=== PATIENT | female | born 1975 | race African-American/Black ===

== ENCOUNTER 2019-03-23 12:31 | Emergency (ER) | payer BC ==
[2019-03-23] MEDS ORDERED: ONDANSETRON 4 MG/2 ML VIAL ONE (13:17)
[2019-03-23] MEDS ORDERED: NA CHLORIDE 0.9% 1,000 ML ONE (13:17)
[2019-03-23] MEDS ORDERED: MORPHINE 4 MG/ML SYR ONE (13:17)
[2019-03-23 13:27] LABS: Urine Blood NEGATIVE (NEG); Urine Glucose NEGATIVE (NEG); Urine Protein NEGATIVE (NEG); Urine pH 6.5 (5.0-7.0)
[2019-03-23 13:44] LABS: Urine Bacteria <20 /HPF (<20); Urine Culture Reflex Order NOT NEEDED; Urine RBC NONE SEEN /HPF (NONE SEEN)
[2019-03-23 13:58] LABS: Absolute Lymphocytes (CBC) 2.7 K/uL (0.7-4.9); Basophils % 0.8 % (0-1.3); Hematocrit 40.2 % (36.0-45.0); Lymphocytes % 38.3 % (15.3-44.8); MPV 7.7 fL (7.6-11.3); RBC Red Blood Cell Count 4.54 M/uL (3.86-4.86)
[2019-03-23 14:15] LABS: ALT/SGPT 20 U/L (12-78); AST/SGOT 12 U/L (15-37); Albumin 3.8 g/dL (3.4-5.0); Alkaline Phosphatase 93 U/L (45-117); BUN Blood Urea Nitrogen 9 mg/dL (7-18); Bicarbonate 23 mmol/L (21-32); Bilirubin Direct 0.1 mg/dL (0-0.2); Bilirubin Total 0.4 mg/dL (0.2-1.0); Glucose Level 78 mg/dL (74-106); Lipase 134 U/L (73-393); Potassium 3.7 mmol/L (3.5-5.1); Sodium Level 138 mmol/L (136-145)
--- NOTE | 2019-03-23 15:14 | RAD REPORT ---
EXAM DESCRIPTION: CT - Abdomen Pelvis W Contrast - 03/23/2019 3:02 pm CLINICAL HISTORY: ABD PAIN COMPARISON: No comparisons TECHNIQUE: Biphasic, helical CT imaging of the abdomen and pelvis was performed following 100 ml non -ionic IV contrast. No oral contrast given. All CT scans are performed using dose optimization technique as appropriate and may include automated exposure control or mA/KV adjustment according to patient size. FINDINGS: No suspicious findings in the lung bases. The liver, spleen, and pancreas show no suspicious findings. Punctate gallstones seen. Additional gal lstones could be occult. No wall thickening or pericholecystic fluid. No biliary tree abnormality. Symmetric renal function is seen with no hydronephrosis or suspicious renal mass. No pyelonephritis o r acute parenchymal process. No bladder abnormalities. No adrenal abnormalities. Uterus and ovaries s how no suspicious findings. No dilated bowel loops. No appendicitis findings. Fluid filled nondilated small bowel loops are prese nt. No free air or pneumatosis. Physiologic quantity of free fluid in the cul de sac. No hernia, ma ss or bulky lymphadenopathy. No suspicious bony findings. IMPRESSION: No appendicitis, obstruction, free air or other surgically emergent finding. Fluid-filled small bowel loops indicate a nonspecific enteritis. 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 Patient has cholelithiasis but no findings for active gallbladder or biliary tree process.
--- NOTE | 2019-03-23 15:25 | ER ---
Nurse's Notes [facility] Name: Dee Logan Age: 43 yrs Sex: Female : 1975 Arrival Date: 03/23/2019 Time: 12:35 Bed 8 Private MD: Diagnosis: Cholelithiasis Presentation: 03/23 12:38 Presenting complaint: Patient states: Diffuse abdominal pain x 1 week, diarrhea started jl7 yesterday, reports lower back pain started yesterday. Transition of care: patient was not received from another setting of care. Onset of symptoms was March 18, 2019. Risk Assessment: Do you want to hurt yourself or someone else? Patient reports no desire to harm self or others. Initial Sepsis Screen: Does the patient meet any 2 criteria? No. Patient's initial sepsis screen is negative. Does the patient have a suspected source of infection? No. Patient's initial sepsis screen is negative. Care prior to arrival: None. 12:38 Method Of Arrival: Ambulatory [facility] 12:38 Acuity: LYNN 3 jl7 Triage Assessment: 12:45 General: Appears in no apparent distress. uncomfortable, Behavior is calm, cooperative, jl7 appropriate for age. Pain: Complains of pain in abdomen diffusely Pain currently is 6 out of 10 on a pain scale. GI: Reports diarrhea, Patient currently denies nausea, vomiting. 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 - Social history:: Smoking status: Patient uses tobacco products, 4 cigarettes/day. - Ebola Screening: : No symptoms or risks identified at this time. Screenin:50 Abuse screen: Denies threats or abuse. Nutritional screening: No deficits noted. tw2 Tuberculosis screening: No symptoms or risk factors identified. Fall Risk None identified. Assessment: 13:00 General: Appears in no apparent distress. comfortable, Behavior is calm, cooperative, ca1 appropriate for age. Pain: Complains of pain in abdomen and abdomen diffusely Pain radiates to back Pain currently is 7 out of 10 on a pain scale. Quality of pain is described as crampy, Pain began a week ago Is intermittent. Neuro: Level of Consciousness is awake, alert, obeys commands, Oriented to person, place, time, situation, Appropriate for age. Cardiovascular: Heart tones S1 S2 present Capillary refill < 3 seconds Patient's skin is warm and dry. Respiratory: Airway is patent Respiratory effort is even, unlabored, Respiratory pattern is regular, symmetrical, Breath sounds are clear bilaterally. GI: Abdomen is round non-distended, Bowel sounds present X 4 quads. Abd is soft X 4 quads Abdomen is tender to palpation in right upper quadrant and left upper quadrant. : No deficits noted. No signs and/or symptoms were reported regarding the genitourinary system. EENT: No deficits noted. No signs and/or symptoms were reported regarding the EENT system. Derm: Skin is intact, is healthy with good turgor, Skin is pink, warm \T\ dry. Musculoskeletal: Circulation, motion, and sensation intact. Capillary refill < 3 seconds, Range of motion: intact in all extremities. 14:12 Reassessment: Patient appears in no apparent distress at this time. Patient and/or ca1 family updated on plan of care and expected duration. Pain level reassessed. Patient is alert, oriented x 3, equal unlabored respirations, skin warm/dry/pink. 15:32 Reassessment: Patient appears in no apparent distress at this time. Patient is alert, ca1 oriented x 3, equal unlabored respirations, skin warm/dry/pink. Vital Signs: 12:45 BP 170 / 104; Pulse 75; Resp 16; Temp 97.6(O); Pulse Ox 100% on R/A; Weight 83.91 kg jl7 (R); Height 5 ft. 5 in. (165.10 cm) (R); Pain 6/10; 14:12 BP 130 / 64; Pulse 81; Resp 17 S; Pulse Ox 99% on R/A; ca1 15:32 BP 170 / 92; Pulse 61; Resp 17 S; Pulse Ox 100% on R/A; ca1 12:45 Body Mass Index 30.79 (83.91 kg, 165.10 cm) jl7 ED Course: 12:35 Patient arrived in ED. rg4 12:40 Triage completed. jl7 12:45 Arm band placed on right wrist. jl7 12:50 Haleigh Low, RN is Primary Nurse. tw2 12:50 Bed in low position. Call light in reach. tw2 12:51 Amilcar Taveras, VIJAYA is PHCP. pm1 12:51 Home Maldonado MD is Attending Physician. pm1 13:00 Pulse ox on. NIBP on. Warm blanket given. ca1 13:12 Radiology exam delayed due to lab results not completed at this time. (BUN/Creatinine) bq test not completed at this time. 13:52 No provider procedures requiring assistance completed. Initial lab(s) drawn, by me, ca1 sent to lab. Inserted saline lock: 22 gauge in left antecubital area, using aseptic technique. Blood collected. 15:04 CT Abd/Pelvis - IV Contrast Only In Process Unspecified. EDMS 15:24 Blair Norris MD is Referral Physician. pm1 15:47 IV discontinued, intact, bleeding controlled, No redness/swelling at site. Pressure ca1 dressing applied. Administered Medications: 14:25 Drug: NS 0.9% 1000 ml Route: IV; Rate: 1000 ml; Site: left antecubital; jl7 15:30 Follow up: Response: No adverse reaction ca1 15:49 Follow up: IV Status: Completed infusion; IV Intake: 1000ml ca1 14:26 Drug: Zofran 4 mg Route: IVP; Site: left antecubital; 7 15:30 Follow up: Response: No adverse reaction; Nausea is decreased ca1 14:28 Drug: morphine 4 mg Route: IVP; Site: left antecubital; jl7 15:30 Follow up: Response: No adverse reaction; Pain is decreased; RASS: Alert and Calm (0) ca1 Intake: 15:49 IV: 1000ml; Total: 1000ml. ca1 Outcome: 15:24 Discharge ordered by . pm1 15:47 Discharged to home ambulatory, with family. ca1 15:47 Condition: stable 15:47 Discharge instructions given to patient, Instructed on discharge instructions, follow up and referral plans. medication usage, Demonstrated understanding of instructions, follow-up care, medications, Prescriptions given X 3. 15:48 Patient left the ED. ca1 Signatures: Dispatcher [employer] EDMS Jory Sawant Patrick, VIJAYA DRUG ROOM OPERATOR pm1 Haleigh Low RN RN tw2 Silvia Enamorado rg4 Hoang Sanz, RN RN jl7 Brie Kimbrough RN RN ca1
--- NOTE | 2019-03-23 15:25 | EDPHYS ---
Physician Documentation [facility] Name: Dee Logan Age: 43 yrs Sex: Female : 1975 Arrival Date: 03/23/2019 Time: 12:35 Bed 8 Private MD: ED Physician Home Maldonado HPI: 03/23 13:00 This 43 yrs old Black Female presents to ER via Ambulatory with complaints of Diarrhea, pm1 Abdominal Pain. 13:00 The patient presents with abdominal pain in the epigastric area. Onset: The pm1 symptoms/episode began/occurred 1 week(s) ago. The symptoms do not radiate. Associated signs and symptoms: Pertinent positives: Diarrhea onset yesterday, Pertinent negatives: constipation, dysuria, fever, nausea, vomiting. The symptoms are described as sharp. Modifying factors: The symptoms are alleviated by nothing, the symptoms are aggravated by Certain foods. Severity of pain: in the emergency department the pain has improved. The patient has not experienced similar symptoms in the past. The patient has not recently seen a physician. 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 - Social history:: Smoking status: Patient uses tobacco products, 4 cigarettes/day. - Ebola Screening: : No symptoms or risks identified at this time. ROS: 13:00 Constitutional: Negative for fever, chills, and weight loss, Eyes: Negative for injury, pm1 pain, redness, and discharge, ENT: Negative for injury, pain, and discharge, Neck: Negative for injury, pain, and swelling, Cardiovascular: Negative for chest pain, palpitations, and edema, Respiratory: Negative for shortness of breath, cough, wheezing, and pleuritic chest pain. 13:00 Back: Negative for injury and pain, : Negative for injury, bleeding, discharge, and swelling, MS/Extremity: Negative for injury and deformity, Skin: Negative for injury, rash, and discoloration, Neuro: Negative for headache, weakness, numbness, tingling, and seizure. 13:00 Abdomen/GI: Positive for abdominal pain, diarrhea, Negative for nausea and vomiting, constipation. Exam: 13:00 Constitutional: This is a well developed, well nourished patient who is awake, alert, pm1 and in no acute distress. Head/Face: Normocephalic, atraumatic. Neck: Trachea midline, no thyromegaly or masses palpated, and no cervical lymphadenopathy. Supple, full range of motion without nuchal rigidity, or vertebral point tenderness. No Meningismus. Chest/axilla: Normal chest wall appearance and motion. Nontender with no deformity. No lesions are appreciated. Cardiovascular: Regular rate and rhythm with a normal S1 and S2. No gallops, murmurs, or rubs. Normal PMI, no JVD. No pulse deficits. Respiratory: Lungs have equal breath sounds bilaterally, clear to auscultation and percussion. No rales, rhonchi or wheezes noted. No increased work of breathing, no retractions or nasal flaring. 13:00 Back: No spinal tenderness. No costovertebral tenderness. Full range of motion. Skin: Warm, dry with normal turgor. Normal color with no rashes, no lesions, and no evidence of cellulitis. MS/ Extremity: Pulses equal, no cyanosis. Neurovascular intact. Full, normal range of motion. 13:00 Abdomen/GI: Inspection: obese Bowel sounds: normal, Palpation: abdomen is soft and non-tender, in all quadrants, mass, is not appreciated, rebound tenderness, is not appreciated. 13:00 Neuro: Orientation: is normal, Motor: is normal, moves all fours, Sensation: is normal, no obvious gross deficits. Vital Signs: 12:45 BP 170 / 104; Pulse 75; Resp 16; Temp 97.6(O); Pulse Ox 100% on R/A; Weight 83.91 kg jl7 (R); Height 5 ft. 5 in. (165.10 cm) (R); Pain 6/10; 14:12 BP 130 / 64; Pulse 81; Resp 17 S; Pulse Ox 99% on R/A; ca1 15:32 BP 170 / 92; Pulse 61; Resp 17 S; Pulse Ox 100% on R/A; ca1 12:45 Body Mass Index 30.79 (83.91 kg, 165.10 cm) jl7 MDM: 12:51 Patient medically screened. pm1 15:23 Data reviewed: vital signs. Data interpreted: Pulse oximetry: on room air is 99 %. pm1 Interpretation: normal. 15:23 Counseling: I had a detailed discussion with the patient and/or guardian regarding: the pm1 historical points, exam findings, and any diagnostic results supporting the discharge/admit diagnosis, lab results, radiology results, the need for outpatient follow up, a general surgeon, to return to the emergency department if symptoms worsen or persist or if there are any questions or concerns that arise at home. 03/23 13:05 Order name: Urine Microscopic Only; Complete Time: 13:46 pm1 03/23 13:05 Order name: Basic Metabolic Panel; Complete Time: 14:19 pm03/23 13:05 Order name: CBC with Diff; Complete Time: 14:19 pm03/23 13:05 Order name: Creatinine for Radiology; Complete Time: 14:19 pm03/23 13:05 Order name: Hepatic Function; Complete Time: 14:19 pm03/23 13:05 Order name: Lipase; Complete Time: 14:19 pm1 03/23 13:00 Order name: Urine Dipstick-Ancillary (obtain specimen); Complete Time: 13:00 tw2 03/23 13:05 Order name: Urine Test (obtain specimen); Complete Time: 13:52 pm1 03/23 13:05 Order name: CT Abd/Pelvis - IV Contrast Only; Complete Time: 15:21 pm03/23 13:09 Order name: Urine Dipstick--Ancillary (enter results); Complete Time: 13:30 ms 03/23 13:09 Order name: Urine --Ancillary (enter results); Complete Time: 13:30 ms 03/23 13:05 Order name: IV Saline Lock; Complete Time: 13:52 pm03/23 13:05 Order name: Labs collected and sent; Complete Time: 13:52 pm1 Administered Medications: 14:25 Drug: NS 0.9% 1000 ml Route: IV; Rate: 1000 ml; Site: left antecubital; 7 15:30 Follow up: Response: No adverse reaction ca1 15:49 Follow up: IV Status: Completed infusion; IV Intake: 1000ml ca1 14:26 Drug: Zofran 4 mg Route: IVP; Site: left antecubital; jl7 15:30 Follow up: Response: No adverse reaction; Nausea is decreased ca1 14:28 Drug: morphine 4 mg Route: IVP; Site: left antecubital; jl7 15:30 Follow up: Response: No adverse reaction; Pain is decreased; RASS: Alert and Calm (0) ca1 Disposition: 03/23/19 15:24 Discharged to Home. Impression: Cholelithiasis. - Condition is Stable. - Discharge Instructions: Cholelithiasis. - Prescriptions for Bentyl 20 mg Oral Tablet - take 1 tablet by ORAL route every 6 hours As needed; 20 tablet. Tylenol- Codeine #3 300-30 mg Oral Tablet - take 2 tablets by ORAL route every 6 hours As needed; 20 tablet. Zofran 4 mg Oral Tablet - take 1 tablet by ORAL route every 8 hours As needed; 20 tablet. - Medication Reconciliation Form, Thank You Letter, Antibiotic Education, Prescription Opioid Use, Work release form form. - Follow up: Emergency Department; When: As needed; Reason: Worsening of condition. Follow up: Private Physician; When: 2 - 3 days; Reason: Recheck today's complaints, Continuance of care, Re-evaluation by your physician. Follow up: Blair Norris MD; When: 2 - 3 days; Reason: Recheck today's complaints, Continuance of care, Re-evaluation by your physician. - Problem is new. - Symptoms have improved. Addendum: 03/25/2019 09:24 Co-signature as Attending Physician, Home Maldonado MD I agree with the assessment and c caicedo plan of care. Signatures: Dispatcher [employer] Home Rodriguez MD MD cha Marinas, Patrick, VIJAYA LEAD GENERATION SPECIALIST pm1 Haleigh Low RN RN tw2 Hoang Sanz RN RN jl7 Brie Kimbrough RN RN ca1 Corrections: (The following items were deleted from the chart) 03/23 15:25 15:24 03/23/2019 15:24 Discharged to Home. Impression: Cholelithiasis. Condition is pm1 Stable. Forms are Work release form, Medication Reconciliation Form, Thank You Letter, Antibiotic Education, Prescription Opioid Use. Follow up: Emergency Department; When: As needed; Reason: Worsening of condition. Follow up: Private Physician; When: 2 - 3 days; Reason: Recheck today's complaints, Continuance of care, Re-evaluation by your physician. Problem is new. Symptoms have improved. pm1 15:48 15:25 03/23/2019 15:24 Discharged to Home. Impression: Cholelithiasis. Condition is ca1 Stable. Discharge Instructions: Cholelithiasis. Prescriptions for Bentyl 20 mg Oral Tablet - take 1 tablet by ORAL route every 6 hours As needed; 20 tablet, Tylenol-Codeine #3 300-30 mg Oral Tablet - take 2 tablet by ORAL route every 6 hours As needed; 30 tablet, Zofran 4 mg Oral Tablet - take 1 tablet by ORAL route every 12 hours As needed; 20 tablet. and Forms are Work release form, Medication Reconciliation Form, Thank You Letter, Antibiotic Education, Prescription Opioid Use. Follow up: Emergency Department; When: As needed; Reason: Worsening of condition. Follow up: Private Physician; When: 2 - 3 days; Reason: Recheck today's complaints, Continuance of care, Re-evaluation by your physician. Follow up: Blair Norris; When: 2 - 3 days; Reason: Recheck today's complaints, Continuance of care, Re-evaluation by your physician. Problem is new. Symptoms have improved. pm1
[2019-03-23 16:31] VITALS: TEMP 97.6
[2019-03-23 16:33] VITALS: BP 170/92; O2SAT 100
== END 2019-03-23 15:48 | disposition home or self-care (01) ==
LOC: ER 12:31
DX: K80.20 Calculus of gallbladder without cholecystitis without obstruction (principal); I10 Essential (primary) hypertension
CPT/HCPCS: 96361; 85025; 80048; 36415; 81025; 80076; 83690; 74177; 96375; 96374; 99284; Q9967; J7030; J2405; 81003; 81015

== ENCOUNTER 2019-03-25 08:34 | Emergency (ER) | payer BC ==
[2019-03-25 09:52] LABS: Absolute Lymphocytes (CBC) 2.5 K/uL (0.7-4.9); Basophils % 0.6 % (0-1.3); Hematocrit 45.2 % (36.0-45.0); Lymphocytes % 35.2 % (15.3-44.8); MPV 7.9 fL (7.6-11.3); RBC Red Blood Cell Count 5.08 M/uL (3.86-4.86)
[2019-03-25 10:07] LABS: Albumin 4.4 g/dL (3.4-5.0); Bilirubin Direct 0.1 mg/dL (0-0.2); Bilirubin Total 0.5 mg/dL (0.2-1.0); Potassium 3.6 mmol/L (3.5-5.1); Protein, Total 9.1 g/dL (6.4-8.2)
--- NOTE | 2019-03-25 10:08 | RAD REPORT ---
EXAM DESCRIPTION: US - Abdomen Exam Limited - 03/25/2019 9:50 am CLINICAL HISTORY: abdominal pain COMPARISON: No comparisons FINDINGS: The gallbladder demonstrates multiple shadowing gallstones. No pericholecystic fluid or ga llbladder wall thickening. The common bile duct is normal measuring 2 mm. The liver demonstrates no findings of intrahepatic biliary dilatation. IMPRESSION: Cholelithiasis.
[2019-03-25 10:34] LABS: Urine Blood TRACE (NEG); Urine Glucose NEGATIVE (NEG); Urine Protein NEGATIVE (NEG); Urine Specific Gravity 1.015 (1.005-1.030)
[2019-03-25 11:45] VITALS: TEMP 97.8; O2SAT 99
[2019-03-25 11:48] VITALS: BP 160/93
--- NOTE | 2019-03-25 12:58 | ER ---
Nurse's Notes [facility] Name: Dee Logan Age: 43 yrs Sex: Female : 1975 Arrival Date: 03/25/2019 Time: 08:35 Bed 8 Private MD: Diagnosis: Cholelithiasis Presentation: 03/25 08:46 Presenting complaint: Patient states: epigastric pain radiating to back. Pt also aa5 reports nausea. Pt states "I was here on Monday and they told me I have gallstones". 08:46 Acuity: LYNN 3 aa5 08:58 Transition of care: patient was not received from another setting of care. Onset of aa5 symptoms was March 2019. Risk Assessment: Do you want to hurt yourself or someone else? Patient reports no desire to harm self or others. Initial Sepsis Screen: Does the patient meet any 2 criteria? No. Patient's initial sepsis screen is negative. Does the patient have a suspected source of infection? No. Patient's initial sepsis screen is negative. Care prior to arrival: None. 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 - Social history:: Smoking status: Patient/guardian denies using tobacco. - Ebola Screening: : No symptoms or risks identified at this time. Screenin:25 Abuse screen: Denies threats or abuse. Denies injuries from another. Nutritional hb screening: No deficits noted. Tuberculosis screening: No symptoms or risk factors identified. Fall Risk None identified. Assessment: 09:25 General: Appears in no apparent distress. Behavior is calm, cooperative. Pain: Pain hb currently is 7 out of 10 on a pain scale. Neuro: Level of Consciousness is awake, alert, obeys commands, Oriented to person, place, time, situation. Cardiovascular: Capillary refill < 3 seconds Patient's skin is warm and dry. Respiratory: Airway is patent Respiratory effort is even, unlabored, Respiratory pattern is regular, symmetrical, Breath sounds are clear bilaterally. GI: Abdomen is non-distended, Bowel sounds present X 4 quads. Abd is soft X 4 quads tender diffusely. : No signs and/or symptoms were reported regarding the genitourinary system. EENT: No signs and/or symptoms were reported regarding the EENT system. Derm: Skin is pink, warm \\T\\ dry. Musculoskeletal: No signs and/or symptoms reported regarding the musculoskeletal system. Vital Signs: 08:47 BP 183 / 102; Pulse 72; Resp 16 S; Temp 97.8(TE); Pulse Ox 99% on R/A; Weight 83.91 kg aa5 (R); Height 5 ft. 5 in. (165.10 cm) (R); Pain 7/10; 10:00 BP 167 / 86; Pulse 59; Resp 16; Pulse Ox 99% ; sv 11:00 BP 160 / 93; Pulse 68; Resp 14; Pulse Ox 99% on R/A; hb 08:47 Body Mass Index 30.79 (83.91 kg, 165.10 cm) aa5 ED Course: 08:35 Patient arrived in ED. as 08:58 Arm band placed on Patient placed in an exam room, on a stretcher. aa5 08:59 Cralos Enrique Byrne PA is PHCP. jmm 08:59 Home Maldonado MD is Attending Physician. jmm 09:01 Triage completed. aa5 09:20 Missed attempt(s): 20 gauge in left antecubital area. Bleeding controlled, band aid hb applied, catheter tip intact. 09:22 Inserted saline lock: 22 gauge in left hand, using aseptic technique. Blood collected. hb 09:25 Patient has correct armband on for positive identification. Placed in gown. Bed in low hb position. Call light in reach. Side rails up X 1. 09:49 Amy Byrd, HAYLEY is Primary Nurse. hb 09:51 US Abdomen Limited Sent. hb 09:57 US Abdomen Limited In Process Unspecified. EDMS 11:07 Bowen Shoemaker MD is Referral Physician. jmm 11:36 No provider procedures requiring assistance completed. IV discontinued, intact, sv bleeding controlled, No redness/swelling at site. Pressure dressing applied. Administered Medications: 09:40 Drug: morphine 4 mg Route: IVP; Site: left hand; hb 09:40 Drug: Zofran 4 mg Route: IVP; Site: left hand; hb Outcome: 11:10 Discharge ordered by . steven 11:37 Discharged to home ambulatory, with family. sv 11:37 Condition: stable 11:37 Discharge instructions given to patient, Instructed on discharge instructions, follow up and referral plans. no drinking with medication, no driving heavy equipment, medication usage, avoid fatty/fried foods Demonstrated understanding of instructions, follow-up care, medications, Prescriptions given X 1. 11:37 Patient left the ED. sv Signatures: Dispatcher [employer] Milli Lopez RN RN Carlos Enrique Byrne PA PA jmm Martinez, Amelia as Calderon, Audri, RN RN aa5 Amy Byrd RN RN Corrections: (The following items were deleted from the chart) 09:02 08:58 Presenting complaint: Patient states: epigastric pain radiating to back. Pt also aa5 reports nausea. Pt states "I was here on Monday and they told me I have gallstones" aa5 09: 08:58 Acuity: LYNN 3 aa5 aa5
--- NOTE | 2019-03-25 12:59 | EDPHYS ---
Physician Documentation [facility] Name: Dee Logan Age: 43 yrs Sex: Female : 1975 Arrival Date: 03/25/2019 Time: 08:35 Bed 8 Private MD: ED Physician Home Maldonado HPI: 03/25 09:00 This 43 yrs old Black Female presents to ER via Ambulatory with complaints of jmm Gallbladder. 09:00 The patient presents with abdominal pain in the epigastric area. Onset: The jmm symptoms/episode began/occurred gradually, 1 week(s) ago. The symptoms radiate to right back. 09:00 Associated signs and symptoms: Pertinent negatives: fever. jmm 09:00 The symptoms are described as achy. Modifying factors: The symptoms are alleviated by jmm nothing, the symptoms are aggravated by food. This is a 43 year old female with no chronic medical conditions that presents to the ED with complaints of epigastric abdominal pain. Patient was evaluated in the ED 2 days ago and diagnosed with cholelithiasis. Patient states she continues to have been. Denies fever, vomiting. . DOCUMENTATION SPEC: 08:47 LMP 03/18/2019 aa5 Historical: - Allergies: 08:46 Naproxen; aa5 - Home Meds: 08:46 Methocarbamol Oral [Active]; metoprolol tartrate 50 mg Oral tab [Active]; [place] 5-325 aa5 mg Oral tab [Active]; Truvada 200-300 mg Oral tab [Active]; - PMHx: 08:46 Hepatitis; Herniated disc; Hypertension; aa5 - PSHx: 08:46 stapedectomy right ear; aa5 - Immunization history:: Adult Immunizations up to date. - Social history:: Smoking status: Patient/guardian denies using tobacco. - Ebola Screening: : No symptoms or risks identified at this time. ROS: 09:00 Constitutional: Negative for fever, chills, and weight loss, Cardiovascular: Negative jmm for chest pain, palpitations, and edema, Respiratory: Negative for shortness of breath, cough, wheezing, and pleuritic chest pain. 09:00 Abdomen/GI: Positive for abdominal pain. 09:00 Back: Positive for radiated pain. 09:00 Neuro: Negative for Vital Signs: 08:47 BP 183 / 102; Pulse 72; Resp 16 S; Temp 97.8(TE); Pulse Ox 99% on R/A; Weight 83.91 kg aa5 (R); Height 5 ft. 5 in. (165.10 cm) (R); Pain 7/10; 10:00 BP 167 / 86; Pulse 59; Resp 16; Pulse Ox 99% ; sv 11:00 BP 160 / 93; Pulse 68; Resp 14; Pulse Ox 99% on R/A; hb 08:47 Body Mass Index 30.79 (83.91 kg, 165.10 cm) aa5 MDM: 09:00 Patient medically screened. [facility] 11:06 Data reviewed: vital signs, nurses notes. Counseling: I had a detailed discussion with steven the patient and/or guardian regarding: the historical points, exam findings, and any diagnostic results supporting the discharge/admit diagnosis, lab results, the need for outpatient follow up, to return to the emergency department if symptoms worsen or persist or if there are any questions or concerns that arise at home. ED course: I discussed the patient with Dr. Shoemaker whom will follow up with the patient tomorrow. Patient otherwise given strict return precautions. Patient understood and agrees with the plan of care. . 03/25 09:07 Order name: Basic Metabolic Panel; Complete Time: 10:14 [facility] 03/25 09:07 Order name: CBC with Diff; Complete Time: 09:54 [facility] 03/25 09:07 Order name: Creatinine for Radiology; Complete Time: 10:14 [facility] 03/25 09:07 Order name: Hepatic Function; Complete Time: 10:14 [facility] 03/25 09:07 Order name: Lipase; Complete Time: 10:14 [facility] 03/25 09:55 Order name: Urine Dipstick--Ancillary (enter results); Complete Time: 10:40 03/25 09:07 Order name: IV Saline Lock; Complete Time: 09:49 [facility] 03/25 09:07 Order name: Labs collected and sent; Complete Time: 09:49 [facility] 03/25 09:08 Order name: Urine Dipstick-Ancillary (obtain specimen); Complete Time: 09:49 [facility] 03/25 09:08 Order name: Urine Test (obtain specimen); Complete Time: 09:49 [facility] 03/25 09:28 Order name: US Abdomen Limited; Complete Time: 10:40 [facility] 03/25 09:56 Order name: Urine --Ancillary (enter results); Complete Time: 10:40 bd Administered Medications: 09:40 Drug: morphine 4 mg Route: IVP; Site: left hand; hb 09:40 Drug: Zofran 4 mg Route: IVP; Site: left hand; hb Disposition: 03/26 06:57 Co-signature as Attending Physician, Home Maldonado MD I agree with the assessment and rita plan of care. Disposition: 03/25/19 11:10 Discharged to Home. Impression: Cholelithiasis. - Condition is Stable. - Discharge Instructions: Cholelithiasis. - Prescriptions for Tylenol- Codeine #3 300-30 mg Oral Tablet - take 1 tablet by ORAL route every 6 hours As needed; 20 tablet. - Medication Reconciliation Form, Thank You Letter, Antibiotic Education, Prescription Opioid Use form. - Follow up: Bowen Shoemaker MD; When: 2 - 3 days; Reason: Recheck today's complaints, Continuance of care, Re-evaluation by your physician. Signatures: Dispatcher [employer] Milli Lopez, RN Home Barcenas MD MD cha Mickail, Joel, PRABHA PA [facility] Tierra Dunn, RN HAYLEY aa Amy Byrd RN RN Corrections: (The following items were deleted from the chart) 03/25 11:37 11:10 03/25/2019 11:10 Discharged to Home. Impression: Cholelithiasis. Condition is sv Stable. Forms are Medication Reconciliation Form, Thank You Letter, Antibiotic Education, Prescription Opioid Use. Follow up: Bowen Shoemaker; When: 2 - 3 days; Reason: Recheck today's complaints, Continuance of care, Re-evaluation by your physician. [facility]
== END 2019-03-25 11:37 | disposition home or self-care (01) ==
LOC: ER 08:34
DX: K80.20 Calculus of gallbladder without cholecystitis without obstruction (principal); I10 Essential (primary) hypertension; K75.9 Inflammatory liver disease, unspecified
CPT/HCPCS: 36415; 76705; 80048; 80076; 81003; 81025; 83690; 85025; 96374; 96375; 99284

== ENCOUNTER 2021-04-19 15:50 | Emergency (ER) | payer BC, SELFPAY ==
--- OUTSIDE RECORDS SUMMARY | 2021-04-19 15:53 | XMS REPORT | Continuity of Care Document ---
:1975 Author Organization [facility] t Address [address] [place] [address] Care Team Providers Name Role Phone Yesenia Mcqueen DO Primary Care Physician Rodrigo Attending Clinician Unavailable Katia WILSON Attending Clinician Unavailable EYAL NEIL Attending Clinician Unavailable MARTHA ANNA Attending Clinician Unavailable Will MCQUEEN Attending Clinician Unavailable William CONTRERAS Attending Clinician Unavailable Rodrigo Admitting Clinician Unavailable MARTHA ANNA Admitting Clinician Unavailable Payers Payer Name Policy Type Policy Number Effective Date Expiration Date S ource [facility] NA 2018 00:00:00 Problems This patient has no known problems. Allergies, Adverse Reactions, Alerts Allergy Allergy Status Severity Reaction(s) Onset Inactive Treating Comm ents Source Name Type Date Date Clinician NAPROXEN [employer]UG Active N/V 0 [facility] 03-28 ity of 00:00: [place] [id number] [facility] Social History Social Habit Start Date Stop Date Quantity Comments Source Sex Assigned At [birth year] [facility] 00:00:00 00:00:00 Smoking Status Start Date Stop Date Source Unknown if ever smoked [facility] Medications This patient has no known medications. Procedures This patient has no known procedures. Plan of Care Planned Activity Planned Date Details Comments Source Future Scheduled Test COVID-19 VACCINE (1) [facility] [code = COVID-19 VACCINE (1)] Future Scheduled Test Hepatitis C screening [facility] (procedure) [code = 557775290] Future Scheduled Test Screening for [facility] malignant neoplasm of cervix (procedure) [code = 680608344] Future Scheduled Test INFLUENZA VACCINE [facility] [code = INFLUENZA VACCINE] Encounters Start End Encounter Admission Attending Care Care Encounter Source Date/Time Date/Time Type Type Clinicians Facility Department ID 2020-11-28 2020-11-28 Outpatient WANDA Reyes [id number] [facility] 08:00:00 08:00:00 [facility]m [id number] [facility] [place] 2020-11-28 2020-11-28 Outpatient WANDA Reyes [id number] [facility] 08:00:00 08:00:00 Vishalakshm 40 [facility] [place] 2020-06-08 2020-06-08 [facility] [id number] [facility] 12:30:00 12:30:00 TIM [id number] [facility] 2020-06-08 2020-06-08 Outpatient R KATIE, [facility] [id number] [facility] 12:30:00 12:30:00 TIM [facility] 2020-05-18 2020-05-18 Outpatient [facility] [id number] [facility] 12:30:00 12:30:00 [id number] [facility] 2020-05-18 2020-05-18 [facility] [id number] [facility] 12:30:00 12:30:00 TIM [facility] 2019-10-26 2019-10-26 Emergency E MIRELLA NEIL FB [facility] [id number] FB 11:04:00 16:05:00 2019-10-14 2019-10-14 Outpatient SHOSHANA MHHARITHA DELON [id number] [facility] 07:54:00 11:25:00 SHINIL 2019-10-11 2019-10-11 Outpatient WANDA Reyes [id number] [facility] 12:00:00 12:00:00 Vishalakshm [id number] [facility] [place] 2019-04-22 2019-04-22 Emergency NEHEMIAH GUZMAN [facility] [id number] [facility] 12:30:00 16:37:00 2019-03-30 2019-03-30 Emergency E DIANE, [facility] [id number] [facility] 10:16:00 16:12:00 NAIF Results This patient has no known results.
[2021-04-19] MEDS ORDERED: ONDANSETRON 4 MG/2 ML VIAL ONE (17:10)
[2021-04-19] MEDS ORDERED: MORPHINE 4 MG/ML SYR ONE (17:10)
[2021-04-19 17:13] LABS: Absolute Lymphocytes (CBC) 4.6 K/uL (0.7-4.9); Hematocrit 39.8 % (36.0-45.0); Lymphocytes % 37.2 % (15.3-44.8); MPV 7.6 fL (7.6-11.3); RBC Red Blood Cell Count 4.78 M/uL (3.86-4.86)
[2021-04-19 17:25] LABS: Protime INR 0.98
[2021-04-19 17:37] LABS: ALT/SGPT 25 U/L (12-78); AST/SGOT 10 U/L (15-37); Albumin 3.7 g/dL (3.4-5.0); Alkaline Phosphatase 97 U/L (45-117); BUN Blood Urea Nitrogen 16 mg/dL (7-18); Bicarbonate 23 mmol/L (21-32); Bilirubin Direct < 0.1 mg/dL (0-0.2); Bilirubin Total 0.3 mg/dL (0.2-1.0); Glucose Level 106 mg/dL (74-106); NT PRO-BNP 178 pg/mL (<125); Potassium 3.9 mmol/L (3.5-5.1); Protein, Total 8.3 g/dL (6.4-8.2); Sodium Level 139 mmol/L (136-145)
--- NOTE | 2021-04-19 17:37 | RAD REPORT ---
EXAM DESCRIPTION: RAD - Chest Single View - 04/19/2021 5:16 pm CLINICAL HISTORY: CHEST PAIN COMPARISON: Chest Pa And Lat (2 Views) dated 03/28/2019 FINDINGS: Lines: None. Lungs: No evidence of edema or pneumonia. Linear scarring versus subsegmental atelectasis in the righ t mid lung. Pleural: No significant pleural effusions or pneumothorax. Cardiac: The heart size is within normal limits. Bones: No acute fractures. Other: IMPRESSION: No acute cardiopulmonary disease.
[2021-04-19] MEDS ORDERED: DIAZEPAM 5 MG TABLET ONE (19:25)
--- NOTE | 2021-04-19 20:27 | ER ---
Nurse's Notes [facility] Name: Dee Logan Age: 45 yrs Sex: Female : 1975 Arrival Date: 04/19/2021 Time: 15:51 Bed 5 Private MD: Diagnosis: Chest pain, unspecified;Essential (primary) hypertension Presentation: 04/19 16:04 Chief complaint: Patient states: states chest pain off and on x 3 days, no n/v or sob. [facility] does have a hx of htn. Coronavirus screen: Vaccine status: Patient reports receiving the 2nd dose of the covid vaccine. Ebola Screen: Patient denies exposure to infectious person. Patient denies travel to an Ebola-affected area in the 21 days before illness onset. No symptoms or risks identified at this time. Initial Sepsis Screen: Does the patient meet any 2 criteria? No. Patient's initial sepsis screen is negative. Does the patient have a suspected source of infection? No. Patient's initial sepsis screen is negative. Risk Assessment: Do you want to hurt yourself or someone else? Patient reports no desire to harm self or others. 16:04 Method Of Arrival: Ambulatory [facility] 16:04 Acuity: LYNN 2 [facility] 16:56 Onset of symptoms was April 19, 2021. Triage Assessment: 16:09 General: Appears in no apparent distress. comfortable, well groomed, well developed, [facility] Behavior is calm, cooperative. Pain: Complains of pain in anterior aspect of left upper chest. Cardiovascular: Reports chest pain, fatigue. Historical: - Allergies: 16:08 Naproxen; [facility] - Home Meds: 16:08 Methocarbamol Oral [Active]; metoprolol tartrate 50 mg Oral tab [Active]; [place] 5-325 jh6 mg Oral tab [Active]; Vemlidy 25 mg oral tab [Active]; - PMHx: 16:08 Hepatitis; Herniated disc; Hypertension; [facility] - Immunization history:: Adult Immunizations up to date, Client reports receiving the 2nd dose of the Covid vaccine. - Social history:: Smoking status: Patient reports the use of cigarette tobacco products. Screenin:56 Abuse screen: Denies threats or abuse. Denies injuries from another. Nutritional ph screening: No deficits noted. Tuberculosis screening: No symptoms or risk factors identified. Fall Risk None identified. Assessment: 17:20 General: Appears in no apparent distress. comfortable, well groomed, Behavior is ph cooperative, appropriate for age, anxious. 17:20 Pain: Pain: Complains of pain in anterior aspect of left upper chest Pain does not ph radiate. Pain began gradually. 17:20 Neuro: Level of Consciousness is awake, alert, obeys commands, Oriented to person, ph place, time, situation, Reports dizziness. Cardiovascular: Reports chest pain, lightheadedness, Denies nausea, shortness of breath, vomiting, Capillary refill < 3 seconds in bilateral fingers Patient's skin is warm and dry. Respiratory: Airway is patent Respiratory effort is even, unlabored, Respiratory pattern is regular, symmetrical. GI: No signs and/or symptoms were reported involving the gastrointestinal system. Derm: Skin is intact, is healthy with good turgor, Skin is pink, warm \T\ dry. Musculoskeletal: Circulation, motion, and sensation intact. Range of motion: intact in all extremities. 18:30 Reassessment: Patient appears in no apparent distress at this time. Patient and/or ph family updated on plan of care and expected duration. Pain level reassessed. Patient is alert, oriented x 3, equal unlabored respirations, skin warm/dry/pink. 19:34 Reassessment: Patient appears in no apparent distress at this time. No changes from lg3 previously documented assessment. Patient and/or family updated on plan of care and expected duration. Pain level reassessed. Patient is alert, oriented x 3, equal unlabored respirations, skin warm/dry/pink. Neuro: Level of Consciousness is awake, alert, obeys commands, Oriented to person, place, time, situation. Cardiovascular: Capillary refill < 3 seconds JVD is absent Patient's skin is warm and dry. Respiratory: Airway is patent Trachea midline Respiratory effort is even, unlabored, Respiratory pattern is regular, symmetrical. 20:28 Reassessment: No changes from previously documented assessment. 5 Vital Signs: 16:04 BP 200 / 102; Pulse 64; Resp 17; Temp 98.6; Pulse Ox 99% ; Weight 81.65 kg; Height 5 jh6 ft. 5 in. (165.10 cm); Pain 2/10; 16:55 BP 191 / 89; Pulse 59; Resp 18; Pulse Ox 98% on R/A; ph 17:47 BP 186 / 89; Pulse 56; Resp 18; Pulse Ox 98% on R/A; ph 19:07 BP 184 / 91; Pulse 57; Resp 18; Pulse Ox 97% on R/A; ph 20:27 BP 179 / 92; Pulse 53; Resp 20; Pulse Ox 99% on R/A; sm5 16:04 Body Mass Index 29.95 (81.65 kg, 165.10 cm) [facility] ED Course: 15:51 Patient arrived in ED. am2 16:08 Triage completed. [facility] 16:13 Amilcar Taveras, VIJAYA is PHCP. pm1 16:13 Jorge Kang MD is Attending Physician. pm1 16:21 EKG done, by ED staff, reviewed by Amilcar Taveras NP. 5 16:22 Patient has correct armband on for positive identification. Placed in gown. Bed in low mh5 position. Call light in reach. Side rails up X 1. Warm blanket given. clinical veterinarian on. Pulse ox on. NIBP on. 16:32 Jane Cote, RN is Primary Nurse. ph 16:52 Initial lab(s) drawn, by pr, sent to lab. Inserted saline lock: 20 gauge in left mh5 forearm, using aseptic technique. Blood collected. 16:53 Basic Metabolic Panel Sent. mh5 16:53 CBC with Diff Sent. mh5 16:53 LFT's Sent. mh5 16:53 Magnesium Sent. mh5 16:53 NT PRO-BNP Sent. mh5 16:53 PT-INR Sent. 5 16:53 Troponin HS Sent. mh5 16:56 Patient maintains SpO2 saturation greater than 95% on room air. ph 16:56 Arm band placed on Patient placed in an exam room. ph 17:16 XRAY Chest (1 view) In Process Unspecified. EDMS 20:35 No provider procedures requiring assistance completed. IV discontinued, intact, lg3 bleeding controlled, No redness/swelling at site. Pressure dressing applied. Administered Medications: 17:15 Drug: Zofran (Ondansetron) 4 mg Route: IVP; Site: left wrist; ph 19:11 Follow up: Response: No adverse reaction ph 17:18 Drug: morphine 4 mg Route: IVP; Site: left wrist; ph 19:11 Follow up: Response: No adverse reaction ph 19:34 Drug: Valium (diazepam) 5 mg Route: PO; lg3 19:34 Follow up: Response: No adverse reaction lg3 Outcome: 20:27 Discharge ordered by . pm1 20:35 Discharged to home ambulatory. lg3 20:35 Condition: good 20:35 Discharge instructions given to patient, Instructed on discharge instructions, no drinking with medication, medication usage, Prescriptions given X 2. 20:36 Patient left the ED. lg3 Signatures: Dispatcher [employer] EDJane Olea RN RN ph Amilcar Taveras NP PRODUCT DEVELOPMENT TECHNICIAN pm1 Kathryn Shoemaker [facility] Lisa Castro 2 Amarilis Gomes RN RN lg3 Nesha Callahan RN RN jh6 Janee Mckeon RN RN sm5 Corrections: (The following items were deleted from the chart) 17:49 17:47 Pain: ph ph
--- NOTE | 2021-04-19 20:28 | EDPHYS ---
Physician Documentation [facility] Name: Dee Logan Age: 45 yrs Sex: Female : 1975 Arrival Date: 04/19/2021 Time: 15:51 Bed 5 Private MD: ED Physician Jorge Kang HPI: 04/19 16:29 This 45 yrs old Black Female presents to ER via Ambulatory with complaints of Chest pm1 Pain, Headache, Dizziness, Fatigue. 16:29 The patient or guardian reports chest pain that is located primarily in the mid-sternal pm1 area. Onset: 3 day(s) ago. The pain does not radiate. Associated signs and symptoms: Pertinent negatives: abdominal pain, cough, diaphoresis, dizziness, nausea, palpitations, shortness of breath, vomiting. The chest pain is described as tightness. Duration: The patient or guardian reports multiple episodes. Modifying factors: The symptoms are alleviated by stretching her chest and rolling bother her shoulders. the symptoms are aggravated by emotionally stressful situations, occurs at night as she is unwinding from work. Severity of pain: in the emergency department the pain is unchanged. The patient has not experienced similar symptoms in the past. The patient has not recently seen a physician, has an appointment scheduled, next week for management of blood pressure. Historical: - Allergies: 16:08 Naproxen; jh6 - Home Meds: 16:08 Methocarbamol Oral [Active]; metoprolol tartrate 50 mg Oral tab [Active]; [place] 5-325 jh6 mg Oral tab [Active]; Vemlidy 25 mg oral tab [Active]; - PMHx: 16:08 Hepatitis; Herniated disc; Hypertension; jh6 - Immunization history:: Adult Immunizations up to date, Client reports receiving the 2nd dose of the Covid vaccine. - Social history:: Smoking status: Patient reports the use of cigarette tobacco products. ROS: 16:29 Constitutional: Negative for fever, chills, and weight loss. pm1 16:29 Respiratory: Negative for shortness of breath, cough, wheezing, and pleuritic chest pain, Abdomen/GI: Negative for abdominal pain, nausea, vomiting, diarrhea, and constipation, Back: Negative for injury and pain, MS/Extremity: Negative for injury and deformity, Skin: Negative for injury, rash, and discoloration. 16:29 Cardiovascular: Positive for chest pain, Negative for edema, orthopnea, palpitations. 16:29 Neuro: Positive for dizziness, headache, Negative for numbness, tingling, weakness. 16:29 All other systems are negative. Exam: 16:29 Constitutional: This is a well developed, well nourished patient who is awake, alert, pm1 and in no acute distress. Head/Face: Normocephalic, atraumatic. 16:29 Back: No spinal tenderness. No costovertebral tenderness. Full range of motion. Skin: Warm, dry with normal turgor. Normal color with no rashes, no lesions, and no evidence of cellulitis. MS/ Extremity: Pulses equal, no cyanosis. Neurovascular intact. Full, normal range of motion. 16:29 Eyes: Exam is negative for acute changes, Periorbital structures: no acute changes, Extraocular movements: no acute changes, Conjunctiva: no acute changes, no injection. 16:29 ENT: Exam is negative for acute changes, Mouth: no acute changes, Lips: normal, moist, Oral mucosa: normal, pink and intact, moist. 16:29 Chest/axilla: Inspection: normal, Palpation: tenderness, of the mid-sternal area, that totally reproduces the patient's complaints. 16:29 Cardiovascular: Exam negative for acute changes, Rate: normal, Rhythm: regular, Pulses: no pulse deficits are appreciated, Heart sounds: normal, normal S1and S2. 16:29 Respiratory: Exam negative for acute changes, the patient does not display signs of respiratory distress, Respirations: normal, Breath sounds: are clear throughout. 16:29 Abdomen/GI: Inspection: abdomen appears normal, Palpation: abdomen is soft and non-tender, in all quadrants. 16:29 Neuro: Exam negative for acute changes, Orientation: is normal, Mentation: is normal, Motor: is normal, moves all fours. Vital Signs: 16:04 BP 200 / 102; Pulse 64; Resp 17; Temp 98.6; Pulse Ox 99% ; Weight 81.65 kg; Height 5 jh6 ft. 5 in. (165.10 cm); Pain 2/10; 16:55 BP 191 / 89; Pulse 59; Resp 18; Pulse Ox 98% on R/A; ph 17:47 BP 186 / 89; Pulse 56; Resp 18; Pulse Ox 98% on R/A; ph 19:07 BP 184 / 91; Pulse 57; Resp 18; Pulse Ox 97% on R/A; ph 20:27 BP 179 / 92; Pulse 53; Resp 20; Pulse Ox 99% on R/A; sm5 16:04 Body Mass Index 29.95 (81.65 kg, 165.10 cm) jh6 MDM: 16:18 Patient medically screened. pm1 20:09 Data reviewed: vital signs. Data interpreted: Pulse oximetry: on room air is 97 %. pm1 Interpretation: normal. Counseling: I had a detailed discussion with the patient and/or guardian regarding: the historical points, exam findings, and any diagnostic results supporting the discharge/admit diagnosis, lab results, radiology results, the need for outpatient follow up, a family practitioner, to return to the emergency department if symptoms worsen or persist or if there are any questions or concerns that arise at home. Special discussion: I have referred the patient to see his PCP for further evaluation of high blood pressure. 20:24 ED course: Patient reports relief in chest pain with valium. Will discharge patient pm1 with HCTZ to take once per day with her metoprolol. 04/19 16:28 Order name: Basic Metabolic Panel pm04/19 16:28 Order name: CBC with Diff; Complete Time: 17:19 pm04/19 16:28 Order name: LFT's pm04/19 16:28 Order name: Magnesium pm04/19 16:28 Order name: NT PRO-BNP 04/19 16:28 Order name: PT-INR; Complete Time: 17:37 pm04/19 16:28 Order name: Troponin HS 04/19 16:28 Order name: XRAY Chest (1 view); Complete Time: 17:39 pm04/19 16:28 Order name: EKG; Complete Time: 16:29 pm04/19 16:28 Order name: Cardiac monitoring; Complete Time: 16:52 pm04/19 16:28 Order name: EKG - Nurse/Tech; Complete Time: 16:53 pm04/19 16:28 Order name: IV Saline Lock; Complete Time: 16:53 pm04/19 16:28 Order name: Labs collected and sent; Complete Time: 16:53 pm1 01/31 16:28 Order name: O2 Per Protocol; Complete Time: 16:53 pm1 04/19 16:28 Order name: O2 Sat Monitoring; Complete Time: 16:53 pm1 Administered Medications: 17:15 Drug: Zofran (Ondansetron) 4 mg Route: IVP; Site: left wrist; ph 19:11 Follow up: Response: No adverse reaction ph 17:18 Drug: morphine 4 mg Route: IVP; Site: left wrist; ph 19:11 Follow up: Response: No adverse reaction ph 19:34 Drug: Valium (diazepam) 5 mg Route: PO; lg3 19:34 Follow up: Response: No adverse reaction lg3 Disposition: 04/20 06:57 Co-signature as Attending Physician, Jorge Kang MD I agree with the assessment and rn plan of care. Attestation: The patient's history, exam findings, diagnostics, and a summary of any interventions or procedures was reviewed in detail with Amilcar Taveras NP. Disposition Summary: 04/19/21 20:27 Discharge Ordered Location: Home pm1 Problem: new pm1 Symptoms: have improved pm1 Condition: Stable pm1 Diagnosis - Chest pain, unspecified pm1 - Essential (primary) hypertension pm1 Followup: pm1 - With: Emergency Department - When: As needed - Reason: Worsening of condition Followup: pm1 - With: Private Physician - When: 2 - 3 days - Reason: Recheck today's complaints, Continuance of care, Re-evaluation by your physician Discharge Instructions: - Discharge Summary Sheet pm1 - Nonspecific Chest Pain, Adult pm1 - Hypertension, Adult pm1 - Managing Your Hypertension pm1 - How to Take Your Blood Pressure, [id number] pm1 - DASH Eating Plan pm1 Forms: - Medication Reconciliation Form pm1 - Thank You Letter pm1 - Antibiotic Education pm1 - Prescription Opioid Use pm1 - Work release form sm5 Prescriptions: - Hydrochlorothiazide 12.5 mg Oral Tablet - take 1 tablet by ORAL route once daily; 30 tablet; Refills: 0, Product pm1 Selection Permitted - Cyclobenzaprine 10 mg Oral Tablet - take 1 tablet by ORAL route every 8 hours As needed; 30 tablet; Refills: 0, pm1 Product Selection Permitted Signatures: Dispatcher [employer] EDMS Jorge Kang MD MD rn Hall, Patricia, RN RN ph Marinas, Patrick, NP HISTORICAL INTERPRETER pm1 Amarilis Gomes, RN RN lg3 Nesha Callahan, RN RN jh6
[2021-04-19 20:44] VITALS: TEMP 98.6
[2021-04-19 20:50] VITALS: BP 179/92; O2SAT 99
[2021-04-20 02:35] LABS: Magnesium 2.22
--- NOTE | 2021-04-20 08:16 | EKG ---
Test Date: 2021-04-19 Test Time: 16:17:00 Relay Tester: JORDEN MEASUREMENT RESULTS: Intervals: Rate: 66 WI: 164 QRSD: 84 QT: 414 QTc: 434 [place]: P: 31 WI: 164 QRS: 52 T: 31 INTERPRETIVE STATEMENTS: Normal sinus rhythm Nonspecific T wave abnormality Abnormal ECG Compared to ECG 03/28/2019 15:43:50 No significant changes Electronically Signed On 04-20-21 08:13:50 [employer] COLLECTOR by Jose Rodgers
== END 2021-04-19 20:36 | disposition home or self-care (01) ==
LOC: ER 15:50
DX: R07.9 Chest pain, unspecified (principal); I10 Essential (primary) hypertension; F17.210 Nicotine dependence, cigarettes, uncomplicated; Z88.8 Allergy status to other drugs, medicaments and biological substances
CPT/HCPCS: 93005; 85025; 80048; 36415; 83735; 85610; 80076; 84484; 83880; 71045; 96375; 96374; 99285; J2405

== ENCOUNTER 2021-11-07 19:03 | Emergency (ER) | payer BC, OTHER ==
--- OUTSIDE RECORDS SUMMARY | 2021-11-07 19:07 | XMS REPORT | Continuity of Care Document ---
:[address] [facility] t Address [address] [place]. [address] [place] [id number] Care Team Providers Name Role Phone Jalloh Dina Patterson Primary Care Physician SALONI TRAN Attending Clinician Unavailable DERRICK POLK Attending Clinician Unavailable KIM GAMBLE Attending Clinician Unavailable KIM GAMBLE Attending Clinician Unavailable Saloni Johnson Attending Clinician Rita Wallace Attending Clinician Unavailable MIRELLA NEIL Attending Clinician Unavailable JOSUE ANNA Attending Clinician Unavailable NEHEMIAH JALLOH Attending Clinician Unavailable NAIF CONTRERAS Attending Clinician Unavailable Rita Wallace Admitting Clinician Unavailable JOSUE ANNA Admitting Clinician Unavailable Payers Payer Name Policy Type Policy Number Effective Date Expiration Date S brayden KAUR BCBS BLUE [id number] 2021 ADVANTAGE HMO 00:00:00 [facility] [place] [id number] 2021 WOMEN 00:00:00 Problems Condition Condition Condition Status Onset Resolution Last Treating Co mments Source Name Details Category Date Date Treatment Clinician Date Screening Screening Disease Active Uni vers for STD for STD 08-13 ity of (sexually ([place] transmit[place] transmitte 00 Me dical d disease) d disease) Br anch Vaginal Vaginal Disease Active Univers itching itching 08-13 ity of 00:00: [place] [facility] Candidal Candidal Disease Active Unive rs intertrigo intertrigo 08-13 it y of 00:00: [place] [facility] BMI BMI Disease Active Univers 35.0-35.9, 35.0-35.9, 3-30 it y of adult adult 00:00: Medical Branch Anxiety Anxiety Disease Active Univers and and 06-16 it[place] of depression depression 00:[place] [facility] [place] Essential Essential Disease Active Uni vers hypertensi hypertensi 30 it y of on, on, 00:00: [place] malignant malignant 00 [facility] Branch Nontoxic Nontoxic Disease Active Overview: Un megna single single 03-27 Formattin ity of thyroid thyroid 00:00: g of this [place] nodule nodule 00 note Medical might be Branch different from the original. Formattin g of this note might be different from the original. Converted from [employer]cit y:Descrip tion - THYROID NODULE, RIGHT Chronic Chronic Disease Active 2010-03 Overview: Univ ers viral viral 03-30 Formattin ity of hepatitis hepatitis 00:00: [place] of [place] B without B without 00 note [facility] delta-agen delta-agen might be Branch t t different from the original. Formattin g of this note might be different from the original. Converted from [employer]cit y:Descrip tion - HEPATITIS B CHRONIC Allergies, Adverse Reactions, Alerts Allergy Allergy Status Severity Reaction(s) Onset Inactive Treating Comm ents Source Name Type Date Date Clinician NAPROXEN DRUG Active N/V Univers INGREDI 03-28 ity of 00:00: [place] 00 Medical Branch Naproxen Propensi Active Nausea Univer s ty to and/or 03-28 ity of adverse Vomiting 00:00: [place] reaction 00 Medical s to Branch drug Social History Social Habit Start Date Stop Date Quantity Comments Source History [facility] University o f Alcohol Frequency [facility] edical Branch History [facility] University o f Alcohol Std [place] Medical Drinks Branch History [facility] o f Alcohol Binge [place] Medic al Branch Exposure to 2021-09-17 2021-09-27 Not sure University of SARS-CoV-2 00:00:00 15:37:00 [place] [facility] (event) Branch Tobacco Comment 2021-09-27 2021-09-27 quit x1y ago Univers ity of 00:00:00 00:00:00 [facility] Tobacco use and 2021-09-27 2021-09-27 Smokeless tobacco Un iversity of exposure 00:00:00 00:00:00 non-user [facility] Alcohol intake 2021-09-27 2021-09-27 Current drinker Unive rsity of 00:00:00 00:00:00 of alcohol [place] [facility] (finding) Branch Alcohol Comment 2017-06-16 2017-06-16 social Universit y of 00:00:00 00:00:00 [facility] History of 2014-03-20 Cigarette Smoker Universi ty of tobacco use 00:00:00 [facility] Sex [birth year] Universit y of 00:00:00 00:00:00 [facility] Smoking Status Start Date Stop Date Source Tobacco smoking [facility] consumption unknown Ex-smoker 2021-09-27 00:00:00 2021-09-27 University o f [place] 00:00:00 Medical Branch Medications Ordered Filled Start Stop Current Ordering Indication Dosage Frequency Signature Comments Components Source Medication Medication Date Date Medication? Clinician (SIG) Name Name losartan-hy Yes [id number] 1{tbl} Take 1 Univers drochloroth 7-29 tablet by ity of iazide 00:00: mouth in [place] 50-12.5 mg 00 the Medical per tablet morning. Branc h metoprolol Yes [id number] 50mg Take 1 U nivers succinate 7-27 tablet by ity o f XL 50 mg 24 00:00: [place] hr tablet 00 the Medical morning Branch and 1 tablet in the evening. metoprolol Yes [id number] 50mg Take 1 U nivers succinate 7-27 tablet by ity o f XL 50 mg 24 00:00: [place] tablet 00 the Medical morning Branch and 1 tablet in the evening. fluconazole Yes [id number] 200mg Take 1 Univers 200 mg 7-05 tablet by ity of tablet 00:00: mouth [place] 00 daily. Medical Branch fluconazole 0 Yes [id number] 200mg Take 1 Univers 200 mg 7-05 tablet by ity of tablet 00:00: mouth [place] 00 daily. Medical Branch fluconazole Yes [id number] 200mg Take 1 Univers 200 mg 7-05 tablet by ity of tablet 00:00: mouth [place] 00 daily. Medical Branch fluconazole Yes [id number] 200mg Take 1 Univers 200 mg 7-05 tablet by ity of tablet 00:00: mouth [place] 00 daily. Medical Branch losartan-hy Yes [id number] 1{tbl} Take 1 Univers drochloroth 6-06 tablet by ity of iazide 00:00: mouth [place] 50-12.5 mg 00 daily. Medical per tablet Branch losartan-hy Yes [id number] 1{tbl} Take 1 Univers drochloroth 6-06 tablet by ity of iazide 00:00: mouth [place] 50-12.5 mg 00 daily. Medical per tablet Branch losartan-hy Yes [id number] 1{tbl} Take 1 Univers drochloroth 6-06 tablet by ity of iazide 00:00: mouth [place] 50-12.5 mg 00 daily. Medical per tablet Branch losartan-hy 2021- No [id number] 1{tbl} Take 1 Univers drochloroth 6-06 07-27 tablet by it y of iazide 00:00: 00:00 mouth [place] 50-12.5 mg 00 :00 daily. Medical per tablet Branch methocarbam Yes 500mg Take 500 U nivers oL 500 mg 5-27 mg by ity of tablet 11:38: mouth [place] 52 daily Medical before a Branch meal. tenofovir Yes Take by Unive rs alafenamide 5-27 mouth. ity of (VEMLIDY) 11:38: [place] 25 mg Tab 52 Medical Branch HYDROcodone Yes Take by Uni vers bitartrate 5-27 mouth. ity of 10 mg CR12 11:38: [place] 52 Medical Branch escitalopra Yes 20mg Take 20 mg Univers m oxalate 5-27 by mouth ity of 20 mg 11:38: daily. [place] tablet 52 Medical Branch ALPRAZolam 0 Yes .5mg Take 0.5 Uni vers (XANAX) 0.5 5-27 mg by ity of mg tablet 11:38: mouth [place] 52 daily. Medical Branch methocarbam 0 Yes 500mg Take 500 U nivers oL 500 mg 5-27 mg by ity of tablet 11:38: mouth [place] 52 daily Medical before a Branch meal. tenofovir 2021-0 [facility] 5-27 mouth. ity of (VEMLIDY) 11:38: [place] 25 mg Tab 52 Medical Branch HYDROcodone 0 Yes Take by Uni vers bitartrate 5-27 mouth. ity of 10 mg CR12 11:38: [place] [address] Medical Branch escitalopra Yes 20mg Take 20 mg Univers m oxalate 5-27 by mouth ity of 20 mg 11:38: daily. [place] tablet 52 Medical Branch ALPRAZolam Yes .5mg Take 0.5 Uni vers (XANAX) 0.5 5-27 mg by ity of mg tablet 11:38: mouth [place] 52 daily. Medical Branch methocarbam 0 Yes 500mg Take 500 U nivers oL 500 mg 5-27 mg by ity of tablet 11:38: mouth [place] 52 daily Medical before a Branch meal. tenofovir 2021-0 Yes [facility] alafen[facility] 5-27 mouth. ity of (VEMLIDY) 11:38: [place] 25 mg Tab 52 Medical Branch HYDROcodone 0 Yes Take by Uni vers bitartrate 5-27 mouth. ity of 10 mg CR12 11:38: [place] [address] Medical Branch escitalopra 0 Yes 20mg Take 20 mg Univers m oxalate 5-27 by mouth ity of 20 mg 11:38: daily. [place] tablet Medical Branch ALPRAZolam 0 Yes .5mg Take 0.5 Uni vers (XANAX) 0.5 5-27 mg by ity of mg tablet 11:38: mouth [place] 52 daily. Medical Branch methocarbam 0 Yes 500mg Take 500 U nivers oL 500 mg 5-27 mg by ity of tablet 11:38: mouth [place] 52 daily Medical before a Branch meal. tenofovir Yes Take by Unive rs alafenamide 08-13 mouth. ity of (VEMLIDY) 11:38: [place] 25 mg Tab 52 Medical Branch HYDROcodone Yes Take by Uni vers bitartrate 08-13 mouth. ity of 10 mg CR12 11:38: [place] 52 Medical Branch escitalopra 0 Yes 20mg Take 20 mg Univers m oxalate 08-13 by mouth ity of 20 mg 11:38: daily. [place] tablet 52 Medical Branch ALPRAZolam Yes .5mg Take 0.5 Uni vers (XANAX) 0.5 5-27 mg by ity of mg tablet 11:38: mouth [place] 52 daily. Medical Branch nystatin Yes [id number] Apply to Univers 100,000 5-27 area(s) 2 ity of unit/gram 00:00: (two) [place] powder 00 times Medical daily. Branch nystatin 0 Yes [id number] Apply to Univers 100,000 5-27 area(s) 2 ity of unit/gram 00:00: (two) [place] powder 00 times Medical daily. Branch nystatin 2021-0 Yes [id number] Apply to Univers 100,000 5-27 area(s) 2 ity of unit/gram 00:00: (two) [place] powder 00 times Medical daily. Branch nystatin 2021-0 Yes [id number] Apply to Univers 100,000 5-27 area(s) 2 ity of unit/gram 00:00: (two) [place] powder 00 times Medical daily. Branch zolpidem Yes 6.25mg Take 6.25 Un megan 6.25 mg CR 5-06 mg by ity of tablet 00:00: mouth at [place] [address] bedtime. Medical Branch zolpidem 2021-0 Yes 6.25mg Take 6.25 Un megan 6.25 mg CR 5-06 mg by ity of tablet 00:00: mouth at [place] 00 bedtime. Medical Branch zolpidem 0 Yes 6.25mg Take 6.25 Un megan 6.25 mg CR 5-06 mg by ity of tablet 00:00: mouth at [place] [address] bedtime. Medical Branch zolpidem 2021-0 Yes 6.25mg Take 6.25 Un megan 6.25 mg CR 5-06 mg by ity of tablet 00:00: mouth at [place] 00 bedtime. Medical Branch metoprolol 2021-0 Yes [id number] 50mg Take 1 U nivers succinate 4-26 tablet by ity o f XL 50 mg 24 00:00: mouth 2 [place] hr tablet 00 (two) Medical times Branch daily. metoprolol 2021-0 Yes [id number] 50mg Take 1 U nivers succinate 4-26 tablet by ity o f XL 50 mg 24 00:00: mouth 2 [place] hr tablet 00 (two) Medical times Branch daily. metoprolol 2021-0 2022- No [id number] 50mg Take 1 Univers succinate 4-26 07-27 tablet by ity of XL 50 mg 24 00:00: 00:00 [place] 2 [place] hr tablet 00 :00 (two) Medical times Branch daily. HYDROcodone 2021-0 Yes 1{tbl} Take 1 Un megan -acetaminop 4-25 tablet by ity of hen 10-325 00:00: [place] mg tablet 00 (two) Medical times Branch daily. gabapentin 2021-0 Yes 100mg Take 100 Un megan 100 mg 4-25 mg by ity of capsule 00:00: mouth [place] 00 daily. Medical Branch HYDROcodone 2021-0 Yes 1{tbl} Take 1 Un megan -acetaminop 4-25 tablet by ity of hen 10-325 00:00: mouth [place] mg tablet 00 (two) Medical times Branch daily. gabapentin 2022-0 Yes 100mg Take 100 Un megan 100 mg 4-25 mg by ity of capsule 00:00: mouth [place] 00 daily. Medical Branch HYDROcodone 2021-0 Yes 1{tbl} Take 1 Un megan -acetaminop 4-25 tablet by ity of hen 10-325 00:00: mouth [place] mg tablet 00 (two) Medical times Branch daily. gabapentin 2022-0 Yes 100mg Take 100 Un megan 100 mg 4-25 mg by ity of capsule 00:00: mouth [place] 00 daily. Medical Branch HYDROcodone 2021-0 Yes 1{tbl} Take 1 Un megan -acetaminop 4-25 tablet by ity of hen 10-325 00:00: mouth [place] mg tablet 00 (two) Medical times Branch daily. gabapentin 2022-0 Yes 100mg Take 100 Un megan 100 mg 4-25 mg by ity of capsule 00:00: mouth [place] 00 daily. Medical Branch oseltamivir 2022-0 Yes 75mg Take 75 mg Univers 75 mg 4-07 by mouth 2 ity of capsule 00:00: (two) 00 times Medical daily. Branch oseltamivir 2022-0 Yes 75mg Take 75 mg Univers 75 mg 4-07 by mouth 2 ity of capsule 00:00: (two) 00 times Medical daily. Branch oseltamivir 2022-0 Yes 75mg Take 75 mg Univers 75 mg 4-07 by mouth 2 ity of capsule 00:00: (two) [place] 00 times Medical daily. Branch oseltamivir 2022-0 Yes 75mg Take 75 mg Univers 75 mg 4-07 by mouth 2 ity of capsule 00:00: (two) [place] 00 times Medical daily. Branch topiramate 2022-0 Yes TAKE 1 Unive rs 50 mg 3-25 TABLET BY ity of tablet 00:00: MOUTH [place] 00 EVERY DAY Medical Branch DIRECTED topiramate 2022-0 Yes TAKE 1 Unive rs 50 mg 3-25 TABLET BY ity of tablet 00:00: MOUTH [place] EVERY DAY Medical Branch DIRECTED topiramate 2022-0 Yes TAKE 1 Unive rs 50 mg 3-25 TABLET BY ity of tablet 00:00: MOUTH [place] EVERY DAY Medical Branch DIRECTED topiramate 2022-0 Yes TAKE 1 Unive rs 50 mg 3-25 TABLET BY ity of tablet 00:00: MOUTH [place] EVERY DAY Medical Branch DIRECTED medroxyPROG 2018-0 Yes [id number] 150mg Univers ESTERone 3-30 ity of (DEPO-PROVE 16:00: [place] RA) 00 Medical injection Branch 150 mg medroxyPROG 2018-0 Yes [id number] 150mg Univers ESTERone 3-30 ity of (DEPO-PROVE 16:00: [place] RA) 00 Medical injection Branch 150 mg medroxyPROG 2018-0 Yes [id number] 150mg Univers ESTERone 3-30 ity of (DEPO-PROVE 16:00: [place] RA) 00 Medical injection Branch 150 mg medroxyPROG 2018-0 Yes [id number] 150mg Univers ESTERone 3-30 ity of (DEPO-PROVE 16:00: [place] RA) 00 Medical injection Branch 150 mg Immunizations Ordered Filled Immunization Date Status Comments [facility] Immunization Name Name SARS-COV-2 COVID-19 2021-02-28 Completed Unive rsity of PFIZER VACCINE 00:00:00 [facility] SARS-COV-2 COVID-19 2021-02-28 Completed Unive rsity of PFIZER VACCINE 00:00:00 [facility] SARS-COV-2 COVID-19 2021-02-28 Completed Unive rsity of PFIZER VACCINE 00:00:00 [facility] SARS-COV-2 COVID-19 2021-02-28 Completed Unive rsity of PFIZER VACCINE 00:00:00 [facility] Influenza Virus 2020-12-18 Completed Universit y of Vaccine (3+ yrs) 00:00:00 [facility] Influenza Virus 2020-12-18 Completed Universit y of Vaccine (3+ yrs) 00:00:00 [facility] Influenza Virus 2020-12-18 Completed Universit y of Vaccine (3+ yrs) 00:00:00 [facility] Branch Influenza Virus 2020-12-18 Completed Universit y of Vaccine (3+ yrs) 00:00:00 [facility] SARS-COV-2 COVID-19 2020-06-08 Completed Unive rsity of PFIZER VACCINE 00:00:00 [facility] SARS-COV-2 COVID-19 2020-06-08 Completed Unive rsity of PFIZER VACCINE 00:00:00 [facility] SARS-COV-2 COVID-19 2020-06-08 Completed Unive rsity of PFIZER VACCINE 00:00:00 [facility] SARS-COV-2 COVID-19 2020-06-08 Completed Unive rsity of PFIZER VACCINE 00:00:00 [facility] SARS-COV-2 COVID-19 2020-05-18 Completed Unive rsity of PFIZER VACCINE 00:00:00 [facility] SARS-COV-2 COVID-19 2020-05-18 Completed Unive rsity of PFIZER VACCINE 00:00:00 [facility] SARS-COV-2 COVID-19 2020-05-18 Completed Unive rsity of PFIZER VACCINE 00:00:00 [facility] SARS-COV-2 COVID-19 2020-05-18 Completed Unive rsity of PFIZER VACCINE 00:00:00 [facility] Influenza Virus 2016-12-18 Completed Universit y of Vaccine Quad IM 3+ 00:00:00 [facility] Influenza Virus 2016-12-18 Completed Universit y of Vaccine Quad IM 3+ 00:00:00 [facility] Influenza Virus 2016-12-18 Completed Universit y of Vaccine Quad IM 3+ 00:00:00 [facility] Influenza Virus 2016-12-18 Completed Universit y of Vaccine Quad IM 3+ 00:00:00 [facility] TDAP 2005-06-16 Completed University of 00:00:00 [facility] TDAP 2005-06-16 Completed University of 00:00:00 [facility] TDAP 2005-06-16 Completed University of 00:00:00 [facility] TDAP 2005-06-16 Completed University of 00:00:00 [facility] Vital Signs Vital Name Observation Time Observation Value Comments Source Systolic blood 2021-09-27 20:51:00 146 mm[Hg] Univer sity [facility] Diastolic blood 2021-09-27 20:51:00 83 mm[Hg] [facility] Heart rate 2021-09-27 20:45:00 63 /min [facility] Body height 2021-09-27 20:45:00 166.4 cm [facility] Body weight 2021-09-27 20:45:00 97.977 kg [facility] BMI 2021-09-27 20:45:00 35.40 kg/m2 [facility] Oxygen saturation 2021-09-27 20:45:00 98 /min [facility] in Arterial blood Medical Br anch by Pulse oximetry Procedures This patient has no known procedures. Plan of Care Planned Activity Planned Date Details Comments Source Future Scheduled 2021-08-05 [facility] 02:59:01 [code = INFLUENZA VACCINE] Future Scheduled 2021-08-05 COVID-19 [facility] 02:59:01 (1) [code = COVID-19 VACCINE (1)] Future Scheduled 2021-08-05 [facility] Test 02:59:01 screening (procedure) [code = 784345250] Future Scheduled 2021-08-05 Screening for [facility] Test 02:59:01 malignant neoplasm of cervix (procedure) [code = 767475211] Encounters Start End Encounter Admission Attending Care Care Encounter Source Date/Time Date/Time Type Type Clinicians Facility Department ID 2021-11-23 2021-11-23 [id number] Univers 10:30:00 10:30:[id number] 2021-11-10 Outpatient R FELICITAS [facility] [id number] Univers 13:40:00 13:40:00 DERRICK [facility] o [facility] 2021-10-13 2021-10-13 Outpatient R KIM GAMBLE [facility] B [id number] Univers 00:00:00 00:00:00 KIM GAMBLE [facility] 2021-10-13 2021-10-13 [facility] [id number] Univers 00:00:00 00:00:00 Saloni HEALTH [id number] it y of [place] [id number] [place] as AGUEDA?BLEA [id number] [address] OFFICE [facility] 2021-10-13 2021-10-13 [facility] [id number] Univers 00:00:00 00:00:00 Saloni HEALTH [id number] it y of [place] [id number] Par[place] as AGUEDA?BLEA [id number] [address] OFFICE [facility] 2021-09-27 2021-09-27 Office [facility] [id number] Univers 15:30:00 17:04:23 Visit Saloni HEALTH [id number] it y of [place] [id number] Par[place] as AGUEDA?BLEA [id number] [address] OFFICE [facility] 2020-11-28 2020-11-28 Outpatient EL Rodrigo, WANDA CLAYTON [id number] [facility] 08:00:00 08:00:[id number] [facility] 2020-11-28 2020-11-28 Outpatient ELVA Wallace, WANDA CLAYTON [id number] [facility] 08:00:00 08:00:[address] [facility] 2019-10-26 2019-10-26 Emergency E MIRELLA NEIL MHFB [facility]FB [id number] [facility]FB 11:04:00 16:05:00 2019-10-14 2019-10-14 Outpatient SHOSHANA, MHFB DELON [id number] MHFB 07:54:00 11:25:00 SHINIL 2019-10-11 2019-10-11 Outpatient ELVA Wallace, WANDA CLAYTON [id number] [facility] 12:00:00 12:00:[id number] [facility] 2019-04-22 2019-04-22 Emergency E NEHEMIAH JALLOH MHBL MHBL [id number] MHBL 12:30:00 16:37:00 2019-03-30 2019-03-30 Emergency E FABRICIO CONTRERASBL MHBL [id number] MHBL 10:16:00 16:12:00 NAIF Results This patient has no known results.
[2021-11-07] MEDS ORDERED: NA CHLORIDE 0.9% 1,000 ML ONE (19:41)
[2021-11-07 19:57] LABS: Absolute Lymphocytes (CBC) 4.3 K/uL (0.7-4.9); Hematocrit 39.7 % (36.0-45.0); Lymphocytes % 37.8 % (15.3-44.8); MCV 85.7 fL (80-100); MPV 7.7 fL (7.6-11.3); RBC Red Blood Cell Count 4.64 M/uL (3.86-4.86)
[2021-11-07 20:03] LABS: Protime INR 0.96
[2021-11-07 20:09] LABS: SARS-CoV-2 Antigen Rapid Res Negative (Negative)
[2021-11-07 20:24] LABS: ALT/SGPT 24 U/L (12-78); AST/SGOT 15 U/L (15-37); Albumin 3.5 g/dL (3.4-5.0); Alkaline Phosphatase 85 U/L (45-117); BUN Blood Urea Nitrogen 16 mg/dL (7-18); Bicarbonate 25 mmol/L (21-32); Bilirubin Total 0.2 mg/dL (0.2-1.0); Glomerular Filtration Rate 75 ml/min (=/>90); Glucose Level 118 mg/dL (74-106); Lipase 242 U/L (73-393); NT PRO-BNP 43 pg/mL (<125); Potassium 3.7 mmol/L (3.5-5.1); Protein, Total 7.6 g/dL (6.4-8.2); Sodium Level 137 mmol/L (136-145)
[2021-11-07 20:29] LABS: Bilirubin Direct < 0.1 mg/dL (0-0.2)
[2021-11-07] MEDS ORDERED: ASPIRIN EC 81 MG TAB PO ONE (20:57)
--- NOTE | 2021-11-07 21:20 | RAD REPORT ---
EXAM DESCRIPTION: RAD - Chest Single View - 11/07/2021 8:38 pm CLINICAL HISTORY: COUGH COMPARISON: Portable 04/19/2021 TECHNIQUE: AP portable chest image was obtained 11/07/2021 8:38 pm . FINDINGS: Lungs are clear. Heart and vasculature are normal. No measurable pleural effusion and no p neumothorax. No acute bony abnormality seen. No acute aortic findings suspected. IMPRESSION: No acute cardiopulmonary process. No significant change from comparison study.
--- NOTE | 2021-11-07 22:28 | RAD REPORT ---
EXAM DESCRIPTION: CT - Chest For Pe Angio - 11/07/2021 10:08 pm CLINICAL HISTORY: cp COMPARISON: Chest Single View dated 11/07/2021 TECHNIQUE: Dynamically enhanced 3 mm thick images of the chest were obtained during administration o f approximately 150mL Isovue 370 IV contrast. Coronal and oblique MIP reconstruction images were gene rated and reviewed. Exam utilizes a protocol to evaluate the pulmonary arterial tree. All CT scans are performed using dose optimization technique as appropriate and may include automated exposure control or mA/KV adjustment according to patient size. FINDINGS: No pulmonary emboli are identified. The aorta as imaged shows no acute or suspicious finding. No pericardial thickening or effusion. No infiltrate or mass in the lung parenchyma. No pleural effusion or pleural thickening. No mediastinal or hilar suspicious masses. No chest wall masses or abnormal axillary lymphadenopathy. IMPRESSION: No pulmonary emboli identified. No other significant or suspicious findings.
--- NOTE | 2021-11-07 22:48 | EDPHYS ---
Physician Documentation [facility] Name: Dee Logan Age: 45 yrs Sex: Female : 1975 Arrival Date: 11/07/2021 Time: 19:04 Bed 6 Private MD: Saloni Thomas ED Physician Home Maldonado HPI: 11/07 20:07 This 45 yrs old Black Female presents to ER via Ambulatory with complaints of rita Palpitations, Irregular Pulse, Breathing Difficulty, Headache. 20:07 The patient presents with a history of heart racing. Context: The symptoms occur at rita rest, with anxiety. Onset: The symptoms/episode began/occurred 2 day(s) ago. Duration: The patient or guardian reports multiple episodes, with no pattern. Modifying factors: The symptoms are aggravated by nothing. The symptoms are alleviated by nothing. Associated signs and symptoms: Pertinent positives:. Severity of symptoms: At their worst the symptoms were. The patient has not experienced similar symptoms in the past. The patient has not experienced similar symptoms in the past, The patient has experienced similar episodes in the past, a few times. 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 vc1 Historical: - Allergies: 19:20 Naproxen; vc1 - Home Meds: 19:20 [place] 10-325 mg Oral tab 1 tab every 6 hours for pain [Active]; vc1 losartan-hydrochlorothiazide 50-12.5 mg oral tab 1 tab once daily [Active]; Xanax 0.5 mg Oral tab 1 tab nightly [Active]; escitalopram oxalate 20 mg oral tab 1 tab once daily for anxiety with depression [Active]; gabapentin 100 mg oral cap 1 cap nightly [Active]; metoprolol succinate 50 mg oral CSpX 1 cap twice a day [Active]; - PMHx: 19:20 Hepatitis; Herniated disc; Hypertension; Anxiety; Chronic back pain; Fibromyalgia; vc1 - PSHx: 19:20 Cholecystectomy; vc1 - Immunization history:: Adult Immunizations up to date, Client reports receiving the 2nd dose of the Covid vaccine. - Social history:: Smoking status: Patient reports the use of cigarette tobacco products, 1/4 PPD. - Family history:: not pertinent. ROS: 20:07 Constitutional: Negative for fever, chills, and weight loss, Eyes: Negative for injury, rita pain, redness, and discharge, ENT: Negative for injury, pain, and discharge, Neck: Negative for injury, pain, and swelling, Respiratory: Negative for shortness of breath, cough, wheezing, and pleuritic chest pain, Abdomen/GI: Negative for abdominal pain, nausea, vomiting, diarrhea, and constipation, Back: Negative for injury and pain, : Negative for injury, bleeding, discharge, and swelling, MS/Extremity: Negative for injury and deformity, Skin: Negative for injury, rash, and discoloration, Neuro: Negative for headache, weakness, numbness, tingling, and seizure, Psych: Negative for depression, anxiety, suicide ideation, homicidal ideation, and hallucinations, Allergy/Immunology: Negative for hives, rash, and allergies, Endocrine: Negative for neck swelling, polydipsia, polyuria, polyphagia, and marked weight changes. 20:07 Cardiovascular: Positive for palpitations. Exam: 20:07 Constitutional: This is a well developed, well nourished patient who is awake, alert, rita and in no acute distress. Head/Face: Normocephalic, atraumatic. Eyes: Pupils equal round and reactive to light, extra-ocular motions intact. Lids and lashes normal. Conjunctiva and sclera are non-icteric and not injected. Cornea within normal limits. Periorbital areas with no swelling, redness, or edema. ENT: Nares patent. No nasal discharge, no septal abnormalities noted. Tympanic membranes are normal and external auditory canals are clear. Oropharynx with no redness, swelling, or masses, exudates, or evidence of obstruction, uvula midline. Mucous membranes moist. Neck: Trachea midline, no thyromegaly or masses palpated, and no cervical lymphadenopathy. Supple, full range of motion without nuchal rigidity, or vertebral point tenderness. No Meningismus. Chest/axilla: Normal chest wall appearance and motion. Nontender with no deformity. No lesions are appreciated. Cardiovascular: Regular rate and rhythm with a normal S1 and S2. No gallops, murmurs, or rubs. Normal PMI, no JVD. No pulse deficits. Respiratory: Lungs have equal breath sounds bilaterally, clear to auscultation and percussion. No rales, rhonchi or wheezes noted. No increased work of breathing, no retractions or nasal flaring. Abdomen/GI: Soft, non-tender, with normal bowel sounds. No distension or tympany. No guarding or rebound. No evidence of tenderness throughout. Back: No spinal tenderness. No costovertebral tenderness. Full range of motion. Skin: Warm, dry with normal turgor. Normal color with no rashes, no lesions, and no evidence of cellulitis. MS/ Extremity: Pulses equal, no cyanosis. Neurovascular intact. Full, normal range of motion. Neuro: Awake and alert, GCS 15, oriented to person, place, time, and situation. Cranial nerves II-XII grossly intact. Motor strength 5/5 in all extremities. Sensory grossly intact. Cerebellar exam normal. Normal gait. Psych: Awake, alert, with orientation to person, place and time. Behavior, mood, and affect are within normal limits. 20:07 Musculoskeletal/extremity: ROM: intact in all extremities, full active range of motion, full passive range of motion, Circulation is intact in all extremities. Pulses: are normal with no appreciated deficits, Sensation intact. Compartment Syndrome exam of affected extremity: is normal. DVT Exam: No signs of deep vein thrombosis. no pain, no swelling, no tenderness, negative Homans' sign noted on exam, no appreciated bluish discoloration, no erythema, no increased warmth. 20:07 Neuro: Orientation: is normal, appropriate for stated age, no acute changes, Mentation: appropriate for stated age, no acute changes, Memory: is normal, appropriate for stated age, no acute changes, Cranial nerves: grossly normal, is grossly normal based on the patient's age, no acute changes, Cerebellar function: is grossly normal, is grossly normal based on the patient's age, no acute changes, Motor: moves all fours, strength is normal, Sensation: is normal, no obvious gross deficits, appropriate no acute changes, Gait: is steady, appropriate for age, Deep tendon reflexes are 2+ (normal) in the bilateral brachioradialis, bicep, tricep and patellar and Achilles tendons, Babinski testing is normal. 20:13 ECG was reviewed by the Attending Physician. [facility] Vital Signs: 19:19 BP 166 / 92; Pulse 67; Resp 23; Temp 98.1(O); Pulse Ox 98% on R/A; Pain 3/10; vc1 19:27 Weight 88.45 kg; Height 5 ft. 5 in. (165.10 cm); vc1 19:38 BP 175 / 85; Pulse 65; Resp 18; Pulse Ox 98% on R/A; Pain 4/10; tw5 20:00 BP 149 / 85; Pulse 59; Resp 18; Pulse Ox 98% ; kl 21:00 BP 147 / 81; Pulse 61; Resp 18; Pulse Ox 97% on R/A; Pain 0/10; kl 22:00 BP 146 / 86; Pulse 60; Resp 18; Pulse Ox 98% on R/A; Pain 0/10; kl 19:27 Body Mass Index 32.45 (88.45 kg, 165.10 cm) vc1 MDM: 19:13 Patient medically screened. rita 20:10 ARIEL Risk Score: Total Score = 0. Differential diagnosis: arrythmia, dehydration, rita stress disorder. Data reviewed: vital signs, nurses notes, lab test result(s), EKG, radiologic studies, plain films. Data interpreted: monitor technician: rate is 66 beats/min, rhythm is regular, Pulse oximetry: on room air is 65 %. Test interpretation: by ED physician or midlevel provider: ECG, plain radiologic studies. 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 11/07 19:19 Order name: Basic Metabolic Panel; Complete Time: 21:21 [facility] 11/07 19:19 Order name: CBC with Diff; Complete Time: 20:07 [facility] 11/07 19:19 Order name: LFT's; Complete Time: 21:21 [facility] 11/07 19:19 Order name: Magnesium; Complete Time: 21:21 [facility] 11/07 19:19 Order name: NT PRO-BNP; Complete Time: 21:21 [facility] 11/07 19:19 Order name: PT-INR; Complete Time: 21:21 [facility] 11/07 19:19 Order name: Troponin HS; Complete Time: 21:21 [facility] 11/07 19:19 Order name: Lipase; Complete Time: 21:21 [facility] 11/07 19:19 Order name: TSH; Complete Time: 21:21 [facility] 11/07 19:19 Order name: SARS RAPID; Complete Time: 21:21 [facility] 11/07 20:15 Order name: Troponin High Sensitivity: 10 pm; Complete Time: 22:38 [facility] 11/07 20:37 Order name: D-Dimer; Complete Time: 21:21 EDMS 11/07 19:19 Order name: XRAY Chest (1 view); Complete Time: 21:43 [facility] 11/07 19:19 Order name: EKG; Complete Time: 19:20 [facility] 11/07 19:19 Order name: Cardiac monitoring; Complete Time: 19:31 [facility] 11/07 19:19 Order name: EKG - Nurse/Tech; Complete Time: 19:31 [facility] 11/07 19:19 Order name: IV Saline Lock; Complete Time: 19:31 [facility] 11/07 19:19 Order name: Labs collected and sent; Complete Time: 19:31 [facility] 11/07 19:19 Order name: O2 Per Protocol; Complete Time: 19:31 [facility] 11/07 19:19 Order name: O2 Sat Monitoring; Complete Time: 19:31 [facility] 11/07 21:22 Order name: US Extremity Venous W Compression Kemar [facility] 11/07 21:22 Order name: CT Chest For PE Angio; Complete Time: 22:38 [facility] EC:13 Rate is 61 beats/min. Rhythm is regular. QRS [place] is Normal. ND interval is normal. QRS rita interval is normal. No Q waves. T waves are Normal. No ST changes noted. Clinical impression: NSR w/ Non-specific ST/T Changes and No evidence of ischemia. Interpreted by me. Reviewed by me. Administered Medications: 19:36 Drug: NS 0.9% 1000 ml Route: IV; Rate: 125 ml/hr; Site: left wrist; tw5 19:36 CANCELLED (Duplicate Order): NS 0.9% 1000 ml IV at 125 ml/hr continuous tw5 20:53 Drug: Aspirin 162 mg Route: PO; Disposition Summary: 11/07/21 22:48 Discharge Ordered Location: Home rita Problem: new rita Symptoms: have improved rita Condition: Stable rita Diagnosis - Palpitations rita Followup: rita - With: Private Physician - When: 2 - 3 days - Reason: Recheck today's complaints, Continuance of care, Re-evaluation by your physician Followup: rita - With: - When: 2 - 3 days - Reason: Recheck today's complaints, Re-evaluation by your physician Discharge Instructions: - Discharge Summary Sheet rita - Palpitations rita - Aspirin and Your Heart rita - Palpitations, Itya-ld-Mnmm rita Forms: - Medication Reconciliation Form rita - Thank You Letter rita - Antibiotic Education rita - Prescription Opioid Use rita Prescriptions: - Lopressor 50 mg Oral Tablet - take 1 tablet by ORAL route every 12 hours; 30 tablet; Refills: 0, Product rita Selection Permitted Signatures: Dispatcher [employer] EDRafaela Celaya RN Home Cooper MD MD cha Wood, Tiffany tw5 Tesha Pop RN RN vc1 Corrections: (The following items were deleted from the chart) 19:36 19:19 NS 0.9% 1000 ml IV at 125 ml/hr continuous ordered. [facility] tw5 20:37 20:12 D-DIMER+COAG.LAB.BRZ ordered. EDMS EDMS 22:07 21:44 Troponin High Sensitivity+C.LAB.BRZ ordered. EDMS EDMS
--- NOTE | 2021-11-07 22:48 | ER ---
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 19:19 Coronavirus screen: Vaccine status: Patient reports receiving the 2nd dose of the covid vc1 vaccine. Plus Booster; [employer]. Ebola Screen: No symptoms or risks identified at this time. Initial Sepsis Screen: Does the patient meet any 2 criteria? RR > 20 per min. No. Patient's initial sepsis screen is negative. Does the patient have a suspected source of infection? No. Patient's initial sepsis screen is negative. Risk Assessment: Do you want to hurt yourself or someone else? Patient reports no desire to harm self or others. Onset of symptoms was November 05, 2021. 19:19 Method Of Arrival: Ambulatory vc1 19:19 Acuity: LYNN 3 vc1 Triage Assessment: 19:24 General: Appears in no apparent distress. uncomfortable, Behavior is cooperative, vc1 anxious. Pain: Complains of pain in left scapular area Pain does not radiate. Pain currently is 3 out of 10 on a pain scale. EENT: No deficits noted. Neuro: Level of Consciousness is awake, alert, obeys commands, Oriented to person, place, time, situation, Appropriate for age. Cardiovascular: Reports diaphoresis, palpitations, Feels hot, pain to back. Respiratory: Reports shortness of breath Airway is patent Respiratory effort is even, unlabored, Respiratory pattern is regular, symmetrical, the patient has mild shortness of breath. GI: No deficits noted. : No signs and/or symptoms were reported regarding the genitourinary system. Derm: No deficits noted. Musculoskeletal: No signs and/or symptoms reported regarding the musculoskeletal system. 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 vc1 Historical: - Allergies: 19:20 Naproxen; vc1 - Home Meds: 19:20 [place] 10-325 mg Oral tab 1 tab every 6 hours for pain [Active]; vc1 losartan-hydrochlorothiazide 50-12.5 mg oral tab 1 tab once daily [Active]; Xanax 0.5 mg Oral tab 1 tab nightly [Active]; escitalopram oxalate 20 mg oral tab 1 tab once daily for anxiety with depression [Active]; gabapentin 100 mg oral cap 1 cap nightly [Active]; metoprolol succinate 50 mg oral CSpX 1 cap twice a day [Active]; - PMHx: 19:20 Hepatitis; Herniated disc; Hypertension; Anxiety; Chronic back pain; Fibromyalgia; vc1 - PSHx: 19:20 Cholecystectomy; vc1 - Immunization history:: Adult Immunizations up to date, Client reports receiving the 2nd dose of the Covid vaccine. - Social history:: Smoking status: Patient reports the use of cigarette tobacco products, 1/4 PPD. - Family history:: not pertinent. Screenin:26 Abuse screen: Denies threats or abuse. Nutritional screening: No deficits noted. vc1 Tuberculosis screening: No symptoms or risk factors identified. Fall Risk None identified. Assessment: 19:21 General: Reports "The pain around my heart feels like my anxiety, but the pain in my tw5 back is new. I just cannot get comfortable.". Neuro: No deficits noted. Cardiovascular: Rhythm is regular. Cardiovascular: Heart tones S1 S2 present. Respiratory: Airway is patent Trachea midline Respiratory effort is even, unlabored. Respiratory: Breath sounds are clear bilaterally. 19:21 Pain: Complains of pain in chest Pain radiates to back Pain currently is 3 out of 10 on tw5 a pain scale. Quality of pain is described as throbbing, Pain began 2-3 days ago. 22:45 Reassessment: Patient appears in no apparent distress at this time. Patient and/or kl family updated on plan of care and expected duration. Pain level reassessed. Patient is alert, oriented x 3, equal unlabored respirations, skin warm/dry/pink. 23:00 Reassessment: Patient appears in no apparent distress at this time. Patient and/or kl family updated on plan of care and expected duration. Pain level reassessed. Patient is alert, oriented x 3, equal unlabored respirations, skin warm/dry/pink. Vital Signs: 19:19 BP 166 / 92; Pulse 67; Resp 23; Temp 98.1(O); Pulse Ox 98% on R/A; Pain 3/10; vc1 19:27 Weight 88.45 kg; Height 5 ft. 5 in. (165.10 cm); vc1 19:38 BP 175 / 85; Pulse 65; Resp 18; Pulse Ox 98% on R/A; Pain 4/10; tw5 20:00 BP 149 / 85; Pulse 59; Resp 18; Pulse Ox 98% ; kl 21:00 BP 147 / 81; Pulse 61; Resp 18; Pulse Ox 97% on R/A; Pain 0/10; kl 22:00 BP 146 / 86; Pulse 60; Resp 18; Pulse Ox 98% on R/A; Pain 0/10; kl 19:27 Body Mass Index 32.45 (88.45 kg, 165.10 cm) vc1 ED Course: 19:04 Patient arrived in ED. as 19:05 Saloni Thomas is Private Physician. as 19:13 Home Maldonado MD is Attending Physician. [facility] 19:20 Triage completed. vc1 19:21 Emily Armstrong is Primary Nurse. tw5 19:27 Arm band placed on right wrist. vc1 19:27 Patient has correct armband on for positive identification. Client placed on continuous vc1 cardiac and pulse oximetry monitoring. NIBP monitoring applied. 19:30 Awaiting lab results. tw5 19:30 Door closed. Noise minimized. Moved to private room. Warm blanket given. Verbal tw5 reassurance given. 19:30 Initial lab(s) drawn, by me, sent to lab. EKG done. Inserted saline lock: 20 gauge in tw5 left wrist, using aseptic technique. Blood collected. Patient maintains SpO2 saturation greater than 95% on room air. 19:31 TSH Sent. tw5 19:31 Lipase Sent. tw5 19:31 Basic Metabolic Panel Sent. tw5 19:31 CBC with Diff Sent. tw5 19:31 LFT's Sent. tw5 19:31 Magnesium Sent. tw5 19:31 NT PRO-BNP Sent. tw5 19:31 PT-INR Sent. tw5 19:31 Troponin HS Sent. tw5 19:36 SARS RAPID Sent. tw5 20:37 Notified ED physician of a critical lab result(s). d-dimer 652. tw5 20:40 XRAY Chest (1 view) In Process Unspecified. EDMS 22:11 CT Chest For PE Angio In Process Unspecified. EDMS 22:42 US Extremity Venous W Compression Kem[place] In Process Unspecified. EDMS 22:48 Jose Rodgers MD is Referral Physician. [facility] 23:30 No provider procedures requiring assistance completed. IV discontinued, intact, kl bleeding controlled, No redness/swelling at site. Pressure dressing applied. Administered Medications: 19:36 Drug: NS 0.9% 1000 ml Route: IV; Rate: 125 ml/hr; Site: left wrist; tw5 19:36 CANCELLED (Duplicate Order): NS 0.9% 1000 ml IV at 125 ml/hr continuous tw5 20:53 Drug: Aspirin 162 mg Route: PO; Medication: 19:30 VIS not applicable for this client. tw5 Outcome: 22:48 Discharge ordered by . [facility] 23:31 Discharged to home with family. 23:31 Condition: improved 23:31 Discharge instructions given to patient, Instructed on discharge instructions, follow up and referral plans. medication usage, Demonstrated understanding of instructions, follow-up care, medications, Prescriptions given X 1. 23:31 Patient left the ED. Signatures: Dispatcher [employer] Rafaela Weston, Home Cooper RN, MD MD cha Martinez, Amelia as Wood, Tiffany tw5 Tesha Pop RN RN vc1
--- NOTE | 2021-11-07 22:51 | RAD REPORT ---
EXAM DESCRIPTION: USExtrem Venous W Compress Bil11/07/2021 10:41 pm CLINICAL HISTORY: Leg pain COMPARISON: none FINDINGS: The common femoral, superficial femoral, popliteal and posterior tibial veins bilaterally are compressible and demonstrate augmentation. Doppler demonstrates good flow. Grayscale, color and spectral analysis performed on all vessels IMPRESSION: No evidence of deep venous thrombosis involving either lower extremity.
[2021-11-08 02:40] VITALS: TEMP 98.1
[2021-11-08 02:54] VITALS: BP 146/86; O2SAT 98
--- NOTE | 2021-11-08 08:07 | EKG ---
Test Date: 2021-11-07 Test Time: 19:31:02 Hospice Coordinator: JOLYNN MEASUREMENT RESULTS: Intervals: Rate: 61 DC: 178 QRSD: 88 QT: 426 QTc: 428 [place]: P: 23 DC: 178 QRS: 18 T: 13 INTERPRETIVE STATEMENTS: Normal sinus rhythm Nonspecific T wave abnormality Abnormal ECG Compared to ECG 04/19/2021 16:17:00 No significant changes Electronically Signed On 11-08-21 08:06:21 CDT by Jose Rodgers
== END 2021-11-07 23:31 | disposition home or self-care (01) ==
LOC: ER 19:03
DX: R00.2 Palpitations (principal); R51.9 Headache, unspecified; I10 Essential (primary) hypertension; F41.8 Other specified anxiety disorders; F17.210 Nicotine dependence, cigarettes, uncomplicated; Z88.5 Allergy status to narcotic agent
CPT/HCPCS: 93005; 85025; 80048; 36415; 83735; 85610; 85379; 80076; 84443; 84484 ×2; 83690; 83880; 71275; 71045; 93970; 99284; 87811; Q9967; J7030

== ENCOUNTER 2022-05-12 21:31 | Inpatient (IN) | payer BC ==
--- OUTSIDE RECORDS SUMMARY | 2022-05-12 21:44 | XMS REPORT | Continuity of Care Document ---
:1975 Author Organization [facility] t Address [address] [place]. [address] [place] [id number] Care Team Providers Name Role Phone Dina Jalloh DO [place] Primary Care Physician KIM GAMBLE Attending Clinician Unavailable KIM GAMBLE Attending Clinician Unavailable DERRICK POLK Attending Clinician Unavailable Doctor Unassigned, [place] Attending Clinician Unavailable UNKNOWN, ATTENDING Attending Clinician Unavailable Lopez Johnson Attending Clinician JAZMINE MOONEY Attending Clinician Unavailable Jazmine Mooney PA-C Attending Clinician Unknown, Attending Attending Clinician Unavailable Provider, [facility] Attending Clinician Unavailable LOPEZ THOMAS Attending Clinician Unavailable Amy Corrigan Attending Clinician AMY HINOJOSA Attending Clinician Unavailable Jeffery Groevr MD Attending Clinician Cookie Faust RN Attending Clinician Unavailable LISA CALLAHAN Attending Clinician Unavailable [place] JIMENEZ, Lisa Attending Clinician Kasper COOK SHIP, Reyna M Attending Clinician Unavailable GEORGINA WIGGINS Attending Clinician Unavailable Desiree Soni MD Attending Clinician DESIREE SONI Attending Clinician Unavailable Lab, Ang - Db Attending Clinician Unavailable Ever LIU Attending Clinician Unavailable Ever Mcgovern Attending Clinician Rita Wallace Attending Clinician Unavailable TIM WILSON Attending Clinician Unavailable MIRELLA NEIL Attending Clinician Unavailable JOSUE ANNA Attending Clinician Unavailable NEHEMIAH JALLOH Attending Clinician Unavailable NAIF CONTRERAS Attending Clinician Unavailable YUKI MCGARRY Admitting Clinician Unavailable Rita Wallace Admitting Clinician Unavailable JOSUE ANNA Admitting Clinician Unavailable Payers Payer Name Policy Type Policy Number Effective Date Expiration Date S ource Problems Condition Condition Condition Status Onset Resolution Last Treating Co mments Source Name Details Category Date Date Treatment Clinician Date Screening Screening Disease Active Uni vers for STD for STD 08-13 ity of ([place]ually [place] transmit[place] 00 [place]ical d disease) d disease) Br anch Vaginal Vaginal Disease Active Univers itching itching -27 ity of 00:00: [address] Candidal Candidal Disease Active Unive rs intertrigo intertrigo 08-13 it y of 00:00: [address] BMI BMI Disease Active Univers 35.0-35.9, 35.0-35.9, 3-30 it y of adult adult 00:00: [address] Anxiety Anxiety Disease Active Univers and and 3-30 [place] [address] [place] [address] Essential Essential Disease Active Uni vers hypertensi hypertensi 3-30 it y of on, on, 00:00: [place] malignant malignant [address] [place] [address] Branch Nontoxic Nontoxic Disease Active Overview: Un megan single single 03-27 Form[place] ity of thyroid thyroid 00:00: g of this [place] nodule nodule 00 note Medical might be Branch different from the original. Formattin g of this note might be different from the original. Converted from [facility] y:Descrip tion - THYROID NODULE, RIGHT Chronic Chronic Disease Active 2010-03 Overview: Univ ers viral viral 03-30 Formattin ity of hepatitis hepatitis 00:00: [place] of [place] B without B without 00 note Medi rosio delta-agen delta-agen might be Branch t t different from the original. Formattin g of this note might be different from the original. Converted from [facility] y:Descrip tion - HEPATITIS B CHRONIC Allergies, [...] Date Stop Date Quantity Comments Source History SDOH University o f Alcohol Frequency [place] M edical Branch History [facility] University o f Alcohol Std [place] Medical Drinks Branch History [facility] o f Alcohol Binge [place] Medic al Branch Exposure to 2022-02-17 2022-02-27 Not sure University of SARS-CoV-2 00:00:00 10:44:00 [facility] (event) Branch Alcohol intake 2022-02-27 2022-02-27 Current drinker Unive rsity of 00:00:00 00:00:00 of alcohol [place] [facility] (finding) Branch Tobacco Comment 2021-09-27 2021-09-27 quit x1y ago Univers ity of 00:00:00 00:00:00 [facility] Tobacco use and 2021-09-27 2021-09-27 Smokeless tobacco Un iversity of exposure 00:00:00 00:00:00 non-user [facility] Alcohol Comment 2017-06-16 2017-06-16 social Universit y of 00:00:00 00:00:00 [facility] History of 2014-03-20 Cigarette Smoker Universi ty of tobacco use 00:00:00 [facility] Sex [birth year] At [birth year] [facility] Smoking Status Start Date Stop Date Source Tobacco smoking [facility] consumption unknown Ex-smoker 2021-09-27 00:00:00 2021-09-27 University o f [place] 00:00:00 Medical Branch Medications Ordered Filled Start Stop Current Ordering Indication Dosage Frequency Signature Comments Components Source Medication Medication Date Date Medication? Clinician (SIG) Name Name metoprolol Yes [id number] 50mg Take 1 U nivers succinate 2-02 tablet by ity o f XL 50 mg 24 00:00: mouth [place] hr tablet 00 the Medical morning. Branch TAKE ONE (1) TABLET(S) BY MOUTH EVERY MORNING AND EVERY EVENING. metoprolol Yes [id number] 50mg Take 1 U nivers succinate 2-02 tablet by ity o f XL 50 mg 24 00:00: mouth [place] tablet 00 the morning. Branch TAKE ONE (1) TABLET(S) BY MOUTH EVERY MORNING AND EVERY EVENING. hydrOXYzine 2021-03 Yes [id number] 25mg Take 1 Univers 25 mg 2-11 tablet by ity of tablet 00:00: mouth [place] 00 every 8 Medical (eight) Branch hours as needed for Itching. hydrocortis 2021-03 Yes [id number] Apply to Univers one 1 % 2-11 area(s) ity of cream 00:00: daily. [place] [facility] hydrOXYzine 2021-03 Yes [id number] 25mg Take 1 Univers 25 mg 2-11 tablet by ity of tablet 00:00: mouth [place] 00 every 8 Medical (eight) Branch hours as needed for Itching. hydrocortis 2021-03 Yes [id number] Apply to Univers one 1 % 2-11 area(s) ity of cream 00:00: daily. [place] [facility] hydrOXYzine 2021-03 Yes [id number] 25mg Take 1 Univers 25 mg 2-11 tablet by ity of tablet 00:00: mouth [place] 00 every 8 Medical (eight) Branch hours as needed for Itching. hydrocortis 2021-03 Yes [id number] Apply to Univers one 1 % 2-11 area(s) ity of cream 00:00: daily. [place] [facility] hydrOXYzine 2021-03 Yes [id number] 25mg Take 1 Univers 25 mg 2-11 tablet by ity of tablet 00:00: mouth [place] 00 every 8 Medical (eight) Branch hours as needed for Itching. hydrocortis 2021-03 Yes [id number] Apply to Univers one 1 % 2-11 area(s) ity of cream 00:00: daily. [address] hydrOXYzine 2021-03 Yes [id number] 25mg Take 1 Univers 25 mg 2-11 tablet by ity of tablet 00:00: mouth [place] 00 every 8 Medical (eight) Branch hours as needed for Itching. hydrocortis 2021-03 Yes [id number] Apply to Univers one 1 % 2-11 area(s) ity of cream 00:00: daily. [place] [facility] hydrOXYzine 2021-03 Yes [id number] 25mg Take 1 Univers 25 mg 2-11 tablet by ity of tablet 00:00: mouth [place] 00 every 8 Medical (eight) Branch hours as needed for Itching. hydrocortis 2021-03 Yes [id number] Apply to Univers one 1 % 2-11 area(s) ity of cream 00:00: daily. [place] [facility] hydrOXYzine 2021-03 Yes [id number] 25mg Take 1 Univers 25 mg 2-11 tablet by ity of tablet 00:00: mouth [place] 00 every 8 Medical (eight) Branch hours as needed for Itching. hydrocortis 2021-03 Yes [id number] Apply to Univers one 1 % 2-11 area(s) ity of cream 00:00: daily. [address] losartan-hy 2021-03 Yes [id number] 1{tbl} Take 1 Univers drochloroth 2-07 tablet by ity of iazide 00:00: mouth in [place] 50-12.5 mg 00 the Medical per tablet morning. [facility] losartan-hy 2021-03 Yes [id number] 1{tbl} Take 1 Univers drochloroth 2-07 tablet by ity of iazide 00:00: mouth in [place] 50-12.5 mg 00 the Medical per tablet morning. [facility] losartan-hy 2021-03 Yes [id number] 1{tbl} Take 1 Univers drochloroth 2-07 tablet by ity of iazide 00:00: mouth in [place] 50-12.5 mg 00 the Medical per tablet morning. [facility] losartan-hy 2021-03 Yes [id number] 1{tbl} Take 1 Univers drochloroth 2-07 tablet by ity of iazide 00:00: mouth in [place] 50-12.5 mg 00 the Medical per tablet morning. [facility] losartan-hy 2021-03 Yes [id number] 1{tbl} Take 1 Univers drochloroth 2-07 tablet by ity of iazide 00:00: mouth in [place] 50-12.5 mg 00 the Medical per tablet morning. [facility] losartan-hy 2021-03 Yes [id number] 1{tbl} Take 1 Univers drochloroth 2-07 tablet by ity of iazide 00:00: mouth in [place] 50-12.5 mg 00 the Medical per tablet morning. [facility] losartan-hy 2021-03 Yes [id number] 1{tbl} Take 1 Univers drochloroth 2-07 tablet by ity of iazide 00:00: mouth in [place] 50-12.5 mg 00 the Medical per tablet morning. [facility] losartan-hy 2021-03 Yes [id number] 1{tbl} Take 1 Univers drochloroth 2-07 tablet by ity of iazide 00:00: mouth in [place] 50-12.5 mg 00 the Medical per tablet morning. [facility] losartan- 2021-03 Yes [id number] 1{tbl} Take 1 Univers drochloroth 2-07 tablet by ity of iazide 00:00: mouth in [place] 50-12.5 mg 00 the Medical per tablet morning. [facility] amoxicillin 2021-03- Yes [id number] 500mg Take 1 Univers 500 mg - 12-07 tablet by ity of tablet 00:00: 05:59 mouth in [place] 00 :00 the Medical morning Branch and 1 tablet in the evening. Do all this for 7 days. amoxicillin 2021-03- Yes [id number] 500mg Take 1 Univers 500 mg -29 12-07 tablet by ity of tablet 00:00: 05:59 mouth in [place] 00 :00 the Medical morning Branch and 1 tablet in the evening. Do all this for 7 days. amoxicillin 2021-03- Yes [id number] 500mg Take 1 Univers 500 mg -29 12-07 tablet by ity of tablet 00:00: 05:59 mouth in [place] 00 :00 the Medical morning Branch and 1 tablet in the evening. Do all this for 7 days. promethazin 2021-03- No [id number] 5mL Take 5 mL Univers e-dextromet 04-1030 by mouth 4 i ty of horphan 00:00: 05:59 (four) [place] 6.25-15 00 :00 times Medical mg/5 mL daily for Branch syrup 7 days. promethazin 2021-03- No [id number] 5mL Take 5 mL Univers e-dextromet 04-1030 by mouth 4 i ty of horphan 00:00: 05:59 (four) [place] 6.25-15 00 :00 times Medical mg/5 mL daily for Branch syrup 7 days. promethazin 2021-03- No [id number] 5mL Take 5 mL Univers e-dextromet 04-1030 by mouth 4 i ty of horphan 00:00: 05:59 (four) [place] 6.25-15 00 :00 times Medical mg/5 mL daily for Branch syrup 7 days. predniSONE 2021-03- No [id number] 40mg Take 2 Univers 20 mg 04-10-28 tablets by ity of tablet 00:00: 05:59 mouth in [place] 00 :00 the [facility] for 5 days. tenofovir 2021-03 Yes Univers 300 mg 1-16 ity of tablet 00:00: [address] tenofovir 2021-03 Yes Univers 300 mg 1-16 ity of tablet 00:00: [address] tenofovir 2021-03 Yes Univers 300 mg 1-16 ity of tablet 00:00: [address] tenofovir 2021-03 Yes Univers 300 mg 1-16 ity of tablet 00:00: [address] tenofovir 2021-03 Yes Univers 300 mg 1-16 ity of tablet 00:00: [address] tenofovir 2021-03 Yes Univers 300 mg 1-16 ity of tablet 00:00: [address] tenofovir 2021-03 Yes Univers 300 mg 1-16 ity of tablet 00:00: [address] METOPROLOL 2021-03 Yes [id number] TAKE ONE Univers SUCCINATE -02 (1) ity of XL 50 mg 24 00:00: TABLET(S) [place] tablet 00 BY MOUTH Medica l EVERY Branch MORNING AND EVERY EVENING. METOPROLOL 2021-03 Yes [id number] TAKE ONE Univers SUCCINATE -02 (1) ity of XL 50 mg 24 00:00: TABLET(S) [place] hr tablet 00 BY MOUTH Medica l EVERY Branch MORNING AND EVERY EVENING. METOPROLOL 2021-03 Yes [id number] TAKE ONE Univers SUCCINATE 1-02 (1) ity of XL 50 mg 24 00:00: TABLET(S) [place] hr tablet 00 BY MOUTH Medica l EVERY Branch MORNING AND EVERY EVENING. METOPROLOL 2021-03 Yes [id number] TAKE ONE Univers SUCCINATE 1-02 (1) ity of XL 50 mg 24 00:00: TABLET(S) [place] hr tablet 00 BY MOUTH Medica l EVERY Branch MORNING AND EVERY EVENING. METOPROLOL 2021-03 Yes [id number] TAKE ONE Univers SUCCINATE 1-02 (1) ity of XL 50 mg 24 00:00: TABLET(S) [place] hr tablet 00 BY MOUTH Medica l EVERY Branch MORNING AND EVERY EVENING. METOPROLOL 2021-03 Yes [id number] TAKE ONE Univers SUCCINATE 1-02 (1) ity of XL 50 mg 24 00:00: TABLET(S) [place] hr tablet 00 BY MOUTH Medica l EVERY Branch MORNING AND EVERY EVENING. METOPROLOL 2021-03 Yes [id number] TAKE ONE Univers SUCCINATE 1-02 (1) ity of XL 50 mg 24 00:00: TABLET(S) [place] hr tablet 00 BY MOUTH Medica l EVERY Branch MORNING AND EVERY EVENING. METOPROLOL 2021-03 Yes [id number] TAKE ONE Univers SUCCINATE 1-02 (1) ity of XL 50 mg 24 00:00: TABLET(S) [place] hr tablet 00 BY MOUTH Medica l EVERY Branch MORNING AND EVERY EVENING. METOPROLOL 2021-03 Yes [id number] TAKE ONE Univers SUCCINATE 1-02 (1) ity of XL 50 mg 24 00:00: TABLET(S) [place] hr tablet 00 BY MOUTH Medica l EVERY Branch MORNING AND EVERY EVENING. METOPROLOL 2021-03 Yes [id number] TAKE ONE Univers SUCCINATE 1-02 (1) ity of XL 50 mg 24 00:00: TABLET(S) [place] hr tablet 00 BY MOUTH Medica l EVERY Branch MORNING AND EVERY EVENING. METOPROLOL 2021-03 Yes [id number] TAKE ONE Univers SUCCINATE 1-02 (1) ity of XL 50 mg 24 00:00: TABLET(S) [place] hr tablet 00 BY MOUTH Medica l EVERY Branch MORNING AND EVERY EVENING. METOPROLOL 2021-03 Yes [id number] TAKE ONE Univers SUCCINATE -02 (1) ity of XL 50 mg 24 00:00: TABLET(S) [place] hr tablet 00 BY MOUTH Medica l EVERY Branch MORNING AND EVERY EVENING. METOPROLOL 2021-03 Yes [id number] TAKE ONE Univers SUCCINATE - (1) ity of XL 50 mg 24 00:00: TABLET(S) [place] hr tablet 00 BY MOUTH Medica l EVERY Branch MORNING AND EVERY EVENING. METOPROLOL 2021-03 Yes [id number] TAKE ONE Univers SUCCINATE - (1) ity of XL 50 mg 24 00:00: TABLET(S) [place] hr tablet 00 BY MOUTH Medica l EVERY Branch MORNING AND EVERY EVENING. METOPROLOL 2021-03- No [id number] TAKE ONE Univers SUCCINATE 03-21 02 (1) ity of XL 50 mg 24 00:00: 00:00 TABLET(S) [place] hr tablet 00 :00 BY MOUTH Medica l EVERY Branch MORNING AND EVERY EVENING. montelukast 2021-03- No [id number] 10mg Take 1 Univers (SINGULAIR) 0-06 10-17 tablet by it y of 10 mg 00:00: 04:59 mouth in [place] tablet 00 :00 the [facility] Branch for 10 days. montelukast 2021-03- No [id number] 10mg Take 1 Univers (SINGULAIR) 0-06 10-17 tablet by it y of 10 mg 00:00: 04:59 mouth in [place] tablet 00 :00 the [facility] Branch for 10 days. montelukast 2021-03- No [id number] 10mg Take 1 Univers (SINGULAIR) 0-06 10-17 tablet by it y of 10 mg 00:00: 04:59 mouth in [place] tablet 00 :00 the Medical [facility] Branch for 10 days. montelukast 2021-03- No [id number] 10mg Take 1 Univers (SINGULAIR) 0-06 10-17 tablet by it y of 10 mg 00:00: 04:59 mouth in [place] tablet 00 :00 the Medical [facility] Branch for 10 days. predniSONE 2021-03- No [id number] 40mg Take 2 Univers 20 mg 0-06 10-12 tablets by ity of tablet 00:00: 04:59 mouth in [place] 00 :00 the Medical morning Branch for 5 days. predniSONE 2021-03- No [id number] 40mg Take 2 Univers 20 mg 0-06 10-12 tablets by ity of tablet 00:00: 04:59 mouth in [place] 00 :00 the Medical morning Branch for 5 days. predniSONE 2021-03- No [id number] 40mg Take 2 Univers 20 mg 0-06 10-12 tablets by ity of tablet 00:00: 04:59 mouth in [place] 00 :00 the Medical morning Branch for 5 days. predniSONE 2021-03- No [id number] 40mg Take 2 Univers 20 mg 0-06 10-12 tablets by ity of tablet 00:00: 04:59 mouth in [place] 00 :00 the Medical morning Branch for 5 days. albuterol Yes [id number] 2{puff} Inhale 2 Univers 90 9-30 Puffs ity of mcg/actuati 00:00: every 6 [place] on inhaler 00 (six) Medical hours as Branch needed for Shortness of Breath or Wheezing. azelastine Yes [id number] 1{spray Use 1 Univers 137 mcg 9-30 } [place] in ity of (0.1 %) 00:00: each [place] nasal spray 00 nostril in [facility] [place] morning and 1 [place] in the evening. Use in each nostril as directed promethazin Yes [id number] 5mL Take 5 mL Univers e-dextromet 9-30 by mouth 4 it y of horphan 00:00: (four) [place] 6.25-15 00 times Medical mg/5 mL daily as Branch syrup needed for Cough. albuterol Yes [id number] 2{puff} Inhale 2 Univers 90 9-30 Puffs ity of mcg/actuati 00:00: every 6 [place] on inhaler 00 (six) Medical hours as Branch needed for Shortness of Breath or Wheezing. azelastine Yes [id number] 1{spray Use 1 Univers 137 mcg 9-30 } [place] in ity of (0.1 %) 00:00: each [place] nasal spray 00 nostril in Me dical the Branch morning and 1 [place] in the evening. Use in each nostril as directed promethazin Yes [id number] 5mL Take 5 mL Univers e-dextromet 9-30 by mouth 4 it y of horphan 00:00: (four) [place] 6.25-15 00 times Medical mg/5 mL daily as Branch syrup needed for Cough. albuterol Yes [id number] 2{puff} Inhale 2 Univers 90 9-30 Puffs ity of mcg/actuati 00:00: every 6 [place] on inhaler 00 (six) Medical hours as Branch needed for Shortness of Breath or Wheezing. azelastine Yes [id number] 1{spray Use 1 Univers 137 mcg 9-30 } [place] in ity of (0.1 %) 00:00: each [place] nasal spray 00 nostril in [facility] the Branch morning and 1 [place] in the evening. Use in each nostril as directed promethazin Yes [id number] 5mL Take 5 mL Univers e-dextromet 9-30 by mouth 4 it y of horphan 00:00: (four) [place] 6.25-15 00 times Medical mg/5 mL daily as Branch syrup needed for Cough. albuterol Yes [id number] 2{puff} Inhale 2 Univers 90 9-30 Puffs ity of mcg/actuati 00:00: every 6 [place] on inhaler 00 (six) Medical hours as Branch needed for Shortness of Breath or Wheezing. azelastine Yes [id number] 1{spray Use 1 Univers 137 mcg 9-30 } [place] in ity of (0.1 %) 00:00: each [place] nasal spray 00 nostril in [facility] the Branch morning and 1 [place] in the evening. Use in each nostril as directed promethazin Yes [id number] 5mL Take 5 mL Univers e-dextromet 9-30 by mouth 4 it y of horphan 00:00: (four) [place] 6.25-15 00 times Medical mg/5 mL daily as Branch syrup needed for Cough. albuterol Yes [id number] 2{puff} Inhale 2 Univers 90 9-30 Puffs ity of mcg/actuati 00:00: every 6 [place] on inhaler 00 (six) Medical hours as Branch needed for Shortness of Breath or Wheezing. azelastine 2021-0 Yes [id number] 1{spray Use 1 Univers 137 mcg 9-30 } [place] in ity of (0.1 %) 00:00: each [place] nasal spray 00 nostril in Me dical the Branch morning and 1 [place] in the evening. Use in each nostril as directed promethazin 2021-0 Yes [id number] 5mL Take 5 mL Univers e-dextromet 9-30 by mouth 4 it y of horphan 00:00: (four) [place] 6.25-15 00 times Medical mg/5 mL daily as Branch syrup needed for Cough. albuterol 2021-0 Yes [id number] 2{puff} Inhale 2 Univers 90 9-30 Puffs ity of mcg/actuati 00:00: every 6 [place] on inhaler 00 (six) Medical hours as Branch needed for Shortness of Breath or Wheezing. azelastine 2021-0 Yes [id number] 1{spray Use 1 Univers 137 mcg 9-30 } [place] in ity of (0.1 %) 00:00: each [place] nasal spray 00 nostril in N[facility] dical the Branch morning and 1 [place] in the evening. Use in each nostril as directed promethazin 2021-0 Yes [id number] 5mL Take 5 mL Univers e-dextromet 9-30 by mouth 4 it y of horphan 00:00: (four) [place] 6.25-15 00 times Medical mg/5 mL daily as Branch syrup needed for Cough. albuterol 2021-0 Yes [id number] 2{puff} Inhale 2 Univers 90 9-30 Puffs ity of mcg/actuati 00:00: every 6 [place] on inhaler 00 (six) Medical hours as Branch needed for Shortness of Breath or Wheezing. azelastine 2021-0 Yes [id number] 1{spray Use 1 Univers 137 mcg 9-30 } [place] in ity of (0.1 %) 00:00: each [place] nasal spray 00 nostril in N[facility] dical the Branch morning and 1 [place] in the evening. Use in each nostril as directed promethazin 2021-0 Yes [id number] 5mL Take 5 mL Univers e-dextromet 9-30 by mouth 4 it y of horphan 00:00: (four) [place] 6.25-15 00 times Medical mg/5 mL daily as Branch syrup needed for Cough. albuterol Yes [id number] 2{puff} Inhale 2 Univers 90 9-30 Puffs ity of mcg/actuati 00:00: every 6 [place] on inhaler 00 (six) Medical hours as Branch needed for Shortness of Breath or Wheezing. azelastine Yes [id number] 1{spray Use 1 Univers 137 mcg 9-30 } [place] in ity of (0.1 %) 00:00: each [place] nasal spray 00 nostril in Me dical the Branch morning and 1 [place] in the evening. Use in each nostril as directed promethazin Yes [id number] 5mL Take 5 mL Univers e-dextromet 9-30 by mouth 4 it y of horphan 00:00: (four) [place] 6.25-15 00 times Medical mg/5 mL daily as Branch syrup needed for Cough. albuterol Yes [id number] 2{puff} Inhale 2 Univers 90 9-30 Puffs ity of mcg/actuati 00:00: every 6 [place] as on inhaler 00 (six) Medical hours as Branch needed for Shortness of Breath or Wheezing. azelastine Yes [id number] 1{spray Use 1 Univers 137 mcg 9-30 } [place] in ity of (0.1 %) 00:00: each [place] nasal spray 00 nostril in Me dical the Branch morning and 1 [place] in the evening. Use in each nostril as directed promethazin 0 Yes [id number] 5mL Take 5 mL Univers e-dextromet 9-30 by mouth 4 it y of horphan 00:00: (four) [place] 6.25-15 00 times Medical mg/5 mL daily as Branch syrup needed for Cough. albuterol Yes [id number] 2{puff} Inhale 2 Univers 90 9-30 Puffs ity of mcg/actuati 00:00: every 6 [place] on inhaler 00 (six) Medical hours as Branch needed for Shortness of Breath or Wheezing. azelastine Yes [id number] 1{spray Use 1 Univers 137 mcg 9-30 } [place] in ity of (0.1 %) 00:00: each [place] nasal spray 00 nostril in Nh dical the Branch morning and 1 [place] in the evening. Use in each nostril as directed promethazin Yes [id number] 5mL Take 5 mL Univers e-dextromet 9-30 by mouth 4 it y of horphan 00:00: (four) [place] 6.25-15 00 times Medical mg/5 mL daily as Branch syrup needed for Cough. albuterol Yes [id number] 2{puff} Inhale 2 Univers 90 9-30 Puffs ity of mcg/actuati 00:00: every 6 [place] on inhaler 00 (six) Medical hours as Branch needed for Shortness of Breath or Wheezing. azelastine Yes [id number] 1{spray Use 1 Univers 137 mcg 9-30 } [place] in ity of (0.1 %) 00:00: each [place] nasal spray 00 nostril in [facility] the Branch morning and 1 [place] in the evening. Use in each nostril as directed promethazin Yes [id number] 5mL Take 5 mL Univers e-dextromet 9-30 by mouth 4 it y of horphan 00:00: (four) [place] 6.25-15 00 times Medical mg/5 mL daily as Branch syrup needed for Cough. albuterol Yes [id number] 2{puff} Inhale 2 Univers 90 9-30 Puffs ity of mcg/actuati 00:00: every 6 [place] as on inhaler 00 (six) Medical hours as Branch needed for Shortness of Breath or Wheezing. azelastine Yes [id number] 1{spray Use 1 Univers 137 mcg 9-30 } [place] in ity of (0.1 %) 00:00: each [place] nasal spray 00 nostril in [facility] the Branch morning and 1 [place] in the evening. Use in each nostril as directed promethazin Yes [id number] 5mL Take 5 mL Univers e-dextromet 9-30 by mouth 4 it y of horphan 00:00: (four) [place] 6.25-15 00 times Medical mg/5 mL daily as Branch syrup needed for Cough. albuterol Yes [id number] 2{puff} Inhale 2 Univers 90 9-30 Puffs ity of mcg/actuati 00:00: every 6 [place] as on inhaler 00 (six) Medical hours as Branch needed for Shortness of Breath or Wheezing. azelastine Yes [id number] 1{spray Use 1 Univers 137 mcg 9-30 } [place] in ity of (0.1 %) 00:00: each [place] nasal spray 00 nostril in Me dical the Branch morning and 1 [place] in the evening. Use in each nostril as directed promethazin Yes [id number] 5mL Take 5 mL Univers e-dextromet 9-30 by mouth 4 it y of horphan 00:00: (four) [place] 6.25-15 00 times Medical mg/5 mL daily as Branch syrup needed for Cough. albuterol Yes [id number] 2{puff} Inhale 2 Univers 90 9-30 Puffs ity of mcg/actuati 00:00: every 6 [place] on inhaler 00 (six) Medical hours as Branch needed for Shortness of Breath or Wheezing. azelastine Yes [id number] 1{spray Use 1 Univers 137 mcg 9-30 } [place] in ity of (0.1 %) 00:00: each [place] nasal spray 00 nostril in Nh dical the Branch morning and 1 [place] in the evening. Use in each nostril as directed promethazin 0 Yes [id number] 5mL Take 5 mL Univers e-dextromet 9-30 by mouth 4 it y of horphan 00:00: (four) [place] 6.25-15 00 times Medical mg/5 mL daily as Branch syrup needed for Cough. albuterol Yes [id number] 2{puff} Inhale 2 [facility] 90 9-30 Puffs ity of mcg/actuati 00:00: every 6 [place] as on inhaler 00 (six) Medical hours as Branch needed for Shortness of Breath or Wheezing. azelastine Yes [id number] 1{spray Use 1 [facility] 137 mcg 9-30 } [place] in ity of (0.1 %) 00:00: each [place] nasal spray 00 nostril in Me dical the Branch morning and 1 [place] in the evening. Use in each nostril as directed promethazin Yes [id number] 5mL Take 5 mL [facility] e-dextromet 9-30 by mouth 4 it y of horphan 00:00: (four) [place] 6.25-15 00 times Medical mg/5 mL daily as Branch syrup needed for Cough. albuterol Yes [id number] 2{puff} Inhale 2 [facility] 90 9-30 Puffs ity of mcg/actuati 00:00: every 6 [place] on inhaler 00 (six) Medical hours as Branch needed for Shortness of Breath or Wheezing. azelastine Yes [id number] 1{spray Use 1 [facility] 137 mcg 9-30 } [place] in ity of (0.1 %) 00:00: each [place] nasal spray 00 nostril in N[facility] dical the Branch morning and 1 [place] in the evening. Use in each nostril as directed promethazin Yes [id number] 5mL Take 5 mL [facility] e-dextromet 9-30 by mouth 4 it y of horphan 00:00: (four) [place] 6.25-15 00 times Medical mg/5 mL daily as Branch syrup needed for Cough. albuterol Yes [id number] 2{puff} Inhale 2 [facility] 90 9-30 Puffs ity of mcg/actuati 00:00: every 6 [place] on inhaler 00 (six) Medical hours as Branch needed for Shortness of Breath or Wheezing. azelastine Yes [id number] 1{spray Use 1 [facility] 137 mcg 9-30 } [place] in ity of (0.1 %) 00:00: each [place] nasal spray 00 nostril in Nh dical the Branch morning and 1 [place] in the evening. Use in each nostril as directed promethazin Yes [id number] 5mL Take 5 mL [facility] e-dextromet 9-30 by mouth 4 it y of horphan 00:00: (four) [place] 6.25-15 00 times Medical mg/5 mL daily as Branch syrup needed for Cough. albuterol Yes [id number] 2{puff} Inhale 2 [facility] 90 9-30 Puffs ity of mcg/actuati 00:00: every 6 [place] on inhaler 00 (six) Medical hours as Branch needed for Shortness of Breath or Wheezing. azelastine 2021-0 Yes [id number] 1{spray Use 1 [facility] 137 mcg 9-30 } [place] in ity of (0.1 %) 00:00: each [place] nasal spray 00 nostril in Me dical the Branch morning and 1 [place] in the evening. Use in each nostril as directed promethazin 2021-0 Yes [id number] 5mL Take 5 mL [facility] e-dextromet 9-30 by mouth 4 it y of horphan 00:00: (four) [place] 6.25-15 00 times Medical mg/5 mL daily as Branch syrup needed for Cough. albuterol 2021-0 Yes [id number] 2{puff} Inhale 2 [facility] 90 9-30 Puffs ity of mcg/actuati 00:00: every 6 [place] on inhaler 00 (six) Medical hours as Branch needed for Shortness of Breath or Wheezing. azelastine 2021-0 Yes [id number] 1{spray Use 1 [facility] 137 mcg 9-30 } [place] in ity of (0.1 %) 00:00: each [place] nasal spray 00 nostril in N[facility] dical the Branch morning and 1 [place] in the evening. Use in each nostril as directed promethazin 2021-0 Yes [id number] 5mL Take 5 mL [facility] e-dextromet 9-30 by mouth 4 it y of horphan 00:00: (four) [place] 6.25-15 00 times Medical mg/5 mL daily as Branch syrup needed for Cough. albuterol 2021-0 Yes [id number] 2{puff} Inhale 2 [facility] 90 9-30 Puffs ity of mcg/actuati 00:00: every 6 [place] on inhaler 00 (six) Medical hours as Branch needed for Shortness of Breath or Wheezing. azelastine 2021-0 Yes [id number] 1{spray Use 1 [facility] 137 mcg 9-30 } [place] in ity of (0.1 %) 00:00: each [place] nasal spray 00 nostril in N[facility] dical the Branch morning and 1 [place] in the evening. Use in each nostril as directed promethazin 2021-0 Yes [id number] 5mL Take 5 mL [facility] e-dextromet 9-30 by mouth 4 it y of horphan 00:00: (four) [place] 6.25-15 00 times Medical mg/5 mL daily as Branch syrup needed for Cough. albuterol Yes [id number] 2{puff} Inhale 2 [facility] 90 9-30 Puffs ity of mcg/actuati 00:00: every 6 [place] on inhaler 00 (six) Medical hours as Branch needed for Shortness of Breath or Wheezing. azelastine Yes [id number] 1{spray Use 1 [facility] 137 mcg 9-30 } [place] in ity of (0.1 %) 00:00: each [place] nasal spray 00 nostril in Me dical the Branch morning and 1 [place] in the evening. Use in each nostril as directed promethazin Yes [id number] 5mL Take 5 mL [facility] e-dextromet 9-30 by mouth 4 it y of horphan 00:00: (four) [place] 6.25-15 00 times Medical mg/5 mL daily as Branch syrup needed for Cough. albuterol Yes [id number] 2{puff} Inhale 2 [facility] 90 9-30 Puffs ity of mcg/actuati 00:00: every 6 [place] on inhaler 00 (six) Medical hours as Branch needed for Shortness of Breath or Wheezing. azelastine Yes [id number] 1{spray Use 1 [facility] 137 mcg 9-30 } [place] in ity of (0.1 %) 00:00: each [place] nasal spray 00 nostril in Me dical the Branch morning and 1 [place] in the evening. Use in each nostril as directed promethazin 0 Yes [id number] 5mL Take 5 mL [facility] e-dextromet 9-30 by mouth 4 it y of horphan 00:00: (four) [place] 6.25-15 00 times Medical mg/5 mL daily as Branch syrup needed for Cough. albuterol Yes [id number] 2{puff} Inhale 2 [facility] 90 9-30 Puffs ity of mcg/actuati 00:00: every 6 [place] on inhaler 00 (six) Medical hours as Branch needed for Shortness of Breath or Wheezing. azelastine Yes [id number] 1{spray Use 1 [facility] 137 mcg 9-30 } [place] in ity of (0.1 %) 00:00: each [place] nasal spray 00 nostril in Nh dical the Branch morning and 1 [place] in the evening. Use in each nostril as directed promethazin Yes [id number] 5mL Take 5 mL [facility] e-dextromet 9-30 by mouth 4 it y of horphan 00:00: (four) [place] 6.25-15 00 times Medical mg/5 mL daily as Branch syrup needed for Cough. albuterol Yes [id number] 2{puff} Inhale 2 [facility] 90 9-30 Puffs ity of mcg/actuati 00:00: every 6 [place] on inhaler 00 (six) Medical hours as Branch needed for Shortness of Breath or Wheezing. azelastine Yes [id number] 1{spray Use 1 [facility] 137 mcg 9-30 } [place] in ity of (0.1 %) 00:00: each [place] nasal spray 00 nostril in Nh dical the Branch morning and 1 [place] in the evening. Use in each nostril as directed promethazin Yes [id number] 5mL Take 5 mL [facility] e-dextromet 9-30 by mouth 4 it y of horphan 00:00: (four) [place] 6.25-15 00 times Medical mg/5 mL daily as Branch syrup needed for Cough. albuterol Yes [id number] 2{puff} Inhale 2 [facility] 90 9-30 Puffs ity of mcg/actuati 00:00: every 6 [place] on inhaler 00 (six) Medical hours as Branch needed for Shortness of Breath or Wheezing. azelastine Yes [id number] 1{spray Use 1 [facility] 137 mcg 9-30 } [place] in ity of (0.1 %) 00:00: each [place] nasal spray 00 nostril in Nh dical the Branch morning and 1 [place] in the evening. Use in each nostril as directed promethazin Yes [id number] 5mL Take 5 mL [facility] e-dextromet 9-30 by mouth 4 it y of horphan 00:00: (four) [place] 6.25-15 00 times Medical mg/5 mL daily as Branch syrup needed for Cough. benzonatate 0 No [id number] 200mg Take 2 [facility] 100 mg 9-30 -30 capsules ity of capsule 00:00: 00:00 by mouth [place] 00 :00 every 8 Medical (eight) Branch hours as needed for Cough. benzonatate 0 2021- No [id number] 200mg Take 2 [facility] 100 mg 9-30 -30 capsules ity of capsule 00:00: 00:00 by mouth [place] 00 :00 every 8 Medical (eight) Branch hours as needed for Cough. amoxicillin 0 Yes 1{tbl} Take 1 Un megan -clavulanat 9-29 tablet by ity of e 875-125 00:00: mouth [place] mg per 00 the Medical tablet morning Branch and 1 tablet in the evening. ipratropium 0 Yes Un[facility] s 42 mcg 9-29 ity of (0.06 %) 00:00: [place] nasal spray Medical Branch methylPREDN 0 Yes FOLLOW Univ ers ISolone 4 9-29 PACKAGE ity of mg tablets 00:00: DIRECTIONS [place] [facility] amoxicillin 2021-0 Yes 1{tbl} Take 1 Un megan -clavulanat 9-29 tablet by ity of e 875-125 00:00: mouth in [place] mg per 00 the Medical tablet morning Branch and 1 tablet in the evening. ipratropium 2021-0 Yes Univer s 42 mcg 9-29 ity of (0.06 %) 00:00: [place] nasal spray Medical Branch methylPREDN 2021-0 Yes FOLLOW [facility] ers ISolone 4 9-29 PACKAGE ity of mg tablets 00:00: DIRECTIONS [place] [facility] amoxicillin 2021-0 Yes 1{tbl} Take 1 Un megan -clavulanat 9-29 tablet by ity of e 875-125 00:00: mouth [place] mg per 00 the Medical tablet morning Branch and 1 tablet in the evening. ipratropium 2021-0 Yes Univer s 42 mcg 9-29 ity of (0.06 %) 00:00: [place] nasal spray Medical Branch methylPREDN 2021-0 Yes FOLLOW [facility] ers ISolone 4 9-29 PACKAGE ity of mg tablets 00:00: DIRECTIONS [place] [facility] amoxicillin 2021-0 Yes 1{tbl} Take 1 Un megan -clavulanat 9-29 tablet by ity of e 875-125 00:00: mouth in [place] mg per 00 the Medical tablet morning Branch and 1 tablet in the evening. ipratropium 2021-0 Yes Univer s 42 mcg 9-29 ity of (0.06 %) 00:00: [place] nasal spray Medical Branch methylPREDN 2021-0 Yes FOLLOW [facility] ers ISolone 4 9-29 PACKAGE ity of mg tablets 00:00: DIRECTIONS [place] [facility] amoxicillin 0 Yes 1{tbl} Take 1 Un megan -clavulanat 9-29 tablet by ity of e 875-125 00:00: mouth in [place] mg per 00 the Medical tablet morning Branch and 1 tablet in the evening. ipratropium 2021-0 Yes Univer s 42 mcg 9-29 ity of (0.06 %) 00:00: [place] nasal spray Medical Branch methylPREDN 0 Yes FOLLOW [facility] ers ISolone 4 9-29 PACKAGE ity of mg tablets 00:00: DIRECTIONS [place] [facility] Branch amoxicillin 0 Yes 1{tbl} Take 1 Un megan -clavulanat 9-29 tablet by ity of e 875-125 00:00: mouth [place] mg per 00 the Medical tablet morning Branch and 1 tablet in the evening. ipratropium 2021-0 Yes Univer s 42 mcg 9-29 ity of (0.06 %) 00:00: [place] nasal spray Medical Branch methylPREDN 2021-0 Yes FOLLOW [facility] ers ISolone 4 9-29 PACKAGE ity of mg tablets 00:00: DIRECTIONS [place] [facility] Branch amoxicillin 0 Yes 1{tbl} Take 1 Un megan -clavulanat 9-29 tablet by ity of e 875-125 00:00: mouth in [place] mg per 00 the Medical tablet morning Branch and 1 tablet in the evening. ipratropium 2021-0 Yes Univer s 42 mcg 9-29 ity of (0.06 %) 00:00: [place] nasal spray Medical Branch methylPREDN 2021-0 Yes FOLLOW [facility] ers ISolone 4 9-29 PACKAGE ity of mg tablets 00:00: DIRECTIONS [place] [facility] azithromyci 0 2021- No TAKE 2 [facility] vers n 250 mg 9-29 12-11 TABLETS BY ity of tablet 00:00: 00:00 MOUTH FOR [place] 00 :00 1 DAY THEN Medical TAKE 1 Branch TABLET BY MOUTH DAILY FOR 4 DAYS DIRECTED proMETHazin 2021- No TAKE 2 Uni vers e 12.5 mg 9-29 12-11 TABLETS BY ity of tablet 00:00: 00:00 MOUTH [place] 00 :00 THREE Medical TIMES Branch DAILY NEEDED FOR COUGH losartan-hy 0 Yes [id number] 1{tbl} Take 1 [facility] drochloroth 7-29 tablet by ity of iazide 00:00: mouth in [place] 50-12.5 mg 00 the Medical per tablet morning. [facility] losartan-hy Yes [id number] 1{tbl} Take 1 [facility] drochloroth 7-29 tablet by ity of iazide 00:00: mouth in [place] 50-12.5 mg 00 the Medical per tablet morning. [facility] losartan-hy Yes [id number] 1{tbl} Take 1 [facility] drochloroth 7-29 tablet by ity of iazide 00:00: mouth in [place] 50-12.5 mg 00 the Medical per tablet morning. [facility] losartan-hy 0 Yes [id number] 1{tbl} Take 1 [facility] drochloroth 7-29 tablet by ity of iazide 00:00: mouth in [place] 50-12.5 mg 00 the Medical per tablet morning. [facility] losartan-hy 2021-0 Yes [id number] 1{tbl} Take 1 [facility] drochloroth 7-29 tablet by ity of iazide 00:00: mouth in [place] 50-12.5 mg 00 the Medical per tablet morning. [facility] losartan-hy 2021-0 Yes [id number] 1{tbl} Take 1 [facility] drochloroth 7-29 tablet by ity of iazide 00:00: mouth in [place] 50-12.5 mg 00 the Medical per tablet morning. [facility] losartan-hy 2021-0 Yes [id number] 1{tbl} Take 1 [facility] drochloroth 7-29 tablet by ity of iazide 00:00: mouth in [place] 50-12.5 mg 00 the Medical per tablet morning. [facility] losartan-hy 2-0 Yes [id number] 1{tbl} Take 1 [facility] drochloroth 7-29 tablet by ity of iazide 00:00: mouth in [place] 50-12.5 mg 00 the Medical per tablet morning. [facility] losartan-hy 2-0 Yes [id number] 1{tbl} Take 1 [facility] drochloroth 7-29 tablet by ity of iazide 00:00: mouth in [place] 50-12.5 mg 00 the Medical per tablet morning. [facility] losartan-hy 2021-0 Yes [id number] 1{tbl} Take 1 [facility] drochloroth 7-29 tablet by ity of iazide 00:00: mouth in [place] 50-12.5 mg 00 the Medical per tablet morning. [facility] losartan-hy 2021-0 Yes [id number] 1{tbl} Take 1 [facility] drochloroth 7-29 tablet by ity of iazide 00:00: mouth in [place] 50-12.5 mg 00 the Medical per tablet morning. [facility] losartan-hy 2021-0 Yes [id number] 1{tbl} Take 1 [facility] drochloroth 7-29 tablet by ity of iazide 00:00: mouth in [place] 50-12.5 mg 00 the Medical per tablet morning. [facility] losartan-hy 2021-0 Yes [id number] 1{tbl} Take 1 [facility] drochloroth 7-29 tablet by ity of iazide 00:00: mouth in [place] 50-12.5 mg 00 the Medical per tablet morning. [facility] losartan-hy 2021-0 Yes [id number] 1{tbl} Take 1 [facility] drochloroth 7-29 tablet by ity of iazide 00:00: mouth in [place] 50-12.5 mg 00 the Medical per tablet morning. [facility] losartan-hy 2-0 Yes [id number] 1{tbl} Take 1 [facility] drochloroth 7-29 tablet by ity of iazide 00:00: mouth in [place] 50-12.5 mg 00 the Medical per tablet morning. [facility] losartan-hy 2-0 Yes [id number] 1{tbl} Take 1 [facility] drochloroth 7-29 tablet by ity of iazide 00:00: mouth in [place] 50-12.5 mg 00 the Medical per tablet morning. [facility] losartan-hy 2021-0 Yes [id number] 1{tbl} Take 1 [facility] drochloroth 7-29 tablet by ity of iazide 00:00: mouth in [place] 50-12.5 mg 00 the Medical per tablet morning. [facility] losartan-hy 2021-0 Yes [id number] 1{tbl} Take 1 [facility] drochloroth 7-29 tablet by ity of iazide 00:00: mouth in [place] 50-12.5 mg 00 the Medical per tablet morning. [facility] losartan-hy 2021-0 Yes [id number] 1{tbl} Take 1 [facility] drochloroth 7-29 tablet by ity of iazide 00:00: mouth in [place] 50-12.5 mg 00 the Medical per tablet morning. [facility] losartan-hy 2021-0 Yes [id number] 1{tbl} Take 1 [facility] drochloroth 7-29 tablet by ity of iazide 00:00: mouth in [place] 50-12.5 mg 00 the Medical per tablet morning. [facility] losartan-hy 2021-0 Yes [id number] 1{tbl} Take 1 [facility] drochloroth 7-29 tablet by ity of iazide 00:00: mouth in [place] 50-12.5 mg 00 the Medical per tablet morning. [facility] losartan-hy 2021-0 2- No [id number] 1{tbl} Take 1 [facility] drochloroth 7-29 12-07 tablet by it y of iazide 00:00: 00:00 mouth in [place] 50-12.5 mg 00 :00 the Medical per tablet morning. [facility] metoprolol 2021-0 Yes [id number] 50mg Take 1 U nivers succinate 7-27 tablet by ity o f XL 50 mg 24 00:00: mouth in [place] hr tablet 00 the Medical morning Branch and 1 tablet in the evening. metoprolol 2-0 Yes [id number] 50mg Take 1 U nivers succinate 7-27 tablet by ity o f XL 50 mg 24 00:00: mouth in [place] hr tablet 00 the Medical morning Branch and 1 tablet in the evening. metoprolol 2022-0 Yes [id number] 50mg Take 1 U nivers succinate 7-27 tablet by ity o f XL 50 mg 24 00:00: mouth in [place] hr tablet 00 the Medical morning Branch and 1 tablet in the evening. metoprolol 2021-0 Yes [id number] 50mg Take 1 U nivers succinate 7-27 tablet by ity o f XL 50 mg 24 00:00: mouth in [place] hr tablet 00 the Medical morning Branch and 1 tablet in the evening. metoprolol 2021-0 Yes [id number] 50mg Take 1 U nivers succinate 7-27 tablet by ity o f XL 50 mg 24 00:00: mouth in [place] hr tablet 00 the Medical morning Branch and 1 tablet in the evening. metoprolol 2021-0 Yes [id number] 50mg Take 1 U nivers succinate 7-27 tablet by ity o f XL 50 mg 24 00:00: mouth in [place] hr tablet 00 the Medical morning Branch and 1 tablet in the evening. metoprolol 2021-0 Yes [id number] 50mg Take 1 U nivers succinate 7-27 tablet by ity o f XL 50 mg 24 00:00: mouth in [place] hr tablet 00 the Medical morning Branch and 1 tablet in the evening. metoprolol 2021-0 Yes [id number] 50mg Take 1 U nivers succinate 7-27 tablet by ity o f XL 50 mg 24 00:00: mouth in [place] hr tablet 00 the Medical morning Branch and 1 tablet in the evening. metoprolol 2021-0 Yes [id number] 50mg Take 1 U nivers succinate 7-27 tablet by ity o f XL 50 mg 24 00:00: mouth in [place] hr tablet 00 the Medical morning Branch and 1 tablet in the evening. metoprolol 2021-0 Yes [id number] 50mg Take 1 U nivers succinate 7-27 tablet by ity o f XL 50 mg 24 00:00: mouth in [place] hr tablet 00 the Medical morning Branch and 1 tablet in the evening. metoprolol 2021-0 Yes [id number] 50mg Take 1 U nivers succinate 7-27 tablet by ity o f XL 50 mg 24 00:00: mouth in [place] hr tablet 00 the Medical morning Branch and 1 tablet in the evening. metoprolol 2022-0 Yes [id number] 50mg Take 1 U nivers succinate 7-27 tablet by ity o f XL 50 mg 24 00:00: mouth in [place] hr tablet 00 the Medical morning Branch and 1 tablet in the evening. metoprolol 0 Yes [id number] 50mg Take 1 U nivers succinate 7-27 tablet by ity o f XL 50 mg 24 00:00: mouth in [place] hr tablet 00 the Medical morning Branch and 1 tablet in the evening. metoprolol 0 Yes [id number] 50mg Take 1 U nivers succinate 7-27 tablet by ity o f XL 50 mg 24 00:00: mouth in [place] hr tablet 00 the Medical morning Branch and 1 tablet in the evening. metoprolol 0 Yes [id number] 50mg Take 1 U nivers succinate 7-27 tablet by ity o f XL 50 mg 24 00:00: mouth in [place] hr tablet 00 the Medical morning Branch and 1 tablet in the evening. metoprolol 2021- No [id number] 50mg Take 1 [facility] succinate 7-27 11-02 tablet by ity of XL 50 mg 24 00:00: 00:00 mouth in [place] hr tablet 00 :00 the Medical morning Branch and 1 tablet in the evening. fluconazole Yes [id number] 200mg Take 1 [facility] 200 mg 7-05 tablet by ity of tablet 00:00: mouth [place] 00 daily. [facility] Branch fluconazole 2021-0 Yes [id number] 200mg Take 1 [facility] 200 mg 7-05 tablet by ity of tablet 00:00: mouth [place] 00 daily. [facility] Branch fluconazole 0 Yes [id number] 200mg Take 1 [facility] 200 mg 7-05 tablet by ity of tablet 00:00: mouth [place] 00 daily. [facility] Branch fluconazole 2021-0 Yes [id number] 200mg Take 1 [facility] 200 mg 7-05 tablet by ity of tablet 00:00: mouth [place] 00 daily. [facility] Branch fluconazole 2021-0 Yes [id number] 200mg Take 1 [facility] 200 mg 7-05 tablet by ity of tablet 00:00: mouth [place] 00 daily. [facility] Branch fluconazole 2021-0 Yes [id number] 200mg Take 1 [facility] 200 mg 7-05 tablet by ity of tablet 00:00: mouth [place] 00 daily. [facility] Branch fluconazole 2021-0 Yes [id number] 200mg Take 1 [facility] 200 mg 7-05 tablet by ity of tablet 00:00: mouth [place] 00 daily. [facility] Branch fluconazole 2021-0 Yes [id number] 200mg Take 1 [facility] 200 mg 7-05 tablet by ity of tablet 00:00: mouth [place] 00 daily. [facility] Branch fluconazole 2021-0 Yes [id number] 200mg Take 1 [facility] 200 mg 7-05 tablet by ity of tablet 00:00: mouth [place] 00 daily. [facility] Branch fluconazole 2021-0 Yes [id number] 200mg Take 1 [facility] 200 mg 7-05 tablet by ity of tablet 00:00: mouth [place] 00 daily. [facility] Branch fluconazole 2021-0 Yes [id number] 200mg Take 1 [facility] 200 mg 7-05 tablet by ity of tablet 00:00: mouth [place] 00 daily. [facility] Branch fluconazole 2021-0 Yes [id number] 200mg Take 1 [facility] 200 mg 7-05 tablet by ity of tablet 00:00: mouth [place] 00 daily. [facility] Branch fluconazole 2021-0 Yes [id number] 200mg Take 1 [facility] 200 mg 7-05 tablet by ity of tablet 00:00: mouth [place] 00 daily. [facility] Branch fluconazole 2021-0 Yes [id number] 200mg Take 1 [facility] 200 mg 7-05 tablet by ity of tablet 00:00: mouth [place] 00 daily. [facility] Branch fluconazole 2021-0 Yes [id number] 200mg Take 1 [facility] 200 mg 7-05 tablet by ity of tablet 00:00: mouth [place] 00 daily. [facility] Branch fluconazole 2021-0 Yes [id number] 200mg Take 1 [facility] 200 mg 7-05 tablet by ity of tablet 00:00: mouth [place] 00 daily. [facility] Branch fluconazole 2021-0 Yes [id number] 200mg Take 1 [facility] 200 mg 7-05 tablet by ity of tablet 00:00: mouth [place] 00 daily. [facility] Branch fluconazole 2021-0 Yes [id number] 200mg Take 1 [facility] 200 mg 7-05 tablet by ity of tablet 00:00: mouth [place] 00 daily. [facility] Branch fluconazole 2021-0 Yes [id number] 200mg Take 1 [facility] 200 mg 7-05 tablet by ity of tablet 00:00: mouth [place] 00 daily. [facility] Branch fluconazole 2021-0 Yes [id number] 200mg Take 1 [facility] 200 mg 7-05 tablet by ity of tablet 00:00: mouth [place] 00 daily. [facility] fluconazole Yes [id number] 200mg Take 1 [facility] 200 mg 7-05 tablet by ity of tablet 00:00: mouth [place] 00 daily. Medical Branch fluconazole Yes [id number] 200mg Take 1 [facility] 200 mg 7-05 tablet by ity of tablet 00:00: mouth [place] 00 daily. Medical Branch fluconazole Yes [id number] 200mg Take 1 [facility] 200 mg 7-05 tablet by ity of tablet 00:00: mouth [place] 00 daily. Medical Branch fluconazole Yes [id number] 200mg Take 1 [facility] 200 mg 7-05 tablet by ity of tablet 00:00: mouth [place] 00 daily. Medical Branch fluconazole Yes [id number] 200mg Take 1 [facility] 200 mg 7-05 tablet by ity of tablet 00:00: mouth [place] 00 daily. Medical Branch fluconazole Yes [id number] 200mg Take 1 [facility] 200 mg 7-05 tablet by ity of tablet 00:00: mouth [place] 00 daily. Medical Branch fluconazole 2021- No [id number] 200mg Take 1 [facility] 200 mg 7-05 12-11 tablet by ity of tablet 00:00: 00:00 mouth [place] 00 :00 daily. Medical Branch losartan-hy Yes [id number] 1{tbl} Take 1 [facility] drochloroth 6-06 tablet by ity of iazide 00:00: mouth [place] 50-12.5 mg 00 daily. Medical per tablet Branch losartan-hy Yes [id number] 1{tbl} Take 1 [facility] drochloroth 6-06 tablet by ity of iazide 00:00: mouth [place] 50-12.5 mg 00 daily. Medical per tablet Branch losartan-hy Yes [id number] 1{tbl} Take 1 [facility] drochloroth 6-06 tablet by ity of iazide 00:00: mouth [place] 50-12.5 mg 00 daily. Medical per tablet Branch losartan-hy 2- No [id number] 1{tbl} Take 1 [facility] drochloroth 6-06 07-27 tablet by it y of iazide 00:00: 00:00 mouth [place] 50-12.5 mg 00 :00 daily. Medical per tablet Branch methocarbam 2022-0 Yes 500mg Take 500 U nivers oL 500 mg 5-27 mg by ity of tablet 11:38: mouth [place] 52 daily Medical before a Branch meal. tenofovir 2021-0 Yes Take by [facility] rs alafenamide 5-27 mouth. ity of (VEMLIDY) 11:38: [place] 25 mg Tab 52 Medical Branch HYDROcodone 0 Yes Take by Uni vers bitartrate 5-27 mouth. ity of 10 mg CR12 11:38: [place] [address] Medical Branch escitalopra 0 Yes 20mg Take 20 mg Univers m oxalate 5-27 by mouth ity of 20 mg 11:38: daily. [place] tablet 52 Medical Branch ALPRAZolam 0 Yes .5mg Take 0.5 Uni vers (XANAX) 0.5 5-27 mg by ity of mg tablet 11:38: mouth [place] 52 daily. Medical Branch methocarbam 0 Yes 500mg Take 500 U nivers oL 500 mg 5-27 mg by ity of tablet 11:38: mouth [place] [address] daily Medical before a Branch meal. tenofovir 2021-0 Yes Take by [facility] rs alafenamide 5-27 mouth. ity of (VEMLIDY) 11:38: [place] 25 mg Tab 52 Medical Branch HYDROcodone 0 Yes Take by Uni vers bitartrate 5-27 mouth. ity of 10 mg CR12 11:38: [place] [address] Medical Branch escitalopra 0 Yes 20mg Take 20 mg [facility] m oxalate 5-27 by mouth ity of 20 mg 11:38: daily. [place] tablet 52 Medical Branch ALPRAZolam 0 Yes .5mg Take 0.5 Uni vers (XANAX) 0.5 5-27 mg by ity of mg tablet 11:38: mouth [place] 52 daily. Medical Branch methocarbam 0 Yes 500mg Take 500 U nivers oL 500 mg 5-27 mg by ity of tablet 11:38: mouth [place] 52 daily Medical before a Branch meal. tenofovir 2021-0 Yes Take by [facility] rs alafenamide 5-27 mouth. ity of (VEMLIDY) 11:38: [place] 25 mg Tab 52 Medical Branch HYDROcodone 2021-0 Yes Take by [facility] vers bitartrate 5-27 mouth. ity of 10 mg CR12 11:38: [place] [address] Medical Branch escitalopra 0 Yes 20mg Take 20 mg [facility] m oxalate 5-27 by mouth ity of 20 mg 11:38: daily. [place] tablet 52 Medical Branch ALPRAZolam 0 Yes .5mg Take 0.5 Uni vers (XANAX) 0.5 5-27 mg by ity of mg tablet 11:38: mouth [place] 52 daily. Medical Branch methocarbam 2021-0 Yes 500mg Take 500 U nivers oL 500 mg 5-27 mg by ity of tablet 11:38: mouth [place] 52 daily Medical before a Branch meal. tenofovir 2021-0 Yes Take by [facility] rs alafenamide 5-27 mouth. ity of (VEMLIDY) 11:38: [place] 25 mg Tab 52 Medical Branch HYDROcodone 0 Yes Take by [facility] vers bitartrate 5-27 mouth. ity of 10 mg CR12 11:38: [place] [address] Medical Branch escitalopra 0 Yes 20mg Take 20 mg [facility] oxalate 5-27 by mouth ity of 20 mg 11:38: daily. [place] tablet 52 Medical Branch ALPRAZolam 0 Yes .5mg Take 0.5 Uni vers (XANAX) 0.5 5-27 mg by ity of mg tablet 11:38: mouth [place] 52 daily. Medical Branch methocarbam 0 Yes 500mg Take 500 U nivers oL 500 mg 5-27 mg by ity of tablet 11:38: mouth [place] 52 daily Medical before a Branch meal. tenofovir 2021-0 Yes Take by [facility] rs alafenamide 5-27 mouth. ity of (VEMLIDY) 11:38: [place] 25 mg Tab 52 Medical Branch HYDROcodone 2021-0 Yes Take by [facility] vers bitartrate 5-27 mouth. ity of 10 mg CR12 11:38: [place] [address] Medical Branch escitalopra 2021-0 Yes 20mg Take 20 mg [facility] m oxalate 5-27 by mouth ity of 20 mg 11:38: daily. [facility] 52 Medical Branch ALPRAZolam 0 Yes .5mg Take 0.5 Uni vers (XANAX) 0.5 5-27 mg by ity of mg tablet 11:38: mouth [place] 52 daily. Medical Branch methocarbam 2021-0 Yes 500mg Take 500 U nivers oL 500 mg 5-27 mg by ity of tablet 11:38: mouth [place] 52 daily Medical before a Branch meal. tenofovir 2021-0 Yes Take by [facility] rs alafenamide 5-27 mouth. ity of (VEMLIDY) 11:38: [place] 25 mg Tab 52 Medical Branch HYDROcodone 0 Yes Take by [facility] vers bitartrate 5-27 mouth. ity of 10 mg CR12 11:38: [place] [address] Medical Branch escitalopra 0 Yes 20mg Take 20 mg [facility] m oxalate 5-27 by mouth ity of 20 mg 11:38: daily. [place] tablet 52 Medical Branch ALPRAZolam 0 Yes .5mg Take 0.5 [facility] vers (XANAX) 0.5 5-27 mg by ity of mg tablet 11:38: mouth [place] 52 daily. Medical Branch methocarbam 0 Yes 500mg Take 500 U nivers oL 500 mg 5-27 mg by ity of tablet 11:38: mouth [place] [address] daily Medical before a Branch meal. tenofovir 2021-0 Yes Take by [facility] rs alafenamide 5-27 mouth. ity of (VEMLIDY) 11:38: [place] 25 mg Tab 52 Medical Branch HYDROcodone 0 Yes Take by [facility] vers bitartrate 5-27 mouth. ity of 10 mg CR12 11:38: [place] [address] Medical Branch escitalopra 0 Yes 20mg Take 20 mg [facility] m oxalate 5-27 by mouth ity of 20 mg 11:38: daily. [place] tablet Medical Branch ALPRAZolam 0 Yes .5mg Take 0.5 Uni vers (XANAX) 0.5 5-27 mg by ity of mg tablet 11:38: mouth [place] [address] daily. Medical Branch methocarbam 0 Yes 500mg Take 500 U nivers oL 500 mg 5-27 mg by ity of tablet 11:38: mouth [place] 52 daily Medical before a Branch meal. tenofovir 2021-0 Yes Take by [facility] rs alafenamide 5-27 mouth. ity of (VEMLIDY) 11:38: [place] 25 mg Tab 52 Medical Branch HYDROcodone 0 Yes Take by [facility] vers bitartrate 5-27 mouth. ity of 10 mg CR12 11:38: [place] [address] Medical Branch escitalopra 2022-0 Yes 20mg Take 20 mg [facility] m oxalate 5-27 by mouth ity of 20 mg 11:38: daily. [place] tablet 52 Medical Branch ALPRAZolam 0 Yes .5mg Take 0.5 [facility] vers (XANAX) 0.5 5-27 mg by ity of mg tablet 11:38: mouth [place] 52 daily. Medical Branch methocarbam 0 Yes 500mg Take 500 U nivers oL 500 mg 5-27 mg by ity of tablet 11:38: mouth [place] 52 daily Medical before a Branch meal. tenofovir 2021-0 Yes Take by [facility] rs alafenamide 5-27 mouth. ity of (VEMLIDY) 11:38: [place] 25 mg Tab 52 Medical Branch HYDROcodone 0 Yes Take by [facility] vers bitartrate 5-27 mouth. ity of 10 mg CR12 11:38: [place] [address] Medical Branch escitalopra 0 Yes 20mg Take 20 mg [facility] m oxalate 5-27 by mouth ity of 20 mg 11:38: daily. [place] tablet 52 Medical Branch ALPRAZolam 0 Yes .5mg Take 0.5 [facility] vers (XANAX) 0.5 5-27 mg by ity of mg tablet 11:38: mouth [place] 52 daily. Medical Branch methocarbam 0 Yes 500mg Take 500 U nivers oL 500 mg 5-27 mg by ity of tablet 11:38: mouth [place] 52 daily Medical before a Branch meal. tenofovir 2021-0 Yes Take by [facility] rs alafenamide 5-27 mouth. ity of (VEMLIDY) 11:38: [place] 25 mg Tab 52 Medical Branch HYDROcodone 2021-0 Yes Take by [facility] vers bitartrate 5-27 mouth. ity of 10 mg CR12 11:38: [place] [address] Medical Branch escitalopra 2021-0 Yes 20mg Take 20 mg [facility] m oxalate 5-27 by mouth ity of 20 mg 11:38: daily. [place] tablet 52 Medical Branch ALPRAZolam 0 Yes .5mg Take 0.5 [facility] vers (XANAX) 0.5 5-27 mg by ity of mg tablet 11:38: mouth [place] 52 daily. Medical Branch methocarbam 2021-0 Yes 500mg Take 500 U nivers oL 500 mg 5-27 mg by ity of tablet 11:38: mouth [place] 52 daily Medical before a Branch meal. tenofovir 2021-0 Yes Take by [facility] rs alafenamide 5-27 mouth. ity of (VEMLIDY) 11:38: [place] 25 mg Tab 52 Medical Branch HYDROcodone 2021-0 Yes Take by [facility] vers bitartrate 5-27 mouth. ity of 10 mg CR12 11:38: [place] [address] Medical Branch escitalopra 2021-0 Yes 20mg Take 20 mg [facility] m oxalate 5-27 by mouth ity of 20 mg 11:38: daily. [place] tablet 52 Medical Branch ALPRAZolam 0 Yes .5mg Take 0.5 [facility] vers (XANAX) 0.5 5-27 mg by ity of mg tablet 11:38: mouth [place] 52 daily. Medical Branch methocarbam 0 Yes 500mg Take 500 U nivers oL 500 mg 5-27 mg by ity of tablet 11:38: mouth [place] [address] daily Medical before a Branch meal. tenofovir 2021-0 Yes Take by [facility] rs alafenamide 5-27 mouth. ity of (VEMLIDY) 11:38: [place] 25 mg Tab 52 Medical Branch HYDROcodone 0 Yes Take by [facility] vers bitartrate 5-27 mouth. ity of 10 mg CR12 11:38: [place] [address] Medical Branch escitalopra 0 Yes 20mg Take 20 mg [facility] m oxalate 5-27 by mouth ity of 20 mg 11:38: daily. [place] tablet Medical Branch ALPRAZolam 0 Yes .5mg Take 0.5 [facility] vers (XANAX) 0.5 5-27 mg by ity of mg tablet 11:38: mouth [place] 52 daily. Medical Branch methocarbam 0 Yes 500mg Take 500 U nivers oL 500 mg 5-27 mg by ity of tablet 11:38: mouth [place] 52 daily Medical before a Branch meal. tenofovir 2021-0 Yes Take by [facility] rs alafenamide 5-27 mouth. ity of (VEMLIDY) 11:38: [place] 25 mg Tab 52 Medical Branch HYDROcodone 2021-0 Yes Take by [facility] vers bitartrate 5-27 mouth. ity of 10 mg CR12 11:38: [place] [address] Medical Branch escitalopra 2022-0 Yes 20mg Take 20 mg [facility] m oxalate 5-27 by mouth ity of 20 mg 11:38: daily. [place] tablet 52 Medical Branch ALPRAZolam 0 Yes .5mg Take 0.5 [facility] vers (XANAX) 0.5 5-27 mg by ity of mg tablet 11:38: mouth [place] 52 daily. Medical Branch methocarbam 0 Yes 500mg Take 500 U nivers oL 500 mg 5-27 mg by ity of tablet 11:38: mouth [place] 52 daily Medical before a Branch meal. tenofovir 2021-0 Yes Take by [facility] rs alafenamide 5-27 mouth. ity of (VEMLIDY) 11:38: [place] 25 mg Tab 52 Medical Branch HYDROcodone 0 Yes Take by [facility] bitartrate 5-27 mouth. ity of 10 mg CR12 11:38: [place] [address] Medical Branch escitalopra 0 Yes 20mg Take 20 mg [facility] m oxalate 5-27 by mouth ity of 20 mg 11:38: daily. [place] tablet 52 Medical Branch ALPRAZolam 0 Yes .5mg Take 0.5 [facility] vers (XANAX) 0.5 5-27 mg by ity of mg tablet 11:38: mouth [place] 52 daily. Medical Branch methocarbam 0 Yes 500mg Take 500 U nivers oL 500 mg 5-27 mg by ity of tablet 11:38: mouth [place] 52 daily Medical before a Branch meal. tenofovir 2021-0 Yes Take by [facility] rs alafenamide 5-27 mouth. ity of (VEMLIDY) 11:38: [place] 25 mg Tab 52 Medical Branch HYDROcodone 0 Yes Take by [facility] vers bitartrate 5-27 mouth. ity of 10 mg CR12 11:38: [place] [address] Medical Branch escitalopra 2021-0 Yes 20mg Take 20 mg [facility] m oxalate 5-27 by mouth ity of 20 mg 11:38: daily. [place] tablet 52 Medical Branch ALPRAZolam 0 Yes .5mg Take 0.5 [facility] vers (XANAX) 0.5 5-27 mg by ity of mg tablet 11:38: mouth [place] 52 daily. Medical Branch methocarbam 2021-0 Yes 500mg Take 500 U nivers oL 500 mg 5-27 mg by ity of tablet 11:38: mouth [place] [address] daily Medical before a Branch meal. tenofovir 2021-0 Yes Take by [facility] rs alafenamide 5-27 mouth. ity of (VEMLIDY) 11:38: [place] 25 mg Tab 52 Medical Branch HYDROcodone 0 Yes Take by [facility] vers bitartrate 5-27 mouth. ity of 10 mg CR12 11:38: [place] [address] Medical Branch escitalopra 0 Yes 20mg Take 20 mg [facility] m oxalate 5-27 by mouth ity of 20 mg 11:38: daily. [place] tablet 52 Medical Branch ALPRAZolam 0 Yes .5mg Take 0.5 [facility] vers (XANAX) 0.5 5-27 mg by ity of mg tablet 11:38: mouth [place] 52 daily. Medical Branch methocarbam 0 Yes 500mg Take 500 U nivers oL 500 mg 5-27 mg by ity of tablet 11:38: mouth [place] [address] daily Medical before a Branch meal. tenofovir 2021-0 Yes Take by [facility] rs alafenamide 5-27 mouth. ity of (VEMLIDY) 11:38: [place] 25 mg Tab 52 Medical Branch HYDROcodone 0 Yes Take by [facility] vers bitartrate 5-27 mouth. ity of 10 mg CR12 11:38: [place] [address] Medical Branch escitalopra 0 Yes 20mg Take 20 mg [facility] m oxalate 5-27 by mouth ity of 20 mg 11:38: daily. [place] tablet Medical Branch ALPRAZolam 0 Yes .5mg Take 0.5 [facility] vers (XANAX) 0.5 5-27 mg by ity of mg tablet 11:38: mouth [place] [address] daily. Medical Branch methocarbam 0 Yes 500mg Take 500 U nivers oL 500 mg 5-27 mg by ity of tablet 11:38: mouth [place] [address] daily Medical before a Branch meal. tenofovir 2021-0 Yes Take by [facility] rs alafenamide 5-27 mouth. ity of (VEMLIDY) 11:38: [place] 25 mg Tab 52 Medical Branch HYDROcodone 0 Yes Take by [facility] vers bitartrate 5-27 mouth. ity of 10 mg CR12 11:38: [place] [address] Medical Branch escitalopra 2021-0 Yes 20mg Take 20 mg [facility] m oxalate 5-27 by mouth ity of 20 mg 11:38: daily. [place] tablet 52 Medical Branch ALPRAZolam 0 Yes .5mg Take 0.5 [facility] vers (XANAX) 0.5 5-27 mg by ity of mg tablet 11:38: mouth [place] 52 daily. Medical Branch methocarbam 0 Yes 500mg Take 500 U nivers oL 500 mg 5-27 mg by ity of tablet 11:38: mouth [place] 52 daily Medical before a Branch meal. tenofovir 2021-0 Yes Take by [facility] rs alafenamide 5-27 mouth. ity of (VEMLIDY) 11:38: [place] 25 mg Tab 52 Medical Branch HYDROcodone 0 Yes Take by [facility] vers bitartrate 5-27 mouth. ity of 10 mg CR12 11:38: [place] [address] Medical Branch escitalopra Yes 20mg Take 20 mg [facility] m oxalate 5-27 by mouth ity of 20 mg 11:38: daily. [place] tablet 52 Medical Branch ALPRAZolam 0 Yes .5mg Take 0.5 Uni vers (XANAX) 0.5 5-27 mg by ity of mg tablet 11:38: mouth [place] 52 daily. Medical Branch methocarbam 0 Yes 500mg Take 500 U nivers oL 500 mg 5-27 mg by ity of tablet 11:38: mouth [place] [address] daily Medical before a Branch meal. tenofovir 2021-0 Yes Take by [facility] rs alafenamide 5-27 mouth. ity of (VEMLIDY) 11:38: [place] 25 mg Tab 52 Medical Branch HYDROcodone 0 Yes Take by [facility] vers bitartrate 5-27 mouth. ity of 10 mg CR12 11:38: [place] [address] Medical Branch escitalopra 0 Yes 20mg Take 20 mg [facility] m oxalate 5-27 by mouth ity of 20 mg 11:38: daily. [place] [address] Medical Branch ALPRAZolam 0 Yes .5mg Take 0.5 [facility] vers (XANAX) 0.5 5-27 mg by ity of mg tablet 11:38: mouth [place] 52 daily. Medical Branch methocarbam 2021-0 Yes 500mg Take 500 U nivers oL 500 mg 5-27 mg by ity of tablet 11:38: mouth [place] 52 daily Medical before a Branch meal. tenofovir 2021-0 Yes Take by [facility] rs alafenamide 5-27 mouth. ity of (VEMLIDY) 11:38: [place] 25 mg Tab 52 Medical Branch HYDROcodone 0 Yes Take by [facility] bitartrate 5-27 mouth. ity of 10 mg CR12 11:38: [place] [address] Medical Branch escitalopra 2021-0 Yes 20mg Take 20 mg [facility] m oxalate 5-27 by mouth ity of 20 mg 11:38: daily. [place] tablet 52 Medical Branch ALPRAZolam 0 Yes .5mg Take 0.5 Uni vers (XANAX) 0.5 5-27 mg by ity of mg tablet 11:38: mouth [place] [address] daily. Medical Branch methocarbam 0 Yes 500mg Take 500 U nivers oL 500 mg 5-27 mg by ity of tablet 11:38: mouth [place] [address] daily Medical before a Branch meal. tenofovir 2021-0 Yes Take by [facility] rs alafenamide 5-27 mouth. ity of (VEMLIDY) 11:38: [place] 25 mg Tab 52 Medical Branch HYDROcodone 0 Yes Take by [facility] bitartrate 5-27 mouth. ity of 10 mg CR12 11:38: [place] [address] Medical Branch escitalopra 0 Yes 20mg Take 20 mg [facility] m oxalate 5-27 by mouth ity of 20 mg 11:38: daily. [place] tablet Medical Branch ALPRAZolam 0 Yes .5mg Take 0.5 [facility] vers (XANAX) 0.5 5-27 mg by ity of mg tablet 11:38: mouth [place] [address] daily. Medical Branch methocarbam 0 Yes 500mg Take 500 U nivers oL 500 mg 5-27 mg by ity of tablet 11:38: mouth [place] [address] daily Medical before a Branch meal. tenofovir 2021-0 Yes Take by [facility] rs alafenamide 5-27 mouth. ity of (VEMLIDY) 11:38: [place] 25 mg Tab 52 Medical Branch HYDROcodone 2021-0 Yes Take by [facility] bitartrate 5-27 mouth. ity of 10 mg CR12 11:38: [place] [address] Medical Branch escitalopra 2021-0 Yes 20mg Take 20 mg [facility] m oxalate 5-27 by mouth ity of 20 mg 11:38: daily. [place] tablet 52 Medical Branch ALPRAZolam 0 Yes .5mg Take 0.5 [facility] vers (XANAX) 0.5 5-27 mg by ity of mg tablet 11:38: mouth [place] 52 daily. Medical Branch methocarbam 0 Yes 500mg Take 500 U nivers oL 500 mg 5-27 mg by ity of tablet 11:38: mouth [place] 52 daily Medical before a Branch meal. tenofovir 2021-0 Yes Take by [facility] rs alafenamide 5-27 mouth. ity of (VEMLIDY) 11:38: [place] 25 mg Tab 52 Medical Branch HYDROcodone 0 Yes Take by [facility] bitartrate 5-27 mouth. ity of 10 mg CR12 11:38: [place] [address] Medical Branch escitalopra 0 Yes 20mg Take 20 mg [facility] m oxalate 5-27 by mouth ity of 20 mg 11:38: daily. [place] tablet 52 Medical Branch ALPRAZolam 0 Yes .5mg Take 0.5 [facility] vers (XANAX) 0.5 5-27 mg by ity of mg tablet 11:38: mouth [place] 52 daily. Medical Branch methocarbam 0 Yes 500mg Take 500 U nivers oL 500 mg 5-27 mg by ity of tablet 11:38: mouth [place] 52 daily Medical before a Branch meal. tenofovir 2021-0 Yes Take by [facility] rs alafenamide 5-27 mouth. ity of (VEMLIDY) 11:38: [place] 25 mg Tab 52 Medical Branch HYDROcodone 0 Yes Take by [facility] bitartrate 5-27 mouth. ity of 10 mg CR12 11:38: [place] [address] Medical Branch escitalopra 0 Yes 20mg Take 20 mg [facility] m oxalate 5-27 by mouth ity of 20 mg 11:38: daily. [place] tablet 52 Medical Branch ALPRAZolam 0 Yes .5mg Take 0.5 Uni vers (XANAX) 0.5 5-27 mg by ity of mg tablet 11:38: mouth [place] 52 daily. Medical Branch methocarbam 0 Yes 500mg Take 500 U nivers oL 500 mg 5-27 mg by ity of tablet 11:38: mouth [place] 52 daily Medical before a Branch meal. tenofovir 2021-0 Yes Take by [facility] rs alafenamide 5-27 mouth. ity of (VEMLIDY) 11:38: [place] 25 mg Tab 52 Medical Branch HYDROcodone 2021-0 Yes Take by [facility] bitartrate 5-27 mouth. ity of 10 mg CR12 11:38: [place] [address] Medical Branch escitalopra 2021-0 Yes 20mg Take 20 mg [facility] m oxalate 5-27 by mouth ity of 20 mg 11:38: daily. [place] tablet 52 Medical Branch ALPRAZolam 0 Yes .5mg Take 0.5 [facility] vers (XANAX) 0.5 5-27 mg by ity of mg tablet 11:38: mouth [place] 52 daily. Medical Branch methocarbam 0 Yes 500mg Take 500 U nivers oL 500 mg 5-27 mg by ity of tablet 11:38: mouth [place] [address] daily Medical before a Branch meal. tenofovir 2021-0 Yes Take by [facility] rs alafenamide 5-27 mouth. ity of (VEMLIDY) 11:38: [place] 25 mg Tab 52 Medical Branch HYDROcodone 0 Yes Take by [facility] bitartrate 5-27 mouth. ity of 10 mg CR12 11:38: [place] [address] Medical Branch escitalopra 2021-0 Yes 20mg Take 20 mg [facility] m oxalate 5- by mouth ity of 20 mg 11:38: daily. [place] tablet Medical Branch ALPRAZolam 0 Yes .5mg Take 0.5 [facility] vers (XANAX) 0.5 5-27 mg by ity of mg tablet 11:38: mouth [place] [address] daily. Medical Branch methocarbam 2021-0 Yes 500mg Take 500 U nivers oL 500 mg 5-27 mg by ity of tablet 11:38: mouth [place] 52 daily Medical before a Branch meal. tenofovir 2021-0 Yes Take by [facility] rs alafenamide 5-27 mouth. ity of (VEMLIDY) 11:38: [place] 25 mg Tab 52 Medical Branch HYDROcodone 2021-0 Yes Take by [facility] bitartrate 5-27 mouth. ity of 10 mg CR12 11:38: [place] [address] Medical Branch escitalopra 2021-0 Yes 20mg Take 20 mg [facility] m oxalate 5-27 by mouth ity of 20 mg 11:38: daily. [place] tablet 52 Medical Branch ALPRAZolam 0 Yes .5mg Take 0.5 [facility] vers (XANAX) 0.5 5-27 mg by ity of mg tablet 11:38: mouth [place] 52 daily. Medical Branch methocarbam 0 Yes 500mg Take 500 U nivers oL 500 mg 5-27 mg by ity of tablet 11:38: mouth [place] 52 daily Medical before a Branch meal. tenofovir 2021-0 Yes Take by [facility] rs alafenamide 5-27 mouth. ity of (VEMLIDY) 11:38: [place] 25 mg Tab 52 Medical Branch HYDROcodone 0 Yes Take by [facility] bitartrate 5-27 mouth. ity of 10 mg CR12 11:38: [place] [address] Medical Branch escitalopra 0 Yes 20mg Take 20 mg [facility] m oxalate 5-27 by mouth ity of 20 mg 11:38: daily. [place] tablet 52 Medical Branch ALPRAZolam 0 Yes .5mg Take 0.5 [facility] vers (XANAX) 0.5 5-27 mg by ity of mg tablet 11:38: mouth [place] 52 daily. Medical Branch methocarbam 0 Yes 500mg Take 500 U nivers oL 500 mg 5-27 mg by ity of tablet 11:38: mouth [place] 52 daily Medical before a Branch meal. tenofovir 2021-0 Yes Take by [facility] rs alafenamide 5-27 mouth. ity of (VEMLIDY) 11:38: [place] 25 mg Tab 52 Medical Branch HYDROcodone 0 Yes Take by [facility] vers bitartrate 5-27 mouth. ity of 10 mg CR12 11:38: [place] [address] Medical Branch escitalopra 0 Yes 20mg Take 20 mg [facility] m oxalate 5-27 by mouth ity of 20 mg 11:38: daily. [place] tablet 52 Medical Branch ALPRAZolam 0 Yes .5mg Take 0.5 Uni vers (XANAX) 0.5 5-27 mg by ity of mg tablet 11:38: mouth [place] 52 daily. Medical Branch methocarbam 0 Yes 500mg Take 500 U nivers oL 500 mg 5-27 mg by ity of tablet 11:38: mouth [place] 52 daily Medical before a Branch meal. tenofovir 2021-0 Yes Take by [facility] rs alafenamide 5-27 mouth. ity of (VEMLIDY) 11:38: [place] 25 mg Tab 52 Medical Branch HYDROcodone 0 Yes Take by [facility] bitartrate 5-27 mouth. ity of 10 mg CR12 11:38: [place] [address] Medical Branch escitalopra 0 Yes 20mg Take 20 mg [facility] m oxalate 5-27 by mouth ity of 20 mg 11:38: daily. [place] tablet 52 Medical Branch ALPRAZolam 0 Yes .5mg Take 0.5 Uni vers (XANAX) 0.5 5-27 mg by ity of mg tablet 11:38: mouth [place] 52 daily. Medical Branch methocarbam 0 Yes 500mg Take 500 U nivers oL 500 mg 5-27 mg by ity of tablet 11:38: mouth [place] [address] daily Medical before a Branch meal. tenofovir 2021-0 Yes Take by [facility] rs alafenamide 5-27 mouth. ity of (VEMLIDY) 11:38: [place] 25 mg Tab 52 Medical Branch HYDROcodone 0 Yes Take by [facility] vers bitartrate 5-27 mouth. ity of 10 mg CR12 11:38: [place] [address] Medical Branch escitalopra 0 Yes 20mg Take 20 mg [facility] m oxalate 5- by mouth ity of 20 mg 11:38: daily. [place] tablet Medical Branch ALPRAZolam 0 Yes .5mg Take 0.5 Uni vers (XANAX) 0.5 5-27 mg by ity of mg tablet 11:38: mouth [place] [address] daily. Medical Branch methocarbam 2021-0 Yes 500mg Take 500 U nivers oL 500 mg 5-27 mg by ity of tablet 11:38: mouth [place] 52 daily Medical before a Branch meal. tenofovir 2021-0 Yes Take by [facility] rs alafenamide 5-27 mouth. ity of (VEMLIDY) 11:38: [place] 25 mg Tab 52 Medical Branch HYDROcodone 2021-0 Yes Take by [facility] bitartrate 5-27 mouth. ity of 10 mg CR12 11:38: [place] [address] Medical Branch escitalopra 2021-0 Yes 20mg Take 20 mg [facility] m oxalate 5-27 by mouth ity of 20 mg 11:38: daily. [place] tablet 52 Medical Branch ALPRAZolam 2021-0 Yes .5mg Take 0.5 Uni vers (XANAX) 0.5 5-27 mg by ity of mg tablet 11:38: mouth [place] 52 daily. Medical Branch nystatin 2-0 Yes [id number] Apply to [facility] 100,000 5-27 area(s) 2 ity of unit/gram 00:00: (two) [place] powder 00 times Medical daily. Branch nystatin 2022-0 Yes [id number] Apply to [facility] 100,000 5-27 area(s) 2 ity of unit/gram 00:00: (two) [place] powder 00 times Medical daily. Branch nystatin 2022-0 Yes [id number] Apply to [facility] 100,000 5-27 area(s) 2 ity of unit/gram 00:00: (two) [place] powder 00 times Medical daily. Branch nystatin 2-0 Yes [id number] Apply to [facility] 100,000 5-27 area(s) 2 ity of unit/gram 00:00: (two) [place] powder 00 times Medical daily. Branch nystatin 2-0 Yes [id number] Apply to [facility] 100,000 5-27 area(s) 2 ity of unit/gram 00:00: (two) [place] powder 00 times Medical daily. Branch nystatin 2022-0 Yes [id number] Apply to [facility] 100,000 5-27 area(s) 2 ity of unit/gram 00:00: (two) [place] powder 00 times Medical daily. Branch nystatin 2022-0 Yes [id number] Apply to [facility] 100,000 5-27 area(s) 2 ity of unit/gram 00:00: (two) [place] powder 00 times Medical daily. Branch nystatin 2022-0 Yes [id number] Apply to [facility] 100,000 5-27 area(s) 2 ity of unit/gram 00:00: (two) [place] powder 00 times Medical daily. Branch nystatin 2022-0 Yes [id number] Apply to [facility] 100,000 5-27 area(s) 2 ity of unit/gram 00:00: (two) [place] powder 00 times Medical daily. Branch nystatin 2022-0 Yes [id number] Apply to [facility] 100,000 5-27 area(s) 2 ity of unit/gram 00:00: (two) [place] powder 00 times Medical daily. Branch nystatin 2022-0 Yes [id number] Apply to [facility] 100,000 5-27 area(s) 2 ity of unit/gram 00:00: (two) [place] powder 00 times Medical daily. Branch nystatin 2022-0 Yes [id number] Apply to [facility] 100,000 5-27 area(s) 2 ity of unit/gram 00:00: (two) [place] powder 00 times Medical daily. Branch nystatin 2022-0 Yes [id number] Apply to [facility] 100,000 5-27 area(s) 2 ity of unit/gram 00:00: (two) [place] powder 00 times Medical daily. Branch nystatin 2022-0 Yes [id number] Apply to [facility] 100,000 5-27 area(s) 2 ity of unit/gram 00:00: (two) [place] powder 00 times Medical daily. Branch nystatin 2022-0 Yes [id number] Apply to [facility] 100,000 5-27 area(s) 2 ity of unit/gram 00:00: (two) [place] powder 00 times Medical daily. Branch nystatin 2022-0 Yes [id number] Apply to [facility] 100,000 5-27 area(s) 2 ity of unit/gram 00:00: (two) [place] powder 00 times Medical daily. Branch nystatin 2022-0 Yes [id number] Apply to [facility] 100,000 5-27 area(s) 2 ity of unit/gram 00:00: (two) [place] powder 00 times Medical daily. Branch nystatin 2022-0 Yes [id number] Apply to [facility] 100,000 5-27 area(s) 2 ity of unit/gram 00:00: (two) [place] powder 00 times Medical daily. Branch nystatin 2022-0 Yes [id number] Apply to [facility] 100,000 5-27 area(s) 2 ity of unit/gram 00:00: (two) [place] powder 00 times Medical daily. Branch nystatin 2022-0 Yes [id number] Apply to [facility] 100,000 5-27 area(s) 2 ity of unit/gram 00:00: (two) [place] powder 00 times Medical daily. Branch nystatin 2022-0 Yes [id number] Apply to [facility] 100,000 5-27 area(s) 2 ity of unit/gram 00:00: (two) [place] powder 00 times Medical daily. Branch nystatin 2022-0 Yes [id number] Apply to [facility] 100,000 5-27 area(s) 2 ity of unit/gram 00:00: (two) [place] powder 00 times Medical daily. Branch nystatin 2022-0 Yes [id number] Apply to [facility] 100,000 5-27 area(s) 2 ity of unit/gram 00:00: (two) [place] powder 00 times Medical daily. Branch nystatin 2022-0 Yes [id number] Apply to [facility] 100,000 5-27 area(s) 2 ity of unit/gram 00:00: (two) [place] powder 00 times Medical daily. Branch nystatin 2022-0 Yes [id number] Apply to [facility] 100,000 5-27 area(s) 2 ity of unit/gram 00:00: (two) [place] powder 00 times Medical daily. Branch nystatin 2022-0 Yes [id number] Apply to [facility] 100,000 5-27 area(s) 2 ity of unit/gram 00:00: (two) [place] powder 00 times Medical daily. Branch nystatin 2022-0 Yes [id number] Apply to [facility] 100,000 5-27 area(s) 2 ity of unit/gram 00:00: (two) [place] powder 00 times Medical daily. Branch nystatin 2022-0 Yes [id number] Apply to [facility] 100,000 5-27 area(s) 2 ity of unit/gram 00:00: (two) [place] powder 00 times Medical daily. Branch nystatin 2022-0 Yes [id number] Apply to [facility] 100,000 5-27 area(s) 2 ity of unit/gram 00:00: (two) [place] powder 00 times Medical daily. Branch nystatin 2022-0 Yes [id number] Apply to [facility] 100,000 5-27 area(s) 2 ity of unit/gram 00:00: (two) [place] powder 00 times Medical daily. Branch nystatin 2022-0 Yes [id number] Apply to [facility] 100,000 5-27 area(s) 2 ity of unit/gram 00:00: (two) [place] powder 00 times Medical daily. Branch nystatin 2022-0 Yes [id number] Apply to [facility] 100,000 5-27 area(s) 2 ity of unit/gram 00:00: (two) [place] powder 00 times Medical daily. Branch nystatin Yes [id number] Apply to [facility] 100,000 5-27 area(s) 2 ity of unit/gram 00:00: (two) [place] powder 00 times Medical daily. Branch zolpidem Yes 6.25mg Take 6.25 Un megan 6.25 mg CR 5-06 mg by ity of tablet 00:00: mouth at [place] [address] bedtime. Medical Branch zolpidem Yes 6.25mg Take 6.25 Un megan 6.25 mg CR 5-06 mg by ity of tablet 00:00: mouth at [place] [address] bedtime. Medical Branch zolpidem Yes 6.25mg Take 6.25 Un megan 6.25 mg CR 5-06 mg by ity of tablet 00:00: mouth at [place] [address] bedtime. Medical Branch zolpidem Yes 6.25mg Take 6.25 Un megan 6.25 mg CR 5-06 mg by ity of tablet 00:00: mouth at [place] [address] bedtime. Medical Branch zolpidem Yes 6.25mg Take 6.25 Un megan 6.25 mg CR 5-06 mg by ity of tablet 00:00: mouth at [place] [address] bedtime. Medical Branch zolpidem Yes 6.25mg Take 6.25 Un megan 6.25 mg CR 5-06 mg by ity of tablet 00:00: mouth at [place] [address] bedtime. Medical Branch zolpidem Yes 6.25mg Take 6.25 Un megan 6.25 mg CR 5-06 mg by ity of tablet 00:00: mouth at [place] [address] bedtime. Medical Branch zolpidem Yes 6.25mg Take 6.25 Un megan 6.25 mg CR 5-06 mg by ity of tablet 00:00: mouth at [place] [address] bedtime. Medical Branch zolpidem 0 Yes 6.25mg Take 6.25 Un megan 6.25 mg CR 5-06 mg by ity of tablet 00:00: mouth at [place] [address] bedtime. Medical Branch zolpidem 2021- Yes 6.25mg Take 6.25 Un megan 6.25 mg CR 5-06 mg by ity of tablet 00:00: mouth at [place] [address] bedtime. Medical Branch zolpidem 2022-0 Yes 6.25mg Take 6.25 Un megan 6.25 mg CR 5-06 mg by ity of tablet 00:00: mouth at [place] bedtime. Medical Branch zolpidem 2022-0 Yes 6.25mg Take 6.25 Un megan 6.25 mg CR 5-06 mg by ity of tablet 00:00: mouth at [place] [address] bedtime. Medical Branch zolpidem 2022-0 Yes 6.25mg Take 6.25 Un megan 6.25 mg CR 5-06 mg by ity of tablet 00:00: mouth at [place] bedtime. Medical Branch zolpidem 2-0 Yes 6.25mg Take 6.25 Un megan 6.25 mg CR 5-06 mg by ity of tablet 00:00: mouth at [place] [address] bedtime. Medical Branch zolpidem 2-0 Yes 6.25mg Take 6.25 Un megan 6.25 mg CR 5-06 mg by ity of tablet 00:00: mouth at [place] [address] bedtime. Medical Branch zolpidem 2-0 Yes 6.25mg Take 6.25 Un megan 6.25 mg CR 5-06 mg by ity of tablet 00:00: mouth at [place] [address] bedtime. Medical Branch zolpidem 2-0 Yes 6.25mg Take 6.25 Un megan 6.25 mg CR 5-06 mg by ity of tablet 00:00: mouth at [place] [address] bedtime. Medical Branch zolpidem 2022-0 Yes 6.25mg Take 6.25 Un megan 6.25 mg CR 5-06 mg by ity of tablet 00:00: mouth at [place] [address] bedtime. Medical Branch zolpidem 2022-0 Yes 6.25mg Take 6.25 Un megan 6.25 mg CR 5-06 mg by ity of tablet 00:00: mouth at [place] [address] bedtime. Medical Branch zolpidem 2022-0 Yes 6.25mg Take 6.25 Un megan 6.25 mg CR 5-06 mg by ity of tablet 00:00: mouth at [place] [address] bedtime. Medical Branch zolpidem 2022-0 Yes 6.25mg Take 6.25 Un megan 6.25 mg CR 5-06 mg by ity of tablet 00:00: mouth at [place] [address] bedtime. Medical Branch zolpidem 2-0 Yes 6.25mg Take 6.25 Un megan 6.25 mg CR 5-06 mg by ity of tablet 00:00: mouth at [place] [address] bedtime. Medical Branch zolpidem 2-0 Yes 6.25mg Take 6.25 Un megan 6.25 mg CR 5-06 mg by ity of tablet 00:00: mouth at [place] [address] bedtime. Medical Branch zolpidem 2-0 Yes 6.25mg Take 6.25 Un megan 6.25 mg CR 5-06 mg by ity of tablet 00:00: mouth at [place] [address] bedtime. Medical Branch zolpidem 2-0 Yes 6.25mg Take 6.25 Un megan 6.25 mg CR 5-06 mg by ity of tablet 00:00: mouth at [place] [address] bedtime. Medical Branch zolpidem 2-0 Yes 6.25mg Take 6.25 Un megan 6.25 mg CR 5-06 mg by ity of tablet 00:00: mouth at [place] [address] bedtime. Medical Branch zolpidem 2-0 Yes 6.25mg Take 6.25 Un megan 6.25 mg CR 5-06 mg by ity of tablet 00:00: mouth at [place] [address] bedtime. Medical Branch zolpidem 2-0 Yes 6.25mg Take 6.25 Un megan 6.25 mg CR 5-06 mg by ity of tablet 00:00: mouth at [place] [address] bedtime. Medical Branch zolpidem 2-0 Yes 6.25mg Take 6.25 Un megan 6.25 mg CR 5-06 mg by ity of tablet 00:00: mouth at [place] [address] bedtime. Medical Branch zolpidem 2-0 Yes 6.25mg Take 6.25 Un megan 6.25 mg CR 5-06 mg by ity of tablet 00:00: mouth at [place] [address] bedtime. Medical Branch zolpidem 2-0 Yes 6.25mg Take 6.25 Un megan 6.25 mg CR 5-06 mg by ity of tablet 00:00: mouth at [place] [address] bedtime. Medical Branch zolpidem 2022-0 Yes 6.25mg Take 6.25 Un megan 6.25 mg CR 5-06 mg by ity of tablet 00:00: mouth at [place] 00 bedtime. Medical Branch zolpidem 2021-0 Yes 6.25mg Take 6.25 Un megan 6.25 mg CR 5-06 mg by ity of tablet 00:00: mouth at [place] 00 bedtime. Medical Branch metoprolol 2021-0 Yes [id number] 50mg Take 1 U nivers succinate 4-26 tablet by ity o f XL 50 mg 24 00:00: mouth 2 [place] hr tablet 00 (two) Medical times Branch daily. metoprolol 2021-0 Yes [id number] 50mg Take 1 U nivers succinate 4-26 tablet by ity o f XL 50 mg 24 00:00: mouth 2 [place] hr tablet 00 (two) Medical times Branch daily. metoprolol 2021- No [id number] 50mg Take 1 [facility] succinate 4-26 07-27 tablet by ity of XL 50 mg 24 00:00: 00:00 mouth 2 [place] hr tablet 00 :00 (two) Medical times Branch daily. gabapentin 2021-0 [...] 00 (two) Medical times Branch daily. gabapentin 2-0 Yes 100mg Take 100 Un megan 100 [...] mouth [place] 00 daily. Medical Branch HYDROcodone 2022-0 Yes 1{tbl} Take 1 Un megan -acetaminop 4-25 tablet by ity of hen 10-325 00:00: mouth [place] mg tablet 00 (two) Medical times Branch daily. gabapentin 2022-0 Yes 100mg Take 100 Un megan 100 mg 4-25 mg by ity of capsule 00:00: mouth [place] 00 daily. Medical Branch HYDROcodone 2022-0 Yes 1{tbl} Take 1 Un megan -acetaminop 4-25 tablet by ity of hen 10-325 00:00: mouth 2 [place] mg tablet 00 (two) Medical times Branch daily. gabapentin 2022-0 Yes 100mg Take 100 Un megan 100 mg 4-25 mg by ity of capsule 00:00: mouth [place] 00 daily. Medical Branch HYDROcodone 2022-0 Yes 1{tbl} Take 1 Un megan -acetaminop 4-25 tablet by ity of hen 10-325 00:00: mouth 2 [place] mg tablet 00 (two) Medical times Branch daily. gabapentin 2022-0 Yes 100mg Take 100 Un megan 100 mg 4-25 mg by ity of capsule 00:00: mouth [place] 00 daily. Medical Branch HYDROcodone 2022-0 Yes 1{tbl} Take 1 Un megan -acetaminop 4-25 tablet by ity of hen 10-325 00:00: mouth 2 [place] mg tablet 00 (two) Medical times Branch daily. gabapentin 2022-0 Yes 100mg Take 100 Un megan 100 mg 4-25 mg by ity of capsule 00:00: mouth [place] 00 daily. Medical Branch HYDROcodone 2022-0 Yes 1{tbl} Take 1 Un megan -acetaminop 4-25 tablet by ity of hen 10-325 00:00: mouth 2 [place] mg tablet 00 (two) Medical times Branch daily. gabapentin 2022-0 Yes 100mg Take 100 Un megan 100 mg 4-25 mg by ity of capsule 00:00: mouth [place] 00 daily. Medical Branch HYDROcodone 2022-0 Yes 1{tbl} Take 1 Un megan -acetaminop 4-25 tablet by ity of hen 10-325 00:00: mouth 2 [place] mg tablet 00 (two) Medical times Branch daily. gabapentin 2022-0 Yes 100mg Take 100 Un megan 100 mg 4-25 mg by ity of capsule 00:00: mouth [place] 00 daily. Medical Branch HYDROcodone 2022-0 Yes 1{tbl} Take 1 Un megan -acetaminop 4-25 tablet by ity of hen 10-325 00:00: mouth 2 [place] mg tablet 00 (two) Medical times Branch daily. gabapentin 2022-0 Yes 100mg Take 100 Un megan 100 mg 4-25 mg by ity of capsule 00:00: mouth [place] 00 daily. Medical Branch HYDROcodone 2022-0 Yes 1{tbl} Take 1 Un megan -acetaminop 4-25 tablet by ity of hen 10-325 00:00: mouth 2 [place] mg tablet 00 (two) Medical times Branch daily. gabapentin 2022-0 Yes 100mg Take 100 Un megan 100 mg 4-25 mg by ity of capsule 00:00: mouth [place] 00 daily. Medical Branch HYDROcodone 2022-0 Yes 1{tbl} Take 1 Un megan -acetaminop 4-25 tablet by ity of hen 10-325 00:00: mouth 2 [place] mg tablet 00 (two) Medical times Branch daily. gabapentin 2022-0 Yes 100mg Take 100 Un megan 100 mg 4-25 mg by ity of capsule 00:00: mouth [place] 00 daily. Medical Branch HYDROcodone 2022-0 Yes 1{tbl} Take 1 Un megan -acetaminop 4-25 tablet by ity of hen 10-325 00:00: mouth 2 [place] mg tablet 00 (two) Medical times Branch daily. gabapentin 2022-0 Yes 100mg Take 100 Un megan 100 mg 4-25 mg by ity of capsule 00:00: mouth [place] 00 daily. Medical Branch HYDROcodone 2022-0 Yes 1{tbl} Take 1 Un megan -acetaminop 4-25 tablet by ity of hen 10-325 00:00: mouth 2 [place] mg tablet 00 (two) Medical times Branch daily. gabapentin 2022-0 Yes 100mg Take 100 Un megan 100 mg 4-25 mg by ity of capsule 00:00: mouth [place] 00 daily. Medical Branch HYDROcodone 2022-0 Yes 1{tbl} Take 1 Un megan -acetaminop 4-25 tablet by ity of hen 10-325 00:00: mouth 2 [place] mg tablet 00 (two) Medical times Branch daily. gabapentin 2022-0 Yes 100mg Take 100 Un megan 100 mg 4-25 mg by ity of capsule 00:00: mouth [place] 00 daily. Medical Branch HYDROcodone 2022-0 Yes 1{tbl} Take 1 Un megan -acetaminop 4-25 tablet by ity of hen 10-325 00:00: mouth 2 [place] mg tablet 00 (two) Medical times Branch daily. gabapentin 2022-0 Yes 100mg Take 100 Un megan 100 mg 4-25 mg by ity of capsule 00:00: mouth [place] 00 daily. Medical Branch HYDROcodone 2022-0 Yes 1{tbl} Take 1 Un megan -acetaminop 4-25 tablet by ity of hen 10-325 00:00: mouth 2 [place] mg tablet 00 (two) Medical times Branch daily. gabapentin 2022-0 Yes 100mg Take 100 Un megan 100 mg 4-25 mg by ity of capsule 00:00: mouth [place] 00 daily. Medical Branch HYDROcodone 2022-0 Yes 1{tbl} Take 1 Un megan -acetaminop 4-25 tablet by ity of hen 10-325 00:00: mouth 2 [place] mg tablet 00 (two) Medical times Branch daily. gabapentin 2022-0 Yes 100mg Take 100 Un megan 100 mg 4-25 mg by ity of capsule 00:00: mouth [place] 00 daily. Medical Branch HYDROcodone 2022-0 Yes 1{tbl} Take 1 Un megan -acetaminop 4-25 tablet by ity of hen 10-325 00:00: mouth 2 [place] mg tablet 00 (two) Medical times Branch daily. gabapentin 2022-0 Yes 100mg Take 100 Un megan 100 mg 4-25 mg by ity of capsule 00:00: mouth [place] 00 daily. Medical Branch HYDROcodone 2022-0 Yes 1{tbl} Take 1 Un megan -acetaminop 4-25 tablet by ity of hen 10-325 00:00: mouth 2 [place] mg tablet 00 (two) Medical times Branch daily. gabapentin 2022-0 Yes 100mg Take 100 Un megan 100 mg 4-25 mg by ity of capsule 00:00: mouth [place] 00 daily. Medical Branch HYDROcodone 2022-0 Yes 1{tbl} Take 1 Un megan -acetaminop 4-25 tablet by ity of hen 10-325 00:00: mouth 2 [place] mg tablet 00 (two) Medical times Branch daily. gabapentin 2022-0 Yes 100mg Take 100 Un megan 100 mg 4-25 mg by ity of capsule 00:00: mouth [place] 00 daily. Medical Branch HYDROcodone 2022-0 Yes 1{tbl} Take 1 Un megan -acetaminop 4-25 tablet by ity of hen 10-325 00:00: mouth 2 [place] mg tablet 00 (two) Medical times Branch daily. gabapentin 2022-0 Yes 100mg Take 100 Un megan 100 mg 4-25 mg by ity of capsule 00:00: mouth [place] 00 daily. Medical Branch HYDROcodone 2022-0 Yes 1{tbl} Take 1 Un megan -acetaminop 4-25 tablet by ity of hen 10-325 00:00: mouth 2 [place] mg tablet 00 (two) Medical times Branch daily. gabapentin 2022-0 Yes 100mg Take 100 Un megan 100 mg 4-25 mg by ity of capsule 00:00: mouth [place] 00 daily. Medical Branch HYDROcodone 2022-0 Yes 1{tbl} Take 1 Un megan -acetaminop 4-25 tablet by ity of hen 10-325 00:00: mouth 2 [place] mg tablet 00 (two) Medical times Branch daily. gabapentin 2022-0 Yes 100mg Take 100 Un megan 100 mg 4-25 mg by ity of capsule 00:00: mouth [place] 00 daily. Medical Branch HYDROcodone 2022-0 Yes 1{tbl} Take 1 Un megan -acetaminop 4-25 tablet by ity of hen 10-325 00:00: mouth 2 [place] mg tablet 00 (two) Medical times Branch daily. gabapentin 2022-0 Yes 100mg Take 100 Un megan 100 mg 4-25 mg by ity of capsule 00:00: mouth [place] 00 daily. Medical Branch HYDROcodone 2022-0 Yes 1{tbl} Take 1 Un megan -acetaminop 4-25 tablet by ity of hen 10-325 00:00: mouth 2 [place] mg tablet 00 (two) Medical times Branch daily. gabapentin 2022-0 Yes 100mg Take 100 Un megan 100 mg 4-25 mg by ity of capsule 00:00: mouth [place] 00 daily. Medical Branch HYDROcodone 2022-0 Yes 1{tbl} Take 1 Un megan -acetaminop 4-25 tablet by ity of hen 10-325 00:00: mouth 2 [place] mg tablet 00 (two) Medical times Branch daily. gabapentin 2022-0 Yes 100mg Take 100 Un megan 100 mg 4-25 mg by ity of capsule 00:00: mouth [place] 00 daily. Medical Branch HYDROcodone 2022-0 Yes 1{tbl} Take 1 Un megan -acetaminop 4-25 tablet by ity of hen 10-325 00:00: mouth 2 [place] mg tablet 00 (two) Medical times Branch daily. gabapentin 2022-0 Yes 100mg Take 100 Un megan 100 mg 4-25 mg by ity of capsule 00:00: mouth [place] 00 daily. Medical Branch HYDROcodone 2022-0 Yes 1{tbl} Take 1 Un megan -acetaminop 4-25 tablet by ity of hen 10-325 00:00: mouth 2 [place] mg tablet 00 (two) Medical times Branch daily. gabapentin 2022-0 Yes 100mg Take 100 Un megan 100 mg 4-25 mg by ity of capsule 00:00: mouth [place] 00 daily. Medical Branch HYDROcodone 2022-0 Yes 1{tbl} Take 1 Un megan -acetaminop 4-25 tablet by ity of hen 10-325 00:00: mouth 2 [place] mg tablet 00 (two) Medical times Branch daily. gabapentin 2022-0 Yes 100mg Take 100 Un megan 100 mg 4-25 mg by ity of capsule 00:00: mouth [place] 00 daily. Medical Branch HYDROcodone 2022-0 Yes 1{tbl} Take 1 Un megan -acetaminop 4-25 tablet by ity of hen 10-325 00:00: mouth 2 [place] mg tablet 00 (two) Medical times Branch daily. gabapentin 2022-0 Yes 100mg Take 100 Un megan 100 mg 4-25 mg by ity of capsule 00:00: mouth [place] 00 daily. Medical Branch HYDROcodone 2022-0 Yes 1{tbl} Take 1 Un megan -acetaminop 4-25 tablet by ity of hen 10-325 00:00: mouth 2 [place] mg tablet 00 (two) Medical times Branch daily. gabapentin 2022-0 Yes 100mg Take 100 Un megan 100 mg 4-25 mg by ity of capsule 00:00: mouth [place] 00 daily. Medical Branch HYDROcodone 2022-0 Yes 1{tbl} Take 1 Un megan -acetaminop 4-25 tablet by ity of hen 10-325 00:00: mouth 2 [place] mg tablet 00 (two) Medical times Branch daily. oseltamivir 2022-0 Yes 75mg Take 75 mg [facility] 75 mg 4-07 by mouth 2 ity of capsule 00:00: (two) [place] 00 times Medical daily. Branch oseltamivir 2022-0 Yes 75mg Take 75 mg [facility] 75 mg 4-07 by mouth 2 ity of capsule 00:00: (two) [place] 00 times Medical daily. Branch oseltamivir 2022-0 Yes 75mg Take 75 mg [facility] 75 mg 4-07 by mouth 2 ity of capsule 00:00: (two) [place] 00 times Medical daily. Branch oseltamivir 2022-0 Yes 75mg Take 75 mg [facility] 75 mg 4-07 by mouth 2 ity of capsule 00:00: (two) [place] 00 times Medical daily. Branch oseltamivir 2022-0 Yes 75mg Take 75 mg [facility] 75 mg 4-07 by mouth 2 ity of capsule 00:00: (two) [place] 00 times Medical daily. Branch oseltamivir 2022-0 Yes 75mg Take 75 mg [facility] 75 mg 4-07 by mouth 2 ity of capsule 00:00: (two) [place] 00 times Medical daily. Branch oseltamivir 2022-0 Yes 75mg Take 75 mg [facility] 75 mg 4-07 by mouth 2 ity of capsule 00:00: (two) [place] 00 times Medical daily. Branch oseltamivir 2022-0 Yes 75mg Take 75 mg [facility] 75 mg 4-07 by mouth 2 ity of capsule 00:00: (two) [place] 00 times Medical daily. Branch oseltamivir 2022-0 Yes 75mg Take 75 mg [facility] 75 mg 4-07 by mouth 2 ity of capsule 00:00: (two) [place] 00 times Medical daily. Branch oseltamivir 2022-0 Yes 75mg Take 75 mg [facility] 75 mg 4-07 by mouth 2 ity of capsule 00:00: (two) [place] 00 times Medical daily. Branch oseltamivir 2022-0 Yes 75mg Take 75 mg [facility] 75 mg 4-07 by mouth 2 ity of capsule 00:00: (two) [place] 00 times Medical daily. Branch oseltamivir 2022-0 Yes 75mg Take 75 mg [facility] 75 mg 4-07 by mouth 2 ity of capsule 00:00: (two) [place] 00 times Medical daily. Branch oseltamivir 2022-0 Yes 75mg Take 75 mg [facility] 75 mg 4-07 by mouth 2 ity of capsule 00:00: (two) [place] 00 times Medical daily. Branch oseltamivir 2022-0 Yes 75mg Take 75 mg [facility] 75 mg 4-07 by mouth 2 ity of capsule 00:00: (two) [place] 00 times Medical daily. Branch oseltamivir 2022-0 Yes 75mg Take 75 mg [facility] 75 mg 4-07 by mouth 2 ity of capsule 00:00: (two) [place] 00 times Medical daily. Branch oseltamivir 2022-0 Yes 75mg Take 75 mg [facility] 75 mg 4-07 by mouth 2 ity of capsule 00:00: (two) [place] 00 times Medical daily. Branch oseltamivir 2022-0 Yes 75mg Take 75 mg [facility] 75 mg 4-07 by mouth 2 ity of capsule 00:00: (two) [place] 00 times Medical daily. Branch oseltamivir 2022-0 Yes 75mg Take 75 mg [facility] 75 mg 4-07 by mouth 2 ity of capsule 00:00: (two) [place] 00 times Medical daily. Branch oseltamivir 2022-0 Yes 75mg Take 75 mg [facility] 75 mg 4-07 by mouth 2 ity of capsule 00:00: (two) [place] 00 times Medical daily. Branch oseltamivir 2022-0 Yes 75mg Take 75 mg [facility] 75 mg 4-07 by mouth 2 ity of capsule 00:00: (two) [place] 00 times Medical daily. Branch oseltamivir 2022-0 Yes 75mg Take 75 mg [facility] 75 mg 4-07 by mouth 2 ity of capsule 00:00: (two) [place] 00 times Medical daily. Branch oseltamivir 2022-0 Yes 75mg Take 75 mg [facility] 75 mg 4-07 by mouth 2 ity of capsule 00:00: (two) [place] 00 times Medical daily. Branch oseltamivir 2022-0 Yes 75mg Take 75 mg [facility] 75 mg 4-07 by mouth 2 ity of capsule 00:00: (two) [place] 00 times Medical daily. Branch oseltamivir 2022-0 Yes 75mg Take 75 mg [facility] 75 mg 4-07 by mouth 2 ity of capsule 00:00: (two) [place] 00 times Medical daily. Branch oseltamivir 2022-0 Yes 75mg Take 75 mg [facility] 75 mg 4-07 by mouth 2 ity of capsule 00:00: (two) [place] 00 times Medical daily. Branch oseltamivir 2022-0 Yes 75mg Take 75 mg [facility] 75 mg 4-07 by mouth 2 ity of capsule 00:00: (two) [place] 00 times Medical daily. Branch oseltamivir 2022-0 Yes 75mg Take 75 mg [facility] 75 mg 4-07 by mouth 2 ity of capsule 00:00: (two) [place] 00 times Medical daily. Branch oseltamivir 2022-0 Yes 75mg Take 75 mg [facility] 75 mg 4-07 by mouth 2 ity of capsule 00:00: (two) [place] 00 times Medical daily. Branch oseltamivir 2022-0 Yes 75mg Take 75 mg [facility] 75 mg 4-07 by mouth 2 ity of capsule 00:00: (two) [place] 00 times Medical daily. Branch oseltamivir 2022-0 Yes 75mg Take 75 mg [facility] 75 mg 4-07 by mouth 2 ity of capsule 00:00: (two) [place] 00 times Medical daily. Branch oseltamivir 2022-0 Yes 75mg Take 75 mg [facility] 75 mg 4-07 by mouth 2 ity of capsule 00:00: (two) [place] 00 times Medical daily. Branch oseltamivir 2022-0 Yes 75mg Take 75 mg [facility] 75 mg 4-07 by mouth 2 ity of capsule 00:00: (two) [place] 00 times Medical daily. Branch oseltamivir 2022-0 Yes 75mg Take 75 mg [facility] 75 mg 4-07 by mouth 2 ity of capsule 00:00: (two) [place] 00 times Medical daily. Branch topiramate 2022-0 Yes TAKE 1 [facility] rs 50 mg 3-25 TABLET BY ity of tablet 00:00: MOUTH 00 EVERY DAY Medical Branch DIRECTED topiramate 2022-0 Yes TAKE 1 [facility] rs 50 mg 3-25 TABLET BY ity of tablet 00:00: MOUTH EVERY DAY Medical Branch DIRECTED topiramate 2022-0 Yes TAKE 1 [facility] 50 mg 3-25 TABLET BY ity of tablet 00:00: MOUTH 00 EVERY DAY Medical Branch DIRECTED topiramate 2022-0 Yes TAKE 1 [facility] 50 mg 3-25 TABLET BY ity of tablet 00:00: MOUTH 00 EVERY DAY Medical Branch DIRECTED topiramate 2022-0 Yes TAKE 1 [facility] rs 50 mg 3-25 TABLET BY ity of tablet 00:00: EVERY DAY Medical Branch DIRECTED topiramate 2022-0 Yes TAKE 1 [facility] 50 mg 3-25 TABLET BY ity of tablet 00:00: EVERY DAY Medical Branch DIRECTED topiramate 2022-0 Yes TAKE 1 [facility] 50 mg 3-25 TABLET BY ity of tablet 00:00: EVERY DAY Medical Branch DIRECTED topiramate 2022-0 Yes TAKE 1 [facility] 50 mg 3-25 TABLET BY ity of tablet 00:00: 00 EVERY DAY Medical Branch DIRECTED topiramate 2022-0 Yes TAKE 1 [facility] 50 mg 3-25 TABLET BY ity of tablet 00:00: 00 EVERY DAY Medical Branch DIRECTED topiramate 2022-0 Yes TAKE 1 [facility] 50 mg 3-25 TABLET BY ity of tablet 00:00: [facility] EVERY DAY Medical Branch DIRECTED topiramate 2022-0 Yes TAKE 1 Unive rs 50 mg 3-25 TABLET BY ity of tablet 00:00: MOUTH 00 EVERY DAY Medical Branch DIRECTED topiramate 2022-0 Yes TAKE 1 Unive rs 50 mg 3-25 TABLET BY ity of tablet 00:00: [facility] 00 EVERY DAY Medical Branch DIRECTED topiramate 2022-0 Yes TAKE 1 Unive rs 50 mg 3-25 TABLET BY ity of tablet 00:00: [facility] 00 EVERY DAY Medical Branch DIRECTED topiramate 2022-0 Yes TAKE 1 Unive rs 50 mg 3-25 TABLET BY ity of tablet 00:00: [facility] 00 EVERY DAY Medical Branch DIRECTED topiramate 2022-0 Yes TAKE 1 Unive rs 50 mg 3-25 TABLET BY ity of tablet 00:00: MOUTH 00 EVERY DAY Medical Branch DIRECTED topiramate 2022-0 Yes TAKE 1 Unive rs 50 mg 3-25 TABLET BY ity of tablet 00:00: MOUTH 00 EVERY DAY Medical Branch DIRECTED topiramate 2022-0 Yes TAKE 1 Unive rs 50 mg 3-25 TABLET BY ity of tablet 00:00: MOUTH 00 EVERY DAY Medical Branch DIRECTED topiramate 2022-0 Yes TAKE 1 [facility] rs 50 mg 3-25 TABLET BY ity of tablet 00:00: MOUTH 00 EVERY DAY Medical Branch DIRECTED topiramate 2022-0 Yes TAKE 1 [facility] rs 50 mg 3-25 TABLET BY ity of tablet 00:00: [facility] 00 EVERY DAY Medical Branch DIRECTED topiramate 2022-0 Yes TAKE 1 [facility] rs 50 mg 3-25 TABLET BY ity of tablet 00:00: [facility] EVERY DAY Medical Branch DIRECTED topiramate 2022-0 Yes TAKE 1 Unive rs 50 mg 3-25 TABLET BY ity of tablet 00:00: 00 EVERY DAY Medical Branch DIRECTED topiramate 2022-0 Yes TAKE 1 [facility] rs 50 mg 3-25 TABLET BY ity of tablet 00:00: [facility] 00 EVERY DAY Medical Branch DIRECTED topiramate 2022-0 Yes TAKE 1 [facility] rs 50 mg 3-25 TABLET BY ity of tablet 00:00: [facility] 00 EVERY DAY Medical Branch DIRECTED topiramate 2022-0 Yes TAKE 1 [facility] rs 50 mg 3-25 TABLET BY ity of tablet 00:00: [facility] 00 EVERY DAY Medical Branch DIRECTED topiramate 2022-0 Yes TAKE 1 [facility] rs 50 mg 3-25 TABLET BY ity of tablet 00:00: MOUTH 00 EVERY DAY Medical Branch DIRECTED topiramate 2022-0 Yes TAKE 1 [facility] rs 50 mg 3-25 TABLET BY ity of tablet 00:00: MOUTH 00 EVERY DAY Medical Branch DIRECTED topiramate 2022-0 Yes TAKE 1 [facility] 50 mg 3-25 TABLET BY ity of tablet 00:00: MOUTH 00 EVERY DAY Medical Branch DIRECTED topiramate 2022-0 Yes TAKE 1 [facility] rs 50 mg 3-25 TABLET BY ity of tablet 00:00: [facility] 00 EVERY DAY Medical Branch DIRECTED topiramate 2022-0 Yes TAKE 1 [facility]ive rs 50 mg 3-25 TABLET BY ity of tablet 00:00: [facility] 00 EVERY DAY Medical Branch DIRECTED topiramate 2022-0 Yes TAKE 1 Unive rs 50 mg 3-25 TABLET BY ity of tablet 00:00: MOUTH [place] EVERY DAY Medical Branch DIRECTED topiramate 2022-0 Yes TAKE 1 Unive rs 50 mg 3-25 TABLET BY ity of tablet 00:00: MOUTH [place] EVERY DAY Medical Branch DIRECTED topiramate 2022-0 Yes TAKE 1 [facility] rs 50 mg 3-25 TABLET BY ity of tablet 00:00: [facility] EVERY DAY Medical Branch DIRECTED topiramate 2022-0 Yes TAKE 1 Unive rs 50 mg 3-25 TABLET BY ity of tablet 00:00: [facility] EVERY DAY Medical Branch DIRECTED medroxyPROG 2018-0 Yes [id number] 150mg [facility] ESTERone 3-30 ity of (DEPO-PROVE 16:00: [place] RA) 00 Medical injection Branch 150 mg medroxyPROG 2018-0 Yes [id number] 150mg [facility] ESTERone 3-30 ity of (DEPO-PROVE 16:00: [place] RA) 00 Medical injection Branch 150 mg medroxyPROG 2018-0 Yes [id number] 150mg [facility] ESTERone 3-30 ity of (DEPO-PROVE 16:00: [place] RA) 00 Medical injection Branch 150 mg medroxyPROG 2018-0 Yes [id number] 150mg [facility] ESTERone 3-30 ity of (DEPO-PROVE 16:00: [place] RA) 00 Medical injection Branch 150 mg medroxyPROG 2018-0 Yes [id number] 150mg [facility] ESTERone 3-30 ity of (DEPO-PROVE 16:00: [place] RA) 00 Medical injection Branch 150 mg medroxyPROG 2018-0 Yes [id number] 150mg [facility] ESTERone 3-30 ity of (DEPO-PROVE 16:00: [place] RA) 00 Medical injection Branch 150 mg medroxyPROG 2018-0 Yes [id number] 150mg [facility] ESTERone 3-30 ity of (DEPO-PROVE 16:00: [place] RA) 00 Medical injection Branch 150 mg medroxyPROG 2018-0 Yes [id number] 150mg [facility] ESTERone 3-30 ity of (DEPO-PROVE 16:00: [place] RA) 00 Medical injection Branch 150 mg medroxyPROG 2018-0 Yes [id number] 150mg [facility] ESTERone 3-30 ity of (DEPO-PROVE 16:00: [place] RA) 00 Medical injection Branch 150 mg medroxyPROG 2018-0 Yes [id number] 150mg [facility] ESTERone 3-30 ity of (DEPO-PROVE 16:00: [place] RA) 00 Medical injection Branch 150 mg medroxyPROG 2018-0 Yes [id number] 150mg [facility] ESTERone 3-30 ity of (DEPO-PROVE 16:00: [place] [facility]) 00 [facility] 150 mg medroxyPROG 2018-0 Yes [id number] 150mg [facility] 3-30 ity of (DEPO-PROVE 16:00: [place] [facility]) 00 [facility] injection [facility] 150 mg medroxyPROG 2018-0 Yes [id number] 150mg [facility] ESTERone 3-30 ity of (DEPO-PROVE 16:00: [place] [facility]) 00 [facility] injection [facility] 150 mg medroxyPROG 2018-0 Yes [id number] 150mg [facility] ESTERone 3-30 ity of (DEPO-PROVE 16:00: [place] [facility]) 00 [facility] injection [facility] 150 mg medroxyPROG 2018-0 Yes [id number] 150mg [facility] ESTERone 3-30 ity of (DEPO-PROVE 16:00: [place] [facility]) 00 [facility] injection [facility] 150 mg medroxyPROG 2018-0 Yes [id number] 150mg [facility] ESTERone 3-30 ity of (DEPO-PROVE 16:00: [place] [facility]) 00 [facility] injection [facility] 150 mg medroxyPROG 2018-0 Yes [id number] 150mg [facility] ESTERone 3-30 ity of (DEPO-PROVE 16:00: [place] [facility]) 00 [facility] injection [facility] 150 mg medroxyPROG 2018-0 Yes [id number] 150mg [facility] ESTERone 3-30 ity of (DEPO-PROVE 16:00: [place] [facility]) 00 [facility] injection [facility] 150 mg medroxyPROG 2018-0 Yes [id number] 150mg [facility] ESTERone 3-30 ity of (DEPO-PROVE 16:00: [place] [facility]) 00 [facility] injection [facility] 150 mg medroxyPROG 2018-0 Yes [id number] 150mg [facility] ESTERone 3-30 ity of (DEPO-PROVE 16:00: [place] [facility]) 00 [facility] injection [facility] 150 mg medroxyPROG 2018-0 Yes [id number] 150mg [facility] ESTERone 3-30 ity of (DEPO-PROVE 16:00: [place] [facility]) 00 [facility] injection [facility] 150 mg medroxyPROG 2018-0 Yes [id number] 150mg [facility] ESTERone 3-30 ity of (DEPO-PROVE 16:00: [place] [facility]) 00 [facility] injection [facility] 150 mg medroxyPROG 2018-0 Yes [id number] 150mg [facility] ESTERone 3-30 ity of (DEPO-PROVE 16:00: [place] [facility]) 00 [facility] injection [facility] 150 mg medroxyPROG 2018-0 Yes [id number] 150mg [facility] ESTERone 3-30 ity of (DEPO-PROVE 16:00: [place] [facility]) 00 [facility] injection [facility] 150 mg medroxyPROG 2018-0 Yes [id number] 150mg [facility] ESTERone 3-30 ity of (DEPO-PROVE 16:00: [place] [facility]) 00 [facility] injection [facility] 150 mg medroxyPROG 2018-0 Yes [id number] 150mg [facility] ESTERone 3-30 ity of (DEPO-PROVE 16:00: [place] [facility]) 00 [facility] injection [facility] 150 mg medroxyPROG 2018-0 Yes [id number] 150mg [facility] ESTERone 3-30 ity of (DEPO-PROVE 16:00: [place] [facility]) 00 [facility] injection [facility] 150 mg medroxyPROG 2018-0 Yes [id number] 150mg [facility] ESTERone 3-30 ity of (DEPO-PROVE 16:00: [place] [facility]) 00 [facility] injection [facility] 150 mg medroxyPROG 2018-0 Yes [id number] 150mg [facility] ESTERone 3-30 ity of (DEPO-PROVE 16:00: [place] [facility]) 00 [facility] injection [facility] 150 mg medroxyPROG 2018-0 Yes [id number] 150mg [facility] ESTERone 3-30 ity of (DEPO-PROVE 16:00: [place] [facility]) 00 [facility] injection [facility] 150 mg medroxyPROG 2018-0 Yes [id number] 150mg [facility] ESTERone 3-30 ity of (DEPO-PROVE 16:00: [place] [facility]) 00 [facility] injection [facility] 150 mg medroxyPROG 2018-0 Yes [id number] 150mg [facility] ESTERone 3-30 ity of (DEPO-PROVE 16:00: [facility]) 00 Medical injection Branch 150 mg medroxyPROG 2018-0 Yes [id number] 150mg [facility] ESTERone 3-30 ity of (DEPO-PROVE 16:00: [facility]) 00 Medical injection Branch 150 mg Immunizations Ordered Filled Immunization Date Status Comments [facility] e Immunization Name Name Influenza Virus 2022-02-15 Completed Universit y of Vaccine [facility], 00:00:00 [place] [facility] Preserv and ABX Branch Free 6 MO-64 YRS Influenza Virus 2022-02-15 Completed [facility] of Vaccine [facility], 00:00:00 [place] [facility] Preserv and ABX [facility] Free 6 MO-64 YRS Influenza Virus 2022-02-15 Completed [facility] of Vaccine [facility], 00:00:00 [place] [facility] Preserv and ABX [facility] Free 6 MO-64 YRS Influenza Virus 2022-02-15 Completed [facility] of Vaccine [facility] IM, 00:00:00 [place] [facility] Preserv and ABX Branch Free 6 MO-64 YRS Influenza Virus 2022-02-15 Completed [facility] of Vaccine [facility], 00:00:00 [place] [facility] Preserv and ABX Branch Free 6 MO-64 YRS Influenza Virus 2022-02-15 Completed [facility]it y of Vaccine [facility], 00:00:00 [place] [facility] Preserv and ABX Branch Free 6 MO-64 YRS Influenza Virus 2022-02-15 Completed [facility]it y of Vaccine [facility], 00:00:00 [place] [facility] Preserv and ABX Branch Free 6 MO-64 YRS Influenza Virus 2022-02-15 Completed [facility]it y of Vaccine [facility], 00:00:00 [place] [facility] Preserv and ABX Branch Free 6 MO-64 YRS Influenza Virus 2022-02-15 Completed [facility]it y of Vaccine [facility], 00:00:00 [place] [facility] Preserv and ABX Branch Free 6 MO-64 YRS Influenza Virus 2022-02-15 Completed [facility]it y of Vaccine [facility], 00:00:00 [place] [facility] Preserv and ABX Branch Free 6 MO-64 YRS Influenza Virus 2022-02-15 Completed [facility]it y of Vaccine [facility] IM, 00:00:00 [place] [facility] Preserv and ABX Branch Free 6 MO-64 YRS Influenza Virus 2022-02-15 Completed Universit y of Vaccine Quad IM, 00:00:00 [facility] dical Preserv and ABX Branch Free 6 MO-64 YRS SARS-COV-2 COVID-19 2021-02-28 Completed Unive rsity of PFIZER VACCINE 00:00:00 [facility] SARS-COV-2 COVID-19 2021-02-28 Completed Unive rsity of PFIZER VACCINE 00:00:00 [facility] SARS-COV-2 COVID-19 2021-02-28 Completed Unive rsity of PFIZER VACCINE 00:00:00 [facility] SARS-COV-2 COVID-19 2021-02-28 Completed Unive rsity of PFIZER VACCINE 00:00:00 [facility] SARS-COV-2 COVID-19 2021-02-28 Completed Unive rsity of PFIZER VACCINE 00:00:00 [facility] SARS-COV-2 COVID-19 2021-02-28 Completed Unive rsity of PFIZER VACCINE 00:00:00 [facility] SARS-COV-2 COVID-19 2021-02-28 Completed Unive rsity of PFIZER VACCINE 00:00:00 [facility] SARS-COV-2 COVID-19 2021-02-28 Completed Unive rsity of PFIZER VACCINE 00:00:00 [facility] SARS-COV-2 COVID-19 2021-02-28 Completed Unive rsity of PFIZER VACCINE 00:00:00 [facility] SARS-COV-2 COVID-19 2021-02-28 Completed Unive rsity of PFIZER VACCINE 00:00:00 [facility] SARS-COV-2 COVID-19 2021-02-28 Completed Unive rsity of PFIZER VACCINE 00:00:00 [facility] SARS-COV-2 COVID-19 2021-02-28 Completed Unive rsity of PFIZER VACCINE 00:00:00 [facility] SARS-COV-2 COVID-19 2021-02-28 Completed Unive rsity of PFIZER VACCINE 00:00:00 [facility] SARS-COV-2 COVID-19 2021-02-28 Completed Unive rsity of PFIZER VACCINE 00:00:00 [facility] SARS-COV-2 COVID-19 2021-02-28 Completed Unive rsity of PFIZER VACCINE 00:00:00 [place] [facility] SARS-COV-2 COVID-19 2021-02-28 Completed Unive rsity of PFIZER VACCINE 00:00:00 [facility] Branch SARS-COV-2 COVID-19 2021-02-28 Completed Unive rsity of PFIZER VACCINE 00:00:00 [facility] SARS-COV-2 COVID-19 2021-02-28 Completed Unive rsity of PFIZER VACCINE 00:00:00 [facility] Branch SARS-COV-2 COVID-19 2021-02-28 Completed Unive rsity of PFIZER VACCINE 00:00:00 [facility] SARS-COV-2 COVID-19 2021-02-28 Completed Unive rsity of PFIZER VACCINE 00:00:00 [facility] SARS-COV-2 COVID-19 2021-02-28 Completed Unive rsity of PFIZER VACCINE 00:00:00 [facility] SARS-COV-2 COVID-19 2021-02-28 Completed Unive rsity of PFIZER VACCINE 00:00:00 [facility] SARS-COV-2 COVID-19 2021-02-28 Completed Unive rsity of PFIZER VACCINE 00:00:00 [facility] SARS-COV-2 COVID-19 2021-02-28 Completed Unive rsity of PFIZER VACCINE 00:00:00 [facility] SARS-COV-2 COVID-19 2021-02-28 Completed Unive rsity of PFIZER VACCINE 00:00:00 [facility] SARS-COV-2 COVID-19 2021-02-28 Completed Unive rsity of PFIZER VACCINE 00:00:00 [facility] SARS-COV-2 COVID-19 2021-02-28 Completed Unive rsity of PFIZER VACCINE 00:00:00 [facility] SARS-COV-2 COVID-19 2021-02-28 Completed Unive rsity of PFIZER VACCINE 00:00:00 [facility] SARS-COV-2 COVID-19 2021-02-28 Completed Unive rsity of PFIZER VACCINE 00:00:00 [facility] SARS-COV-2 COVID-19 2021-02-28 Completed Unive rsity of PFIZER VACCINE 00:00:00 [facility] SARS-COV-2 COVID-19 2021-02-28 Completed Unive rsity of PFIZER VACCINE 00:00:00 [facility] SARS-COV-2 COVID-19 2021-02-28 Completed Unive rsity of PFIZER VACCINE 00:00:00 [facility] SARS-COV-2 COVID-19 2021-02-28 Completed Unive rsity of PFIZER VACCINE 00:00:00 [facility] Influenza Virus 2020-12-18 Completed Universit y of Vaccine (3+ yrs) 00:00:00 [facility] Influenza Virus 2020-12-18 Completed Universit y of Vaccine (3+ yrs) 00:00:00 [facility] Influenza Virus 2020-12-18 Completed Universit y of Vaccine (3+ yrs) 00:00:00 [facility] Influenza Virus 2020-12-18 Completed Universit y of Vaccine (3+ yrs) 00:00:00 [facility] Influenza Virus 2020-12-18 Completed Universit y of Vaccine (3+ yrs) 00:00:00 [facility] Influenza Virus 2020-12-18 Completed Universit y of Vaccine (3+ yrs) 00:00:00 [facility] Influenza Virus 2020-12-18 Completed Universit y of Vaccine (3+ yrs) 00:00:00 [facility] Influenza Virus 2020-12-18 Completed Universit y of Vaccine (3+ yrs) 00:00:00 [facility] Influenza Virus 2020-12-18 Completed Universit y of Vaccine (3+ yrs) 00:00:00 [facility] Influenza Virus 2020-12-18 Completed Universit y of Vaccine (3+ yrs) 00:00:00 [facility] Influenza Virus 2020-12-18 Completed Universit y of Vaccine (3+ yrs) 00:00:00 [facility] Influenza Virus 2020-12-18 Completed Universit y of Vaccine (3+ yrs) 00:00:00 [facility] Influenza Virus 2020-12-18 Completed Universit y of Vaccine (3+ yrs) 00:00:00 [facility] Influenza Virus 2020-12-18 Completed Universit y of Vaccine (3+ yrs) 00:00:00 [facility] Influenza Virus 2020-12-18 Completed Universit y of Vaccine (3+ yrs) 00:00:00 [facility] Influenza Virus 2020-12-18 Completed Universit y of Vaccine (3+ yrs) 00:00:00 [facility] Influenza Virus 2020-12-18 Completed Universit y of Vaccine (3+ yrs) 00:00:00 [facility] Influenza Virus 2020-12-18 Completed Universit y of Vaccine (3+ yrs) 00:00:00 [facility] Influenza Virus 2020-12-18 Completed Universit y of Vaccine (3+ yrs) 00:00:00 [facility] Influenza Virus 2020-12-18 Completed Universit y of Vaccine (3+ yrs) 00:00:00 [facility] Influenza Virus 2020-12-18 Completed Universit y of Vaccine (3+ yrs) 00:00:00 [facility] Influenza Virus 2020-12-18 Completed Universit y of Vaccine (3+ yrs) 00:00:00 [facility] Influenza Virus 2020-12-18 Completed Universit y of Vaccine (3+ yrs) 00:00:00 [facility] Influenza Virus 2020-12-18 Completed Universit y of Vaccine (3+ yrs) 00:00:00 [facility] Influenza Virus 2020-12-18 Completed Universit y of Vaccine (3+ yrs) 00:00:00 [facility] Influenza Virus 2020-12-18 Completed Universit y of Vaccine (3+ yrs) 00:00:00 [facility] Influenza Virus 2020-12-18 Completed Universit y of Vaccine (3+ yrs) 00:00:00 [facility] Influenza Virus 2020-12-18 Completed Universit y of Vaccine (3+ yrs) 00:00:00 [facility] Influenza Virus 2020-12-18 Completed Universit y of Vaccine (3+ yrs) 00:00:00 [facility] Influenza Virus 2020-12-18 Completed Universit y of Vaccine (3+ yrs) 00:00:00 [facility] Influenza Virus 2020-12-18 Completed Universit y of Vaccine (3+ yrs) 00:00:00 [facility] Influenza Virus 2020-12-18 Completed Universit y of Vaccine (3+ yrs) 00:00:00 [facility] Influenza Virus 2020-12-18 Completed Universit y of Vaccine (3+ yrs) 00:00:00 [facility] SARS-COV-2 COVID-19 2020-06-08 Completed Unive rsity of PFIZER VACCINE 00:00:00 [facility] Branch SARS-COV-2 COVID-19 2020-06-08 Completed Unive rsity of PFIZER VACCINE 00:00:00 [facility] SARS-COV-2 COVID-19 2020-06-08 Completed Unive rsity of PFIZER VACCINE 00:00:00 [facility] SARS-COV-2 COVID-19 2020-06-08 Completed Unive rsity of PFIZER VACCINE 00:00:00 [facility] SARS-COV-2 COVID-19 2020-06-08 Completed Unive rsity of PFIZER VACCINE 00:00:00 [facility] SARS-COV-2 COVID-19 2020-06-08 Completed Unive rsity of PFIZER VACCINE 00:00:00 [facility] SARS-COV-2 COVID-19 2020-06-08 Completed Unive rsity of PFIZER VACCINE 00:00:00 [facility] SARS-COV-2 COVID-19 2020-06-08 Completed Unive rsity of PFIZER VACCINE 00:00:00 [facility] SARS-COV-2 COVID-19 2020-06-08 Completed Unive rsity of PFIZER VACCINE 00:00:00 [facility] SARS-COV-2 COVID-19 2020-06-08 Completed Unive rsity of PFIZER VACCINE 00:00:00 [facility] SARS-COV-2 COVID-19 2020-06-08 Completed Unive rsity of PFIZER VACCINE 00:00:00 [facility] SARS-COV-2 COVID-19 2020-06-08 Completed Unive rsity of PFIZER VACCINE 00:00:00 [facility] SARS-COV-2 COVID-19 2020-06-08 Completed Unive rsity of PFIZER VACCINE 00:00:00 [facility] SARS-COV-2 COVID-19 2020-06-08 Completed Unive rsity of PFIZER VACCINE 00:00:00 [facility] SARS-COV-2 COVID-19 2020-06-08 Completed Unive rsity of PFIZER VACCINE 00:00:00 [facility] SARS-COV-2 COVID-19 2020-06-08 Completed Unive rsity of PFIZER VACCINE 00:00:00 [facility] SARS-COV-2 COVID-19 2020-06-08 Completed Unive rsity of PFIZER VACCINE 00:00:00 [facility] SARS-COV-2 COVID-19 2020-06-08 Completed Unive rsity of PFIZER VACCINE 00:00:00 [facility] SARS-COV-2 COVID-19 2020-06-08 Completed Unive rsity of PFIZER VACCINE 00:00:00 [facility] SARS-COV-2 COVID-19 2020-06-08 Completed Unive rsity of PFIZER VACCINE 00:00:00 [facility] SARS-COV-2 COVID-19 2020-06-08 Completed Unive rsity of PFIZER VACCINE 00:00:00 [facility] SARS-COV-2 COVID-19 2020-06-08 Completed Unive rsity of PFIZER VACCINE 00:00:00 [facility] SARS-COV-2 COVID-19 2020-06-08 Completed Unive rsity of PFIZER VACCINE 00:00:00 [facility] SARS-COV-2 COVID-19 2020-06-08 Completed Unive rsity of PFIZER VACCINE 00:00:00 [facility] SARS-COV-2 COVID-19 2020-06-08 Completed Unive rsity of PFIZER VACCINE 00:00:00 [facility] SARS-COV-2 COVID-19 2020-06-08 Completed Unive rsity of PFIZER VACCINE 00:00:00 [facility] SARS-COV-2 COVID-19 2020-06-08 Completed Unive rsity of PFIZER VACCINE 00:00:00 [facility] SARS-COV-2 COVID-19 2020-06-08 Completed Unive rsity of PFIZER VACCINE 00:00:00 [facility] SARS-COV-2 COVID-19 2020-06-08 Completed Unive rsity of PFIZER VACCINE 00:00:00 [facility] SARS-COV-2 COVID-19 2020-06-08 Completed Unive rsity of PFIZER VACCINE 00:00:00 [facility] SARS-COV-2 COVID-19 2020-06-08 Completed Unive rsity of PFIZER VACCINE 00:00:00 [facility] SARS-COV-2 COVID-19 2020-06-08 Completed Unive rsity of PFIZER VACCINE 00:00:00 [facility] SARS-COV-2 COVID-19 2020-06-08 Completed Unive rsity of PFIZER VACCINE 00:00:00 [facility] SARS-COV-2 COVID-19 2020-05-18 Completed Unive rsity of PFIZER VACCINE 00:00:00 [facility] SARS-COV-2 COVID-19 2020-05-18 Completed Unive rsity of PFIZER VACCINE 00:00:00 [facility] SARS-COV-2 COVID-19 2020-05-18 Completed Unive rsity of PFIZER VACCINE 00:00:00 [facility] SARS-COV-2 COVID-19 2020-05-18 Completed Unive rsity of PFIZER VACCINE 00:00:00 [facility] SARS-COV-2 COVID-19 2020-05-18 Completed Unive rsity of PFIZER VACCINE 00:00:00 [facility] SARS-COV-2 COVID-19 2020-05-18 Completed Unive rsity of PFIZER VACCINE 00:00:00 [facility] SARS-COV-2 COVID-19 2020-05-18 Completed Unive rsity of PFIZER VACCINE 00:00:00 [facility] SARS-COV-2 COVID-19 2020-05-18 Completed Unive rsity of PFIZER VACCINE 00:00:00 [facility] SARS-COV-2 COVID-19 2020-05-18 Completed Unive rsity of PFIZER VACCINE 00:00:00 [facility] SARS-COV-2 COVID-19 2020-05-18 Completed Unive rsity of PFIZER VACCINE 00:00:00 [facility] SARS-COV-2 COVID-19 2020-05-18 Completed Unive rsity of PFIZER VACCINE 00:00:00 [facility] SARS-COV-2 COVID-19 2020-05-18 Completed Unive rsity of PFIZER VACCINE 00:00:00 [facility] SARS-COV-2 COVID-19 2020-05-18 Completed Unive rsity of PFIZER VACCINE 00:00:00 [facility] SARS-COV-2 COVID-19 2020-05-18 Completed Unive rsity of PFIZER VACCINE 00:00:00 [facility] SARS-COV-2 COVID-19 2020-05-18 Completed Unive rsity of PFIZER VACCINE 00:00:00 [facility] SARS-COV-2 COVID-19 2020-05-18 Completed Unive rsity of PFIZER VACCINE 00:00:00 [facility] SARS-COV-2 COVID-19 2020-05-18 Completed Unive rsity of PFIZER VACCINE 00:00:00 [facility] SARS-COV-2 COVID-19 2020-05-18 Completed Unive rsity of PFIZER VACCINE 00:00:00 [facility] SARS-COV-2 COVID-19 2020-05-18 Completed [facility]ive rsity of PFIZER VACCINE 00:00:00 [facility] SARS-COV-2 COVID-19 2020-05-18 Completed Unive rsity of PFIZER VACCINE 00:00:00 [facility] SARS-COV-2 COVID-19 2020-05-18 Completed [facility]ive rsity of PFIZER VACCINE 00:00:00 [facility] SARS-COV-2 COVID-19 2020-05-18 Completed [facility]ive rsity of PFIZER VACCINE 00:00:00 [facility] SARS-COV-2 COVID-19 2020-05-18 Completed [facility]ive rsity of PFIZER VACCINE 00:00:00 [facility] SARS-COV-2 COVID-19 2020-05-18 Completed [facility]ive rsity of PFIZER VACCINE 00:00:00 [facility] SARS-COV-2 COVID-19 2020-05-18 Completed [facility]ive rsity of PFIZER VACCINE 00:00:00 [facility] SARS-COV-2 COVID-19 2020-05-18 Completed [facility]ive rsity of PFIZER VACCINE 00:00:00 [facility] SARS-COV-2 COVID-19 2020-05-18 Completed [facility]ive rsity of PFIZER VACCINE 00:00:00 [facility] SARS-COV-2 COVID-19 2020-05-18 Completed Unive rsity of PFIZER VACCINE 00:00:00 [facility] SARS-COV-2 COVID-19 2020-05-18 Completed Unive rsity of PFIZER VACCINE 00:00:00 [facility] SARS-COV-2 COVID-19 2020-05-18 Completed Unive rsity of PFIZER VACCINE 00:00:00 [facility] SARS-COV-2 COVID-19 2020-05-18 Completed Unive rsity of PFIZER VACCINE 00:00:00 [facility] SARS-COV-2 COVID-19 2020-05-18 Completed Unive rsity of PFIZER VACCINE 00:00:00 [facility] SARS-COV-2 COVID-19 2020-05-18 Completed Unive rsity of PFIZER VACCINE 00:00:00 [facility] Influenza Virus 2016-12-18 Completed [facility] of Vaccine Quad IM 3+ 00:00:00 [facility] Influenza Virus 2016-12-18 Completed [facility] y of Vaccine Quad IM 3+ 00:00:00 [facility] Influenza Virus 2016-12-18 Completed [facility] y of Vaccine Quad IM 3+ 00:00:00 [facility] Influenza Virus 2016-12-18 Completed [facility] y of Vaccine Quad IM 3+ 00:00:00 [facility] Influenza Virus 2016-12-18 Completed [facility] y of Vaccine Quad IM 3+ 00:00:00 [facility] Influenza Virus 2016-12-18 Completed [facility] y of Vaccine Quad IM 3+ 00:00:00 [facility] Influenza Virus 2016-12-18 Completed [facility] y of Vaccine Quad IM 3+ 00:00:00 [facility] Influenza Virus 2016-12-18 Completed [facility] y of Vaccine Quad IM 3+ 00:00:00 [facility] Influenza Virus 2016-12-18 Completed [facility] y of Vaccine Quad IM 3+ 00:00:00 [facility] Influenza Virus 2016-12-18 Completed [facility] y of Vaccine Quad IM 3+ 00:00:00 [facility] Influenza Virus 2016-12-18 Completed [facility] y of Vaccine Quad IM 3+ 00:00:00 [facility] Influenza Virus 2016-12-18 Completed [facility] y of Vaccine Quad IM 3+ 00:00:00 [facility] Influenza Virus 2016-12-18 Completed [facility] of Vaccine Quad IM 3+ 00:00:00 [facility] Influenza Virus 2016-12-18 Completed [facility] y of Vaccine Quad IM 3+ 00:00:00 [facility] Influenza Virus 2016-12-18 Completed [facility] y of Vaccine Quad IM 3+ 00:00:00 [facility] Influenza Virus 2016-12-18 Completed [facility] y of Vaccine Quad IM 3+ 00:00:00 [facility] Influenza Virus 2016-12-18 Completed [facility] of Vaccine Quad IM 3+ 00:00:00 [facility] Influenza Virus 2016-12-18 Completed [facility] y of Vaccine Quad IM 3+ 00:00:00 [facility] Influenza Virus 2016-12-18 Completed [facility] y of Vaccine Quad IM 3+ 00:00:00 [facility] Influenza Virus 2016-12-18 Completed [facility] y of Vaccine Quad IM 3+ 00:00:00 [facility] Influenza Virus 2016-12-18 Completed [facility] y of Vaccine Quad IM 3+ 00:00:00 [facility] Influenza Virus 2016-12-18 Completed [facility] y of Vaccine Quad IM 3+ 00:00:00 [facility] Influenza Virus 2016-12-18 Completed [facility] of Vaccine Quad IM 3+ 00:00:00 [facility] Influenza Virus 2016-12-18 Completed [facility] y of Vaccine Quad IM 3+ 00:00:00 [facility] Influenza Virus 2016-12-18 Completed [facility] of Vaccine Quad IM 3+ 00:00:00 [facility] Influenza Virus 2016-12-18 Completed [facility] of Vaccine Quad IM 3+ 00:00:00 [facility] Influenza Virus 2016-12-18 Completed [facility] of Vaccine Quad IM 3+ 00:00:00 [facility] Influenza Virus 2016-12-18 Completed [facility] of Vaccine Quad IM 3+ 00:00:00 [facility] Influenza Virus 2016-12-18 Completed [facility] of Vaccine Quad IM 3+ 00:00:00 [facility] Influenza Virus 2016-12-18 Completed [facility] y of Vaccine Quad IM 3+ 00:00:00 [facility] Influenza Virus 2016-12-18 Completed Universit y of Vaccine Quad IM 3+ 00:00:00 [facility] Influenza Virus 2016-12-18 Completed Universit y of Vaccine Quad IM 3+ 00:00:00 [facility] Influenza Virus 2016-12-18 Completed Universit y of Vaccine Quad IM 3+ 00:00:00 [facility] TDAP 2005-06-16 Completed University of 00:00:00 [facility] TDAP 2005-06-16 Completed University of 00:00:00 [facility] TDAP 2005-06-16 Completed University of 00:00:00 [facility] TDAP 2005-06-16 Completed University of 00:00:00 [facility] TDAP 2005-06-16 Completed University of 00:00:00 [facility] TDAP 2005-06-16 Completed University of 00:00:00 [facility] TDAP 2005-06-16 Completed University of 00:00:00 [facility] TDAP 2005-06-16 Completed University of 00:00:00 [facility] TDAP 2005-06-16 Completed University of 00:00:00 [facility] TDAP 2005-06-16 Completed University of 00:00:00 [facility] TDAP 2005-06-16 Completed University of 00:00:00 [facility] TDAP 2005-06-16 Completed University of 00:00:00 [facility] TDAP 2005-06-16 Completed University of 00:00:00 [facility] TDAP 2005-06-16 Completed University of 00:00:00 [facility] TDAP 2005-06-16 Completed University of 00:00:00 [facility] TDAP 2005-06-16 Completed University of 00:00:00 [facility] TDAP 2005-06-16 Completed University of 00:00:00 [facility] TDAP 2005-06-16 Completed University of 00:00:00 [facility] TDAP 2005-06-16 Completed University of 00:00:00 [facility] TDAP 2005-06-16 Completed University of 00:00:00 [facility] TDAP 2005-06-16 Completed University of 00:00:00 [facility] TDAP 2005-06-16 Completed University of 00:00:00 [facility] TDAP 2005-06-16 Completed University of 00:00:00 [facility] TDAP 2005-06-16 Completed University of 00:00:00 [facility] TDAP 2005-06-16 Completed University of 00:00:00 [facility] TDAP 2005-06-16 Completed University of 00:00:00 [facility] TDAP 2005-06-16 Completed University of 00:00:00 [facility] TDAP 2005-06-16 Completed University of 00:00:00 [facility] TDAP 2005-06-16 Completed University of 00:00:00 [facility] TDAP 2005-06-16 Completed University of 00:00:00 [facility] TDAP 2005-06-16 Completed University of 00:00:00 [facility] TDAP 2005-06-16 Completed University of 00:00:00 [facility] TDAP 2005-06-16 Completed University of 00:00:00 [facility] Vital Signs Vital Name Observation Time Observation Value Comments Source Systolic blood 2022-02-27 16:42:00 147 mm[Hg] Univer sity of pressure [facility] Diastolic blood 2022-02-27 16:42:00 87 mm[Hg] Unive rsity of pressure [facility] Heart rate 2022-02-27 16:42:00 82 /min Universi ty of [facility] Body temperature 2022-02-27 16:42:00 37.11 Elise Univ ersity of [facility] Respiratory rate 2022-02-27 16:42:00 18 /min Univ ersity of [facility] Body height 2022-02-27 16:42:00 165.1 cm Universi ty of [facility] Body weight 2022-02-27 16:42:00 100.245 kg Universi ty of [facility] BMI 2022-02-27 16:42:00 36.78 kg/m2 Universi ty [facility] Oxygen saturation in 2022-02-27 16:42:00 98 /min University of Arterial blood by [facility] Pulse oximetry Branch Systolic blood 2022-02-08 16:07:00 152 mm[Hg] Univer sity of pressure [facility] Diastolic blood 2022-02-08 16:07:00 96 mm[Hg] Unive rsity of pressure [facility] Heart rate 2022-02-08 16:03:00 71 /min Universi ty of [facility] Body temperature 2022-02-08 16:03:00 36.94 Elise Univ ersity of [facility] Respiratory rate 2022-02-08 16:03:00 16 /min Univ ersity of [facility] Body height 2022-02-08 16:03:00 165.1 cm Universi ty of [facility] Body weight 2022-02-08 16:03:00 100.358 kg Universi ty of [facility] BMI 2022-02-08 16:03:00 36.82 kg/m2 Universi ty of [facility] Oxygen saturation in 2022-02-08 16:03:00 97 /min University of Arterial blood by [facility] Pulse oximetry Branch Systolic blood 2021-12-23 18:12:00 137 mm[Hg] Univer sity of pressure [facility] Diastolic blood 2021-12-23 18:12:00 88 mm[Hg] Unive rsity of pressure [facility] Heart rate 2021-12-23 18:11:00 98 /min Universi ty of [facility] Body temperature 2021-12-23 18:11:00 36.94 Elise Univ ersity of [facility] Respiratory rate 2021-12-23 18:11:00 16 /min Univ ersity of [facility] Body height 2021-12-23 18:11:00 165.1 cm Universi ty of [facility] Body weight 2021-12-23 18:11:00 97.665 kg Universi ty of [facility] BMI 2021-12-23 18:11:00 35.83 kg/m2 Universi ty of [facility] Oxygen saturation in 2021-12-23 18:11:00 98 /min University of Arterial blood by [facility] Pulse oximetry Branch Systolic blood 2021-12-17 18:45:00 148 mm[Hg] Univer sity of pressure [facility] Diastolic blood 2021-12-17 18:45:00 88 mm[Hg] Unive rsity of pressure [facility] Heart rate 2021-12-17 18:40:00 77 /min Universi ty of [facility] Body temperature 2021-12-17 18:40:00 36.72 Elise Univ ersity of [facility] Respiratory rate 2021-12-17 18:40:00 18 /min Univ ersity of [facility] Body height 2021-12-17 18:40:00 165.1 cm Universi ty of [facility] Body weight 2021-12-17 18:40:00 109.317 kg Universi ty of [place] [facility] BMI 2021-12-17 18:40:00 40.10 kg/m2 Universi ty of [facility] Oxygen saturation in 2021-12-17 18:40:00 100 /min University of Arterial blood by [facility] Pulse oximetry Branch Systolic blood 2021-09-27 20:51:00 146 mm[Hg] Univer sity pressure [facility] Diastolic blood 2021-09-27 20:51:00 83 mm[Hg] [facility] pressure [facility] Heart rate 2021-09-27 20:45:00 63 /min [facility] Body height 2021-09-27 20:45:00 166.4 cm [facility] Body weight 2021-09-27 20:45:00 97.977 kg [facility] BMI 2021-09-27 20:45:00 35.40 kg/m2 [facility] Oxygen saturation in 2021-09-27 20:45:00 98 /min [facility] Arterial blood by [facility] Pulse oximetry [place] Procedures Procedure Date / Time Performed Performing Clinician Sour e POCT URINALYSIS 2022-02-27 17:00:00 Vinicio Jazmine [facility] FLU VACC ([id number]), 2022-02-15 21:32:08 Lopez Thomas [facility] 6 MO-64 YRS, .5ML, IM, Medical [place] QUAD (FLUCELVAX) POCT MOLECULAR FLU 2022-02-08 16:13:00 Unknown, Attending [facility] POCT MOLECULAR STREP 2022-02-08 16:11:00 Unknown, Attending [facility] XR CHEST 2 VW 2021-12-23 18:35:00 Amy Hinojosa [facility] POCT MOLECULAR FLU 2021-12-23 18:18:00 Ashish [facility] POCT MOLECULAR FLU 2021-12-17 18:52:00 Lisa Callahan [facility] POCT MOLECULAR STREP 2021-12-17 18:49:00 Lisa Callahan [facility] EXTERNAL PROVIDER 2021-11-25 05:01:00 Doctor Unassigned, No Univ [facility] RECORDS Name Medical Branch Plan of Care Planned Activity Planned Date Details Comments Source Future Scheduled 2022-05-12 COVID-19 VACCINE (#1) [facility] Test 21:34:52 [code = COVID-19 VACCINE (#1)] Future Scheduled 2022-05-12 Hepatitis C screening [facility] 21:34:52 (procedure) [code = 684327598] Future Scheduled 2022-05-12 [facility] Test 21:34:52 malignant neoplasm of cervix (procedure) [code = 451132619] Future Scheduled 2022-05-12 BREAST CANCER [facility] Test 21:34:52 SCREENING [code = BREAST CANCER SCREENING] Future Scheduled 2022-05-12 COLONOSCOPY SCREENING Me [facility] Hospital Test 21:34:52 [code = COLONOSCOPY SCREENING] Future Scheduled 2021-08-05 INFLUENZA VACCINE [facility] Test 02:59:01 [code = INFLUENZA VACCINE] Future Scheduled 2021-08-05 COVID-19 VACCINE (1) [facility] Test 02:59:01 [code = COVID-19 VACCINE (1)] Future Scheduled 2021-08-05 Hepatitis C screening Me [facility] Hospital Test 02:59:01 (procedure) [code = 799735409] Future Scheduled 2021-08-05 [facility] Test 02:59:01 malignant neoplasm of cervix (procedure) [code = 808275502] Encounters Start End Encounter Admission Attending Care Care Encounter Source Date/Time Date/Time Type Type Clinicians Facility Department ID 2022-04-21 2022-04-21 Refill Doctor [facility] 1.2.840.114 [id number] Univers 00:00:00 00:00:00 Unassigned, HEALTH 350.1.13.10 ity of [place] 4.2.7.2.686 Parth as AGUEDA?BLEA [phone] [address] MEDICAL OFFICE BUILDING 2022-04-20 2022-04-20 Refill Doctor [facility] 1.2.840.114 [id number] Univers 00:00:00 00:00:00 Unassigned, HEALTH 350.1.13.10 ity of [place] 4.2.7.2.686 Parth as AGUEDA?BLEA [phone] [address] MEDICAL OFFICE BUILDING 2022-03-26 2022-03-26 Outpatient R UNKNOWN, [facility] [id number] Univers 10:00:00 10:00:00 ATTENDING ity [facility] 2022-03-01 2022-03-01 [facility] [id number] Univers 00:00:00 00:00:00 Lopez HEALTH 350.1.13.10 it y of [place] 4.2.7.2.686 Parth as AGUEDA?BLEA [phone] [facility] [address] [facility] OFFICE [facility] 2022-02-28 2022-02-28 [facility] 1.2.840.114 [id number] Univers 00:00:00 00:00:00 Lopez HEALTH 350.1.13.10 it y of [place] 4.2.7.2.686 Parth as AGUEDA?BLEA [id number] [address] 2022-02-27 2022-02-27 Outpatient R VINICIO [facility] [id number] Univers 10:40:00 11:09:17 [facility] 2022-02-27 Urgent Vinicio [facility] 1.2.840.11 [id number] Univers 10:40:00 11:09:17 Care Unknown, Attending HEALTH 350.1.13.10 ity of [place] 4.2.7.2.686 Parth as AGUEDA?BLEA [phone] [facility] [address] [facility] OFFICE [facility] 2022-02-27 2022-02-27 Letter Provider, [facility] [id number] [id number] Univers 00:00:00 00:00:00 (Out) Ang Db HEALTH 350.1.13.10 it y of Urgent Care [place] 4.2.7.2.686 [place] AGUEDA?BLEA [id number] [address] OFFICE [facility] 2022-02-27 2022-02-27 Letter Provider, [facility] [id number] Univers 00:00:00 00:00:00 (Out) Ang Db HEALTH 350.1.13.10 it y of [facility]gent [facility] [place] 4.2.7.2.686 [place] AGUEDA?BLEA [phone] Nh lexie CALDWELL [address] [place] MEDICAL OFFICE BUILDING 2022-02-21 2022-02-21 [facility] 1.2.840.114 [id number] Univers 00:00:00 00:00:00 Lopez HEALTH 350.1.13.10 it y of [place] 4.2.7.2.686 Parth as AGUEDA?BLEA [phone] [facility] [address] [place] MEDICAL OFFICE [facility] 2022-02-21 2022-02-21 [facility] 1.2.840.114 [id number] Univers 00:00:00 00:00:00 Lopez HEALTH 350.1.13.10 it y of [place] 4.2.7.2.686 Parth as AGUEDA?BLEA [id number] [address] OFFICE [facility] 2022-02-16 2022-02-16 Patient Martha [facility] 1.2.840.114 [id number] Univers 00:00:00 00:00:00 Secure Msg Lopez HEALTH 350.1.13.10 ity of [place] 4.2.7.2.686 Parth as AGUEDA?BLEA [phone] [address] OFFICE [facility] 2022-02-15 2022-02-15 Outpatient R MARTHA [facility] [id number] Univers 15:00:00 15:59:32 LOPEZ ity of [facility] 2022-02-15 2022-02-15 Office Martha [facility] 1.2.840.114 [id number] Univers 15:00:00 15:59:32 Visit Lopez HEALTH 350.1.13.10 it y of [place] 4.2.7.2.686 Parth as AGUEDA?BLEA [phone] [address] OFFICE [facility] 2022-02-08 2022-02-08 Urgent ShivamchristinaAmy [facility] 1.2.840.114 [id number] Univers 09:40:00 10:00:00 Care Unknown, Attending HEALTH 350.1.13.10 ity of [place] 4.2.7.2.686 Parth as AGUEDA?BLEA [id number] Nh dicquentin CALDWELL [address] [place] MEDICAL OFFICE [facility] 2022-02-08 2022-02-08 Outpatient R SHIVAMChristina, [facility] [id number] Univers 09:40:00 09:40:00 AMY ity of [facility] 2022-02-03 2022-02-03 Outpatient R [facility] [id number] Univers 11:00:00 11:00:00 ity of [facility] 2022-01-25 2022-01-25 Outpatient R MARTHA, [facility] [id number] Univers 10:30:00 10:30:00 LOPEZ ity [facility] 2022-01-18 2022-01-18 Refill Doctor [facility] 1.2.840.114 [id number] Univers 00:00:00 00:00:00 Unassigned, HEALTH 350.1.13.10 ity of [place] 4.2.7.2.686 Parth as AGUEDA?BLEA [id number] Nh dicquentin CALDWELL [address] [place] [address] MEDICAL OFFICE [facility] 2022-01-18 2022-01-18 Refill Doctor [facility] 1.2.840.114 [id number] Univers 00:00:00 00:00:00 Unassigned, HEALTH 350.1.13.10 ity of [place] 4.2.7.2.686 Parth as AGUEDA?BLEA [id number] Nh lexie CALDWELL [address] [place] MEDICAL OFFICE [facility] 2022-01-17 2022-01-17 Refill Reilly [facility] 1.2.840.114 [id number] Univers 00:00:00 00:00:00 Jeffery HEALTH 350.1.13.10 it y of [place] 4.2.7.2.686 Parth as AGUEDA?BLEA [id number] Nh dicquentin CALDWELL [address] [place] [address] MEDICAL OFFICE [facility] 2022-01-17 2022-01-17 Refill Doctor [facility] 1.2.840.114 [id number] Univers 00:00:00 00:00:00 Unassigned, HEALTH 350.1.13.10 ity of [place] 4.2.7.2.686 Parth as AGUEDA?BLEA [phone] Nh dical [facility] [address] [place] [address] MEDICAL OFFICE [facility] 2021-12-23 2021-12-23 Hospital [facility] 1.2.903.652 [id number] Univers 13:19:54 23:59:00 Encounter Rania HEALTH 350.1.13.10 ity of [place] 4.2.7.2.686 Parth as AGUEDA?BLEA [phone] [facility] [address] [facility] OFFICE [facility] 2021-12-23 2021-12-23 Outpatient R [facility] [id number] Univers 13:00:00 15:08:27 [facility] ity [facility] 2021-12-23 2021-12-23 [facility] 1.2.840.114 [id number] Univers 13:00:00 15:08:27 Care Rania HEALTH 350.1.13.10 it [facility] 4.2.7.2.686 Parth as AGUEDA?BLEA [id number] [facility] [address] [facility] OFFICE [facility] 2021-12-23 2021-12-23 Telephone [facility] 1.2.840.114 [id number] Univers 00:00:00 00:00:00 Rania HEALTH 350.1.13.10 it y [facility] 4.2.7.2.686 Parth as AGUEDA?BLEA [phone] [facility] [address] [facility] OFFICE [facility] 2021-12-23 2021-12-23 [facility] [id number] Univers 00:00:00 00:00:00 Lopez HEALTH 350.1.13.10 it y of [place] 4.2.7.2.686 Parth as AGUEDA?BLEA [id number] [facility] [address] [facility] OFFICE [facility] 2021-12-18 2021-12-18 Letter NEHEMIAH Faust 1.2.840.114 [id number] Univers 00:00:00 00:00:00 (Out) Cookie HUFF 350.1.13.10 it y of HOSPITAL 4.2.7.2.686 Parth as [id number] [address] 2021-12-18 2021-12-18 Refill Doctor [facility] 1.2.840.114 [id number] Univers 00:00:00 00:00:00 Unassigned, HEALTH 350.1.13.10 ity of [place] 4.2.7.2.686 Parth as AGUEDA?BLEA [phone] Nh dicquentin GRIFFITH [address] [place] MEDICAL OFFICE [facility] 2021-12-17 2021-12-17 Outpatient R LONDON [facility] [id number] Univers 14:00:00 14:38:20 LISA ity of [facility] 2021-12-17 2021-12-17 [facility] 1.2.840.114 [id number] Univers 14:00:00 14:20:00 Care Lisa HEALTH 350.1.13.10 it y of [place] 4.2.7.2.686 Parth as AGUEDA?BLEA [phone] [facility] [address] [place] MEDICAL OFFICE [facility] 2021-12-16 2021-12-16 Patient Ranjith [facility] 1.2.840.114 [id number] Univers 00:00:00 00:00:00 Secure Msg Reyna DIAZ 350.1.13.10 ity of [facility] 4.2.7.2.686 [place] [phone] [facility] NAL 044 [facility] 2021-12-16 2021-12-16 Patient Martha [facility] 1.2.840.114 [id number] Univers 00:00:00 00:00:00 Secure Msg Lopez HEALTH 350.1.13.10 ity of [place] 4.2.7.2.686 Parth as AGUEDA?BLEA [id number] [facility] [address] [place] MEDICAL OFFICE [facility] 2021-12-14 2021-12-14 Refill Ahmet [facility] 1.2.840.114 [id number] Univers 00:00:00 00:00:00 Kim PARAM 350.1.13.10 it y [place] [id number] [address] 2021-12-10 2021-12-10 Outpatient R FELICITAS [facility] [id number] Univers 15:20:00 15:20:00 DERRICK mancia [facility] 2021-12-02 2021-12-02 Outpatient R ROSALIE [facility] [id number] Univers 11:40:00 11:40:00 GEORGINA mcdermott [facility] 2021-11-25 2021-11-25 Orders Doctor NEHEMIAH 1.2.840.114 [id number] Univers 00:00:00 00:00:00 Only Unassigned, DARIA 350.1.13.10 ity of [facility] 4.2.7.2.[id number] 2021-11-23 2021-11-23 [facility] [id number] Univers 10:30:00 10:30:00 LOPEZ mcdermott [facility] 2021-11-10 2021-11-10 [facility] [id number] Univers 13:40:00 13:40:00 DERRICK mancia [facility] 2021-11-10 2021-11-10 [facility] [id number] Univers 13:40:00 13:40:00 DERRICK mancia [facility] 2021-10-29 2021-10-29 [facility] [id number] Univers 11:30:00 11:30:00 LOPEZYAYO mcdermott [facility] 2021-10-29 2021-10-29 Outpatient R MARTHA [facility] [id number] Univers 11:30:00 11:30:00 LOPEZYAYO mcdermott [facility] 2021-10-13 2021-10-13 Outpatient R KIM GAMBLE [facility] B [id number] Univers 00:00:00 00:00:00 KIM GAMBLE william [facility] 2021-10-13 2021-10-13 Briseyda Thomas [facility] 1.2.718.507 [id number] Univers 00:00:00 00:00:00 [facility] 350.1.13.10 it y of [place] 4.2.7.2.686 Parth as AGUEDA?BLEA [id number] [address] OFFICE [facility] 2021-10-13 2021-10-13 [facility] 1.2.840.114 [id number] Univers 00:00:00 00:00:00 Lopez HEALTH 350.1.13.10 it y of [place] 4.2.7.2.686 Parth as AGUEDA?BLEA [id number] [address] OFFICE [facility] 2021-09-27 2021-09-27 [facility] 1.2.840.114 [id number] Univers 15:30:00 17:04:23 Visit Loepz HEALTH 350.1.13.10 it y [facility] 4.2.7.2.686 Parth as AGUEDA?BLEA [id number] [address] 2021-09-27 2021-09-27 [facility] [id number] Univers 15:30:00 17:04:23 [facility] 2021-09-27 2021-09-27 Outpatient [facility] [id number] Univers 15:00:00 15:00:00 [facility] 2021-09-21 2021-09-[address] [facility] 1.2.840.114 [id number] Univers 00:00:00 00:00:00 Secure Msg Kim VIRGEN 350.1.13.10 ity [place] [id number] [address] 2021-08-23 2021-08-23 [facility] 1.2.840.114 [id number] Univers 00:00:00 00:00:00 Lopez HEALTH 350.1.13.10 it y of [place] 4.2.7.2.686 Parth as AGUEDA?BLEA [id number] [address] OFFICE [facility] 2021-08-23 2021-08-23 [facility]Critical access hospital 1.2.840.114 [id number] Univers 00:00:00 00:00:00 Lopez HEALTH 350.1.13.10 it y of [place] 4.2.7.2.686 Parth as AGUEDA?BLEA [id number] Nh lexie CALDWELL [address] [place] MEDICAL OFFICE BUILDING 2021-08-13 2021-08-13 Office Kim Gamble [facility] 1.2. 840.114 [id number] Univers 11:00:00 11:56:56 Visit Desiree Soni 350.1.13.10 ity of [place] [id number] [address] 2021-08-13 2021-08-13 Outpatient R DESIREE SONI [facility] [id number] Univers 11:00:00 11:56:56 ity [facility] 2021-08-13 2021-08-13 Outpatient R ZACHARIAH DESIREE [facility] [id number] Univers 11:00:00 11:00:00 ity [facility] 2021-07-30 2021-07-30 Outpatient R MATRHA [facility] [id number] Univers 14:30:00 14:30:00 LOPEZ mcdermott [facility] 2021-07-29 2021-07-29 Outpatient R MARTHA [facility] [id number] Univers 10:30:00 10:30:00 LOPEZ mcdermott [facility] 2021-07-29 2021-07-29 [facility], Ang - [facility] 1.2.840.1 [id number] Univers 08:15:00 08:30:00 Visit AmandaLopez kumar 350.1.13.10 ity of [place] 4.2.7.2.686 Parth as AGUEDA?BLEA [id number] Nh cedquentin CALDWELL [address] [place] MEDICAL OFFICE [facility] 2021-07-29 2021-07-29 Outpatient R MARTHA [facility] [id number] Univers 08:15:00 08:15:00 LOPEZ mcdermott [facility] 2021-07-29 2021-07-29 Patient Martha [facility] 1.2.840.114 [id number] Univers 00:00:00 00:00:00 Secure Msg Lopez HEALTH 350.1.13.10 [facility] 4.2.7.2.686 Parth as AGUEDA?BLEA [phone] [address] [address] MEDICAL OFFICE [facility] 2021-07-13 2021-07-13 [facility] [id number] Univers 00:00:00 00:00:00 Lopez HEALTH [id number] it y of [place] [id number] Parth as AGUEDA?BLEA [id number] [address] OFFICE [facility] 2021-07-12 2021-07-12 [facility] [id number] Univers 00:00:00 00:00:00 Lopez HEALTH [id number] it y of [place] [id number] Parth as AGUEDA?BLEA [id number] [address] OFFICE [facility] 2021-06-14 2021-06-14 Outpatient R MARTHA [facility] [id number] Univers 15:00:00 15:00:00 LOPEZ ity [facility] 2021-06-10 2021-06-10 [facility] [id number] Univers 15:00:00 15:00:00 LOPEZ ity [facility] 2021-06-10 2021-06-10 [facility] [id number] Univers 00:00:00 00:00:00 Secure Msg Lopez HEALTH [id number] ity of [place] [id number] Parth as AGUEDA?BLEA [id number] [address] OFFICE [facility] 2021-06-09 2021-06-09 Emergency X Ever LIU [facility] ERT [id number] Univers 10:21:00 14:10:00 ity of [facility] 2021-06-09 2021-06-09 Emergency Ever Liu [facility] [id number] Univers 10:21:00 14:10:00 Dalia JAKYTON [id number] i ty [id number] [id number] [facility] [address] 2021-06-07 2021-06-07 Outpatient David POLK [facility] [id number] Univers 11:00:00 11:00:00 DERRICK toddwilliam o f [facility] 2021-05-24 2021-05-24 Outpatient [facility] [id number] Univers 12:00:00 12:00:00 LOPEZ brookswilliam [facility] 2021-05-21 2021-05-21 Outpatient [facility] [id number] Univers 13:00:00 14:06:25 LOPEZ william [facility] 2021-05-21 2021-05-21 Orders Doctor NEHEMIAH [id number] Univers 00:00:00 00:00:00 Only Unassigned, DARIA [id number] ity [facility] [id number] Parth [id number] [facility] [address] 2020-11-28 2020-11-28 Outpatient ELVA Wallace, [facility] [id number] [facility] 08:00:00 08:00:00 Carmelita 40 [facility] 2020-06-08 2020-06-08 Outpatient [facility] [id number] Univers 12:30:00 12:30:00 TIM [facility] 2020-05-18 2020-05-18 Outpatient [facility] [id number] Univers 12:30:00 12:30:00 TIM [facility] 2019-10-26 2019-10-26 Emergency E MIRELLA NEIL FB [facility] [id number] [facility] 11:04:00 16:05:00 2019-10-14 2019-10-14 Outpatient LANDEN ANNA DELON [id number] [facility] 07:54:00 11:25:00 SHINIL 2019-10-11 2019-10-11 Outpatient ELVA Wallace, [facility] [id number] [facility] 12:00:00 12:00:00 Carmelita 32 [facility] 2019-04-22 2019-04-22 Emergency [id number] 12:30:00 16:37:00 2019-03-30 2019-03-30 Emergency E DIANE [facility] [id number] [facility] 10:16:00 16:12:00 NAIF Results Test Description Test Time Test Comments Results Result Comments Source POCT URINALYSIS W SPECIFIC GRAVITY 2022-02-27 17:21:00 Test Item Value Reference Range Interpretation Comme nts POCT U SP GRAV (test code = 3255) 1.010 mg/dl 1.005-1.025 POCT PH U (test code = 3254) 6 mg/dl 5-8 POCT U LEUK EST (test code = 3263) Negative Negative - Negative POCT U NIT (test code = 3262) Negative Negative - Negative POCT U PROT (test code = 3259) Negative Negative - Negative POCT U GLU (test code = 3256) Normal Negative - Negative POCT U KETONE (test code = 3258) Negative Negative - Negative POCT U UROBILI (test code = 3260) Normal 0.2-1 POCT U BILI (test code = 3261) Negative Negative - Negative POCT U BLD (test code = 3257) Negitive Negative - Negative POCT U COLOR (test code = 3266) light yellow POCT U APPEAR (test code = 3267) clear Lab Interpretation (test code = 87429-5) Normal [facility] MOLECULAR [id number] 16:25:46 Test Item Value Reference Range Interpretation Comments POCT Molecular FluA (test code = Negative Negative 02436-6) POCT Molecular FluB (test code = Negative Negative 55650-6) Lab Interpretation (test code = Normal 46877-1) [facility] MOLECULAR [id number] 16:19:37 Test Item Value Reference Range Interpretation Comments POCT Molecular Strep (test code = Negative Negative 72082-1) Lab Interpretation (test code = Normal 41648-2) [facility] MOLECULAR [id number] 18:29:57 Test Item Value Reference Range Interpretation Comments POCT Molecular FluA (test code = Negative Negative 42223-5) POCT Molecular FluB (test code = Negative Negative 50594-2) Lab Interpretation (test code = Normal 70957-3) [facility] MOLECULAR [id number] 19:04:26 Test Item Value Reference Range Interpretation Comments POCT Molecular FluA (test code = Negative Negative 20424-3) POCT Molecular FluB (test code = Negative Negative 67485-3) Lab Interpretation (test code = Normal 90847-7) [facility] MOLECULAR [id number] 19:04:26 Test Item Value Reference Range Interpretation Comments POCT Molecular FluA (test code = Negative Negative 06907-7) POCT Molecular FluB (test code = Negative Negative 89294-4) Lab Interpretation (test code = Normal 12283-9) [facility] MOLECULAR [id number] 18:57:38 Test Item Value Reference Range Interpretation Comments POCT Molecular Strep (test code = Negative Negative 93575-9) Lab Interpretation (test code = Normal 14774-9) [facility] MOLECULAR [id number] 18:57:38 Test Item Value Reference Range Interpretation Comments POCT Molecular Strep (test code = Negative Negative 91427-7) Lab Interpretation (test code = Normal 86271-5) [facility]
--- NOTE | 2022-05-12 22:13 | RAD REPORT ---
EXAM DESCRIPTION: CT - Ct Stroke Brain Wo Cont - 05/12/2022 10:02 pm CLINICAL HISTORY: STROKE ALERT COMPARISON: None TECHNIQUE: All CT scans are performed using dose optimization technique as appropriate and may inclu de automated exposure control or mA/KV adjustment according to patient size. FINDINGS: No intracranial hemorrhage, hydrocephalus or extra-axial fluid collection.No areas of brai n edema or evidence of midline shift. Subcortical white matter hypoattenuation in the posterior right frontal and parietal lobe suspicious for a prior infarct. Suspected subacute or chronic. The paranasal sinuses and mastoids are clear. The calvarium is intact. IMPRESSION: No definite acute intracranial abnormality. 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 MRI could further clarify. No acute large vascular territory infarct or intracranial hemorrhage. Called to [facility] in the ED by Dr. Hernandez at 2206 on 05/12/22
[2022-05-12] MEDS ORDERED: TENECTEPLASE 50 MG/10 ML VIAL IV ONE (22:17)
[2022-05-12 22:33] LABS: Absolute Lymphocytes (CBC) 3.1 K/uL (0.7-4.9); Hematocrit 39.5 % (36.0-45.0); MCV 84.9 fL (80-100); MPV 7.9 fL (7.6-11.3); RBC Red Blood Cell Count 4.65 M/uL (3.86-4.86)
[2022-05-12 22:35] LABS: Protime INR 0.96
[2022-05-12] MEDS ORDERED: LORazepam 2 MG/ML VIAL ONE (22:35)
[2022-05-12] MEDS ORDERED: FOLIC ACID 5 MG/ML VIAL ONE (22:36)
[2022-05-12 22:49] LABS: ALT/SGPT 38 U/L (13-56); AST/SGOT 46 U/L (15-37); Albumin 3.6 g/dL (3.4-5.0); Alkaline Phosphatase 85 U/L (45-117); BUN Blood Urea Nitrogen 13 mg/dL (7-18); Bicarbonate 27 mmol/L (21-32); Bilirubin Direct < 0.1 mg/dL (0-0.2); Bilirubin Total 0.4 mg/dL (0.2-1.0); Glomerular Filtration Rate 84 ml/min (=/>90); Glucose Level 107 mg/dL (74-106); Magnesium 2.1 mg/dL (1.6-2.4); Potassium 4.1 mmol/L (3.5-5.1); Protein, Total 8.2 g/dL (6.4-8.2); Sodium Level 135 mmol/L (136-145); Troponin High Sensitivity 4.9 pg/mL (<58.9)
[2022-05-12 23:09] LABS: Urine Blood Negative (Negative); Urine Glucose Negative (Negative); Urine Protein Negative (Negative); Urine pH 6.5 (5.0-7.0)
--- NOTE | 2022-05-12 23:29 | ER ---
Nurse's Notes [facility] Name: Dee Logan Age: 46 yrs Sex: Female : 1975 Arrival Date: 05/12/2022 Time: 21:39 Bed 14 Private MD: Diagnosis: Weakness-left arm and left leg;Paresthesia of skin-left arm and left leg;Unspecified abnormalities of gait and mobility Presentation: 05/12 21:48 Chief complaint: Patient states: "I have not been feeling myself for the past two tw5 weeks. Just really weak, but around 730 tonight my left side went numb and I just weakness in my left arm. So I called the EMS.". Coronavirus screen: Vaccine status: Patient reports receiving the 2nd dose of the covid vaccine. HEALBE. Ebola Screen: Patient negative for fever greater than or equal to 101.5 degrees Fahrenheit, and additional compatible Ebola Virus Disease symptoms Patient denies exposure to infectious person. Patient denies travel to an Ebola-affected area in the 21 days before illness onset. Initial Sepsis Screen: Does the patient meet any 2 criteria? No. Patient's initial sepsis screen is negative. Does the patient have a suspected source of infection? No. Patient's initial sepsis screen is negative. Risk Assessment: Do you want to hurt yourself or someone else? Patient reports no desire to harm self or others. Onset of symptoms was May 12, 2022 at 19:30. 21:48 Method Of Arrival: EMS: [facility] tw5 21:48 Acuity: LYNN 2 tw5 Triage Assessment: 21:50 General: Appears uncomfortable, Behavior is calm, cooperative, appropriate for age. tw5 Pain: Complains of pain in "Headache." Pain currently is 5 out of 10 on a pain scale. 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 - Social history:: Smoking status: Patient reports the use of cigarette tobacco products, smokes one-half pack cigarettes per day. Screenin:15 Tuberculosis screening: No symptoms or risk factors identified. ha1 22:57 Abuse screen: Denies threats or abuse. Denies injuries from another. Nutritional ha1 screening: No deficits noted. 05/13 08:00 [facility] ED Fall Risk Assessment (Adult) History of falling in the last 3 months, db including since admission No falls in past 3 months (0 pts) Confusion or Disorientation No (0 pts) Intoxicated or Sedated No (0 pts) Impaired Gait Yes (1 pt) Mobility Assist Device Used No (0 pt) Altered Elimination No (0 pt) Score/Fall Risk Level 0 - 2 = Low Risk Oriented to surroundings, Maintained a safe environment. Assessment: 05/12 22:10 General: Appears uncomfortable, Behavior is calm, cooperative. Pain: Complains of pain ha1 in headache Pain does not radiate. Pain currently is 9 out of 10 on a pain scale. Quality of pain is described as throbbing, Pain began suddenly. Neuro: Level of Consciousness is awake, alert, obeys commands, Oriented to person, place, time, situation. Cardiovascular: Capillary refill < 3 seconds Patient's skin is warm and dry. Respiratory: Airway is patent Respiratory effort is even, unlabored, Respiratory pattern is regular, symmetrical, Breath sounds are clear bilaterally. GI: Abdomen is non-distended, obese, Bowel sounds present X 4 quads. : No signs and/or symptoms were reported regarding the genitourinary system. EENT: No signs and/or symptoms were reported regarding the EENT system. Derm: Skin is moist, Skin is normal. Musculoskeletal: Circulation, motion, and sensation intact. Range of motion: intact in all extremities. 22:10 Reassessment: Patient and/or family updated on plan of care and expected duration. Pain ha1 level reassessed. received report from HAYLEY Arauz. 22:30 Reassessment: Patient and/or family updated on plan of care and expected duration. Pain ha1 level reassessed. Patient is alert, oriented x 3, equal unlabored respirations, skin warm/dry/pink. feeling anxious notified care provider. 05/13 00:15 Reassessment: Patient and/or family updated on plan of care and expected duration. Pain ha1 level reassessed. Patient is alert, oriented x 3, equal unlabored respirations, skin warm/dry/pink. pain 9/10. notified care provider. 01:15 Reassessment: Patient and/or family updated on plan of care and expected duration. Pain ha1 level reassessed. Patient is alert, oriented x 3, equal unlabored respirations, skin warm/dry/pink. 02:15 Reassessment: Patient and/or family updated on plan of care and expected duration. Pain ha1 level reassessed. Patient is alert, oriented x 3, equal unlabored respirations, skin warm/dry/pink. Vital Signs: 05/12 21:48 BP 160 / 91; Pulse 98; Resp 18; Temp 98.6; Pulse Ox 98% on R/A; Weight 99.79 kg; Height tw5 5 ft. 5 in. (165.10 cm); Pain 5/10; 22:15 BP 157 / 92; Pulse 95; Resp 20 S; Pulse Ox 98% on R/A; ha1 22:20 BP 159 / 90; Pulse 94; Resp 16 S; Pulse Ox 97% on R/A; ha1 22:30 BP 158 / 90; Pulse 92; Resp 18 S; Pulse Ox 98% on R/A; ha1 23:00 BP 160 / 90; Pulse 73; Resp 18 S; Pulse Ox 99% on R/A; ha1 05/13 00:00 BP 159 / 75; Pulse 74; Resp 18 S; Pulse Ox 98% ; ha1 01:00 BP 157 / 90; Pulse 75; Resp 18 S; Pulse Ox 98% on R/A; ha1 01:30 BP 158 / 90; Pulse 95; Resp 16 S; Pulse Ox 98% on R/A; ha1 02:00 BP 149 / 90; Pulse 90; Resp 16 S; Pulse Ox 98% on R/A; ha1 05/12 21:48 Body Mass Index 36.61 (99.79 kg, 165.10 cm) tw5 NIH Stroke Scale Scores: 05/12 22:05 NIHSS Score: 6 mb9 22:05 NIHSS Score: 4 cp 05/13 08:00 NIHSS Score: 3 db ED Course: 05/12 21:39 Patient arrived in ED. vc1 21:49 Home Arnold PA is PHCP. cp 21:49 Jorge Kang MD is Attending Physician. cp 21:50 Triage completed. tw5 21:50 Arm band placed on. tw5 22:05 Inserted saline lock: 20 gauge in right wrist, using aseptic technique. mb9 22:15 Patient has correct armband on for positive identification. Placed in gown. Bed in low ha1 position. Call light in reach. Side rails up X 1. 22:24 Geovanna Van, RN is Primary Nurse. ha1 23:13 Stroke CXR 1 View In Process Unspecified. EDMS 23:27 Aida Mckeon PA-C is Hospitalizing Provider. cp 23:52 CT Head Angio In Process Unspecified. EDMS 23:52 CT Neck Angio In Process Unspecified. EDMS 05/13 00:18 Tere Rick MD is Hospitalizing Provider. cp 02:15 No provider procedures requiring assistance completed. ha1 02:15 Patient admitted, IV remains in place. ha1 03:26 Geovanna Van RN is Primary Nurse. ha1 Administered Medications: 05/12 22:15 Drug: TNK FOR STROKE - Tenecteplase 0.25 mg/kg {Co-Signature: vc1 (Tesha [facility] Donn HARDY).} Route: IV; Rate: per protocol; Site: right forearm; 22:30 Follow up: Response: No adverse reaction ha1 22:35 Drug: foLIC Acid 1 mg Route: IVPB; Site: right forearm; ha1 23:48 Drug: morphine 2 mg Route: IVP; Infused Over: 4 mins; Site: right forearm; ha1 05/13 00:15 Follow up: Response: No adverse reaction; Pain is unchanged, physician notified; RASS: ha1 Alert and Calm (0) 01:05 Drug: morphine 4 mg Route: IVP; Infused Over: 4 mins; Site: right forearm; ha1 01:30 Follow up: Response: No adverse reaction; Pain is decreased; RASS: Alert and Calm (0) ha1 Medication: 05/12 02:15 VIS not applicable for this client. ha1 Outcome: 23:29 Decision to Hospitalize by Provider. cp 05/13 02:15 Admitted to ER Hold. Please see [facility] for further documentation. ha1 Condition: stable Discharge instructions given to patient, family, Instructed on the need for admit, Demonstrated understanding of instructions. 14:51 Admitted to ICU accompanied by nurse, family with patient, via stretcher, room 6, on db monitor, with chart, Report called to Cheli Pope RN in ICU 15:47 Patient left the ED. db NIH Stroke Scale - NIH Stroke Score Date: 05/12/2022 Time: 22:05 Total Score = 6 1a. Level of Consciousness (LOC) - 0(Alert) 1b. Level of Consciousness (LOC) (Month \\T\\ Age) - 0(Both) 1c. LOC Commands (Open \\T\\ Closes Eyes/Sales Communications Manager) - 0(Both) 2. Best Gaze (Lateral Gaze Paresis) - 0(Normal) 3. Visual Field Loss - 0(No visual loss) 4. Facial Palsy - 0(Normal) 5a. Left Arm: Motor (10-second hold) - 2(Drift, some effort against gravity) 5b. Right Arm: Motor (10-second hold) - 0(No drift) 6a. Left Leg: Motor (5-second hold - always test supine) - 3(No effort against gravity) 6b. Right Leg: Motor (5-second hold - always test supine) - 0(No drift) 7. Limb Ataxia (finger/nose \\T\\ heel/weir - test with eyes open) - 0(Absent) 8. Sensory Loss (pinprick arms/legs/face) - 1(Mild to moderate loss) 9. Best Language: Aphasia (description/naming/reading) - 0(No aphasia) 10. Dysarthria (speech clarity - read or repeat words) - 0(Normal) 11. Extinction and Inattention (visual/tactile/auditory/spatial/personal) - 0(No abnormality) Initials: mb9 NIH Stroke Scale - NIH Stroke Score Date: 05/12/2022 Time: 22:05 Total Score = 4 1a. Level of Consciousness (LOC) - 0(Alert) 1b. Level of Consciousness (LOC) (Month \\T\\ Age) - 0(Both) 1c. LOC Commands (Open \\T\\ Closes Eyes/Sales Communications Manager) - 0(Both) 2. Best Gaze (Lateral Gaze Paresis) - 0(Normal) 3. Visual Field Loss - 0(No visual loss) 4. Facial Palsy - 0(Normal) 5a. Left Arm: Motor (10-second hold) - 1(Drift) 5b. Right Arm: Motor (10-second hold) - 0(No drift) 6a. Left Leg: Motor (5-second hold - always test supine) - 1(Drift) 6b. Right Leg: Motor (5-second hold - always test supine) - 0(No drift) 7. Limb Ataxia (finger/nose \\T\\ heel/weir - test with eyes open) - 1(Present in one limb) 8. Sensory Loss (pinprick arms/legs/face) - 1(Mild to moderate loss) 9. Best Language: Aphasia (description/naming/reading) - 0(No aphasia) 10. Dysarthria (speech clarity - read or repeat words) - 0(Normal) 11. Extinction and Inattention (visual/tactile/auditory/spatial/personal) - 0(No abnormality) Initials: cp NIH Stroke Scale - NIH Stroke Score Date: 05/13/2022 Time: 08:00 Total Score = 3 1a. Level of Consciousness (LOC) - 0(Alert) 1b. Level of Consciousness (LOC) (Month \\T\\ Age) - 0(Both) 1c. LOC Commands (Open \\T\\ Closes Eyes/Sales Communications Manager) - 0(Both) 2. Best Gaze (Lateral Gaze Paresis) - 0(Normal) 3. Visual Field Loss - 0(No visual loss) 4. Facial Palsy - 0(Normal) 5a. Left Arm: Motor (10-second hold) - 1(Drift) 5b. Right Arm: Motor (10-second hold) - 0(No drift) 6a. Left Leg: Motor (5-second hold - always test supine) - 1(Drift) 6b. Right Leg: Motor (5-second hold - always test supine) - 0(No drift) 7. Limb Ataxia (finger/nose \\T\\ heel/weir - test with eyes open) - 0(Absent) 8. Sensory Loss (pinprick arms/legs/face) - 1(Mild to moderate loss) 9. Best Language: Aphasia (description/naming/reading) - 0(No aphasia) 10. Dysarthria (speech clarity - read or repeat words) - 0(Normal) 11. Extinction and Inattention (visual/tactile/auditory/spatial/personal) - 0(No abnormality) Initials: db Signatures: Dispatcher [employer] EDMS Home Arnold PA PA cp Wood, Tiffany tw5 Tesha Pop RN RN vc1 Geovanna Van RN RN ha1 Shanae Munoz RN RN db Avni, Sully Castaneda, RN RN mb9 Tesha Pop RN vc1 Corrections: (The following items were deleted from the chart) 05/12 21:50 21:50 Allergies: Naproxen; tw5 tw5 05/13 15:17 08:00 [facility] ED Fall Risk Assessment (Adult) History of falling in the last 3 db months, including since admission No falls in past 3 months (0 pts) Confusion or Disorientation No (0 pts) Intoxicated or Sedated No (0 pts) Impaired Gait Yes (1 pt) Mobility Assist Device Used No (0 pt) Altered Elimination No (0 pt) Score/Fall Risk Level 0 - 2 = Low Risk Oriented to surroundings, Maintained a safe environment, db 15:17 08:00 [facility] ED Fall Risk Assessment (Adult) History of falling in the last 3 db months, including since admission No falls in past 3 months (0 pts) Confusion or Disorientation No (0 pts) Intoxicated or Sedated No (0 pts) Impaired Gait Yes (1 pt) Mobility Assist Device Used No (0 pt) Altered Elimination No (0 pt) Score/Fall Risk Level 0 - 2 = Low Risk Oriented to surroundings, Maintained a safe environment, db 15:25 08:00 [facility] ED Fall Risk Assessment (Adult) History of falling in the last 3 db months, including since admission No falls in past 3 months (0 pts) Confusion or Disorientation No (0 pts) Intoxicated or Sedated No (0 pts) Impaired Gait Yes (1 pt) Mobility Assist Device Used No (0 pt) Altered Elimination No (0 pt) Score/Fall Risk Level 0 - 2 = Low Risk Oriented to surroundings, Maintained a safe environment, db
--- NOTE | 2022-05-12 23:29 | EDPHYS ---
Physician Documentation [facility] Name: Dee Logan Age: 46 yrs Sex: Female : 1975 Arrival Date: 05/12/2022 Time: 21:39 Bed 14 Private MD: ED Physician Jorge Kang HPI: 05/12 22:00 This 46 yrs old Black Female presents to ER via EMS with complaints of Weakness and cp Numbness of Left Arm. 22:00 The patient's problem is reported as paresthesias, in left upper extremity, weakness, cp in the left upper extremity. Onset: The symptoms/episode began/occurred today, at 1930. 22:00 Duration: The episode is continuous. Associated signs and symptoms: Pertinent cp positives: left leg weakness that started 2 weeks ago after jainism while upstairs in home. Patient's baseline: Neuro: alert and fully oriented, Motor: no deficits, Ambulation: walks without assistance, Speech: normal. 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 - Social history:: Smoking status: Patient reports the use of cigarette tobacco products, smokes one-half pack cigarettes per day. ROS: 22:03 Constitutional: Negative for body aches, chills, fever, poor PO intake. cp 22:03 Cardiovascular: Negative for chest pain, edema, palpitations. cp 22:03 Respiratory: Negative for cough, shortness of breath, wheezing. 22:03 Eyes: Negative for injury, pain, redness, and discharge. cp 22:03 ENT: Negative for drainage from ear(s), ear pain, sore throat, difficulty swallowing, cp difficulty handling secretions. 22:03 Abdomen/GI: Negative for abdominal pain, nausea, vomiting, and diarrhea. 22:03 Back: Negative for pain at rest, pain with movement. 22:03 : Negative for urinary symptoms. 22:03 Neuro: Positive for headache, weakness of left arm and left leg and numbness of left arm, Negative for altered mental status, syncope. 22:03 All other systems are negative. Exam: 22:05 Head/Face: Normocephalic, atraumatic. cp 22:05 Constitutional: The patient appears in no acute distress, alert, awake, non-diaphoretic, non-toxic, well developed, well nourished. 22:05 Eyes: Periorbital structures: appear normal, Pupils: equal, round, and reactive to light and accomodation, Extraocular movements: intact throughout, Conjunctiva: normal, no exudate, no injection, Sclera: no appreciated abnormality, Lids and lashes: appear normal, bilaterally. 22:05 ENT: External ear(s): are unremarkable, Nose: is normal, Mouth: Lips: moist, Oral mucosa: moist, Posterior pharynx: is normal, airway is patent, no erythema, no exudate. 22:05 Neck: ROM/movement: is normal, is supple, without pain, no range of motions limitations, no meningismus, no nuchal rigidity. 22:05 Chest/axilla: Inspection: normal. 22:05 Cardiovascular: Rate: normal, Rhythm: regular, Edema: is not appreciated, JVD: is not appreciated. 22:05 Respiratory: the patient does not display signs of respiratory distress, Respirations: normal, no use of accessory muscles, no retractions, labored breathing, is not present, Breath sounds: are clear throughout, no decreased breath sounds, no stridor, no wheezing. 22:05 Abdomen/GI: Inspection: abdomen appears normal, Palpation: abdomen is soft and non-tender, in all quadrants. 22:05 Back: pain, is absent, ROM is normal. 22:05 Neuro: Orientation: to person, place \T\ time. Mentation: is normal, Cerebellar function: Romberg testing is abnormal, left arm drift, dysmetria is noted on the left, difficulty with left heel to right weir, Motor: moves all fours, weakness to left arm and left leg, Sensation: numbness, that is moderate, of the left arm. 22:07 Radiologist reports: no acute findings cp 05/13 00:31 ECG was reviewed by the Attending Physician. cp Vital Signs: 05/12 21:48 BP 160 / 91; Pulse 98; Resp 18; Temp 98.6; Pulse Ox 98% on R/A; Weight 99.79 kg; Height tw5 5 ft. 5 in. (165.10 cm); Pain 5/10; 22:15 BP 157 / 92; Pulse 95; Resp 20 S; Pulse Ox 98% on R/A; ha1 22:20 BP 159 / 90; Pulse 94; Resp 16 S; Pulse Ox 97% on R/A; ha1 22:30 BP 158 / 90; Pulse 92; Resp 18 S; Pulse Ox 98% on R/A; ha1 23:00 BP 160 / 90; Pulse 73; Resp 18 S; Pulse Ox 99% on R/A; ha1 05/13 00:00 BP 159 / 75; Pulse 74; Resp 18 S; Pulse Ox 98% ; ha1 01:00 BP 157 / 90; Pulse 75; Resp 18 S; Pulse Ox 98% on R/A; ha1 01:30 BP 158 / 90; Pulse 95; Resp 16 S; Pulse Ox 98% on R/A; ha1 02:00 BP 149 / 90; Pulse 90; Resp 16 S; Pulse Ox 98% on R/A; ha1 05/12 21:48 Body Mass Index 36.61 (99.79 kg, 165.10 cm) tw5 NIH Stroke Scale Scores: 05/12 22:05 NIHSS Score: 6 mb9 22:05 NIHSS Score: 4 cp 05/13 08:00 NIHSS Score: 3 db MDM: 05/12 21:53 Patient medically screened. cp 22:08 ED course: consult with DR Barney to discuss patient's presenting history and exam cp findings. Recommendation for TNK given. 23:35 Data reviewed: vital signs, nurses notes, lab test result(s), EKG, radiologic studies, cp CT scan, plain films. 23:35 Consideration of Admission/Observation Patient was admitted/placed on observation. cp Management of patient was discussed with the following: Hospitalist: Mela Mckeon NP. Independent interpretation of the following test(s) in the Emergency Department EKG: See my EKG interpretation above X-Ray: My interpretation is chest image negative for infiltrates. Test considered but Not performed: MRI: brain. Care significantly affected by the following chronic conditions: Hypertension. Counseling: I had a detailed discussion with the patient and/or guardian regarding: the historical points, exam findings, and any diagnostic results supporting the discharge/admit diagnosis, the presence of at least one elevated blood pressure reading (>120/80) during this emergency department visit, lab results, radiology results, the need for further work-up and treatment in the hospital. 05/13 00:00 Response to treatment: Patient reports improvement of weakness and numbness to left cp upper extremity. 05/12 21:57 Order name: Basic Metabolic Panel cp 05/12 21:57 Order name: CBC with Diff cp 05/12 21:57 Order name: Hepatic Function cp 05/12 21:57 Order name: High Sensitivity Troponin cp 05/12 21:57 Order name: Magnesium cp 05/12 21:57 Order name: Protime (+inr) cp 05/12 21:57 Order name: Ptt, Activated cp 05/12 21:57 Order name: UDS; Complete Time: 00:04 cp 05/12 22:17 Order name: SARS RAPID; Complete Time: 00:04 mb9 05/12 22:34 Order name: CBC with Automated Diff; Complete Time: 23:30 EDMS 05/12 23:31 Interpretation: Reviewed. cp 05/12 22:35 Order name: Protime (+INR); Complete Time: 23:30 EDMS 05/12 22:35 Order name: PTT, Activated Partial Thromb; Complete Time: 23:30 EDMS 05/12 22:50 Order name: Basic Metabolic Panel; Complete Time: 23:30 EDMS 05/12 22:50 Order name: Liver (Hepatic) Function; Complete Time: 23:30 EDMS 05/12 21:57 Order name: CT Stroke Brain w/o Contrast cp 05/12 21:57 Order name: Stroke CXR 1 View cp 05/12 22:14 Order name: CT; Complete Time: 23:30 EDMS 05/12 22:38 Order name: CT Head Angio cp 05/12 22:38 Order name: CT Neck Angio cp 05/12 22:50 Order name: Troponin High Sensitivity; Complete Time: 23:30 EDMS 05/12 22:50 Order name: Magnesium; Complete Time: 23:30 EDMS 05/12 23:10 Order name: Urine Dipstick-Ancillary; Complete Time: 23:30 EDMS 05/13 05:54 Order name: CBC with Automated Diff EDMS 05/13 05:58 Order name: Basic Metabolic Panel EDMS 05/13 05:58 Order name: Lipid Profile EDMS 05/13 05:58 Order name: Magnesium EDMS 05/13 05:58 Order name: Thyroid Stimulating Hormone EDNJ 05/13 06:11 Order name: T4 Free EDNJ 05/13 09:21 Order name: MRI EDMS 05/13 09:49 Order name: MRI EDMS 05/12 21:57 Order name: EKG; Complete Time: 21:58 cp 05/12 21:57 Order name: Accucheck; Complete Time: 04:17 cp 05/12 21:57 Order name: Cardiac monitoring; Complete Time: 22:14 cp 05/12 21:57 Order name: EKG - Nurse/Tech; Complete Time: 00:31 cp 05/12 21:57 Order name: IV Saline Lock; Complete Time: 22:14 cp 05/12 21:57 Order name: Labs collected and sent; Complete Time: 22:14 cp 05/12 21:57 Order name: NPO; Complete Time: 22:14 cp 05/12 21:57 Order name: O2 Per Protocol; Complete Time: 22:14 cp 05/12 21:57 Order name: O2 Sat Monitoring; Complete Time: 22:15 cp 05/12 21:57 Order name: Stroke Swallow Screen; Complete Time: 01:16 cp 05/12 21:57 Order name: Urine Dipstick-Ancillary (obtain specimen); Complete Time: 01:16 cp 05/12 21:57 Order name: Urine Test (obtain specimen); Complete Time: 01:15 cp 05/13 10:39 Order name: MRI EDNJ EC:31 Rate is 71 beats/min. Rhythm is regular. MN interval is normal. QRS interval is normal. cp QT interval is normal. T waves are Inverted in leads II, III, aVF, V3, V4, V5, V6. Interpreted by me. Reviewed by me. Administered Medications: 05/12 22:15 Drug: TNK FOR STROKE - Tenecteplase 0.25 mg/kg {Co-Signature: vc1 (Tesha Pop RN).} Route: IV; Rate: per protocol; Site: right forearm; 22:30 Follow up: Response: No adverse reaction ha1 22:35 Drug: foLIC Acid 1 mg Route: IVPB; Site: right forearm; ha1 23:48 Drug: morphine 2 mg Route: IVP; Infused Over: 4 mins; Site: right forearm; ha1 05/13 00:15 Follow up: Response: No adverse reaction; Pain is unchanged, physician notified; RASS: ha1 Alert and Calm (0) 01:05 Drug: morphine 4 mg Route: IVP; Infused Over: 4 mins; Site: right forearm; ha1 01:30 Follow up: Response: No adverse reaction; Pain is decreased; RASS: Alert and Calm (0) ha1 Disposition Summary: 05/12/22 23:29 Hospitalization Ordered Hospitalization Status: Inpatient Admission cp Condition: Stable cp Problem: new cp Symptoms: have improved cp Bed/Room Type: Standard cp Provider: Tere Rick(05/13/22 00:18) cp Location: Intensive Care Unit(05/13/22 14:42) dw Room Assignment: 6-(05/13/22 14:42) dw Diagnosis - Weakness - left arm and left leg cp - Paresthesia of skin - left arm and left leg cp - Unspecified abnormalities of gait and mobility cp Forms: - Medication Reconciliation Form cp - SBAR form cp NIH Stroke Scale - NIH Stroke Score Date: 05/12/2022 Time: 22:05 Total Score = 6 1a. Level of Consciousness (LOC) - 0(Alert) 1b. Level of Consciousness (LOC) (Month \T\ Age) - 0(Both) 1c. LOC Commands (Open \T\ Closes Eyes/Drive Tester) - 0(Both) 2. Best Gaze (Lateral Gaze Paresis) - 0(Normal) 3. Visual Field Loss - 0(No visual loss) 4. Facial Palsy - 0(Normal) 5a. Left Arm: Motor (10-second hold) - 2(Drift, some effort against gravity) 5b. Right Arm: Motor (10-second hold) - 0(No drift) 6a. Left Leg: Motor (5-second hold - always test supine) - 3(No effort against gravity) 6b. Right Leg: Motor (5-second hold - always test supine) - 0(No drift) 7. Limb Ataxia (finger/nose \T\ heel/weir - test with eyes open) - 0(Absent) 8. Sensory Loss (pinprick arms/legs/face) - 1(Mild to moderate loss) 9. Best Language: Aphasia (description/naming/reading) - 0(No aphasia) 10. Dysarthria (speech clarity - read or repeat words) - 0(Normal) 11. Extinction and Inattention (visual/tactile/auditory/spatial/personal) - 0(No abnormality) Initials: mb9 NIH Stroke Scale - NIH Stroke Score Date: 05/12/2022 Time: 22:05 Total Score = 4 1a. Level of Consciousness (LOC) - 0(Alert) 1b. Level of Consciousness (LOC) (Month \T\ Age) - 0(Both) 1c. LOC Commands (Open \T\ Closes Eyes/Drive Tester) - 0(Both) 2. Best Gaze (Lateral Gaze Paresis) - 0(Normal) 3. Visual Field Loss - 0(No visual loss) 4. Facial Palsy - 0(Normal) 5a. Left Arm: Motor (10-second hold) - 1(Drift) 5b. Right Arm: Motor (10-second hold) - 0(No drift) 6a. Left Leg: Motor (5-second hold - always test supine) - 1(Drift) 6b. Right Leg: Motor (5-second hold - always test supine) - 0(No drift) 7. Limb Ataxia (finger/nose \T\ heel/weir - test with eyes open) - 1(Present in one limb) 8. Sensory Loss (pinprick arms/legs/face) - 1(Mild to moderate loss) 9. Best Language: Aphasia (description/naming/reading) - 0(No aphasia) 10. Dysarthria (speech clarity - read or repeat words) - 0(Normal) 11. Extinction and Inattention (visual/tactile/auditory/spatial/personal) - 0(No abnormality) Initials: cp NIH Stroke Scale - NIH Stroke Score Date: 05/13/2022 Time: 08:00 Total Score = 3 1a. Level of Consciousness (LOC) - 0(Alert) 1b. Level of Consciousness (LOC) (Month \T\ Age) - 0(Both) 1c. LOC Commands (Open \T\ Closes Eyes/Drive Tester) - 0(Both) 2. Best Gaze (Lateral Gaze Paresis) - 0(Normal) 3. Visual Field Loss - 0(No visual loss) 4. Facial Palsy - 0(Normal) 5a. Left Arm: Motor (10-second hold) - 1(Drift) 5b. Right Arm: Motor (10-second hold) - 0(No drift) 6a. Left Leg: Motor (5-second hold - always test supine) - 1(Drift) 6b. Right Leg: Motor (5-second hold - always test supine) - 0(No drift) 7. Limb Ataxia (finger/nose \T\ heel/weir - test with eyes open) - 0(Absent) 8. Sensory Loss (pinprick arms/legs/face) - 1(Mild to moderate loss) 9. Best Language: Aphasia (description/naming/reading) - 0(No aphasia) 10. Dysarthria (speech clarity - read or repeat words) - 0(Normal) 11. Extinction and Inattention (visual/tactile/auditory/spatial/personal) - 0(No abnormality) Initials: db Addendum: 05/15/2022 07:44 Co-signature as Attending Physician, Jorge Kang MD I reviewed the patient's rn care provided by the Advanced Practice Provider and agree with the diagnosis and treatment plan. Signatures: Dispatcher [employer] Christina Shaw RN RN dw Nieto, Roman, MD MD rn Page, Corey, PA PA cp Garcia, Cindy, RN RN cg Wood, Tiffany tw5 Geovanna Van RN RN ha1 Aida Mckeon PA-C PA-C sb4 Tesha Pop RN vc1 Corrections: (The following items were deleted from the chart) 05/12 21:50 21:50 Allergies: Naproxen; tw5 tw5 05/13 00:18 05/12 23:29 Aida Mckeon cp cp 05/13 00:55 05/12 23:29 Intensive Care Unit cp cg 05/13 00:55 05/12 23:29 cp cg 05/13 03:35 00:31 ECG was reviewed by the Attending Physician. cp cp 14:42 00:55 [facility] ER HOLD cg dw 14:42 00:55 ERHOLD- cg dw 05/14 06:36 23 22:15 NIHSS Score: 5 cp cp 05/14 06:36 05/12 22:05 NIHSS Score: 5 cp cp 05/14 06:36 05/12 22:35 NIHSS Score: 4 cp cp
[2022-05-12 23:35] LABS: Barbiturates NEGATIVE (NEGATIVE); Benzodiazepines POSITIVE (NEGATIVE); Cocaine NEGATIVE (NEGATIVE); METHAMPHETAM NEGATIVE (NEGATIVE); Methadone NEGATIVE (NEGATIVE); Opiates POSITIVE (NEGATIVE); Phencyclidine NEGATIVE (NEGATIVE); THC Cannibis NEGATIVE (NEGATIVE)
[2022-05-12] MEDS ORDERED: MORPHINE 2 MG/ML SYR ONE (23:40)
[2022-05-12 23:47] LABS: SARS-CoV-2 Antigen Rapid Res Negative (Negative)
--- NOTE | 2022-05-13 00:21 | P.HP ---
Certification for Inpatient Patient admitted to: Observation With expected LOS: <2 Midnights Patient will require the following post-hospital care: None Practitioner: I am a practitioner with admitting privileges, knowledge of patient current condition, hospital course, and medical plan of care. Services: Services provided to patient in accordance with Admission requirements found in Title 42 Section 412.3 of the Code of Federal Regulations Patient History Date of Service: 05/13/22 Reason for admission: CVA Rule Out History of Present Illness: Patient is a 46-year-old female with past medical history of fibromyalgia, hepatitis, hypertension, and anxiety who presented to the emergency department with concerns of strokelike symptoms. Patient states that she has not been feeling like herself for the past couple of weeks but today she started experiencing sudden onset of left-sided weakness and numbness. NIH scale of 6 upon arrival to the emergency department. Her head CT showed "No definite acute intracranial abnormality. Age indeterminate small right posterior frontal and parietal lobe infarct. No acute large vascular territory infarct or intracranial hemorrhage." Dr. Barney was contacted and recommended TNK, which patient consented to receiving. CT head and neck angio performed after showed "No intracranial large vessel occlusion. No cervical flow-limiting stenosis. Mild to moderate stenosis of the right M1 segment." No significant lab abnormalities. Patient is admitted for further management of CVA rule out. Allergies No Known Allergies Allergy (Verified 03/28/19 15:32) Home medications list reviewed: Yes Home Medications: Dicyclomine [Bentyl] 10 mg PO PRN PRN 03/28/19 Emtricitabine/Tenofovir [Truvada 200 mg-300 mg Tablet] 1 tab PO DAILY 03/28/19 Metoprolol Succinate [Toprol Xl] 50 mg PO [id number] 03/28/19 ondansetron HCL [Zofran] 4 mg PO PRN PRN 03/28/19 - Past Medical/Surgical History Diabetic: No -: Anxiety -: Fibromyalgia -: Chronic Back Pain -: Hepatitis -: Hypertension -: Angina -: Cholecystectomy Psychosocial/ Personal History: Patient lives at home with her family. - Family History Mother -: Heart disease Father -: Heart disease - Social History Smoking Status: Current every day smoker Alcohol use: No CD- Drugs: No Caffeine use: Yes Place of Residence: Home Review of Systems Neurological: Weakness, Numbness, Other (Headache) Physical Examination - Vital Signs Temperature: 98.6 F Blood Pressure: 157/92 Pulse: 95 Respirations: 20 Pulse Ox (%): 98 - Physical Exam General: Alert, In no apparent distress HEENT: Atraumatic, EOMI, Sclerae nonicteric Neck: Supple, 2+ carotid pulse no bruit Respiratory: Clear to auscultation bilaterally, Normal air movement Cardiovascular: Regular rate/rhythm, Normal S1 S2 Gastrointestinal: Normal bowel sounds, No tenderness Musculoskeletal: No tenderness Integumentary: No rashes Neurological: Normal speech, Normal affect, Abnormal strength Lymphatics: No axilla or inguinal lymphadenopathy - Studies Laboratory Data (last 24 hrs) 05/12/22 22:15: PT 10.6, INR 0.96, APTT 26.7 05/12/22 22:15: WBC 7.70, Hgb 13.1, Hct 39.5, Plt Count 294 05/12/22 22:15: Sodium 135 L, Potassium 4.1, BUN 13, Creatinine 0.87, Glucose 107 H, Magnesium 2.1, Total Bilirubin 0.4, AST 46 H, ALT 38, Alkaline Phosphatase 85 Assessment and Plan - Problems (Diagnosis) (1) Acute CVA (cerebrovascular accident) Current Visit: Yes Status: Acute (2) Hypertension Current Visit: Yes Status: Chronic Qualifiers: Hypertension type: primary hypertension Qualified Code(s): I10 - Essential (primary) hypertension (3) Fibromyalgia Current Visit: Yes Status: Chronic (4) Anxiety Current Visit: Yes Status: Chronic - Plan Patient is admitted for observation, for CVA rule out. Monitor in ICU for 24 hours following TNK. Repeat head CT ordered. MRI stroke protocol and echo ordered for the morning. We will also check lipid panel and TSH. Frequent neurologic checks and NIHS scale. Symptoms are gradually improving. Neurology, physical therapy, and speech therapy consult. UDS positive for opiates and benzos. PIT BOSS verified norco and xanax prescriptions. Aspirin, folic acid, and atorvastatin daily. Monitor and replete electrolytes per protocol. Reconcile and continue home medications. Full code Discharge Plan: Home Plan to discharge in: 24 Hours - Advance Directives Does patient have a Living Will: No Does patient have a Durable POA for Healthcare: No - Code Status/Comfort Care Code Status Assessed: Yes Code Status: Full Code Physician Review: Patient Assessed, Agree with Above Assessment and Plan Critical Care: No Time Spent Managing Pts Care (In Minutes): 50
[2022-05-13] MEDS ORDERED: MORPHINE 4 MG/ML SYR ONE (01:05)
[2022-05-13] MEDS ORDERED: ACETAMINOPHEN 500 MG TAB PO PRN (02:51)
[2022-05-13] MEDS ORDERED: ONDANSETRON 4 MG/2 ML VIAL IV PRN (02:51)
[2022-05-13] MEDS: NA CHLORIDE 0.9% 1,000 ML IV SCH ×3 (02:51→19:54)
[2022-05-13] MEDS ORDERED: NA CHLORIDE 0.9% 1,000 ML ONE (04:28)
[2022-05-13 04:47] VITALS: BMI 35.5
[2022-05-13 05:50] LABS: Absolute Lymphocytes (CBC) 2.8 K/uL (0.7-4.9); Hematocrit 36.9 % (36.0-45.0); Lymphocytes % 43.4 % (15.3-44.8); MCV 84.2 fL (80-100); MPV 7.7 fL (7.6-11.3); RBC Red Blood Cell Count 4.39 M/uL (3.86-4.86)
[2022-05-13 05:58] LABS: Magnesium 2.2 mg/dL (1.6-2.4); Potassium 3.4 mmol/L (3.5-5.1); Thyroid Stimulating Hormone 4.53 uIU/mL (0.358-3.740)
[2022-05-13] MEDS ORDERED: POTASSIUM 25 MEQ EFFERV TAB PO ONE (06:46)
[2022-05-13] MEDS ORDERED: POTASSIUM 25 MEQ EFFERV TAB ONE (07:00)
[2022-05-13] MEDS: FOLIC ACID 1 MG TABLET PO SCH (09:00)
[2022-05-13] MEDS: ASPIRIN EC 81 MG TAB PO SCH (09:00)
[2022-05-13 09:18] VITALS: O2SAT 95
--- NOTE | 2022-05-13 09:21 | RAD REPORT ---
EXAM DESCRIPTION: MRI - MRA Head Wo Cont - 05/13/2022 9:04 am CLINICAL HISTORY: left sided wkness/numbess COMPARISON: Brain W/Wo Cont dated 05/13/2022; MRA Neck W/Wo Cont dated 05/13/2022; Neck Angio dated ; Head angio dated 05/12/2022; Ct Stroke Brain Wo Cont dated 05/12/2022 FINDINGS: 3D noncontrast [id number] MR angiography of the [place] of [place] was performed. No evidence of large vessel occlusion. The luminal irregularity and up to moderate stenosis seen billie g the mid to distal right M1 segment, findings which are better delineated on the preceding CT angiog jose armando of the brain. [id number] narrowing of the left ICA communicating segment. No evidence of an eurysm or vascular malformation of the [place] of [place] and proximal branches. Forward flow seen in c odominant vertebral arteries. IMPRESSION: No evidence of large vessel occlusion. Up to moderate stenosis of the mid to distal right M1 segment, as better delineated on the preceding CT angiogram of the brain. [id number] narrowing of the left ICA communicating segment.
[2022-05-13] MEDS ORDERED: FOLIC ACID 1 MG TABLET ONE (09:29)
[2022-05-13] MEDS ORDERED: ASPIRIN 81 MG CHEWABLE TABLET ONE (09:29)
--- NOTE | 2022-05-13 09:49 | RAD REPORT ---
EXAM DESCRIPTION: MRI - Brain W/Wo Cont - 05/13/2022 9:05 am CLINICAL HISTORY: left sided weakness/numbness COMPARISON: Head CT 05/02/2022 at 9:12 a.m.. TECHNIQUE: Multiplanar multisequence MRI of the brain performed before and after intravenous adminis tration of 20 mL MultiHance. FINDINGS: Mild Motion artifact somewhat limits evaluation. Cortical/subcortical diffusion restriction along the anterior high right parietal lobe and the adjace nt precentral gyrus, with corresponding T2/FLAIR signal abnormality. This is congruent with the regio n of ischemia seen on the prior CT. There is corresponding patchy cortical and pial enhancement on th e postcontrast images. Additional foci of diffusion restriction seen in the right centrum semiovale p osteriorly and to a lesser extent anteriorly. No evidence of corresponding intrinsic T1 hyperintense signal to suggest acute intracranial hemorrhag e. No abnormal extra-axial fluid collections. Mild diffuse parenchymal volume loss. Ventricular caliber otherwise within normal for age. Midline st ructures are unremarkable. Scattered subcortical and deep white matter T2/FLAIR hyperintensities, nonspecific, but suggestive of chronic small vessel ischemic changes. No significant mass effect or midline shift. Major vascular flow voids are preserved. Mastoid air cells and paranasal sinuses are clear. IMPRESSION: Right perirolandic subacute ischemia, distribution is congruent with the region of ische keila seen on the recent head CT. Corresponding enhancement, likely reactive. No MR evidence of hemorrh agic conversion. Additional small foci of diffusion restriction suggesting acute to subacute ischemia along the anteri or and posterior right centrum semiovale.
--- NOTE | 2022-05-13 10:38 | RAD REPORT ---
EXAM DESCRIPTION: MRI - MRA Neck W/Wo Cont - 05/13/2022 9:04 am CLINICAL HISTORY: left sided weakness/numbness COMPARISON: Neck Angio dated 05/12/2022 FINDINGS: Contrast enhanced 2D [id number] and 3D postcontrast MR angiography of the neck vessels was performed, following intravenous administration of 20 mL MultiHance. No flow-limiting stenosis, occlusion, dissection flap, or aneurysmal dilation throughout the neck ves sels. Vertebral arteries are codominant. IMPRESSION: Normal MR angiogram of the neck.
--- NOTE | 2022-05-13 11:35 | RAD REPORT ---
EXAM DESCRIPTION: RAD - Chest Single View - 05/12/2022 10:44 pm CLINICAL HISTORY: The patient is 46 years old and is Female; weakness left arm and left leg TECHNIQUE: Frontal view of the chest. COMPARISON: No relevant prior studies available. FINDINGS: LUNGS: Unremarkable. No consolidation. PLEURAL SPACE: Unremarkable. No pneumothorax. HEART: Unremarkable. No cardiomegaly. MEDIASTINUM: Unremarkable. BONES/JOINTS: Unremarkable. UPPER ABDOMEN: Unremarkable as visualized. IMPRESSION: No acute cardiopulmonary process. Electronically signed by: Lavonne Mccabe MD 05/12/2022 11:08 PM AIR MOVING TECHNICIAN Due to temporary technical issues with the PACS/Fluency reporting system, reports are being signed by the in house radiologists without review as a courtesy to insure prompt reporting. The interpreting radiologist is fully responsible for the content of the report.
--- NOTE | 2022-05-13 12:14 | RAD REPORT ---
EXAM DESCRIPTION: CT - Head angio - 05/13/2022 6:50 am CLINICAL HISTORY: The patient is 46 years old and is Female; WEAKNESS TECHNIQUE: [place] of Odom/head and neck CT angiography protocol performed with intravenous contras t. This CT exam was performed using one or more of the following dose reduction techniques: autom ated exposure control, adjustment of the mA and/or kV according to patient size, and/or use of iterat samuel reconstruction technique. MIP reconstructed images were created and reviewed. DLP: 583 mGy*cm COMPARISON: CT head without contrast of the same day. FINDINGS: HEAD: RIGHT ANTERIOR CEREBRAL ARTERY: Unremarkable. No significant stenosis at the visualized segments . Anterior communicating artery is present. No aneurysm. RIGHT MIDDLE CEREBRAL ARTERY: Moderate stenosis of the proximal right M1 segment. No aneurysm. RIGHT POSTERIOR CEREBRAL ARTERY: Unremarkable. No occlusion or significant stenosis. No aneury sm. RIGHT INTRACRANIAL INTERNAL CAROTID ARTERY: Unremarkable. No significant stenosis. No dissecti on or occlusion. RIGHT INTRACRANIAL VERTEBRAL ARTERY: Unremarkable. No significant stenosis. No dissection or o cclusion. LEFT ANTERIOR CEREBRAL ARTERY: Hypoplastic left A1 segment. No significant stenosis at the visualized segments. No aneurysm. LEFT MIDDLE CEREBRAL ARTERY: Unremarkable. No significant stenosis at the visualized segments. No aneurysm. LEFT POSTERIOR CEREBRAL ARTERY: Unremarkable. No occlusion or significant stenosis. No aneurys m. LEFT INTRACRANIAL INTERNAL CAROTID ARTERY: Unremarkable. No significant stenosis. No dissectio n or occlusion. LEFT INTRACRANIAL VERTEBRAL ARTERY: Unremarkable. No significant stenosis. No dissection or oc clusion. BASILAR ARTERY: Unremarkable. No significant stenosis. No aneurysm. OTHER VASCULATURE: No vascular malformation. NECK: RIGHT COMMON CAROTID ARTERY: Unremarkable. No significant stenosis. No dissection or occlusion . RIGHT EXTRACRANIAL INTERNAL CAROTID ARTERY: Unremarkable. No significant stenosis. No dissecti on or occlusion. RIGHT EXTERNAL CAROTID ARTERY: Unremarkable. No occlusion. RIGHT EXTRACRANIAL VERTEBRAL ARTERY: Unremarkable. No significant stenosis. No dissection or o cclusion. LEFT COMMON CAROTID ARTERY: Unremarkable. No significant stenosis. No dissection or occlusion. LEFT EXTRACRANIAL INTERNAL CAROTID ARTERY: Unremarkable. No significant stenosis. No dissectio n or occlusion. LEFT EXTERNAL CAROTID ARTERY: Unremarkable. No occlusion. LEFT EXTRACRANIAL VERTEBRAL ARTERY: Unremarkable. No significant stenosis. No dissection or oc clusion. LUNG APICES: Visualized lung zones are clear. HEAD and NECK: BONES/JOINTS: Unremarkable. No discrete lytic or blastic abnormalities. SOFT TISSUES: Unremarkable. CAROTID STENOSIS REFERENCE USING NASCET CRITERIA: % ICA stenosis = (1 - narrowest ICA diameter/diameter of distal cervical ICA) x 100. Mild - <50% stenosis. Moderate - 50-69% stenosis. Severe - 70-94% stenosis. Near occlusion - 95-99% stenosis. Occluded - 100% stenosis. IMPRESSION: 1. No intracranial large vessel occlusion. No cervical flow-limiting stenosis. 2. Mild to moderate stenosis of the right M1 segment. Electronically signed by: Jean Paul Reed DO 05/13/2022 12:11 AM EMBEDDED SOFTWARE TEST ENGINEER Due to temporary technical issues with the PACS/Fluency reporting system, reports are being signed by the in house radiologists without review as a courtesy to insure prompt reporting. The interpreting radiologist is fully responsible for the content of the report.
--- NOTE | 2022-05-13 12:19 | RAD REPORT ---
EXAM DESCRIPTION: CT - Neck Angio - 05/13/2022 6:50 am CLINICAL HISTORY: The patient is 46 years old and is Female; WEAKNESS TECHNIQUE: [place] of Odom/head and neck CT angiography protocol performed with intravenous contras t. This CT exam was performed using one or more of the following dose reduction techniques: autom ated exposure control, adjustment of the mA and/or kV according to patient size, and/or use of iterat samuel reconstruction technique. MIP reconstructed images were created and reviewed. DLP: 583 mGy*cm COMPARISON: CT head without contrast of the same day. FINDINGS: HEAD: RIGHT ANTERIOR CEREBRAL ARTERY: Unremarkable. No significant stenosis at the visualized segments . Anterior communicating artery is present. No aneurysm. RIGHT MIDDLE CEREBRAL ARTERY: Moderate stenosis of the proximal right M1 segment. No aneurysm. RIGHT POSTERIOR CEREBRAL ARTERY: Unremarkable. No occlusion or significant stenosis. No aneury sm. RIGHT INTRACRANIAL INTERNAL CAROTID ARTERY: Unremarkable. No significant stenosis. No dissecti on or occlusion. RIGHT INTRACRANIAL VERTEBRAL ARTERY: Unremarkable. No significant stenosis. No dissection or o cclusion. LEFT ANTERIOR CEREBRAL ARTERY: Hypoplastic left A1 segment. No significant stenosis at the visualized segments. No aneurysm. LEFT MIDDLE CEREBRAL ARTERY: Unremarkable. No significant stenosis at the visualized segments. No aneurysm. LEFT POSTERIOR CEREBRAL ARTERY: Unremarkable. No occlusion or significant stenosis. No aneurys m. LEFT INTRACRANIAL INTERNAL CAROTID ARTERY: Unremarkable. No significant stenosis. No dissectio n or occlusion. LEFT INTRACRANIAL VERTEBRAL ARTERY: Unremarkable. No significant stenosis. No dissection or oc clusion. BASILAR ARTERY: Unremarkable. No significant stenosis. No aneurysm. OTHER VASCULATURE: No vascular malformation. NECK: RIGHT COMMON CAROTID ARTERY: Unremarkable. No significant stenosis. No dissection or occlusion . RIGHT EXTRACRANIAL INTERNAL CAROTID ARTERY: Unremarkable. No significant stenosis. No dissecti on or occlusion. RIGHT EXTERNAL CAROTID ARTERY: Unremarkable. No occlusion. RIGHT EXTRACRANIAL VERTEBRAL ARTERY: Unremarkable. No significant stenosis. No dissection or o cclusion. LEFT COMMON CAROTID ARTERY: Unremarkable. No significant stenosis. No dissection or occlusion. LEFT EXTRACRANIAL INTERNAL CAROTID ARTERY: Unremarkable. No significant stenosis. No dissectio n or occlusion. LEFT EXTERNAL CAROTID ARTERY: Unremarkable. No occlusion. LEFT EXTRACRANIAL VERTEBRAL ARTERY: Unremarkable. No significant stenosis. No dissection or oc clusion. LUNG APICES: Visualized lung zones are clear. HEAD and NECK: BONES/JOINTS: Unremarkable. No discrete lytic or blastic abnormalities. SOFT TISSUES: Unremarkable. CAROTID STENOSIS REFERENCE USING NASCET CRITERIA: % ICA stenosis = (1 - narrowest ICA diameter/diameter of distal cervical ICA) x 100. Mild - <50% stenosis. Moderate - 50-69% stenosis. Severe - 70-94% stenosis. Near occlusion - 95-99% stenosis. Occluded - 100% stenosis. IMPRESSION: 1. No intracranial large vessel occlusion. No cervical flow-limiting stenosis. 2. Mild to moderate stenosis of the right M1 segment. Electronically signed by: Jean Paul Reed DO 05/13/2022 12:11 AM E COMMERCE DEVELOPER Due to temporary technical issues with the PACS/Fluency reporting system, reports are being signed by the in house radiologists without review as a courtesy to insure prompt reporting. The interpreting radiologist is fully responsible for the content of the report.
--- NOTE | 2022-05-13 13:19 | EKG ---
Test Date: 2022-05-13 Test Time: 00:28:47 [employer] Php Developer: MEASUREMENT RESULTS: Intervals: Rate: 71 AR: 192 QRSD: 90 QT: 406 QTc: 441 [place]: P: 55 AR: 192 QRS: 36 T: -5 INTERPRETIVE STATEMENTS: Normal sinus rhythm T wave abnormality, consider anterolateral ischemia Abnormal ECG Compared to ECG 11/07/2021 19:31:02 Possible ischemia now present T-wave abnormality still present Electronically Signed On 05-13-22 13:18:01 PETROLOGIST by Tommie Trujillo
[2022-05-13] MEDS ORDERED: HYDROCODONE/APAP 10/325 TAB PO PRN (20:09)
[2022-05-13] MEDS ORDERED: GABAPENTIN 100 MG CAP PO PRN (20:09)
[2022-05-13] MEDS ORDERED: ALPRAZOLAM 0.5 MG TABLET PO SCH (21:00)
[2022-05-13] MEDS ORDERED: ATORVASTATIN 20 MG TAB PO SCH (21:00)
--- NOTE | 2022-05-13 22:13 | RAD REPORT ---
EXAM DESCRIPTION: CT - Head Brain Wo Cont - 05/13/2022 9:59 pm CLINICAL HISTORY: CVA S/P TNK COMPARISON: May 12, 2022 TECHNIQUE: Computed axial tomography of the head was obtained. IV contrast was not requested. All CT scans are performed using dose optimization technique as appropriate and may include automated exposure control or mA/KV adjustment according to patient size. FINDINGS: No significant change in the appearance of the right parietal lobe infarction. No bleed. The ventricles are normal in caliber No extra-axial fluid collection is noted. Fluid within the sinuses/ mastoids is not seen. IMPRESSION: No significant change in appearance of the right parietal lobe infarction No hemorrhagic conversion
[2022-05-14 04:54] LABS: Absolute Lymphocytes (CBC) 3.2 K/uL (0.7-4.9); Hematocrit 36.4 % (36.0-45.0); Lymphocytes % 44.4 % (15.3-44.8); MCV 85.2 fL (80-100); MPV 7.6 fL (7.6-11.3); RBC Red Blood Cell Count 4.27 M/uL (3.86-4.86)
[2022-05-14 05:09] LABS: Magnesium 2.1 mg/dL (1.6-2.4); Potassium 3.6 mmol/L (3.5-5.1)
[2022-05-14] MEDS ORDERED: METOPROLOL XL 50 MG TAB PO SCH (06:00)
[2022-05-14] MEDS: FOLIC ACID 1 MG TABLET PO SCH (08:06)
[2022-05-14] MEDS: ASPIRIN EC 81 MG TAB PO SCH (08:06)
[2022-05-14] MEDS ORDERED: LOSARTAN/HCTZ 50-12.5 PO SCH (09:00)
[2022-05-14] MEDS ORDERED: HYDRALAZINE HCL 20 MG/ML VIAL IV PRN (10:14)
[2022-05-14 11:44] VITALS: BP 155/97; TEMP 97.5
--- NOTE | 2022-05-14 14:15 | P.DS ---
Discharge Date: 05/14/22 Disposition: ROUTINE DISCHARGE Discharge Condition: GOOD Reason for Admission: CVA Rule Out Consultations: Neurology Brief History of Present Illness: Patient is a 46-year-old female with past medical history of fibromyalgia, hepatitis, hypertension, and anxiety who presented to the emergency department with concerns of strokelike symptoms. Patient states that she has not been feeling like herself for the past couple of weeks but today she started experiencing sudden onset of left-sided weakness and numbness. NIH scale of 6 upon arrival to the emergency department. Her head CT showed "No definite acute intracranial abnormality. Age indeterminate small right posterior frontal and parietal lobe infarct. No acute large vascular territory infarct or intracranial hemorrhage." Dr. Barney was contacted and recommended TNK, which patient consented to receiving. CT head and neck angio performed after showed "No intracranial large vessel occlusion. No cervical flow-limiting stenosis. Mild to moderate stenosis of the right M1 segment." No significant lab abnormalities. Patient is admitted for further management of CVA rule out. Hospital Course: She had MRI of the brain which revealed an acute infarct. We will continue with decreasing blood pressure gradually. Continue with antiplatelet therapy. Pt's going to need close outpatient follow-up with neurology. Patient will be discharged on metoprolol, Benicar/hydrochlorothiazide, and amlodipine. She will continue with antiplatelet therapy with aspirin and clopidogrel. At this time, patient is doing well and stable for discharge home. Vital Signs/Physical Exam: Temp Pulse Resp BP Pulse Ox 97.5 F 95 H 22 H 155/97 H 96 05/14/22 11:00 05/14/22 11:00 05/14/22 11:00 05/14/22 11:00 05/14/22 03:00 General: Alert, In no apparent distress, Oriented x3 Laboratory Data at Discharge: WBC 7.30 K/uL (4.3-10.9) 05/14/22 04:42 Hgb 12.1 g/dL (12.0-15.0) 05/14/22 04:42 Hct 36.4 % (36.0-45.0) 05/14/22 04:42 Plt Count 258 K/uL (152-406) 05/14/22 04:42 PT 10.6 SECONDS (9.5-12.5) 05/12/22 22:15 INR 0.96 05/12/22 22:15 APTT 26.7 SECONDS (24.3-36.9) 05/12/22 22:15 Sodium 138 mmol/L (136-145) 05/14/22 04:42 Potassium 3.6 mmol/L (3.5-5.1) 05/14/22 04:42 BUN 12 mg/dL (7-18) 05/14/22 04:42 Creatinine 0.64 mg/dL (0.55-1.02) 05/14/22 04:42 Glucose 95 mg/dL (74-106) 05/14/22 04:42 Magnesium 2.1 mg/dL (1.6-2.4) 05/14/22 04:42 Total Bilirubin 0.4 mg/dL (0.2-1.0) 05/12/22 22:15 AST 46 U/L (15-37) H 05/12/22 22:15 ALT 38 U/L (13-56) 05/12/22 22:15 Alkaline Phosphatase 85 U/L (45-117) 05/12/22 22:15 Triglycerides 210 mg/dL (<150) H 05/13/22 05:16 Cholesterol 197 mg/dL (<200) 05/13/22 05:16 HDL Cholesterol 31 mg/dL (40-60) L 05/13/22 05:16 Cholesterol/HDL Ratio 6.35 05/13/22 05:16 Home Medications: Metoprolol Succinate [Toprol Xl*] 50 mg PO [id number] 03/28/19 Alprazolam [Xanax] 0.5 mg PO BEDTIME 05/13/22 Biotin 1 tab PO DAILY 05/13/22 Gabapentin 100 mg PO DAILYPRN PRN 05/13/22 Hydrocodone 10/APAP 325 [[place] 10/325*] 1 tab PO BID 05/13/22 Multivitamin 1 tab PO DAILY 05/13/22 Tenofovir Disoproxil Fumarate 300 mg PO DAILY 05/13/22 Amlodipine Besylate 10 mg PO DAILY #30 tab 05/14/22 Aspirin [Aspirin EC 81 MG] 162 mg PO DAILY #60 tab 05/14/22 Atorvastatin Calcium [Lipitor*] 40 mg PO BEDTIME #30 tab 05/14/22 Clopidogrel Bisulfate [Plavix] 75 mg PO DAILY #30 tab 05/14/22 Folic Acid 1 mg PO DAILY #30 tab 05/14/22 Olmesartan/Hydrochlorothiazide [Benicar Hct 20-12.5 mg Tablet] 1 each PO BID #60 tab 05/14/22 New Medications: Amlodipine Besylate 10 mg PO DAILY #30 tab Aspirin [Aspirin EC 81 MG] 162 mg PO DAILY #60 tab Olmesartan/Hydrochlorothiazide [Benicar Hct 20-12.5 mg Tablet] 1 each PO BID #60 tab Folic Acid 1 mg PO DAILY #30 tab Atorvastatin Calcium [Lipitor*] 40 mg PO BEDTIME #30 tab Clopidogrel Bisulfate [Plavix] 75 mg PO DAILY #30 tab Physician Discharge Instructions: -DC IV and DC home -Follow-up with PCP in 1 to 2 weeks -Follow-up with Neurology in 1 to 2 weeks -Please call Dr. Rick at [phone] if any questions regarding hospital stay -Please call nursing station at [phone] if any nursing or medication questions -Return to the emergency room if symptoms worsenPROBLEM: acute stroke GOAL: Clear understanding of disease process INSTRUCTIONS: Follow-up with PCP in 1 to 2 weeks -Follow-up with Neurology in 1 to 2 weeks -Please call Dr. Rick at [phone] if any questions regarding hospital stay -Please call nursing station at [phone] if any nursing or medication questions -Return to the emergency room if symptoms worsen Diet: AHA Activity: Fall precautions DME DME: Date Ordered: Name of Company: [employer] Services Needed: Name of Company: Date or Referral: IMMUNIZATION Influenza Vaccine Indicated: No Influenza Vaccine Given: Date Given: Pneumonia Vaccine Indicated: No Pneumonia Vaccine Given: Date Given: Diet: AHA Activity: Fall precautions Followup: Alhaji Barney MD [ASSOCIATE-ACTIVE - CAN ADMIT] - Time spent managing pt's care (in minutes): 35
== END 2022-05-14 12:00 | disposition home or self-care (01) | DRG 62 ==
LOC: ER 21:31 → ERHOLD 05-13 00:14 → OBSVTOIN 05-13 13:15 → 3RD-ICU 05-13 14:51
PROVIDERS: ADMIT Hospitalist; ATTEND Hospitalist
DX: I63.9 Cerebral infarction, unspecified (principal); G81.94 Hemiplegia, unspecified affecting left nondominant side; R20.0 Anesthesia of skin; R29.706 NIHSS score 6; I10 Essential (primary) hypertension; R51.9 Headache, unspecified; M79.7 Fibromyalgia; K75.9 Inflammatory liver disease, unspecified; F41.9 Anxiety disorder, unspecified; M54.9 Dorsalgia, unspecified; G89.29 Other chronic pain; F17.210 Nicotine dependence, cigarettes, uncomplicated; Z79.899 Other long term (current) drug therapy; Z90.49 Acquired absence of other specified parts of digestive tract; Z20.822 Contact with and (suspected) exposure to COVID-19; Z82.49 Family history of ischemic heart disease and other diseases of the circulatory system
CPT/HCPCS: 36415; 70450; 70496; 70498; 70544; 70549; 70553; 71045; 80048; 80061; 80076; 80307; 81003; 83735; 84439; 84443; 84484; 85025; 85610; 85730; 87811; 92523; 92977; 93005; 96374; 96375; 97161; 99291; A9577; G0378; J0360; J2270; J3101; J7030; Q9967

== ENCOUNTER 2022-05-14 14:40 | Observation (INO) | payer BC ==
--- OUTSIDE RECORDS SUMMARY | 2022-05-14 15:01 | XMS REPORT | Continuity of Care Document ---
:1975 Author Organization [facility] t Address [address] [place]. [address] [place] [id number] Care Team Providers Name Role Phone Dina Jalloh DO [facility] KIM GAMBLE Attending Clinician Unavailable KIM GAMBLE Attending Clinician Unavailable DERRICK POLK Attending Clinician Unavailable Doctor Unassigned, [place] Attending Clinician Unavailable UNKNOWN, ATTENDING Attending Clinician Unavailable Lopez Johnson Attending Clinician JAZMINE MOONEY Attending Clinician Unavailable Jazmine Mooney PA-C Attending Clinician Unknown, Attending Attending Clinician Unavailable Provider, [facility] Attending Clinician Unavailable LOPEZ THOMAS Attending Clinician Unavailable Amy Corrigan Attending Clinician AMY HINOJOSA Attending Clinician Unavailable Jeffery Grover MD Attending Clinician Cookie Faust RN Attending Clinician Unavailable LISA CALLAHAN Attending Clinician Unavailable [place] JIMENEZ, Lisa Attending Clinician Kasper RN [facility], Reyna M Attending Clinician Unavailable GEORGINA WIGGINS [...] Univers itching itching -27 ity of 00:00: [address] Candidal Candidal Disease Active Unive rs intertrigo intertrigo 08-13 it y of 00:00: [address] BMI BMI Disease Active Univers 35.0-35.9, 35.0-35.9, 3-30 it y of adult adult 00:00: [address] Anxiety Anxiety Disease Active Univers and and 3-30 [place]y of depression [place] [address] [place] [address] Essential Essential Disease Active Uni vers hypertensi hypertensi 3-30 it y of on, on, 00:00: [place] malignant malignant [address] [place] [address] Branch Nontoxic Nontoxic Disease Active Overview: Un megan single single 03-27 [place] ity of thyroid thyroid 00:00: g of this [place] nodule nodule 00 note Medical might be [...] History SDOH University o f Alcohol Frequency [place] M edical Branch History SDCT University o f Alcohol Std [place] Medical Drinks Branch History [facility] o f Alcohol Binge [place] Medic al Branch Exposure to 2022-02-17 2022-02-27 Not sure University of SARS-CoV-2 00:00:00 10:44:00 [facility] (event) Branch Alcohol intake 2022-02-27 2022-02-27 Current drinker Unive rsity of 00:00:00 00:00:00 of alcohol [place] [facility] (finding) Branch Tobacco Comment 2021-09-27 2021-09-27 quit x1y ago Univers ity of 00:00:00 00:00:00 [facility] Tobacco use and 2021-09-27 2021-09-27 Smokeless tobacco Un iversity of exposure 00:00:00 00:00:00 non-user [facility] Alcohol Comment 2017-06-16 2017-06-16 social Universit y of 00:00:00 00:00:00 [facility] History of 2014-03-20 Cigarette Smoker Universi ty of tobacco use 00:00:00 [facility] Sex [birth year] [facility] Smoking Status Start Date Stop Date Source Tobacco smoking [facility] consumption unknown Ex-smoker 2021-09-27 00:00:00 2021-09-27 University o f [place] 00:00:00 Medical Branch Medications Ordered Filled Start Stop Current Ordering Indication Dosage Frequency Signature Comments Components Source Medication Medication Date Date Medication? Clinician (SIG) Name Name metoprolol Yes [id number] 50mg Take 1 U nivers succinate 2-02 tablet by ity o f XL 50 mg 24 00:00: mouth in [place] hr tablet 00 the Medical morning. Branch TAKE ONE (1) TABLET(S) BY MOUTH EVERY MORNING AND EVERY EVENING. metoprolol Yes [id number] 50mg Take 1 U nivers succinate 2-02 tablet by ity o f XL 50 mg 24 00:00: mouth in [place] hr tablet 00 the Medical morning. Branch TAKE ONE (1) TABLET(S) BY MOUTH EVERY MORNING AND EVERY EVENING. hydrOXYzine 2021-03 Yes [id number] 25mg Take 1 Univers 25 mg 2-11 tablet by ity of tablet 00:00: mouth [place] 00 every 8 Medical (eight) Branch hours as needed for Itching. hydrocortis 2021-03 Yes [id number] Apply to Univers one 1 % 2-11 area(s) ity of cream 00:00: daily. [place] [facility] hydrOXYzine 2021-03 Yes [id number] 25mg Take 1 Univers 25 mg 2-11 tablet by ity of tablet 00:00: mouth [place] 00 every 8 Medical (eight) Branch hours as needed for Itching. hydrocortis 2021-03 Yes [id number] Apply to Univers one 1 % 2-11 area(s) ity of cream 00:00: daily. [place] [facility] hydrOXYzine 2021-03 Yes [id number] 25mg Take 1 Univers 25 mg 2-11 tablet by ity of tablet 00:00: mouth [place] 00 every 8 Medical (eight) Branch hours as needed for Itching. hydrocortis 2021-03 Yes [id number] Apply to Univers one 1 % 2-11 area(s) ity of cream 00:00: daily. [place] [facility] hydrOXYzine 2021-03 Yes [id number] 25mg Take 1 Univers 25 mg 2-11 tablet by ity of tablet 00:00: mouth [place] 00 every 8 Medical (eight) Branch hours as needed for Itching. hydrocortis 2021-03 Yes [id number] Apply to Univers one 1 % 2-11 area(s) ity of cream 00:00: daily. [address] hydrOXYzine 2021-03 Yes [id number] 25mg Take 1 Univers 25 mg 2-11 tablet by ity of tablet 00:00: mouth [place] 00 every 8 Medical (eight) Branch hours as needed for Itching. hydrocortis 2021-03 Yes [id number] Apply to Univers one 1 % 2-11 area(s) ity of cream 00:00: daily. [place] [facility] hydrOXYzine 2021-03 Yes [id number] 25mg Take 1 Univers 25 mg 2-11 tablet by ity of tablet 00:00: mouth [place] 00 every 8 Medical (eight) Branch hours as needed for Itching. hydrocortis 2021-03 Yes [id number] Apply to Univers one 1 % 2-11 area(s) ity of cream 00:00: daily. [place] [facility] hydrOXYzine 2021-03 Yes [id number] 25mg Take 1 Univers 25 mg 2-11 tablet by ity of tablet 00:00: mouth [place] 00 every 8 Medical (eight) Branch hours as needed for Itching. hydrocortis 2021-03 Yes [id number] Apply to Univers one 1 % 2-11 area(s) ity of cream 00:00: daily. [address] losartan-hy 2021-03 Yes [id number] 1{tbl} Take 1 Univers drochloroth 2-07 tablet by ity of iazide 00:00: mouth in [place] 50-12.5 mg 00 the Medical per tablet morning. [facility] losartan-hy 2021-03 Yes [id number] 1{tbl} Take 1 Univers drochloroth 2-07 tablet by ity of iazide 00:00: mouth in [place] 50-12.5 mg 00 the Medical per tablet morning. [facility] losartan-hy 2021-03 Yes [id number] 1{tbl} Take 1 Univers drochloroth 2-07 tablet by ity of iazide 00:00: mouth in [place] 50-12.5 mg 00 the Medical per tablet morning. [facility] losartan-hy 2021-03 Yes [id number] 1{tbl} Take 1 Univers drochloroth 2-07 tablet by ity of iazide 00:00: mouth in [place] 50-12.5 mg 00 the Medical per tablet morning. [facility] losartan-hy 2021-03 Yes [id number] 1{tbl} Take 1 Univers drochloroth 2-07 tablet by ity of iazide 00:00: mouth in [place] 50-12.5 mg 00 the Medical per tablet morning. [facility] losartan-hy 2021-03 Yes [id number] 1{tbl} Take 1 Univers drochloroth 2-07 tablet by ity of iazide 00:00: mouth in [place] 50-12.5 mg 00 the Medical per tablet morning. [facility] losartan-hy 2021-03 Yes [id number] 1{tbl} Take 1 Univers drochloroth 2-07 tablet by ity of iazide 00:00: mouth in [place] 50-12.5 mg 00 the Medical per tablet morning. [facility] losartan-hy 2021-03 Yes [id number] 1{tbl} Take 1 Univers drochloroth 2-07 tablet by ity of iazide 00:00: mouth in [place] 50-12.5 mg 00 the Medical per tablet morning. [facility] losartan- 2021-03 Yes [id number] 1{tbl} Take 1 Univers drochloroth 2-07 tablet by ity of iazide 00:00: mouth in [place] 50-12.5 mg 00 the Medical per tablet morning. [facility] amoxicillin 2021-03- Yes [id number] 500mg Take 1 Univers 500 mg -29 12-07 tablet by ity of tablet 00:00: 05:59 mouth in [place] 00 :00 the Medical morning Branch and 1 tablet in the evening. Do all this for 7 days. amoxicillin 2021-03- Yes [id number] 500mg Take 1 Univers 500 mg 1-29 12-07 tablet by ity of tablet 00:00: 05:59 mouth in [place] 00 :00 the Medical morning Branch and 1 tablet in the evening. Do all this for 7 days. amoxicillin 2021-03- Yes [id number] 500mg Take 1 Univers 500 mg 1-29 12-07 tablet by ity of tablet 00:00: 05:59 mouth in [place] 00 :00 the Medical morning Branch and 1 tablet in the evening. Do all this for 7 days. promethazin 2021-03- No [id number] 5mL Take 5 mL Univers e-dextromet 1-22 11-30 by mouth 4 i ty of horphan 00:00: 05:59 (four) [place] 6.25-15 00 :00 times Medical mg/5 mL daily for Branch syrup 7 days. promethazin 2021-03- No [id number] 5mL Take 5 mL Univers e-dextromet 04-1030 by mouth 4 i ty of horphan 00:00: 05:59 (four) [place] 6.25-15 00 :00 times Medical mg/5 mL daily for Branch syrup 7 days. promethazin 2021-03- No [id number] 5mL Take 5 mL Univers e-dextromet 04-1030 by mouth 4 i ty of horphan 00:00: 05:59 (four) [place] 6.25-15 00 :00 times Medical mg/5 mL daily for Branch syrup 7 days. predniSONE 2021-03- No [id number] 40mg Take 2 Univers 20 mg 04-10-28 tablets by ity of tablet 00:00: 05:59 mouth in [place] 00 :00 the [facility] for 5 days. tenofovir 2021-03 Yes Univers 300 mg 1-16 ity of tablet 00:00: [address] tenofovir 2021-03 Yes Univers 300 mg 1-16 ity of tablet 00:00: [address] tenofovir 2021-03 Yes Univers 300 mg 1-16 ity of tablet 00:00: [address] tenofovir 2021-03 Yes Univers 300 mg 1-16 ity of tablet 00:00: [address] tenofovir 2021-03 Yes Univers 300 mg 1-16 ity of tablet 00:00: [address] tenofovir 2021-03 Yes Univers 300 mg 1-16 ity of tablet 00:00: [address] tenofovir 2021-03 Yes Univers 300 mg 1-16 ity of tablet 00:00: [address] METOPROLOL 2021-03 Yes [id number] TAKE ONE Univers SUCCINATE -02 (1) ity of XL 50 mg 24 00:00: TABLET(S) [place] tablet 00 BY MOUTH Medica l EVERY Branch MORNING AND EVERY EVENING. METOPROLOL 2021-03 Yes [id number] TAKE ONE Univers SUCCINATE -02 (1) ity of XL 50 mg 24 00:00: TABLET(S) [place] hr tablet 00 BY MOUTH Medica l EVERY Branch MORNING AND EVERY EVENING. METOPROLOL 2021-03 Yes [id number] TAKE ONE Univers SUCCINATE 1-02 (1) ity of XL 50 mg 24 00:00: TABLET(S) [place] hr tablet 00 BY MOUTH Medica l EVERY Branch MORNING AND EVERY EVENING. METOPROLOL 2021-03 Yes [id number] TAKE ONE Univers SUCCINATE 1-02 (1) ity of XL 50 mg 24 00:00: TABLET(S) [place] hr tablet 00 BY MOUTH Medica l EVERY Branch MORNING AND EVERY EVENING. METOPROLOL 2021-03 Yes [id number] TAKE ONE Univers SUCCINATE 1-02 (1) ity of XL 50 mg 24 00:00: TABLET(S) [place] hr tablet 00 BY MOUTH Medica l EVERY Branch MORNING AND EVERY EVENING. METOPROLOL 2021-03 Yes [id number] TAKE ONE Univers SUCCINATE 1-02 (1) ity of XL 50 mg 24 00:00: TABLET(S) [place] hr tablet 00 BY MOUTH Medica l EVERY Branch MORNING AND EVERY EVENING. METOPROLOL 2021-03 Yes [id number] TAKE ONE Univers SUCCINATE 1-02 (1) ity of XL 50 mg 24 00:00: TABLET(S) [place] hr tablet 00 BY MOUTH Medica l EVERY Branch MORNING AND EVERY EVENING. METOPROLOL 2021-03 Yes [id number] TAKE ONE Univers SUCCINATE 1-02 (1) ity of XL 50 mg 24 00:00: TABLET(S) [place] hr tablet 00 BY MOUTH Medica l EVERY Branch MORNING AND EVERY EVENING. METOPROLOL 2021-03 Yes [id number] TAKE ONE Univers SUCCINATE 1-02 (1) ity of XL 50 mg 24 00:00: TABLET(S) [place] hr tablet 00 BY MOUTH Medica l EVERY Branch MORNING AND EVERY EVENING. METOPROLOL 2021-03 Yes [id number] TAKE ONE Univers SUCCINATE 1-02 (1) ity of XL 50 mg 24 00:00: TABLET(S) [place] hr tablet 00 BY MOUTH Medica l EVERY Branch MORNING AND EVERY EVENING. METOPROLOL 2021-03 Yes [id number] TAKE ONE Univers SUCCINATE 1-02 (1) ity of XL 50 mg 24 00:00: TABLET(S) [place] hr tablet 00 BY MOUTH Medica l EVERY Branch MORNING AND EVERY EVENING. METOPROLOL 2021-03 Yes [id number] TAKE ONE Univers SUCCINATE -02 (1) ity of XL 50 mg 24 00:00: TABLET(S) [place] hr tablet 00 BY MOUTH Medica l EVERY Branch MORNING AND EVERY EVENING. METOPROLOL 2021-03 Yes [id number] TAKE ONE Univers SUCCINATE -02 (1) ity of XL 50 mg 24 00:00: TABLET(S) [place] hr tablet 00 BY MOUTH Medica l EVERY Branch MORNING AND EVERY EVENING. METOPROLOL 2021-03 Yes [id number] TAKE ONE Univers SUCCINATE - (1) ity of XL 50 mg 24 00:00: TABLET(S) [place] hr tablet 00 BY MOUTH Medica l EVERY Branch MORNING AND EVERY EVENING. METOPROLOL 2021-03- No [id number] TAKE ONE Univers SUCCINATE 02 02 (1) ity of XL 50 mg 24 00:00: 00:00 TABLET(S) [place] hr tablet 00 :00 BY MOUTH Medica l EVERY Branch MORNING AND EVERY EVENING. montelukast 2021-03- No [id number] 10mg Take 1 Univers (SINGULAIR) 0-06 10-17 tablet by it y of 10 mg 00:00: 04:59 mouth in [place] tablet 00 :00 the [facility] for 10 days. montelukast 2021-03- No [id number] 10mg Take 1 Univers (SINGULAIR) 0-06 10-17 tablet by it y of 10 mg 00:00: 04:59 mouth in [place] tablet 00 :00 the [facility] Branch for 10 days. montelukast 2021-03- No [id number] 10mg Take 1 Univers (SINGULAIR) 0-06 10-17 tablet by it y of 10 mg 00:00: 04:59 mouth in [place] tablet 00 :00 the [facility] Branch for 10 days. montelukast 2021-03- No [id number] 10mg Take 1 Univers (SINGULAIR) 0-06 10-17 tablet by it y of 10 mg 00:00: 04:59 mouth in [place] tablet 00 :00 the [facility] Branch for 10 days. predniSONE 2021-03- No [id number] 40mg Take 2 Univers 20 mg 0-06 10-12 tablets by ity of tablet 00:00: 04:59 mouth in [place] 00 :00 the Medical morning Branch for 5 days. predniSONE 2021-03- No [id number] 40mg Take 2 Univers 20 mg 0-06 10-12 tablets by ity of tablet 00:00: 04:59 mouth in [place] 00 :00 the Medical morning Branch for 5 days. predniSONE 2021-03- No [id number] 40mg Take 2 Univers 20 mg 0-06 10-12 tablets by ity of tablet 00:00: 04:59 mouth in [place] 00 :00 the Medical morning Branch for 5 days. predniSONE 2021-03- No [id number] 40mg Take 2 Univers 20 mg 0-06 10-12 tablets by ity of tablet 00:00: 04:59 mouth in [place] 00 :00 the [facility] morning Branch for 5 days. albuterol Yes [id number] 2{puff} Inhale 2 Univers 90 9-30 Puffs ity of mcg/actuati 00:00: every 6 [place] on inhaler 00 (six) Medical hours as Branch needed for Shortness of Breath or Wheezing. azelastine Yes [id number] 1{spray Use 1 Univers 137 mcg 9-30 } [place] in ity of (0.1 %) 00:00: each [place] nasal spray 00 nostril in [facility] the [place] morning and 1 [place] in the evening. Use in each nostril as directed promethazin Yes [id number] 5mL Take 5 mL Univers e-dextromet 9-30 by mouth 4 it y of horphan 00:00: (four) [place] 6.25-15 00 times Medical mg/5 mL daily as Branch syrup needed for Cough. albuterol Yes [id number] 2{puff} Inhale 2 Univers 90 9-30 Puffs ity of mcg/actuati 00:00: every 6 [place] on inhaler 00 (six) Medical hours as Branch needed for Shortness of Breath or Wheezing. azelastine Yes [id number] 1{spray Use 1 Univers 137 mcg 9-30 } [place] in ity of (0.1 %) 00:00: each [place] nasal spray 00 nostril in Me dical the Branch morning and 1 [place] in the evening. Use in each nostril as directed promethazin Yes [id number] 5mL Take 5 mL Univers e-dextromet 9-30 by mouth 4 it y of horphan 00:00: (four) [place] 6.25-15 00 times Medical mg/5 mL daily as Branch syrup needed for Cough. albuterol Yes [id number] 2{puff} Inhale 2 Univers 90 9-30 Puffs ity of mcg/actuati 00:00: every 6 [place] on inhaler 00 (six) Medical hours as Branch needed for Shortness of Breath or Wheezing. azelastine Yes [id number] 1{spray Use 1 Univers 137 mcg 9-30 } [place] in ity of (0.1 %) 00:00: each [place] nasal spray 00 nostril in [facility] the Branch morning and 1 [place] in the evening. Use in each nostril as directed promethazin Yes [id number] 5mL Take 5 mL Univers e-dextromet 9-30 by mouth 4 it y of horphan 00:00: (four) [place] 6.25-15 00 times Medical mg/5 mL daily as Branch syrup needed for Cough. albuterol Yes [id number] 2{puff} Inhale 2 Univers 90 9-30 Puffs ity of mcg/actuati 00:00: every 6 [place] on inhaler 00 (six) Medical hours as Branch needed for Shortness of Breath or Wheezing. azelastine Yes [id number] 1{spray Use 1 Univers 137 mcg 9-30 } [place] in ity of (0.1 %) 00:00: each [place] nasal spray 00 nostril in [facility] the Branch morning and 1 [place] in the evening. Use in each nostril as directed promethazin Yes [id number] 5mL Take 5 mL Univers e-dextromet 9-30 by mouth 4 it y of horphan 00:00: (four) [place] 6.25-15 00 times Medical mg/5 mL daily as Branch syrup needed for Cough. albuterol Yes [id number] 2{puff} Inhale 2 Univers 90 9-30 Puffs ity of mcg/actuati 00:00: every 6 [place] on inhaler 00 (six) Medical hours as Branch needed for Shortness of Breath or Wheezing. azelastine 2021-0 Yes [id number] 1{spray Use 1 Univers 137 mcg 9-30 } [place] in ity of (0.1 %) 00:00: each [place] nasal spray 00 nostril in Me dical the Branch morning and 1 [place] in the evening. Use in each nostril as directed promethazin 2021-0 Yes [id number] 5mL Take 5 mL Univers e-dextromet 9-30 by mouth 4 it y of horphan 00:00: (four) [place] 6.25-15 00 times Medical mg/5 mL daily as Branch syrup needed for Cough. albuterol 0 Yes [id number] 2{puff} Inhale 2 Univers 90 9-30 Puffs ity of mcg/actuati 00:00: every 6 [place] on inhaler 00 (six) Medical hours as Branch needed for Shortness of Breath or Wheezing. azelastine 2021-0 Yes [id number] 1{spray Use 1 Univers 137 mcg 9-30 } [place] in ity of (0.1 %) 00:00: each [place] nasal spray 00 nostril in Co dical the Branch morning and 1 [place] in the evening. Use in each nostril as directed promethazin 2021-0 Yes [id number] 5mL Take 5 mL Univers e-dextromet 9-30 by mouth 4 it y of horphan 00:00: (four) [place] 6.25-15 00 times Medical mg/5 mL daily as Branch syrup needed for Cough. albuterol 2021-0 Yes [id number] 2{puff} Inhale 2 Univers 90 9-30 Puffs ity of mcg/actuati 00:00: every 6 [place] on inhaler 00 (six) Medical hours as Branch needed for Shortness of Breath or Wheezing. azelastine 2021-0 Yes [id number] 1{spray Use 1 Univers 137 mcg 9-30 } [place] in ity of (0.1 %) 00:00: each [place] nasal spray 00 nostril in Me dical the Branch morning and 1 [place] in the evening. Use in each nostril as directed promethazin 2021-0 Yes [id number] 5mL Take 5 mL Univers e-dextromet 9-30 by mouth 4 it y of horphan 00:00: (four) [place] 6.25-15 00 times Medical mg/5 mL daily as Branch syrup needed for Cough. albuterol Yes [id number] 2{puff} Inhale 2 Univers 90 9-30 Puffs ity of mcg/actuati 00:00: every 6 [place] on inhaler 00 (six) Medical hours as Branch needed for Shortness of Breath or Wheezing. azelastine Yes [id number] 1{spray Use 1 Univers 137 mcg 9-30 } [place] in ity of (0.1 %) 00:00: each [place] nasal spray 00 nostril in Me dical the Branch morning and 1 [place] in the evening. Use in each nostril as directed promethazin Yes [id number] 5mL Take 5 mL Univers e-dextromet 9-30 by mouth 4 it y of horphan 00:00: (four) [place] 6.25-15 00 times Medical mg/5 mL daily as Branch syrup needed for Cough. albuterol Yes [id number] 2{puff} Inhale 2 Univers 90 9-30 Puffs ity of mcg/actuati 00:00: every 6 [place] as on inhaler 00 (six) Medical hours as Branch needed for Shortness of Breath or Wheezing. azelastine Yes [id number] 1{spray Use 1 Univers 137 mcg 9-30 } [place] in ity of (0.1 %) 00:00: each [place] nasal spray 00 nostril in Me dical the Branch morning and 1 [place] in the evening. Use in each nostril as directed promethazin 0 Yes [id number] 5mL Take 5 mL Univers e-dextromet 9-30 by mouth 4 it y of horphan 00:00: (four) [place] 6.25-15 00 times Medical mg/5 mL daily as Branch syrup needed for Cough. albuterol Yes [id number] 2{puff} Inhale 2 Univers 90 9-30 Puffs ity of mcg/actuati 00:00: every 6 [place] on inhaler 00 (six) Medical hours as Branch needed for Shortness of Breath or Wheezing. azelastine Yes [id number] 1{spray Use 1 Univers 137 mcg 9-30 } [place] in ity of (0.1 %) 00:00: each [place] nasal spray 00 nostril in Co dical the Branch morning and 1 [place] in the evening. Use in each nostril as directed promethazin Yes [id number] 5mL Take 5 mL Univers e-dextromet 9-30 by mouth 4 it y of horphan 00:00: (four) [place] 6.25-15 00 times Medical mg/5 mL daily as Branch syrup needed for Cough. albuterol Yes [id number] 2{puff} Inhale 2 Univers 90 9-30 Puffs ity of mcg/actuati 00:00: every 6 [place] on inhaler 00 (six) Medical hours as Branch needed for Shortness of Breath or Wheezing. azelastine Yes [id number] 1{spray Use 1 Univers 137 mcg 9-30 } [place] in ity of (0.1 %) 00:00: each [place] nasal spray 00 nostril in [facility] the Branch morning and 1 [place] in the evening. Use in each nostril as directed promethazin Yes [id number] 5mL Take 5 mL Univers e-dextromet 9-30 by mouth 4 it y of horphan 00:00: (four) [place] 6.25-15 00 times Medical mg/5 mL daily as Branch syrup needed for Cough. albuterol Yes [id number] 2{puff} Inhale 2 Univers 90 9-30 Puffs ity of mcg/actuati 00:00: every 6 [place] on inhaler 00 (six) Medical hours as Branch needed for Shortness of Breath or Wheezing. azelastine Yes [id number] 1{spray Use 1 Univers 137 mcg 9-30 } [place] in ity of (0.1 %) 00:00: each [place] nasal spray 00 nostril in [facility] the Branch morning and 1 [place] in the evening. Use in each nostril as directed promethazin Yes [id number] 5mL Take 5 mL Univers e-dextromet 9-30 by mouth 4 it y of horphan 00:00: (four) [place] 6.25-15 00 times Medical mg/5 mL daily as Branch syrup needed for Cough. albuterol Yes [id number] 2{puff} Inhale 2 Univers 90 9-30 Puffs ity of mcg/actuati 00:00: every 6 [place] on inhaler 00 (six) Medical hours as Branch needed for Shortness of Breath or Wheezing. azelastine Yes [id number] 1{spray Use 1 Univers 137 mcg 9-30 } [place] in ity of (0.1 %) 00:00: each [place] nasal spray 00 nostril in Me [facility]ical the Branch morning and 1 [place] in the evening. Use in each nostril as directed promethazin Yes [id number] 5mL Take 5 mL Univers e-dextromet 9-30 by mouth 4 it y of horphan 00:00: (four) [place] 6.25-15 00 times Medical mg/5 mL daily as Branch syrup needed for Cough. albuterol Yes [id number] 2{puff} Inhale 2 Univers 90 9-30 Puffs ity of mcg/actuati 00:00: every 6 [place] on inhaler 00 (six) Medical hours as Branch needed for Shortness of Breath or Wheezing. azelastine Yes [id number] 1{spray Use 1 Univers 137 mcg 9-30 } [place] in ity of (0.1 %) 00:00: each [place] nasal spray 00 nostril in Co dical the Branch morning and 1 [place] in the evening. Use in each nostril as directed promethazin Yes [id number] 5mL Take 5 mL Univers e-dextromet 9-30 by mouth 4 it y of horphan 00:00: (four) [place] 6.25-15 00 times Medical mg/5 mL daily as Branch syrup needed for Cough. albuterol Yes [id number] 2{puff} Inhale 2 Univers 90 9-30 Puffs ity of mcg/actuati 00:00: every 6 [place] on inhaler 00 (six) Medical hours as Branch needed for Shortness of Breath or Wheezing. azelastine Yes [id number] 1{spray Use 1 Univers 137 mcg 9-30 } [place] in ity of (0.1 %) 00:00: each [place] nasal spray 00 nostril in Co dical the Branch morning and 1 [place] in the evening. Use in each nostril as directed promethazin Yes [id number] 5mL Take 5 mL Univers e-dextromet 9-30 by mouth 4 it y of horphan 00:00: (four) [place] 6.25-15 00 times Medical mg/5 mL daily as Branch syrup needed for Cough. albuterol Yes [id number] 2{puff} Inhale 2 Univers 90 9-30 Puffs ity of mcg/actuati 00:00: every 6 [place] on inhaler 00 (six) Medical hours as Branch needed for Shortness of Breath or Wheezing. azelastine Yes [id number] 1{spray Use 1 Univers 137 mcg 9-30 } [place] in ity of (0.1 %) 00:00: each [place] nasal spray 00 nostril in Co dical the Branch morning and 1 [place] in the evening. Use in each nostril as directed promethazin Yes [id number] 5mL Take 5 mL Univers e-dextromet 9-30 by mouth 4 it y of horphan 00:00: (four) [place] 6.25-15 00 times Medical mg/5 mL daily as Branch syrup needed for Cough. albuterol Yes [id number] 2{puff} Inhale 2 Univers 90 9-30 Puffs ity of mcg/actuati 00:00: every 6 [place] on inhaler 00 (six) Medical hours as Branch needed for Shortness of Breath or Wheezing. azelastine Yes [id number] 1{spray Use 1 Univers 137 mcg 9-30 } [place] in ity of (0.1 %) 00:00: each [place] nasal spray 00 nostril in Me dical the Branch morning and 1 [place] in the evening. Use in each nostril as directed promethazin Yes [id number] 5mL Take 5 mL Univers e-dextromet 9-30 by mouth 4 it y of [place] 00:00: (four) [place] 6.25-15 00 times Medical mg/5 mL daily as Branch syrup needed for Cough. albuterol Yes [id number] 2{puff} Inhale 2 [facility] 90 9-30 Puffs ity of mcg/actuati 00:00: every 6 [place] as on inhaler 00 (six) Medical hours as Branch needed for Shortness of Breath or Wheezing. azelastine 2021-0 Yes [id number] 1{spray Use 1 [facility] 137 mcg 9-30 } [place] in ity of (0.1 %) 00:00: each [place] nasal spray 00 nostril in Me dical the Branch morning and 1 [place] in the evening. Use in each nostril as directed promethazin 2021-0 Yes [id number] 5mL Take 5 mL [facility] e-dextromet 9-30 by mouth 4 it y of [place] 00:00: (four) [place] 6.25-15 00 times Medical mg/5 mL daily as Branch syrup needed for Cough. albuterol 2021-0 Yes [id number] 2{puff} Inhale 2 [facility] 90 9-30 Puffs ity of mcg/actuati 00:00: every 6 [place] as on inhaler 00 (six) Medical hours as Branch needed for Shortness of Breath or Wheezing. azelastine 2021-0 Yes [id number] 1{spray Use 1 [facility] 137 mcg 9-30 } [place] in ity of (0.1 %) 00:00: each [place] nasal spray 00 nostril in Co dical the Branch morning and 1 [place] in the evening. Use in each nostril as directed promethazin 2021-0 Yes [id number] 5mL Take 5 mL [facility] e-dextromet 9-30 by mouth 4 it y of [place] 00:00: (four) [place] 6.25-15 00 times Medical mg/5 mL daily as Branch syrup needed for Cough. albuterol 2021-0 Yes [id number] 2{puff} Inhale 2 [facility] 90 9-30 Puffs ity of mcg/actuati 00:00: every 6 [place] on inhaler 00 (six) Medical hours as Branch needed for Shortness of Breath or Wheezing. azelastine 2021-0 Yes [id number] 1{spray Use 1 [facility] 137 mcg 9-30 } [place] in ity of (0.1 %) 00:00: each [place] nasal spray 00 nostril in Co dical the Branch morning and 1 [place] in the evening. Use in each nostril as directed promethazin 2021-0 Yes [id number] 5mL Take 5 mL [facility] e-dextromet 9-30 by mouth 4 it y of [place] 00:00: (four) [place] 6.25-15 00 times Medical mg/5 mL daily as Branch syrup needed for Cough. albuterol Yes [id number] 2{puff} Inhale 2 [facility] 90 9-30 Puffs ity of mcg/actuati 00:00: every 6 [place] on inhaler 00 (six) Medical hours as Branch needed for Shortness of Breath or Wheezing. azelastine Yes [id number] 1{spray Use 1 [facility] 137 mcg 9-30 } [place] in ity of (0.1 %) 00:00: each [place] nasal spray 00 nostril in Me dical the Branch morning and 1 [place] in the evening. Use in each nostril as directed promethazin Yes [id number] 5mL Take 5 mL [facility] e-dextromet 9-30 by mouth 4 it y of [place] 00:00: (four) [place] 6.25-15 00 times Medical mg/5 mL daily as Branch syrup needed for Cough. albuterol Yes [id number] 2{puff} Inhale 2 [facility] 90 9-30 Puffs ity of mcg/actuati 00:00: every 6 [place] on inhaler 00 (six) Medical hours as Branch needed for Shortness of Breath or Wheezing. azelastine Yes [id number] 1{spray Use 1 [facility] 137 mcg 9-30 } [place] in ity of (0.1 %) 00:00: each [place] nasal spray 00 nostril in Me dical the Branch morning and 1 [place] in the evening. Use in each nostril as directed promethazin 0 Yes [id number] 5mL Take 5 mL [facility] e-dextromet 9-30 by mouth 4 it y of [place] 00:00: (four) [place] 6.25-15 00 times Medical mg/5 mL daily as Branch syrup needed for Cough. albuterol Yes [id number] 2{puff} Inhale 2 [facility] 90 9-30 Puffs ity of mcg/actuati 00:00: every 6 [place] as on inhaler 00 (six) Medical hours as Branch needed for Shortness of Breath or Wheezing. azelastine Yes [id number] 1{spray Use 1 [facility] 137 mcg 9-30 } [place] in ity of (0.1 %) 00:00: each [place] nasal spray 00 nostril in Co dical the Branch morning and 1 [place] in the evening. Use in each nostril as directed promethazin Yes [id number] 5mL Take 5 mL [facility] e-dextromet 9-30 by mouth 4 it y of [place] 00:00: (four) [place] 6.25-15 00 times Medical mg/5 mL daily as Branch syrup needed for Cough. albuterol Yes [id number] 2{puff} Inhale 2 [facility] 90 9-30 Puffs ity of mcg/actuati 00:00: every 6 [place] as on inhaler 00 (six) Medical hours as Branch needed for Shortness of Breath or Wheezing. azelastine Yes [id number] 1{spray Use 1 [facility] 137 mcg 9-30 } [place] in ity of (0.1 %) 00:00: each [place] [facility] [address] [facility] and 1 [place] in the evening. Use in each nostril as directed promethazin Yes [id number] 5mL Take 5 mL [facility] e-dextromet 9-30 by mouth 4 it y of [place] 00:00: (four) [place] 6.25-15 00 times Medical mg/5 mL daily as Branch syrup needed for Cough. albuterol Yes [id number] 2{puff} Inhale 2 [facility] 90 9-30 Puffs ity of mcg/actuati 00:00: every 6 [place] as on inhaler 00 (six) Medical hours as Branch needed for Shortness of Breath or Wheezing. azelastine Yes [id number] 1{spray Use 1 [facility] 137 mcg 9-30 } [place] in ity of (0.1 %) 00:00: each [place] nasal spray 00 nostril in Co dical the Branch morning and 1 [place] in the evening. Use in each nostril as directed promethazin Yes [id number] 5mL Take 5 mL [facility] e-dextromet 9-30 by mouth 4 it y of [place] 00:00: (four) [place] 6.25-15 00 times Medical mg/5 mL daily as Branch syrup needed for Cough. benzonatate 0 2021- No [id number] 200mg Take 2 [facility] 100 mg 9-30 09-30 capsules ity of capsule 00:00: 00:00 by mouth [place] 00 :00 every 8 Medical (eight) Branch hours as needed for Cough. benzonatate 0 2021- No [id number] 200mg Take 2 [facility] 100 mg 9-30 -30 capsules ity of capsule 00:00: 00:00 by mouth [place] 00 :00 every 8 Medical (eight) Branch hours as needed for Cough. amoxicillin Yes 1{tbl} Take 1 Un [facility] -clavulanat [...] 00:00: DIRECTIONS [place] [facility] amoxicillin 2022-0 Yes 1{tbl} Take 1 Un megan -clavulanat [...] amoxicillin 0 Yes 1{tbl} Take 1 Un [facility] -clavulanat 9-29 tablet by ity of e [...] 00:00: DIRECTIONS [place] [facility] azithromyci 2021-0 2021- No TAKE 2 Uni vers n [...] TIMES Branch DAILY NEEDED FOR COUGH losartan-hy 2021-0 Yes [id number] 1{tbl} Take 1 [facility] drochloroth 7-29 tablet by ity of iazide 00:00: mouth in [place] 50-12.5 mg 00 the Medical per tablet morning. [facility] losartan-hy 0 Yes [id number] 1{tbl} Take 1 [facility] drochloroth 7-29 tablet by ity of iazide 00:00: mouth in [place] 50-12.5 mg 00 the Medical per tablet morning. [facility] losartan-hy 0 Yes [id number] 1{tbl} Take 1 [facility] drochloroth 7-29 tablet by ity of iazide 00:00: mouth in [place] 50-12.5 mg 00 the Medical per tablet morning. [facility] losartan-hy 2021-0 Yes [id number] 1{tbl} Take 1 [facility] drochloroth 7-29 tablet by ity of iazide 00:00: mouth in [place] 50-12.5 mg 00 the Medical per tablet morning. [facility] losartan-hy 2021-0 Yes [id number] 1{tbl} Take 1 [facility] drochloroth 7-29 tablet by ity of iazide 00:00: mouth in [place] 50-12.5 mg 00 the Medical per tablet morning. [facility] h losartan-hy 2021-0 Yes [id number] 1{tbl} Take 1 [facility] drochloroth 7-29 tablet by ity of iazide 00:00: mouth in [place] 50-12.5 mg 00 the Medical per tablet morning. [facility] losartan-hy 2021-0 Yes [id number] 1{tbl} Take 1 [facility] drochloroth 7-29 tablet by ity of iazide 00:00: mouth in [place] 50-12.5 mg 00 the Medical per tablet morning. [facility] losartan-hy 2-0 Yes [id number] 1{tbl} Take 1 [facility] drochloroth 7-29 tablet by ity of iazide 00:00: mouth in [place] 50-12.5 mg 00 the Medical per tablet morning. [facility] losartan-hy 2022-0 Yes [id number] 1{tbl} Take 1 [facility] drochloroth 7-29 tablet by ity of iazide 00:00: mouth in [place] 50-12.5 mg 00 the Medical per tablet morning. [facility] losartan-hy 2021-0 Yes [id number] 1{tbl} Take 1 [facility] drochloroth 7-29 tablet by ity of iazide 00:00: mouth in [place] 50-12.5 mg 00 the Medical per tablet morning. [facility] losartan-hy 2021-0 Yes [id number] 1{tbl} Take 1 [facility] drochloroth 7-29 tablet by ity of iazide 00:00: mouth in [place] 50-12.5 mg 00 the Medical per tablet morning. [facility] losartan-hy 2021-0 Yes [id number] 1{tbl} Take 1 [facility] drochloroth 7-29 tablet by ity of iazide 00:00: mouth in [place] 50-12.5 mg 00 the Medical per tablet morning. [facility] losartan-hy 2021-0 Yes [id number] 1{tbl} Take 1 [facility] drochloroth 7-29 tablet by ity of iazide 00:00: mouth in [place] 50-12.5 mg 00 the Medical per tablet morning. [facility] losartan-hy 2021-0 Yes [id number] 1{tbl} Take 1 [facility] drochloroth 7-29 tablet by ity of iazide 00:00: mouth in [place] 50-12.5 mg 00 the Medical per tablet morning. [facility] losartan-hy 2-0 Yes [id number] 1{tbl} Take 1 [facility] drochloroth 7-29 tablet by ity of iazide 00:00: mouth in [place] 50-12.5 mg 00 the Medical per tablet morning. [facility] losartan-hy 2021-0 Yes [id number] 1{tbl} Take 1 [facility] drochloroth 7-29 tablet by ity of iazide 00:00: mouth in [place] 50-12.5 mg 00 the Medical per tablet morning. [facility] losartan-hy 2021-0 Yes [id number] 1{tbl} Take 1 [facility] drochloroth 7-29 tablet by ity of iazide 00:00: mouth in [place] 50-12.5 mg 00 the Medical per tablet morning. [facility] losartan-hy 2021-0 Yes [id number] 1{tbl} Take 1 [facility] drochloroth 7-29 tablet by ity of iazide 00:00: mouth in [place] 50-12.5 mg 00 the Medical per tablet morning. [facility] losartan-hy 2021-0 Yes [id number] 1{tbl} Take 1 [facility] drochloroth 7-29 tablet by ity of iazide 00:00: mouth in [place] 50-12.5 mg 00 the Medical per tablet morning. [facility] losartan-hy 2021-0 Yes [id number] 1{tbl} Take 1 [facility] drochloroth 7-29 tablet by ity of iazide 00:00: mouth in [place] 50-12.5 mg 00 the Medical per tablet morning. [facility] losartan-hy 2021-0 Yes [id number] 1{tbl} Take 1 [facility] drochloroth 7-29 tablet by ity of iazide 00:00: mouth in [place] 50-12.5 mg 00 the Medical per tablet morning. [facility] losartan-hy 2021-0 2022- No [id number] 1{tbl} Take 1 [facility] drochloroth 7-29 12-07 tablet by it y of iazide 00:00: 00:00 mouth in [place] 50-12.5 mg 00 :00 the Medical per tablet morning. [facility] metoprolol 2021-0 Yes [id number] 50mg Take 1 U nivers succinate 7-27 tablet by ity o f XL 50 mg 24 00:00: mouth in [place] hr tablet 00 the Medical morning Branch and 1 tablet in the evening. metoprolol 2-0 Yes [id number] 50mg Take 1 U nivers succinate 7-27 tablet by ity o f XL 50 mg 24 00:00: mouth in [place] hr tablet 00 the Medical morning Branch and 1 tablet in the evening. metoprolol 2021-0 Yes [id number] 50mg Take 1 U nivers succinate 7-27 tablet by ity o f XL 50 mg 24 00:00: mouth in [place] hr tablet 00 the Medical morning Branch and 1 tablet in the evening. metoprolol 2021-0 Yes [id number] 50mg Take 1 U nivers succinate 7-27 tablet by ity o f XL 50 mg 24 00:00: mouth in [place] hr tablet 00 the Medical morning Branch and 1 tablet in the evening. metoprolol 2021-0 Yes [id number] 50mg Take 1 U nivers succinate 7-27 tablet by ity o f XL 50 mg 24 00:00: mouth in [place] hr tablet 00 the Medical morning Branch and 1 tablet in the evening. metoprolol 2021-0 Yes [id number] 50mg Take 1 U nivers succinate 7-27 tablet by ity o f XL 50 mg 24 00:00: mouth in [place] hr tablet 00 the Medical morning Branch and 1 tablet in the evening. metoprolol 2021-0 Yes [id number] 50mg Take 1 U nivers succinate 7-27 tablet by ity o f XL 50 mg 24 00:00: mouth in [place] hr tablet 00 the Medical morning Branch and 1 tablet in the evening. metoprolol 2021-0 Yes [id number] 50mg Take 1 U nivers succinate 7-27 tablet by ity o f XL 50 mg 24 00:00: mouth in [place] hr tablet 00 the Medical morning Branch and 1 tablet in the evening. metoprolol 2021-0 Yes [id number] 50mg Take 1 U nivers succinate 7-27 tablet by ity o f XL 50 mg 24 00:00: mouth in [place] hr tablet 00 the Medical morning Branch and 1 tablet in the evening. metoprolol 2021-0 Yes [id number] 50mg Take 1 U nivers succinate 7-27 tablet by ity o f XL 50 mg 24 00:00: mouth in [place] hr tablet 00 the Medical morning Branch and 1 tablet in the evening. metoprolol 2021-0 Yes [id number] 50mg Take 1 U nivers succinate 7-27 tablet by ity o f XL 50 mg 24 00:00: mouth in [place] hr tablet 00 the Medical morning Branch and 1 tablet in the evening. metoprolol 2022-0 Yes [id number] 50mg Take 1 U nivers succinate 7-27 tablet by ity o f XL 50 mg 24 00:00: mouth in [place] hr tablet 00 the Medical morning Branch and 1 tablet in the evening. metoprolol 2021-0 Yes [id number] 50mg Take 1 U nivers succinate 7-27 tablet by ity o f XL 50 mg 24 00:00: mouth in [place] hr tablet 00 the Medical morning Branch and 1 tablet in the evening. metoprolol 0 Yes [id number] 50mg Take 1 U nivers succinate 7-27 tablet by ity o f XL 50 mg 24 00:00: mouth in [place] hr tablet 00 the Medical morning Branch and 1 tablet in the evening. metoprolol 0 Yes [id number] 50mg Take 1 U nivers succinate 7-27 tablet by ity o f XL 50 mg 24 00:00: mouth in [place] hr tablet 00 the Medical morning Branch and 1 tablet in the evening. metoprolol 2021- No [id number] 50mg Take 1 [facility] succinate 7-27 -02 tablet by ity of XL 50 mg 24 00:00: 00:00 mouth [place] hr tablet 00 :00 the Medical morning Branch and 1 tablet in the evening. fluconazole Yes [id number] 200mg Take 1 [facility] 200 mg 7-05 tablet by ity of tablet 00:00: mouth [place] 00 daily. [facility] Branch fluconazole 2021-0 Yes [id number] 200mg Take 1 [facility] 200 mg 7-05 tablet by ity of tablet 00:00: mouth [place] 00 daily. [facility] Branch fluconazole 2021-0 Yes [id number] 200mg Take 1 [facility] 200 mg 7-05 tablet by ity of tablet 00:00: mouth [place] 00 daily. [facility] Branch fluconazole 2021-0 Yes [id number] 200mg Take 1 [facility] 200 mg 7-05 tablet by ity of tablet 00:00: mouth [place] 00 daily. [facility] Branch fluconazole 2021-0 Yes [id number] 200mg Take 1 [facility] 200 mg 7-05 tablet by ity of tablet 00:00: mouth [place] 00 daily. [facility] Branch fluconazole 2021-0 Yes [id number] 200mg Take 1 [facility] 200 mg 7-05 tablet by ity of tablet 00:00: mouth [place] 00 daily. [facility] Branch fluconazole 2022-0 Yes [id number] 200mg Take 1 [facility] 200 mg 7-05 tablet by ity of tablet 00:00: mouth [place] 00 daily. [facility] Branch fluconazole 2021-0 Yes [id number] 200mg Take 1 [facility] 200 mg 7-05 tablet by ity of tablet 00:00: mouth [place] 00 daily. [facility] Branch fluconazole 2021-0 Yes [id number] 200mg Take 1 [facility] 200 mg 7-05 tablet by ity of tablet 00:00: mouth [place] 00 daily. [facility] Branch fluconazole 2021-0 Yes [id number] 200mg Take 1 [facility] 200 mg 7-05 tablet by ity of tablet 00:00: mouth [place] 00 daily. [facility] Branch fluconazole 2021-0 Yes [id number] 200mg Take 1 [facility] 200 mg 7-05 tablet by ity of tablet 00:00: mouth [place] 00 daily. [facility] Branch fluconazole 2021-0 Yes [id number] 200mg Take 1 [facility] 200 mg 7-05 tablet by ity of tablet 00:00: mouth [place] 00 daily. [facility] Branch fluconazole 2021-0 Yes [id number] 200mg Take 1 [facility] 200 mg 7-05 tablet by ity of tablet 00:00: mouth [place] 00 daily. [facility] Branch fluconazole 2021-0 Yes [id number] 200mg Take 1 [facility] 200 mg 7-05 tablet by ity of tablet 00:00: mouth [place] 00 daily. [facility] fluconazole 2021-0 Yes [id number] 200mg Take 1 [facility] 200 mg 7-05 tablet by ity of tablet 00:00: mouth [place] 00 daily. [facility] Branch fluconazole 2021-0 Yes [id number] 200mg Take 1 [facility] 200 mg 7-05 tablet by ity of tablet 00:00: mouth [place] 00 daily. [facility] Branch fluconazole 2021-0 Yes [id number] 200mg Take 1 [facility] 200 mg 7-05 tablet by ity of tablet 00:00: mouth [place] 00 daily. [facility] Branch fluconazole 2-0 Yes [id number] 200mg Take 1 [facility] 200 mg 7-05 tablet by ity of tablet 00:00: mouth [place] 00 daily. [facility] Branch fluconazole 2-0 Yes [id number] 200mg Take 1 [facility] 200 mg 7-05 tablet by ity of tablet 00:00: mouth [place] 00 daily. [facility] fluconazole 2-0 Yes [id number] 200mg Take 1 [facility] 200 mg 7-05 tablet by ity of tablet 00:00: mouth [place] 00 daily. [facility] fluconazole Yes [id number] 200mg Take 1 [facility] 200 mg 7-05 tablet by ity of tablet 00:00: mouth [place] 00 daily. Medical Branch fluconazole Yes [id number] 200mg Take 1 [facility] 200 mg 7-05 tablet by ity of tablet 00:00: mouth [place] 00 daily. Medical Branch fluconazole Yes [id number] 200mg Take 1 [facility] 200 mg 7-05 tablet by ity of tablet 00:00: mouth [place] 00 daily. Medical Branch fluconazole Yes [id number] 200mg Take 1 [facility] 200 mg 7-05 tablet by ity of tablet 00:00: mouth [place] 00 daily. Medical Branch fluconazole Yes [id number] 200mg Take 1 [facility] 200 mg 7-05 tablet by ity of tablet 00:00: mouth [place] 00 daily. Medical Branch fluconazole Yes [id number] 200mg Take 1 [facility] 200 mg 7-05 tablet by ity of tablet 00:00: mouth [place] 00 daily. Medical Branch fluconazole 2021- No [id number] 200mg Take 1 [facility] 200 mg 7-05 12-11 tablet by ity of tablet 00:00: 00:00 mouth [place] 00 :00 daily. Medical Branch losartan-hy Yes [id number] 1{tbl} Take 1 [facility] drochloroth 6-06 tablet by ity of iazide 00:00: mouth [place] 50-12.5 mg 00 daily. Medical per tablet Branch losartan-hy Yes [id number] 1{tbl} Take 1 [facility] drochloroth 6-06 tablet by ity of iazide 00:00: mouth [place] 50-12.5 mg 00 daily. Medical per tablet Branch losartan-hy Yes [id number] 1{tbl} Take 1 [facility] drochloroth 6-06 tablet by ity of iazide 00:00: mouth [place] 50-12.5 mg 00 daily. Medical per tablet Branch losartan-hy 0 2- No [id number] 1{tbl} Take 1 [facility] drochloroth 6-06 07-27 tablet by it y of iazide 00:00: 00:00 mouth [place] 50-12.5 mg 00 :00 daily. Medical per tablet Branch methocarbam 2022-0 Yes 500mg Take 500 U nivers oL 500 mg 5-27 mg by ity of tablet 11:38: mouth [place] [address] daily Medical before a Branch meal. [facility] 2021-[facility]-27 mouth. ity of (VEMLIDY) 11:38: [place] 25 mg Tab 52 Medical Branch HYDROcodone 2021-0 Yes Take by Uni vers bitartrate 5-27 mouth. ity of 10 mg CR12 11:38: [place] [address] Medical Branch escitalopra 0 Yes 20mg Take 20 mg [facility] m oxalate 5-27 by mouth ity of 20 mg 11:38: daily. [place] tablet 52 Medical Branch ALPRAZolam 0 Yes .5mg Take 0.5 Uni vers (XANAX) 0.5 5-27 mg by ity of mg tablet 11:38: mouth [place] 52 daily. Medical Branch methocarbam 0 Yes 500mg Take 500 U nivers oL 500 mg 5-27 mg by ity of tablet 11:38: mouth [place] [address] daily Medical before a Branch meal. tenofovir 2021-0 Yes Take by [facility] rs alafenamide 5-27 mouth. ity of (VEMLIDY) 11:38: [place] 25 mg Tab 52 Medical Branch HYDROcodone 0 Yes Take by Uni vers bitartrate 5-27 mouth. ity of 10 mg CR12 11:38: [place] [address] Medical Branch escitalopra 0 Yes 20mg Take 20 mg [facility] m oxalate 5-27 by mouth ity of 20 mg 11:38: daily. [place] tablet 52 Medical Branch ALPRAZolam 0 Yes .5mg Take 0.5 Uni vers (XANAX) 0.5 5-27 mg by ity of mg tablet 11:38: mouth [place] 52 daily. Medical Branch methocarbam 0 Yes 500mg Take 500 U nivers oL 500 mg 5-27 mg by ity of tablet 11:38: mouth [place] 52 daily Medical before a Branch meal. tenofovir 2021-0 Yes [facility] by [facility] alafen[facility] 5-27 mouth. ity of (VEMLIDY) 11:38: [place] 25 mg Tab 52 Medical Branch HYDROcodone 2021-0 Yes Take by Uni vers bitartrate 5-27 mouth. ity of 10 mg CR12 11:38: [place] [address] Medical Branch escitalopra 2021-0 Yes 20mg Take [...] mg by ity of tablet 11:38: mouth [place] 52 daily Medical before a Branch meal. tenofovir 2021-0 Yes Take by [facility] rs alafenamide 5-27 mouth. ity of (VEMLIDY) 11:38: [place] 25 mg Tab 52 Medical Branch HYDROcodone 0 Yes Take by Uni vers bitartrate 5-27 mouth. ity of 10 mg CR12 11:38: [place] [address] Medical Branch escitalopra 0 Yes 20mg Take 20 mg [facility] m oxalate 5-27 by mouth ity of 20 mg 11:38: daily. [place] tablet 52 Medical Branch ALPRAZolam 0 Yes .5mg Take 0.5 Uni vers (XANAX) 0.5 5-27 mg by ity of mg tablet 11:38: mouth [place] 52 daily. Medical Branch methocarbam 0 Yes 500mg Take 500 U nivers oL 500 mg 5-27 mg by ity of tablet 11:38: mouth [place] 52 daily Medical before a Branch meal. tenofovir 2021-0 Yes [facility] al[facility] 5-27 mouth. ity of (VEMLIDY) 11:38: [place] 25 mg Tab 52 Medical Branch HYDROcodone 2021-0 Yes Take by Uni vers bitartrate 5-27 mouth. ity of 10 mg CR12 11:38: [place] [address] Medical Branch escitalopra 2021-0 Yes 20mg Take 20 mg [facility] m oxalate 5-27 by mouth ity of 20 mg 11:38: daily. [place] tablet 52 Medical Branch ALPRAZolam 0 Yes .5mg Take 0.5 Uni vers (XANAX) 0.5 5-27 mg by ity of mg tablet 11:38: mouth [place] 52 daily. Medical Branch methocarbam 2021-0 Yes 500mg Take 500 U nivers oL 500 mg 5-27 mg by ity of tablet 11:38: mouth [place] 52 daily Medical before a Branch meal. tenofovir 0 Yes Take by [facility] alafenamide 5-27 mouth. ity of (VEMLIDY) 11:38: [place] 25 mg Tab 52 Medical Branch HYDROcodone 0 Yes Take by [facility] vers bitartrate 5-27 mouth. ity of 10 mg CR12 11:38: [place] [address] Medical Branch escitalopra 0 Yes 20mg Take 20 mg [facility] m oxalate 5-27 by mouth ity of 20 mg 11:38: daily. [place] tablet 52 Medical Branch ALPRAZolam 0 Yes .5mg Take 0.5 Uni vers (XANAX) 0.5 5-27 mg by ity of mg tablet 11:38: mouth [place] 52 daily. Medical Branch methocarbam 0 Yes 500mg Take 500 U nivers oL 500 mg 5-27 mg by ity of tablet 11:38: mouth [place] [address] daily Medical before a Branch meal. tenofovir 2021-0 Yes Take by [facility] rs alafenamide 5-27 mouth. ity of (VEMLIDY) 11:38: [place] 25 mg Tab 52 Medical Branch HYDROcodone 0 Yes Take by Uni vers bitartrate 5-27 mouth. ity of 10 mg CR12 11:38: [place] [address] Medical Branch escitalopra 0 Yes 20mg Take 20 mg [facility] m oxalate 5-27 by mouth ity of 20 mg 11:38: daily. [place] tablet Medical Branch ALPRAZolam 0 Yes .5mg Take 0.5 Uni vers (XANAX) 0.5 5-27 mg by ity of mg tablet 11:38: mouth [place] [address] daily. Medical Branch methocarbam 0 Yes 500mg Take 500 U nivers oL 500 mg 5-27 mg by ity of tablet 11:38: mouth [place] 52 daily Medical before a Branch meal. tenofovir 2021-0 Yes Take by [facility] alafenamide 5-27 mouth. ity of (VEMLIDY) 11:38: [place] 25 mg Tab 52 Medical Branch HYDROcodone 0 Yes Take by [facility] vers bitartrate 5-27 mouth. ity of 10 mg CR12 11:38: [place] [address] Medical Branch escitalopra 2022-0 Yes 20mg Take [...] Branch meal. tenofovir 2021-0 Yes Take by [facility] alafenamide 5-27 mouth. ity of (VEMLIDY) 11:38: [place] 25 mg Tab 52 Medical Branch HYDROcodone 0 Yes Take by [facility] vers bitartrate 5-27 mouth. ity of 10 mg CR12 11:38: [place] [address] Medical Branch escitalopra 0 Yes 20mg Take 20 mg [facility] m oxalate 5-27 by mouth ity of 20 mg 11:38: daily. [place] tablet 52 Medical Branch ALPRAZolam 0 Yes .5mg Take 0.5 Uni vers (XANAX) 0.5 5-27 mg by ity of mg tablet 11:38: mouth [place] 52 daily. Medical Branch methocarbam 0 Yes 500mg Take 500 U nivers oL 500 mg 5-27 mg by ity of tablet 11:38: mouth [place] 52 daily Medical before a Branch meal. tenofovir 2021-0 Yes Take by [facility] alafenamide 5-27 mouth. ity of (VEMLIDY) 11:38: [place] 25 mg Tab 52 Medical Branch HYDROcodone 0 Yes Take by [facility] vers bitartrate 5-27 mouth. ity of 10 mg CR12 11:38: [place] [address] Medical Branch escitalopra 0 Yes 20mg Take 20 mg [facility] m oxalate 5-27 by mouth ity of 20 mg 11:38: daily. [place] tablet 52 Medical Branch ALPRAZolam 0 Yes .5mg Take 0.5 Uni vers (XANAX) 0.5 5-27 mg by ity of mg tablet 11:38: mouth [place] 52 daily. Medical Branch methocarbam 2021-0 Yes 500mg Take 500 U nivers oL 500 mg 5-27 mg by ity of tablet 11:38: mouth [place] 52 daily Medical before a Branch meal. tenofovir 2021-0 Yes Take by [facility] alafenamide 5-27 mouth. ity of (VEMLIDY) 11:38: [place] 25 mg Tab 52 Medical Branch HYDROcodone 2021-0 Yes Take by [facility] vers bitartrate 5-27 mouth. ity of 10 mg CR12 11:38: [place] [address] Medical Branch escitalopra 2021-0 Yes 20mg Take 20 mg [facility] m oxalate 5-27 by mouth ity of 20 mg 11:38: daily. [place] tablet 52 Medical Branch ALPRAZolam 0 Yes .5mg Take 0.5 Uni vers (XANAX) 0.5 5-27 mg by ity of mg tablet 11:38: mouth [place] 52 daily. Medical Branch methocarbam 0 Yes 500mg Take 500 U nivers oL 500 mg 5-27 mg by ity of tablet 11:38: mouth [place] [address] daily Medical before a Branch meal. tenofovir 2021-0 Yes Take by [facility] alafenamide 5-27 mouth. ity of (VEMLIDY) 11:38: [place] 25 mg Tab 52 Medical Branch HYDROcodone 0 Yes Take by [facility] vers bitartrate 5-27 mouth. ity of 10 mg CR12 11:38: [place] [address] Medical Branch escitalopra 0 Yes 20mg Take 20 mg [facility] m oxalate 5-27 by mouth ity of 20 mg 11:38: daily. [place] tablet Medical Branch ALPRAZolam 0 Yes .5mg Take 0.5 Uni vers (XANAX) 0.5 5-27 mg by ity of mg tablet 11:38: mouth [place] 52 daily. Medical Branch methocarbam 0 Yes 500mg Take 500 U nivers oL 500 mg 5-27 mg by ity of tablet 11:38: mouth [place] 52 daily Medical before a Branch meal. tenofovir 2021-0 Yes Take by [facility] alafenamide 5-27 mouth. ity of (VEMLIDY) 11:38: [place] 25 mg Tab 52 Medical Branch HYDROcodone 2021-0 Yes Take by [facility] vers bitartrate 5-27 mouth. ity of 10 mg CR12 11:38: [place] [address] Medical Branch escitalopra 2022-0 Yes 20mg Take 20 mg [facility] m oxalate 5-27 by mouth ity of 20 mg 11:38: daily. [place] tablet 52 Medical Branch ALPRAZolam 0 Yes .5mg Take 0.5 Uni vers (XANAX) 0.5 5-27 mg by ity of mg tablet 11:38: mouth [place] 52 daily. [facility] Branch methocarbam 0 Yes 500mg Take 500 U nivers oL 500 mg 5-27 mg by ity of tablet 11:38: mouth [place] 52 daily Medical before a Branch meal. tenofovir 2021-0 Yes Take by [facility] alafenamide 5-27 mouth. ity of (VEMLIDY) 11:38: [place] 25 mg Tab 52 Medical Branch HYDROcodone 0 Yes Take by [facility] vers bitartrate 5-27 mouth. ity of 10 mg CR12 11:38: [place] [address] Medical Branch escitalopra 0 Yes 20mg Take 20 mg [facility] m oxalate 5-27 by mouth ity of 20 mg 11:38: daily. [place] tablet 52 Medical Branch ALPRAZolam 0 Yes .5mg Take 0.5 Uni vers (XANAX) 0.5 5-27 mg by ity of mg tablet 11:38: mouth [place] 52 daily. Medical Branch methocarbam 0 Yes 500mg Take 500 U nivers oL 500 mg 5-27 mg by ity of tablet 11:38: mouth [place] 52 daily Medical before a Branch meal. tenofovir 2021-0 Yes Take by [facility] alafenamide 5-27 mouth. ity of (VEMLIDY) 11:38: [place] 25 mg Tab 52 Medical Branch HYDROcodone 0 Yes Take by [facility] vers bitartrate 5-27 mouth. ity of 10 mg CR12 11:38: [place] [address] Medical Branch escitalopra 2021-0 Yes 20mg Take 20 mg [facility] m oxalate 5-27 by mouth ity of 20 mg 11:38: daily. [place] tablet 52 Medical Branch ALPRAZolam 0 Yes .5mg Take 0.5 Uni vers (XANAX) 0.5 5-27 mg by ity of mg tablet 11:38: mouth [place] 52 daily. Medical Branch methocarbam 2021-0 Yes 500mg Take 500 U nivers oL 500 mg 5-27 mg by ity of tablet 11:38: mouth [place] [address] daily Medical before a Branch meal. tenofovir 2021-0 Yes Take by [facility] alafenamide 5-27 mouth. ity of (VEMLIDY) 11:38: [place] 25 mg Tab 52 Medical Branch HYDROcodone 0 Yes Take by [facility] vers bitartrate 5-27 mouth. ity of 10 mg CR12 11:38: [place] [address] Medical Branch escitalopra 0 Yes 20mg Take 20 mg [facility] m oxalate 5-27 by mouth ity of 20 mg 11:38: daily. [place] tablet 52 Medical Branch ALPRAZolam 0 Yes .5mg Take 0.5 Uni vers (XANAX) 0.5 5-27 mg by ity of mg tablet 11:38: mouth [place] [address] daily. Medical Branch methocarbam 0 Yes 500mg Take 500 U nivers oL 500 mg 5-27 mg by ity of tablet 11:38: mouth [place] [address] daily Medical before a Branch meal. tenofovir 2021-0 Yes Take by [facility] rs alafenamide 5-27 mouth. ity of (VEMLIDY) 11:38: [place] 25 mg Tab 52 Medical Branch HYDROcodone 0 Yes Take by [facility] vers bitartrate 5-27 mouth. ity of 10 mg CR12 11:38: [place] [address] Medical Branch escitalopra 0 Yes 20mg Take 20 mg [facility] m oxalate 5-27 by mouth ity of 20 mg 11:38: daily. [place] tablet Medical Branch ALPRAZolam 0 Yes .5mg Take 0.5 Uni vers (XANAX) 0.5 5-27 mg by ity of mg tablet 11:38: mouth [place] [address] daily. Medical Branch methocarbam 0 Yes 500mg Take 500 U nivers oL 500 mg 5-27 mg by ity of tablet 11:38: mouth [place] [address] daily Medical before a Branch meal. tenofovir 2021-0 Yes Take by [facility] alafenamide 5-27 mouth. ity of (VEMLIDY) 11:38: [place] 25 mg Tab 52 Medical Branch HYDROcodone 0 Yes Take by [facility] vers bitartrate 5-27 mouth. ity of 10 mg CR12 11:38: [place] [address] Medical Branch escitalopra 0 Yes 20mg Take 20 mg [facility] m oxalate 5-27 by mouth ity of 20 mg 11:38: daily. [place] tablet 52 Medical Branch ALPRAZolam 0 Yes [...] mouth. ity of 10 mg CR12 11:38: [place] [address] Medical Branch escitalopra Yes 20mg Take 20 mg [facility] m oxalate 5-27 by mouth ity of 20 mg 11:38: daily. [place] tablet 52 Medical Branch ALPRAZolam 0 Yes .5mg Take 0.5 Uni vers (XANAX) 0.5 5-27 mg by ity of mg tablet 11:38: mouth [place] 52 daily. Medical Branch methocarbam 0 Yes 500mg Take 500 U nivers oL 500 mg 5-27 mg by ity of tablet 11:38: mouth [place] 52 daily Medical before a Branch meal. tenofovir 2021-0 Yes Take by [facility] rs alafenamide 5-27 mouth. ity of (VEMLIDY) 11:38: [place] 25 mg Tab 52 Medical Branch HYDROcodone 0 Yes Take by [facility] vers bitartrate 5-27 mouth. ity of 10 mg CR12 11:38: [place] [address] Medical Branch escitalopra 0 Yes 20mg Take 20 mg [facility] m oxalate 5-27 by mouth ity of 20 mg 11:38: daily. [place] tablet 52 Medical Branch ALPRAZolam 0 Yes .5mg Take 0.5 Uni vers (XANAX) 0.5 5-27 mg by ity of mg tablet 11:38: mouth [place] 52 daily. Medical Branch methocarbam 2021-0 Yes 500mg Take 500 U nivers oL 500 mg 5-27 mg by ity of tablet 11:38: mouth [place] 52 daily Medical before a Branch meal. tenofovir 2021-0 Yes Take by [facility] alafenamide 5-27 mouth. ity of (VEMLIDY) 11:38: [place] 25 mg Tab 52 Medical Branch HYDROcodone 0 Yes Take by [facility] vers bitartrate 5-27 mouth. ity of 10 mg CR12 11:38: [place] [address] Medical Branch escitalopra 2021-0 Yes 20mg Take 20 mg [facility] m oxalate 5-27 by mouth ity of 20 mg 11:38: daily. [place] tablet 52 Medical Branch ALPRAZolam 0 Yes .5mg Take 0.5 Uni vers (XANAX) 0.5 5-27 mg by ity of mg tablet 11:38: mouth [place] [address] daily. Medical Branch methocarbam 0 Yes 500mg Take 500 U nivers oL 500 mg 5-27 mg by ity of tablet 11:38: mouth [place] [address] daily Medical before a Branch meal. tenofovir 2021-0 Yes Take by [facility] rs alafenamide 5-27 mouth. ity of (VEMLIDY) 11:38: [place] 25 mg Tab 52 Medical Branch HYDROcodone 0 Yes Take by [facility] vers bitartrate 5-27 mouth. ity of 10 mg CR12 11:38: [place] [address] Medical Branch escitalopra 0 Yes 20mg Take 20 mg [facility] m oxalate 5-27 by mouth ity of 20 mg 11:38: daily. [place] tablet 52 Medical Branch ALPRAZolam 0 Yes .5mg Take 0.5 Uni vers (XANAX) 0.5 5-27 mg by ity of mg tablet 11:38: mouth [place] [address] daily. Medical Branch methocarbam 2021-0 Yes 500mg Take 500 U nivers oL 500 mg 5-27 mg by ity of tablet 11:38: mouth [place] [address] daily Medical before a Branch meal. tenofovir 2021-0 Yes Take by [facility] rs alafenamide 5-27 mouth. ity of (VEMLIDY) 11:38: [place] 25 mg Tab 52 Medical Branch HYDROcodone 2021-0 Yes Take by [facility] vers bitartrate 5-27 mouth. ity of 10 mg CR12 11:38: [place] [address] Medical Branch escitalopra 2021-0 Yes 20mg Take 20 mg [facility] m oxalate 5-27 by mouth ity of 20 mg 11:38: daily. [place] tablet 52 Medical Branch ALPRAZolam 0 Yes .5mg Take 0.5 Uni vers (XANAX) 0.5 5-27 mg by ity of mg tablet 11:38: mouth [place] 52 daily. Medical Branch methocarbam 0 Yes 500mg Take 500 U nivers oL 500 mg 5-27 mg by ity of tablet 11:38: mouth [place] 52 daily Medical before a Branch meal. tenofovir 0 Yes Take by [facility] rs alafenamide 5-27 mouth. ity of (VEMLIDY) 11:38: [place] 25 mg Tab 52 Medical Branch HYDROcodone 0 Yes Take by [facility] vers bitartrate 5-27 mouth. ity of 10 mg CR12 11:38: [place] [address] Medical Branch escitalopra Yes 20mg Take 20 mg [facility] m oxalate 5-27 by mouth ity of 20 mg 11:38: daily. [place] tablet 52 Medical Branch ALPRAZolam Yes .5mg Take 0.5 Uni vers (XANAX) 0.5 5-27 mg by ity of mg tablet 11:38: mouth [place] 52 daily. Medical Branch methocarbam 0 Yes 500mg Take 500 U nivers oL 500 mg 5-27 mg by ity of tablet 11:38: mouth [place] 52 daily Medical before a Branch meal. tenofovir 2021-0 Yes Take by [facility] rs alafenamide 5-27 mouth. ity of (VEMLIDY) 11:38: [place] 25 mg Tab 52 Medical Branch HYDROcodone 0 Yes Take by [facility] vers bitartrate 5-27 mouth. ity of 10 mg CR12 11:38: [place] [address] Medical Branch escitalopra 0 Yes 20mg Take 20 mg [facility] m oxalate 5-27 by mouth ity of 20 mg 11:38: daily. [place] tablet 52 Medical Branch ALPRAZolam 0 Yes .5mg Take 0.5 Uni vers (XANAX) 0.5 5-27 mg by ity of mg tablet 11:38: mouth [place] 52 daily. Medical Branch methocarbam 0 Yes 500mg Take 500 U nivers oL 500 mg 5-27 mg by ity of tablet 11:38: mouth [place] 52 daily Medical before a Branch meal. tenofovir 2021-0 Yes Take by [facility] rs alafenamide 5-27 mouth. ity of (VEMLIDY) 11:38: [place] 25 mg Tab 52 Medical Branch HYDROcodone 2021-0 Yes Take by [facility] vers bitartrate 5-27 mouth. ity of 10 mg CR12 11:38: [place] [address] Medical Branch escitalopra 2021-0 Yes 20mg Take 20 mg [facility] m oxalate 5-27 by mouth ity of 20 mg 11:38: daily. [place] tablet 52 Medical Branch ALPRAZolam 0 Yes .5mg Take 0.5 Uni vers (XANAX) 0.5 5-27 mg by ity of mg tablet 11:38: mouth [place] 52 daily. Medical Branch methocarbam 0 Yes 500mg Take 500 U nivers oL 500 mg 5-27 mg by ity of tablet 11:38: mouth [place] [address] daily Medical before a Branch meal. tenofovir 2021-0 Yes Take by [facility] rs alafenamide 5-27 mouth. ity of (VEMLIDY) 11:38: [place] 25 mg Tab 52 Medical Branch HYDROcodone 0 Yes Take by [facility] vers bitartrate 5-27 mouth. ity of 10 mg CR12 11:38: [place] [address] Medical Branch escitalopra 2021-0 Yes 20mg Take 20 mg [facility] m oxalate 5- by mouth ity of 20 mg 11:38: daily. [place] tablet Medical Branch ALPRAZolam 0 Yes .5mg Take 0.5 Uni vers (XANAX) 0.5 5-27 mg by ity of mg tablet 11:38: mouth [place] [address] daily. Medical Branch methocarbam 2021-0 Yes 500mg Take 500 U nivers oL 500 mg 5-27 mg by ity of tablet 11:38: mouth [place] [address] daily Medical before a Branch meal. tenofovir 2021-0 Yes Take by [facility] rs alafenamide 5-27 mouth. ity of (VEMLIDY) 11:38: [place] 25 mg Tab 52 Medical Branch HYDROcodone 2021-0 Yes Take by [facility] vers bitartrate 5-27 mouth. ity of 10 mg CR12 11:38: [place] [address] Medical Branch escitalopra 2021-0 Yes 20mg Take 20 mg [facility] m oxalate 5-27 by mouth ity of 20 mg 11:38: daily. [place] tablet 52 Medical Branch ALPRAZolam 0 Yes .5mg Take 0.5 Uni vers (XANAX) 0.5 5-27 mg by ity of mg tablet 11:38: mouth [place] 52 daily. Medical Branch methocarbam 0 Yes 500mg Take 500 U nivers oL 500 mg 5-27 mg by ity of tablet 11:38: mouth [place] 52 daily Medical before a Branch meal. tenofovir 0 Yes Take by [facility] rs alafenamide 5-27 mouth. ity of (VEMLIDY) 11:38: [place] 25 mg Tab 52 Medical Branch HYDROcodone 0 Yes Take by [facility] vers bitartrate 5-27 mouth. ity of 10 mg CR12 11:38: [place] [address] Medical Branch escitalopra 0 Yes 20mg Take 20 mg [facility] m oxalate 5-27 by mouth ity of 20 mg 11:38: daily. [place] tablet 52 Medical Branch ALPRAZolam 0 Yes .5mg Take 0.5 Uni vers (XANAX) 0.5 5-27 mg by ity of mg tablet 11:38: mouth [place] 52 daily. Medical Branch methocarbam 0 Yes 500mg Take 500 U nivers oL 500 mg 5-27 mg by ity of tablet 11:38: mouth [place] 52 daily Medical before a Branch meal. tenofovir 2021-0 Yes Take by [facility] rs alafenamide 5-27 mouth. ity of (VEMLIDY) 11:38: [place] 25 mg Tab 52 Medical Branch HYDROcodone 0 Yes Take by [facility] vers bitartrate 5-27 mouth. ity of 10 mg CR12 11:38: [place] [address] Medical Branch escitalopra 0 Yes 20mg Take 20 mg [facility] m oxalate 5-27 by mouth ity of 20 mg 11:38: daily. [place] tablet 52 Medical Branch ALPRAZolam 0 Yes .5mg Take 0.5 Uni vers (XANAX) 0.5 5-27 mg by ity of mg tablet 11:38: mouth [place] 52 daily. Medical Branch methocarbam 0 Yes 500mg Take 500 U nivers oL 500 mg 5-27 mg by ity of tablet 11:38: mouth [place] 52 daily Medical before a Branch meal. tenofovir 0 Yes Take by [facility] rs alafenamide 5-27 mouth. ity of (VEMLIDY) 11:38: [place] 25 mg Tab 52 Medical Branch HYDROcodone 0 Yes Take by [facility] vers bitartrate 5-27 mouth. ity of 10 mg CR12 11:38: [place] [address] Medical Branch escitalopra 0 Yes 20mg Take 20 mg [facility] m oxalate 5-27 by mouth ity of 20 mg 11:38: daily. [place] tablet 52 Medical Branch ALPRAZolam 0 Yes .5mg Take 0.5 Uni vers (XANAX) 0.5 5-27 mg by ity of mg tablet 11:38: mouth [place] 52 daily. Medical Branch methocarbam 0 Yes 500mg Take 500 U nivers oL 500 mg 5-27 mg by ity of tablet 11:38: mouth [place] [address] daily Medical before a Branch meal. tenofovir 2021-0 Yes Take by [facility] rs alafenamide 5-27 mouth. ity of (VEMLIDY) 11:38: [place] 25 mg Tab 52 Medical Branch HYDROcodone 0 Yes Take by [facility] vers bitartrate 5-27 mouth. ity of 10 mg CR12 11:38: [place] [address] Medical Branch escitalopra 0 Yes 20mg Take 20 mg [facility] m oxalate 5-27 by mouth ity of 20 mg 11:38: daily. [place] tablet Medical Branch ALPRAZolam 0 Yes .5mg Take 0.5 Uni vers (XANAX) 0.5 5-27 mg by ity of mg tablet 11:38: mouth [place] [address] daily. Medical Branch methocarbam 0 Yes 500mg Take 500 U nivers oL 500 mg 5-27 mg by ity of tablet 11:38: mouth [place] 52 daily Medical before a Branch meal. tenofovir 2021-0 Yes Take by [facility] rs alafenamide 5-27 mouth. ity of (VEMLIDY) 11:38: [place] 25 mg Tab 52 Medical Branch HYDROcodone 2021-0 Yes Take by [facility] vers bitartrate 5-27 mouth. ity of 10 mg CR12 11:38: [place] [address] Medical Branch escitalopra 0 Yes 20mg Take 20 mg [facility] m oxalate 5-27 by mouth ity of 20 mg 11:38: daily. [place] tablet 52 Medical Branch ALPRAZolam 2021-0 Yes .5mg Take 0.5 Uni vers (XANAX) 0.5 5-27 mg by ity of mg tablet 11:38: mouth [place] 52 daily. Medical Branch nystatin 2-0 Yes [id number] Apply to [facility] 100,000 5-27 area(s) 2 ity of unit/gram 00:00: (two) [place] powder 00 times Medical daily. Branch nystatin 2022-0 Yes [id number] Apply to [facility] 100,000 5-27 area(s) 2 ity of unit/gram 00:00: (two) [place] powder 00 times Medical daily. Branch nystatin 2022-0 Yes [id number] Apply to [facility] 100,000 5-27 area(s) 2 ity of unit/gram 00:00: (two) [place] powder 00 times Medical daily. Branch nystatin 2-0 Yes [id number] Apply to [facility] 100,000 5-27 area(s) 2 ity of unit/gram 00:00: (two) [place] powder 00 times Medical daily. Branch nystatin 2-0 Yes [id number] Apply to [facility] 100,000 5-27 area(s) 2 ity of unit/gram 00:00: (two) [place] powder 00 times Medical daily. Branch nystatin 2022-0 Yes [id number] Apply to [facility] 100,000 5-27 area(s) 2 ity of unit/gram 00:00: (two) [place] powder 00 times Medical daily. Branch nystatin 2022-0 Yes [id number] Apply to [facility] 100,000 5-27 area(s) 2 ity of unit/gram 00:00: (two) [place] powder 00 times Medical daily. Branch nystatin 2022-0 Yes [id number] Apply to [facility] 100,000 5-27 area(s) 2 ity of unit/gram 00:00: (two) [place] powder 00 times Medical daily. Branch nystatin 2022-0 Yes [id number] Apply to [facility] 100,000 5-27 area(s) 2 ity of unit/gram 00:00: (two) [place] powder 00 times Medical daily. Branch nystatin 2022-0 Yes [id number] Apply to [facility] 100,000 5-27 area(s) 2 ity of unit/gram 00:00: (two) [place] powder 00 times Medical daily. Branch nystatin 2022-0 Yes [id number] Apply to [facility] 100,000 5-27 area(s) 2 ity of unit/gram 00:00: (two) [place] powder 00 times Medical daily. Branch nystatin 2022-0 Yes [id number] Apply to [facility] 100,000 5-27 area(s) 2 ity of unit/gram 00:00: (two) [place] powder 00 times Medical daily. Branch nystatin 2022-0 Yes [id number] Apply to [facility] 100,000 5-27 area(s) 2 ity of unit/gram 00:00: (two) [place] powder 00 times Medical daily. Branch nystatin 2022-0 Yes [id number] Apply to [facility] 100,000 5-27 area(s) 2 ity of unit/gram 00:00: (two) [place] powder 00 times Medical daily. Branch nystatin 2022-0 Yes [id number] Apply to [facility] 100,000 5-27 area(s) 2 ity of unit/gram 00:00: (two) [place] powder 00 times Medical daily. Branch nystatin 2022-0 Yes [id number] Apply to [facility] 100,000 5-27 area(s) 2 ity of unit/gram 00:00: (two) [place] powder 00 times Medical daily. Branch nystatin 2022-0 Yes [id number] Apply to [facility] 100,000 5-27 area(s) 2 ity of unit/gram 00:00: (two) [place] powder 00 times Medical daily. Branch nystatin 2022-0 Yes [id number] Apply to [facility] 100,000 5-27 area(s) 2 ity of unit/gram 00:00: (two) [place] powder 00 times Medical daily. Branch nystatin 2022-0 Yes [id number] Apply to [facility] 100,000 5-27 area(s) 2 ity of unit/gram 00:00: (two) [place] powder 00 times Medical daily. Branch nystatin 2022-0 Yes [id number] Apply to [facility] 100,000 5-27 area(s) 2 ity of unit/gram 00:00: (two) [place] powder 00 times Medical daily. Branch nystatin 2022-0 Yes [id number] Apply to [facility] 100,000 5-27 area(s) 2 ity of unit/gram 00:00: (two) [place] powder 00 times Medical daily. Branch nystatin 2022-0 Yes [id number] Apply to [facility] 100,000 5-27 area(s) 2 ity of unit/gram 00:00: (two) [place] powder 00 times Medical daily. Branch nystatin 2022-0 Yes [id number] Apply to [facility] 100,000 5-27 area(s) 2 ity of unit/gram 00:00: (two) [place] powder 00 times Medical daily. Branch nystatin 2022-0 Yes [id number] Apply to [facility] 100,000 5-27 area(s) 2 ity of unit/gram 00:00: (two) [place] powder 00 times Medical daily. Branch nystatin 2022-0 Yes [id number] Apply to [facility] 100,000 5-27 area(s) 2 ity of unit/gram 00:00: (two) [place] powder 00 times Medical daily. Branch nystatin 2022-0 Yes [id number] Apply to [facility] 100,000 5-27 area(s) 2 ity of unit/gram 00:00: (two) [place] powder 00 times Medical daily. Branch nystatin 2022-0 Yes [id number] Apply to [facility] 100,000 5-27 area(s) 2 ity of unit/gram 00:00: (two) [place] powder 00 times Medical daily. Branch nystatin 2022-0 Yes [id number] Apply to [facility] 100,000 5-27 area(s) 2 ity of unit/gram 00:00: (two) [place] powder 00 times Medical daily. Branch nystatin 2022-0 Yes [id number] Apply to [facility] 100,000 5-27 area(s) 2 ity of unit/gram 00:00: (two) [place] powder 00 times Medical daily. Branch nystatin 2022-0 Yes [id number] Apply to [facility] 100,000 5-27 area(s) 2 ity of unit/gram 00:00: (two) [place] powder 00 times Medical daily. Branch nystatin 2022-0 Yes [id number] Apply to [facility] 100,000 5-27 area(s) 2 ity of unit/gram 00:00: (two) [place] powder 00 times Medical daily. Branch nystatin 2022-0 Yes [id number] Apply to [facility] 100,000 5-27 area(s) 2 ity of unit/gram 00:00: (two) [place] powder 00 times Medical daily. Branch nystatin Yes [id number] Apply to [facility] 100,000 5-27 area(s) 2 ity of unit/gram 00:00: (two) [place] powder 00 times Medical daily. Branch zolpidem Yes 6.25mg Take 6.25 Un megan 6.25 mg CR 5-06 mg by ity of tablet 00:00: mouth at [place] [address] bedtime. Medical Branch zolpidem Yes 6.25mg Take 6.25 Un megan 6.25 mg CR 5-06 mg by ity of tablet 00:00: mouth at [place] [address] bedtime. Medical Branch zolpidem Yes 6.25mg Take 6.25 Un megan 6.25 mg CR 5-06 mg by ity of tablet 00:00: mouth at [place] [address] bedtime. Medical Branch zolpidem Yes 6.25mg Take 6.25 Un megan 6.25 mg CR 5-06 mg by ity of tablet 00:00: mouth at [place] [address] bedtime. Medical Branch zolpidem Yes 6.25mg Take 6.25 Un megan 6.25 mg CR 5-06 mg by ity of tablet 00:00: mouth at [place] [address] bedtime. Medical Branch zolpidem Yes 6.25mg Take 6.25 Un megan 6.25 mg CR 5-06 mg by ity of tablet 00:00: mouth at [place] [address] bedtime. Medical Branch zolpidem 2021- Yes 6.25mg Take 6.25 Un megan 6.25 mg CR 5-06 mg by ity of tablet 00:00: mouth at [place] [address] bedtime. Medical Branch zolpidem 2021- Yes 6.25mg Take 6.25 Un megan 6.25 mg CR 5-06 mg by ity of tablet 00:00: mouth at [place] [address] bedtime. Medical Branch zolpidem 2021-0 Yes 6.25mg Take 6.25 Un megan 6.25 mg CR 5-06 mg by ity of tablet 00:00: mouth at [place] [address] bedtime. Medical Branch zolpidem 2021- Yes 6.25mg Take 6.25 Un megan 6.25 mg CR 5-06 mg by ity of tablet 00:00: mouth at [place] [address] bedtime. Medical Branch zolpidem 2022-0 Yes 6.25mg Take 6.25 Un megan 6.25 mg CR 5-06 mg by ity of tablet 00:00: mouth at [place] [address] bedtime. Medical Branch zolpidem 2022-0 Yes 6.25mg Take 6.25 Un megan 6.25 mg CR 5-06 mg by ity of tablet 00:00: mouth at [place] [address] bedtime. Medical Branch zolpidem 2022-0 Yes 6.25mg Take 6.25 Un megan 6.25 mg CR 5-06 mg by ity of tablet 00:00: mouth at [place] [address] bedtime. Medical Branch zolpidem 2022-0 Yes 6.25mg Take 6.25 Un megan 6.25 mg CR 5-06 mg by ity of tablet 00:00: mouth at [place] [address] bedtime. Medical Branch zolpidem 2022-0 Yes 6.25mg Take 6.25 Un megan 6.25 mg CR 5-06 mg by ity of tablet 00:00: mouth at [place] [address] bedtime. Medical Branch zolpidem 2-0 Yes 6.25mg Take 6.25 Un megan 6.25 mg CR 5-06 mg by ity of tablet 00:00: mouth at [place] [address] bedtime. Medical Branch zolpidem 2022-0 Yes 6.25mg Take 6.25 Un megan 6.25 mg CR 5-06 mg by ity of tablet 00:00: mouth at [place] [address] bedtime. Medical Branch zolpidem 2022-0 Yes 6.25mg Take 6.25 Un megan 6.25 mg CR 5-06 mg by ity of tablet 00:00: mouth at [place] [address] bedtime. Medical Branch zolpidem 2022-0 Yes 6.25mg Take 6.25 Un megan 6.25 mg CR 5-06 mg by ity of tablet 00:00: mouth at [place] [address] bedtime. Medical Branch zolpidem 2022-0 Yes 6.25mg Take 6.25 Un megan 6.25 mg CR 5-06 mg by ity of tablet 00:00: mouth at [place] [address] bedtime. Medical Branch zolpidem 2022-0 Yes 6.25mg Take 6.25 Un megan 6.25 mg CR 5-06 mg by ity of tablet 00:00: mouth at [place] [address] bedtime. Medical Branch zolpidem 2-0 Yes 6.25mg Take 6.25 Un megan 6.25 mg CR 5-06 mg by ity of tablet 00:00: mouth at [place] [address] bedtime. Medical Branch zolpidem 2-0 Yes 6.25mg Take 6.25 Un megan 6.25 mg CR 5-06 mg by ity of tablet 00:00: mouth at [place] [address] bedtime. Medical Branch zolpidem 2-0 Yes 6.25mg Take 6.25 Un megan 6.25 mg CR 5-06 mg by ity of tablet 00:00: mouth at [place] [address] bedtime. Medical Branch zolpidem 2-0 Yes 6.25mg Take 6.25 Un megan 6.25 mg CR 5-06 mg by ity of tablet 00:00: mouth at [place] [address] bedtime. Medical Branch zolpidem 2-0 Yes 6.25mg Take 6.25 Un megan 6.25 mg CR 5-06 mg by ity of tablet 00:00: mouth at [place] [address] bedtime. Medical Branch zolpidem 2-0 Yes 6.25mg Take 6.25 Un megan 6.25 mg CR 5-06 mg by ity of tablet 00:00: mouth at [place] [address] bedtime. Medical Branch zolpidem 2-0 Yes 6.25mg Take 6.25 Un megan 6.25 mg CR 5-06 mg by ity of tablet 00:00: mouth at [place] [address] bedtime. Medical Branch zolpidem 2-0 Yes 6.25mg Take 6.25 Un megan 6.25 mg CR 5-06 mg by ity of tablet 00:00: mouth at [place] [address] bedtime. Medical Branch zolpidem 2022-0 Yes 6.25mg Take 6.25 Un megan 6.25 mg CR 5-06 mg by ity of tablet 00:00: mouth at [place] [address] bedtime. Medical Branch zolpidem 2-0 Yes 6.25mg Take 6.25 Un megan 6.25 mg CR 5-06 mg by ity of tablet 00:00: mouth at [place] [address] bedtime. Medical Branch zolpidem 2022-0 Yes 6.25mg Take 6.25 Un megan 6.25 mg CR 5-06 mg by ity of tablet 00:00: mouth at [place] 00 bedtime. Medical Branch zolpidem 2021-0 Yes 6.25mg Take 6.25 Un megan 6.25 mg CR 5-06 mg by ity of tablet 00:00: mouth at [place] 00 bedtime. Medical Branch metoprolol 2021-0 Yes [id number] 50mg Take 1 U nivers succinate 4-26 tablet by ity o f XL 50 mg 24 00:00: mouth 2 [place] as hr tablet 00 (two) Medical times Branch daily. metoprolol 2021-0 Yes [id number] 50mg Take 1 U nivers succinate 4-26 tablet by ity o f XL 50 mg 24 00:00: mouth 2 [place] as hr tablet 00 (two) Medical times Branch daily. metoprolol 2021- No [id number] 50mg Take 1 [facility] succinate 4-26 07-27 [...] mouth 2 ity of capsule 00:00: (two) [place] 00 times Medical daily. Branch oseltamivir 2022-0 Yes 75mg Take 75 mg [facility] 75 mg 4-07 by mouth 2 ity of capsule 00:00: (two) [place] 00 times Medical daily. Branch oseltamivir 2022-0 Yes 75mg Take 75 mg [facility] 75 mg 4-07 by mouth 2 ity of capsule 00:00: (two) [place] 00 times Medical daily. Branch oseltamivir 2022-0 Yes 75mg Take 75 mg [facility] 75 mg 4-07 by mouth 2 ity of capsule 00:00: (two) [place] 00 times Medical daily. Branch oseltamivir 2022-0 [...] mouth 2 ity of capsule 00:00: (two) [place] 00 times Medical daily. Branch oseltamivir 2022-0 Yes 75mg Take 75 mg [facility] 75 mg 4-07 by mouth 2 ity of capsule 00:00: (two) [place] 00 times Medical daily. Branch oseltamivir 2022-0 Yes 75mg Take 75 mg [facility] 75 mg 4-07 by mouth 2 ity of capsule 00:00: (two) [place] 00 times Medical daily. Branch oseltamivir 2022-0 Yes 75mg Take 75 mg [facility] 75 mg 4-07 by mouth 2 ity of capsule 00:00: (two) [place] 00 times Medical daily. Branch oseltamivir 2022-0 Yes 75mg Take 75 mg [facility] 75 mg 4-07 by mouth 2 ity of capsule 00:00: (two) [place] 00 times Medical daily. Branch oseltamivir 2022-0 [...] mouth 2 ity of capsule 00:00: (two) [place] 00 times Medical daily. Branch oseltamivir 2022-0 Yes 75mg Take 75 mg [facility] 75 mg 4-07 by mouth 2 ity of capsule 00:00: (two) [place] 00 times Medical daily. Branch oseltamivir 2022-0 Yes 75mg Take 75 mg [facility] 75 mg 4-07 by mouth 2 ity of capsule 00:00: (two) [place] 00 times Medical daily. Branch oseltamivir 2022-0 Yes 75mg Take 75 mg [facility] 75 mg 4-07 by mouth 2 ity of capsule 00:00: (two) [place] 00 times Medical daily. Branch oseltamivir 2022-0 Yes 75mg Take 75 mg [facility] 75 mg 4-07 by mouth 2 ity of capsule 00:00: (two) [place] 00 times Medical daily. Branch oseltamivir 2022-0 Yes 75mg Take 75 mg [facility] 75 mg 4-07 by mouth 2 ity of capsule 00:00: (two) [place] 00 times Medical daily. Branch oseltamivir 2022-0 Yes 75mg Take 75 mg [facility] 75 mg 4-07 by mouth 2 ity of capsule 00:00: (two) [place] 00 times Medical daily. Branch oseltamivir 2022-0 Yes 75mg Take 75 mg [facility] 75 mg 4-07 by mouth 2 ity of capsule 00:00: (two) [place] 00 times Medical daily. Branch oseltamivir 2022-0 Yes 75mg Take 75 mg [facility] 75 mg 4-07 by mouth 2 ity of capsule 00:00: (two) [place] 00 times Medical daily. Branch oseltamivir 2022-0 Yes 75mg Take 75 mg [facility] 75 mg 4-07 by mouth 2 ity of capsule 00:00: (two) [place] 00 times Medical daily. Branch oseltamivir 2022-0 Yes 75mg Take 75 mg [facility] 75 mg 4-07 by mouth 2 ity of capsule 00:00: (two) [place] 00 times Medical daily. Branch oseltamivir 2022-0 Yes 75mg Take 75 mg [facility] 75 mg 4-07 by mouth 2 ity of capsule 00:00: (two) [place] 00 times Medical daily. Branch oseltamivir 2022-0 Yes 75mg Take 75 mg [facility] 75 mg 4-07 by mouth 2 ity of capsule 00:00: (two) [place] 00 times Medical daily. Branch oseltamivir 2022-0 Yes 75mg Take 75 mg [facility] 75 mg 4-07 by mouth 2 ity of capsule 00:00: (two) [place] 00 times Medical daily. Branch topiramate 2022-0 [...] 3-25 TABLET BY ity of tablet 00:00: [facility] EVERY DAY Medical Branch DIRECTED topiramate 2022-0 [...] 3-25 TABLET BY ity of tablet 00:00: [facility] 00 EVERY DAY Medical Branch DIRECTED topiramate 2022-0 Yes TAKE 1 Unive rs 50 mg 3-25 TABLET BY ity of tablet 00:00: [facility] EVERY DAY Medical Branch DIRECTED topiramate [...] 3-25 TABLET BY ity of tablet 00:00: [facility] 00 EVERY DAY Medical Branch DIRECTED topiramate 2022-0 Yes TAKE 1 Unive rs 50 mg 3-25 TABLET BY ity of tablet 00:00: 00 EVERY DAY Medical Branch DIRECTED topiramate 2022-0 Yes TAKE 1 Unive rs 50 mg 3-25 TABLET BY ity of tablet 00:00: MOUTH [place] 00 EVERY DAY Medical Branch DIRECTED topiramate 2022-0 Yes TAKE 1 Unive rs 50 mg 3-25 TABLET BY ity of tablet 00:00: [facility] EVERY DAY Medical Branch DIRECTED topiramate 2022-0 Yes TAKE 1 Unive rs 50 mg 3-25 TABLET BY ity of tablet 00:00: MOUTH [place] EVERY DAY Medical Branch DIRECTED topiramate 2022-0 Yes TAKE 1 Unive rs 50 mg 3-25 TABLET BY ity of tablet 00:00: MOUTH [place] EVERY DAY Medical Branch DIRECTED topiramate 2022-0 Yes TAKE 1 Unive rs 50 mg 3-25 TABLET BY ity of tablet 00:00: [facility] EVERY DAY Medical Branch DIRECTED topiramate 2022-0 Yes TAKE 1 Unive rs 50 mg 3-25 TABLET BY ity of tablet 00:00: [facility] EVERY DAY Medical Branch DIRECTED medroxyPROG 2018-0 Yes [id number] 150mg [facility] ESTERone 3-30 ity of (DEPO-PROVE 16:00: [place] [facility]) 00 Medical injection Branch 150 mg medroxyPROG 2018-0 Yes [id number] 150mg [facility] ESTERone 3-30 ity of (DEPO-PROVE 16:00: [place] [facility]) 00 Medical injection Branch 150 mg medroxyPROG 2018-0 Yes [id number] 150mg [facility] ESTERone 3-30 ity of (DEPO-PROVE 16:00: [place] [facility]) 00 Medical injection Branch 150 mg medroxyPROG 2018-0 Yes [id number] 150mg [facility] ESTERone 3-30 ity of (DEPO-PROVE 16:00: [place] [facility]) 00 Medical injection Branch 150 mg medroxyPROG 2018-0 Yes [id number] 150mg [facility] ESTERone 3-30 ity of (DEPO-PROVE 16:00: [place] RA) 00 Medical injection Branch 150 mg medroxyPROG 2018-0 Yes [id number] 150mg [facility] ESTERone 3-30 ity of (DEPO-PROVE 16:00: [place] RA) 00 Medical injection Branch 150 mg medroxyPROG 2018-0 Yes [id number] 150mg [facility] ESTERone 3-30 ity of (DEPO-PROVE 16:00: [place] RA) 00 Medical injection Branch 150 mg medroxyPROG 2018-0 Yes [id number] 150mg [facility] ESTERone 3-30 ity of (DEPO-PROVE 16:00: [place] RA) 00 Medical injection Branch 150 mg medroxyPROG 2018-0 Yes [id number] 150mg [facility] ESTERone 3-30 ity of (DEPO-PROVE 16:00: [place] RA) 00 Medical injection Branch 150 mg medroxyPROG 2018-0 Yes [id number] 150mg [facility] ESTERone 3-30 ity of (DEPO-PROVE 16:00: [place] RA) 00 Medical injection Branch 150 mg medroxyPROG 2018-0 Yes [id number] 150mg [facility] ESTERone 3-30 ity of (DEPO-PROVE 16:00: [place] RA) 00 Medical injection Branch 150 mg medroxyPROG 2018-0 Yes [id number] 150mg [facility] ESTERone 3-30 ity of (DEPO-PROVE 16:00: [place] RA) 00 Medical injection Branch 150 mg medroxyPROG 2018-0 Yes [id number] 150mg [facility] ESTERone 3-30 ity of (DEPO-PROVE 16:00: [place] RA) 00 Medical injection Branch 150 mg medroxyPROG 2018-0 Yes [id number] 150mg [facility] ESTERone 3-30 ity of (DEPO-PROVE 16:00: [place] RA) 00 Medical injection Branch 150 mg medroxyPROG 2018-0 Yes [id number] 150mg [facility] ESTERone 3-30 ity of (DEPO-PROVE 16:00: [place] RA) 00 Medical injection Branch 150 mg medroxyPROG 2018-0 Yes [id number] 150mg [facility] ESTERone 3-30 ity of (DEPO-PROVE 16:00: [place] RA) 00 Medical injection Branch 150 mg medroxyPROG 2018-0 Yes [id number] 150mg [facility] ESTERone 3-30 ity of (DEPO-PROVE 16:00: [place] RA) 00 Medical injection Branch 150 mg medroxyPROG 2018-0 Yes [id number] 150mg [facility] ESTERone 3-30 ity of (DEPO-PROVE 16:00: [place] RA) 00 Medical injection Branch 150 mg medroxyPROG 2018-0 Yes [id number] 150mg [facility] ESTERone 3-30 ity of (DEPO-PROVE 16:00: [place] RA) 00 Medical injection Branch 150 mg medroxyPROG 2018-0 Yes [id number] 150mg [facility] ESTERone 3-30 ity of (DEPO-PROVE 16:00: [place] RA) 00 Medical injection Branch 150 mg medroxyPROG 2018-0 Yes [id number] 150mg [facility] ESTERone 3-30 ity of (DEPO-PROVE 16:00: [place] RA) 00 Medical injection Branch 150 mg medroxyPROG 2018-0 Yes [id number] 150mg Univers ESTERone 3-30 ity of (DEPO-PROVE 16:00: [place] RA) 00 Medical injection Branch 150 mg medroxyPROG 2018-0 Yes [id number] 150mg [facility] ESTERone 3-30 ity of (DEPO-PROVE 16:00: [place] RA) 00 Medical injection Branch 150 mg medroxyPROG 2018-0 Yes [id number] 150mg [facility] ESTERone 3-30 ity of (DEPO-PROVE 16:00: [place] RA) 00 Medical injection Branch 150 mg medroxyPROG 2018-0 Yes [id number] 150mg [facility] ESTERone 3-30 ity of (DEPO-PROVE 16:00: [place] RA) 00 Medical injection Branch 150 mg medroxyPROG 2018-0 Yes [id number] 150mg [facility] ESTERone 3-30 ity of (DEPO-PROVE 16:00: [place] RA) 00 Medical injection Branch 150 mg medroxyPROG 2018-0 Yes [id number] 150mg [facility] ESTERone 3-30 ity of (DEPO-PROVE 16:00: [place] RA) 00 Medical injection Branch 150 mg medroxyPROG 2018-0 Yes [id number] 150mg [facility] ESTERone 3-30 ity of (DEPO-PROVE 16:00: [place] RA) 00 Medical injection Branch 150 mg medroxyPROG 2018-0 Yes [id number] 150mg [facility] ESTERone 3-30 ity of (DEPO-PROVE 16:00: [place] RA) 00 Medical injection Branch 150 mg medroxyPROG 2018-0 Yes [id number] 150mg [facility] ESTERone 3-30 ity of (DEPO-PROVE 16:00: [place] RA) 00 Medical injection Branch 150 mg medroxyPROG 2018-0 Yes [id number] 150mg [facility] ESTERone 3-30 ity of (DEPO-PROVE 16:00: [place] RA) 00 Medical injection Branch 150 mg medroxyPROG 2018-0 Yes [id number] 150mg [facility] ESTERone 3-30 ity of (DEPO-PROVE 16:00: [facility]) 00 Medical injection Branch 150 mg medroxyPROG 2018-0 Yes [id number] 150mg Univers ESTERone 3-30 ity of (DEPO-PROVE 16:00: [facility]) 00 Medical injection Branch 150 mg Immunizations Ordered Filled Immunization Date Status Comments [facility] e Immunization Name Name Influenza Virus 2022-02-15 Completed Universit y of Vaccine [facility], 00:00:00 [place] [facility] dical Preserv and ABX Branch Free 6 MO-64 YRS Influenza Virus 2022-02-15 Completed Universit y of Vaccine [facility], 00:00:00 [place] Me dical Preserv and ABX Branch Free 6 MO-64 YRS Influenza Virus 2022-02-15 Completed Universit y of Vaccine [facility], 00:00:00 [place] Me dical Preserv and ABX Branch Free 6 MO-64 YRS Influenza Virus 2022-02-15 Completed Universit y of Vaccine [facility], 00:00:00 [place] Me dical Preserv and ABX Branch Free 6 MO-64 YRS Influenza Virus 2022-02-15 Completed Universit y of Vaccine [facility], 00:00:00 [place] Me dical Preserv and ABX Branch Free 6 MO-64 YRS Influenza Virus 2022-02-15 Completed Universit y of Vaccine [facility] IM, 00:00:00 [place] Me dical Preserv and ABX Branch Free 6 MO-64 YRS Influenza Virus 2022-02-15 Completed Universit y of Vaccine [facility], 00:00:00 [place] Me dical Preserv and ABX Branch Free 6 MO-64 YRS Influenza Virus 2022-02-15 Completed Universit y of Vaccine [facility] IM, 00:00:00 [place] Me dical Preserv and ABX Branch Free 6 MO-64 YRS Influenza Virus 2022-02-15 Completed Universit y of Vaccine [facility] IM, 00:00:00 [place] Me dical Preserv and ABX Branch Free 6 MO-64 YRS Influenza Virus 2022-02-15 Completed Universit y of Vaccine [facility] IM, 00:00:00 [place] Me dical Preserv and ABX Branch Free 6 MO-64 YRS Influenza Virus 2022-02-15 Completed Universit y of Vaccine [facility] IM, 00:00:00 [place] Me dical Preserv and ABX Branch Free 6 MO-64 YRS Influenza Virus 2022-02-15 Completed Universit y of Vaccine Quad IM, 00:00:00 [facility] dical Preserv and ABX Branch Free 6 MO-64 YRS SARS-COV-2 COVID-19 2021-02-28 Completed Unive rsity of PFIZER VACCINE 00:00:00 [facility] SARS-COV-2 COVID-19 2021-02-28 Completed Unive rsity of PFIZER VACCINE 00:00:00 [facility] SARS-COV-2 COVID-19 2021-02-28 Completed Unive rsity of PFIZER VACCINE 00:00:00 [facility] Branch SARS-COV-2 COVID-19 2021-02-28 Completed Unive rsity of PFIZER VACCINE 00:00:00 [facility] SARS-COV-2 COVID-19 2021-02-28 Completed Unive rsity of PFIZER VACCINE 00:00:00 [facility] SARS-COV-2 COVID-19 2021-02-28 Completed Unive rsity of PFIZER VACCINE 00:00:00 [facility] SARS-COV-2 COVID-19 2021-02-28 Completed Unive rsity of PFIZER VACCINE 00:00:00 [facility] SARS-COV-2 COVID-19 2021-02-28 Completed Unive rsity of PFIZER VACCINE 00:00:00 [facility] SARS-COV-2 COVID-19 2021-02-28 Completed Unive rsity of PFIZER VACCINE 00:00:00 [facility] SARS-COV-2 COVID-19 2021-02-28 Completed Unive rsity of PFIZER VACCINE 00:00:00 [facility] SARS-COV-2 COVID-19 2021-02-28 Completed Unive rsity of PFIZER VACCINE 00:00:00 [facility] SARS-COV-2 COVID-19 2021-02-28 Completed Unive rsity of PFIZER VACCINE 00:00:00 [facility] SARS-COV-2 COVID-19 2021-02-28 Completed Unive rsity of PFIZER VACCINE 00:00:00 [facility] SARS-COV-2 COVID-19 2021-02-28 Completed Unive rsity of PFIZER VACCINE 00:00:00 [facility] SARS-COV-2 COVID-19 2021-02-28 Completed Unive rsity of PFIZER VACCINE 00:00:00 [facility] Branch SARS-COV-2 COVID-19 2021-02-28 Completed Unive rsity of PFIZER VACCINE 00:00:00 [facility] Branch SARS-COV-2 COVID-19 2021-02-28 Completed Unive rsity of PFIZER VACCINE 00:00:00 [facility] SARS-COV-2 COVID-19 2021-02-28 Completed Unive rsity of PFIZER VACCINE 00:00:00 [facility] Branch SARS-COV-2 COVID-19 2021-02-28 Completed Unive rsity of PFIZER VACCINE 00:00:00 [facility] Branch SARS-COV-2 COVID-19 2021-02-28 Completed Unive rsity of PFIZER VACCINE 00:00:00 [facility] SARS-COV-2 COVID-19 2021-02-28 Completed Unive rsity of PFIZER VACCINE 00:00:00 [facility] SARS-COV-2 COVID-19 2021-02-28 Completed Unive rsity of PFIZER VACCINE 00:00:00 [facility] SARS-COV-2 COVID-19 2021-02-28 Completed Unive rsity of PFIZER VACCINE 00:00:00 [facility] SARS-COV-2 COVID-19 2021-02-28 Completed Unive rsity of PFIZER VACCINE 00:00:00 [facility] SARS-COV-2 COVID-19 2021-02-28 Completed Unive rsity of PFIZER VACCINE 00:00:00 [facility] SARS-COV-2 COVID-19 2021-02-28 Completed Unive rsity of PFIZER VACCINE 00:00:00 [facility] SARS-COV-2 COVID-19 2021-02-28 Completed Unive rsity of PFIZER VACCINE 00:00:00 [facility] SARS-COV-2 COVID-19 2021-02-28 Completed Unive rsity of PFIZER VACCINE 00:00:00 [facility] SARS-COV-2 COVID-19 2021-02-28 Completed Unive rsity of PFIZER VACCINE 00:00:00 [facility] SARS-COV-2 COVID-19 2021-02-28 Completed Unive rsity of PFIZER VACCINE 00:00:00 [facility] SARS-COV-2 COVID-19 2021-02-28 Completed Unive rsity of PFIZER VACCINE 00:00:00 [facility] SARS-COV-2 COVID-19 2021-02-28 Completed Unive rsity of PFIZER VACCINE 00:00:00 [facility] SARS-COV-2 COVID-19 2021-02-28 Completed Unive rsity of PFIZER VACCINE 00:00:00 [facility] Influenza Virus 2020-12-18 Completed Universit y of Vaccine (3+ yrs) 00:00:00 [facility] Influenza Virus 2020-12-18 Completed Universit y of Vaccine (3+ yrs) 00:00:00 [facility] Influenza Virus 2020-12-18 Completed Universit y of Vaccine (3+ yrs) 00:00:00 [facility] Influenza Virus 2020-12-18 Completed Universit y of Vaccine (3+ yrs) 00:00:00 [facility] Influenza Virus 2020-12-18 Completed Universit y of Vaccine (3+ yrs) 00:00:00 [facility] Influenza Virus 2020-12-18 Completed Universit y of Vaccine (3+ yrs) 00:00:00 [facility] Influenza Virus 2020-12-18 Completed Universit y of Vaccine (3+ yrs) 00:00:00 [facility] Influenza Virus 2020-12-18 Completed Universit y of Vaccine (3+ yrs) 00:00:00 [facility] Influenza Virus 2020-12-18 Completed Universit y of Vaccine (3+ yrs) 00:00:00 [facility] Influenza Virus 2020-12-18 Completed Universit y of Vaccine (3+ yrs) 00:00:00 [facility] Influenza Virus 2020-12-18 Completed Universit y of Vaccine (3+ yrs) 00:00:00 [facility] Influenza Virus 2020-12-18 Completed Universit y of Vaccine (3+ yrs) 00:00:00 [facility] Influenza Virus 2020-12-18 Completed Universit y of Vaccine (3+ yrs) 00:00:00 [facility] Influenza Virus 2020-12-18 Completed Universit y of Vaccine (3+ yrs) 00:00:00 [facility] Influenza Virus 2020-12-18 Completed Universit y of Vaccine (3+ yrs) 00:00:00 [facility] Influenza Virus 2020-12-18 Completed Universit y of Vaccine (3+ yrs) 00:00:00 [facility] Branch Influenza Virus 2020-12-18 Completed Universit y of Vaccine (3+ yrs) 00:00:00 [facility] Influenza Virus 2020-12-18 Completed Universit y of Vaccine (3+ yrs) 00:00:00 [facility] Influenza Virus 2020-12-18 Completed Universit y of Vaccine (3+ yrs) 00:00:00 [facility] Influenza Virus 2020-12-18 Completed Universit y of Vaccine (3+ yrs) 00:00:00 [facility] Influenza Virus 2020-12-18 Completed Universit y of Vaccine (3+ yrs) 00:00:00 [facility] Influenza Virus 2020-12-18 Completed Universit y of Vaccine (3+ yrs) 00:00:00 [facility] Influenza Virus 2020-12-18 Completed Universit y of Vaccine (3+ yrs) 00:00:00 [facility] Influenza Virus 2020-12-18 Completed Universit y of Vaccine (3+ yrs) 00:00:00 [facility] Influenza Virus 2020-12-18 Completed Universit y of Vaccine (3+ yrs) 00:00:00 [facility] Influenza Virus 2020-12-18 Completed Universit y of Vaccine (3+ yrs) 00:00:00 [facility] Influenza Virus 2020-12-18 Completed Universit y of Vaccine (3+ yrs) 00:00:00 [facility] Influenza Virus 2020-12-18 Completed Universit y of Vaccine (3+ yrs) 00:00:00 [facility] Influenza Virus 2020-12-18 Completed Universit y of Vaccine (3+ yrs) 00:00:00 [facility] Influenza Virus 2020-12-18 Completed Universit y of Vaccine (3+ yrs) 00:00:00 [facility] Influenza Virus 2020-12-18 Completed Universit y of Vaccine (3+ yrs) 00:00:00 [facility] Influenza Virus 2020-12-18 Completed Universit y of Vaccine (3+ yrs) 00:00:00 [facility] Influenza Virus 2020-12-18 Completed Universit y of Vaccine (3+ yrs) 00:00:00 [facility] SARS-COV-2 COVID-19 2020-06-08 Completed Unive rsity of PFIZER VACCINE 00:00:00 [facility] SARS-COV-2 COVID-19 2020-06-08 Completed Unive rsity of PFIZER VACCINE 00:00:00 [facility] SARS-COV-2 COVID-19 2020-06-08 Completed Unive rsity of PFIZER VACCINE 00:00:00 [facility] SARS-COV-2 COVID-19 2020-06-08 Completed Unive rsity of PFIZER VACCINE 00:00:00 [facility] SARS-COV-2 COVID-19 2020-06-08 Completed Unive rsity of PFIZER VACCINE 00:00:00 [facility] SARS-COV-2 COVID-19 2020-06-08 Completed Unive rsity of PFIZER VACCINE 00:00:00 [facility] SARS-COV-2 COVID-19 2020-06-08 Completed Unive rsity of PFIZER VACCINE 00:00:00 [facility] SARS-COV-2 COVID-19 2020-06-08 Completed Unive rsity of PFIZER VACCINE 00:00:00 [facility] SARS-COV-2 COVID-19 2020-06-08 Completed Unive rsity of PFIZER VACCINE 00:00:00 [facility] SARS-COV-2 COVID-19 2020-06-08 Completed Unive rsity of PFIZER VACCINE 00:00:00 [facility] SARS-COV-2 COVID-19 2020-06-08 Completed Unive rsity of PFIZER VACCINE 00:00:00 [facility] SARS-COV-2 COVID-19 2020-06-08 Completed Unive rsity of PFIZER VACCINE 00:00:00 [facility] SARS-COV-2 COVID-19 2020-06-08 Completed Unive rsity of PFIZER VACCINE 00:00:00 [facility] SARS-COV-2 COVID-19 2020-06-08 Completed Unive rsity of PFIZER VACCINE 00:00:00 [facility] SARS-COV-2 COVID-19 2020-06-08 Completed Unive rsity of PFIZER VACCINE 00:00:00 [facility] SARS-COV-2 COVID-19 2020-06-08 Completed Unive rsity of PFIZER VACCINE 00:00:00 [facility] SARS-COV-2 COVID-19 2020-06-08 Completed Unive rsity of PFIZER VACCINE 00:00:00 [facility] SARS-COV-2 COVID-19 2020-06-08 Completed Unive rsity of PFIZER VACCINE 00:00:00 [facility] SARS-COV-2 COVID-19 2020-06-08 Completed Unive rsity of PFIZER VACCINE 00:00:00 [facility] SARS-COV-2 COVID-19 2020-06-08 Completed Unive rsity of PFIZER VACCINE 00:00:00 [facility] SARS-COV-2 COVID-19 2020-06-08 Completed Unive rsity of PFIZER VACCINE 00:00:00 [facility] SARS-COV-2 COVID-19 2020-06-08 Completed Unive rsity of PFIZER VACCINE 00:00:00 [facility] SARS-COV-2 COVID-19 2020-06-08 Completed Unive rsity of PFIZER VACCINE 00:00:00 [facility] SARS-COV-2 COVID-19 2020-06-08 Completed Unive rsity of PFIZER VACCINE 00:00:00 [facility] SARS-COV-2 COVID-19 2020-06-08 Completed Unive rsity of PFIZER VACCINE 00:00:00 [facility] SARS-COV-2 COVID-19 2020-06-08 Completed Unive rsity of PFIZER VACCINE 00:00:00 [facility] SARS-COV-2 COVID-19 2020-06-08 Completed Unive rsity of PFIZER VACCINE 00:00:00 [facility] SARS-COV-2 COVID-19 2020-06-08 Completed Unive rsity of PFIZER VACCINE 00:00:00 [facility] SARS-COV-2 COVID-19 2020-06-08 Completed Unive rsity of PFIZER VACCINE 00:00:00 [facility] SARS-COV-2 COVID-19 2020-06-08 Completed Unive rsity of PFIZER VACCINE 00:00:00 [facility] SARS-COV-2 COVID-19 2020-06-08 Completed Unive rsity of PFIZER VACCINE 00:00:00 [facility] SARS-COV-2 COVID-19 2020-06-08 Completed Unive rsity of PFIZER VACCINE 00:00:00 [facility] SARS-COV-2 COVID-19 2020-06-08 Completed Unive rsity of PFIZER VACCINE 00:00:00 [facility] SARS-COV-2 COVID-19 2020-05-18 Completed Unive rsity of PFIZER VACCINE 00:00:00 [facility] SARS-COV-2 COVID-19 2020-05-18 Completed Unive rsity of PFIZER VACCINE 00:00:00 [facility] SARS-COV-2 COVID-19 2020-05-18 Completed Unive rsity of PFIZER VACCINE 00:00:00 [facility] SARS-COV-2 COVID-19 2020-05-18 Completed Unive rsity of PFIZER VACCINE 00:00:00 [facility] SARS-COV-2 COVID-19 2020-05-18 Completed Unive rsity of PFIZER VACCINE 00:00:00 [facility] SARS-COV-2 COVID-19 2020-05-18 Completed Unive rsity of PFIZER VACCINE 00:00:00 [facility] SARS-COV-2 COVID-19 2020-05-18 Completed Unive rsity of PFIZER VACCINE 00:00:00 [facility] SARS-COV-2 COVID-19 2020-05-18 Completed Unive rsity of PFIZER VACCINE 00:00:00 [facility] SARS-COV-2 COVID-19 2020-05-18 Completed Unive rsity of PFIZER VACCINE 00:00:00 [facility] SARS-COV-2 COVID-19 2020-05-18 Completed Unive rsity of PFIZER VACCINE 00:00:00 [facility] SARS-COV-2 COVID-19 2020-05-18 Completed Unive rsity of PFIZER VACCINE 00:00:00 [facility] SARS-COV-2 COVID-19 2020-05-18 Completed Unive rsity of PFIZER VACCINE 00:00:00 [facility] SARS-COV-2 COVID-19 2020-05-18 Completed Unive rsity of PFIZER VACCINE 00:00:00 [facility] SARS-COV-2 COVID-19 2020-05-18 Completed Unive rsity of PFIZER VACCINE 00:00:00 [facility] SARS-COV-2 COVID-19 2020-05-18 Completed Unive rsity of PFIZER VACCINE 00:00:00 [facility] SARS-COV-2 COVID-19 2020-05-18 Completed Unive rsity of PFIZER VACCINE 00:00:00 [facility] SARS-COV-2 COVID-19 2020-05-18 Completed Unive rsity of PFIZER VACCINE 00:00:00 [facility] SARS-COV-2 COVID-19 2020-05-18 Completed Unive rsity of PFIZER VACCINE 00:00:00 [facility] SARS-COV-2 COVID-19 2020-05-18 Completed Unive rsity of PFIZER VACCINE 00:00:00 [facility] SARS-COV-2 COVID-19 2020-05-18 Completed Unive rsity of PFIZER VACCINE 00:00:00 [facility] SARS-COV-2 COVID-19 2020-05-18 Completed Unive rsity of PFIZER VACCINE 00:00:00 [facility] SARS-COV-2 COVID-19 2020-05-18 Completed Unive rsity of PFIZER VACCINE 00:00:00 [facility] SARS-COV-2 COVID-19 2020-05-18 Completed Unive rsity of PFIZER VACCINE 00:00:00 [facility] SARS-COV-2 COVID-19 2020-05-18 Completed Unive rsity of PFIZER VACCINE 00:00:00 [facility] SARS-COV-2 COVID-19 2020-05-18 Completed Unive rsity of PFIZER VACCINE 00:00:00 [facility] SARS-COV-2 COVID-19 2020-05-18 Completed Unive rsity of PFIZER VACCINE 00:00:00 [facility] SARS-COV-2 COVID-19 2020-05-18 Completed Unive rsity of PFIZER VACCINE 00:00:00 [facility] SARS-COV-2 COVID-19 2020-05-18 Completed Unive rsity of PFIZER VACCINE 00:00:00 [facility] SARS-COV-2 COVID-19 2020-05-18 Completed Unive rsity of PFIZER VACCINE 00:00:00 [facility] SARS-COV-2 COVID-19 2020-05-18 Completed Unive rsity of PFIZER VACCINE 00:00:00 [facility] SARS-COV-2 COVID-19 2020-05-18 Completed Unive rsity of PFIZER VACCINE 00:00:00 [facility] SARS-COV-2 COVID-19 2020-05-18 Completed Unive rsity of PFIZER VACCINE 00:00:00 [facility] SARS-COV-2 COVID-19 2020-05-18 Completed Unive rsity of PFIZER VACCINE 00:00:00 [facility] Influenza Virus 2016-12-18 Completed Universit y of Vaccine Quad IM 3+ 00:00:00 [facility] Influenza Virus 2016-12-18 Completed Universit y of Vaccine Quad IM 3+ 00:00:00 [facility] Influenza Virus 2016-12-18 Completed Universit y of Vaccine Quad IM 3+ 00:00:00 [facility] Influenza Virus 2016-12-18 Completed Universit y of Vaccine Quad IM 3+ 00:00:00 [facility] Influenza Virus 2016-12-18 Completed Universit y of Vaccine Quad IM 3+ 00:00:00 [facility] Influenza Virus 2016-12-18 Completed Universit y of Vaccine Quad IM 3+ 00:00:00 [facility] Influenza Virus 2016-12-18 Completed Universit y of Vaccine Quad IM 3+ 00:00:00 [facility] Influenza Virus 2016-12-18 Completed Universit y of Vaccine Quad IM 3+ 00:00:00 [facility] Influenza Virus 2016-12-18 Completed Universit y of Vaccine Quad IM 3+ 00:00:00 [facility] Influenza Virus 2016-12-18 Completed Universit y of Vaccine Quad IM 3+ 00:00:00 [facility] Influenza Virus 2016-12-18 Completed Universit y of Vaccine Quad IM 3+ 00:00:00 [facility] Influenza Virus 2016-12-18 Completed Universit y of Vaccine Quad IM 3+ 00:00:00 [facility] Influenza Virus 2016-12-18 Completed Universit y of Vaccine Quad IM 3+ 00:00:00 [facility] Influenza Virus 2016-12-18 Completed Universit y of Vaccine Quad IM 3+ 00:00:00 [facility] Influenza Virus 2016-12-18 Completed Universit y of Vaccine Quad IM 3+ 00:00:00 [facility] Influenza Virus 2016-12-18 Completed Universit y of Vaccine Quad IM 3+ 00:00:00 [facility] Influenza Virus 2016-12-18 Completed Universit y of Vaccine Quad IM 3+ 00:00:00 [facility] Influenza Virus 2016-12-18 Completed Universit y of Vaccine Quad IM 3+ 00:00:00 [facility] Influenza Virus 2016-12-18 Completed Universit y of Vaccine Quad IM 3+ 00:00:00 [facility] Influenza Virus 2016-12-18 Completed Universit y of Vaccine Quad IM 3+ 00:00:00 [facility] Influenza Virus 2016-12-18 Completed Universit y of Vaccine Quad IM 3+ 00:00:00 [facility] Influenza Virus 2016-12-18 Completed Universit y of Vaccine Quad IM 3+ 00:00:00 [facility] Influenza Virus 2016-12-18 Completed Universit y of Vaccine Quad IM 3+ 00:00:00 [facility] Influenza Virus 2016-12-18 Completed Universit y of Vaccine Quad IM 3+ 00:00:00 [facility] Influenza Virus 2016-12-18 Completed Universit y of Vaccine Quad IM 3+ 00:00:00 [facility] Influenza Virus 2016-12-18 Completed Universit y of Vaccine Quad IM 3+ 00:00:00 [facility] Influenza Virus 2016-12-18 Completed Universit y of Vaccine Quad IM 3+ 00:00:00 [facility] Influenza Virus 2016-12-18 Completed Universit y of Vaccine Quad IM 3+ 00:00:00 [facility] Influenza Virus 2016-12-18 Completed Universit y of Vaccine Quad IM 3+ 00:00:00 [facility] Influenza Virus 2016-12-18 Completed Universit y of Vaccine Quad IM 3+ 00:00:00 [facility] Influenza Virus 2016-12-18 Completed Universit y of Vaccine Quad IM 3+ 00:00:00 [facility] Influenza Virus 2016-12-18 Completed Universit y of Vaccine Quad IM 3+ 00:00:00 [facility] Influenza Virus 2016-12-18 Completed Universit y of Vaccine Quad IM 3+ 00:00:00 [facility] TDAP 2005-06-16 Completed University of 00:00:00 [facility] TDAP 2005-06-16 Completed University of 00:00:00 [facility] TDAP 2005-06-16 Completed University of 00:00:00 [facility] TDAP 2005-06-16 Completed University of 00:00:00 [facility] TDAP 2005-06-16 Completed University of 00:00:00 [facility] TDAP 2005-06-16 Completed University of 00:00:00 [facility] TDAP 2005-06-16 Completed University of 00:00:00 [facility] TDAP 2005-06-16 Completed University of 00:00:00 [facility] TDAP 2005-06-16 Completed University of 00:00:00 [facility] TDAP 2005-06-16 Completed University of 00:00:00 [facility] TDAP 2005-06-16 Completed University of 00:00:00 [facility] TDAP 2005-06-16 Completed University of 00:00:00 [facility] TDAP 2005-06-16 Completed University of 00:00:00 [facility] TDAP 2005-06-16 Completed University of 00:00:00 [facility] TDAP 2005-06-16 Completed University of 00:00:00 [facility] TDAP 2005-06-16 Completed University of 00:00:00 [facility] TDAP 2005-06-16 Completed University of 00:00:00 [facility] TDAP 2005-06-16 Completed University of 00:00:00 [facility] TDAP 2005-06-16 Completed University of 00:00:00 [facility] TDAP 2005-06-16 Completed University of 00:00:00 [facility] TDAP 2005-06-16 Completed University of 00:00:00 [facility] TDAP 2005-06-16 Completed University of 00:00:00 [facility] TDAP 2005-06-16 Completed University of 00:00:00 [facility] TDAP 2005-06-16 Completed University of 00:00:00 [facility] TDAP 2005-06-16 Completed University of 00:00:00 [facility] TDAP 2005-06-16 Completed University of 00:00:00 [facility] TDAP 2005-06-16 Completed University of 00:00:00 [facility] TDAP 2005-06-16 Completed University of 00:00:00 [facility] TDAP 2005-06-16 Completed University of 00:00:00 [facility] TDAP 2005-06-16 Completed University of 00:00:00 [facility] TDAP 2005-06-16 Completed University of 00:00:00 [facility] TDAP 2005-06-16 Completed University of 00:00:00 [facility] TDAP 2005-06-16 Completed University of 00:00:00 [facility] Vital Signs Vital Name Observation Time Observation Value Comments Source Systolic blood 2022-02-27 16:42:00 147 mm[Hg] Univer sity of pressure [facility] Diastolic blood 2022-02-27 16:42:00 87 mm[Hg] Unive rsity of pressure [facility] Heart rate 2022-02-27 16:42:00 82 /min Universi ty of [facility] Body temperature 2022-02-27 16:42:00 37.11 Elise Univ ersity of [facility] Respiratory rate 2022-02-27 16:42:00 18 /min Univ ersity of [facility] Body height 2022-02-27 16:42:00 165.1 cm Universi ty of [facility] Body weight 2022-02-27 16:42:00 100.245 kg Universi ty of [facility] BMI 2022-02-27 16:42:00 36.78 kg/m2 Universi ty [facility] Oxygen saturation in 2022-02-27 16:42:00 98 /min University of Arterial blood by [facility] Systolic blood 2022-02-08 16:07:00 152 mm[Hg] Univer sity of pressure [facility] Diastolic blood 2022-02-08 16:07:00 96 mm[Hg] Unive rsity of pressure [facility] Heart rate 2022-02-08 16:03:00 71 /min Universi ty of [facility] Body temperature 2022-02-08 16:03:00 36.94 Elise Univ ersity of [facility] Respiratory rate 2022-02-08 16:03:00 16 /min Univ ersity of [facility] Body height 2022-02-08 16:03:00 165.1 cm Universi ty of [facility] Body weight 2022-02-08 16:03:00 100.358 kg Universi ty of [facility] BMI 2022-02-08 16:03:00 36.82 kg/m2 Universi ty of [facility] Oxygen saturation in 2022-02-08 16:03:00 97 /min University of Arterial blood by [facility] Systolic blood 2021-12-23 18:12:00 137 mm[Hg] Univer sity of pressure [facility] Diastolic blood 2021-12-23 18:12:00 88 mm[Hg] Unive rsity of pressure [facility] Heart rate 2021-12-23 18:11:00 98 /min Universi ty of [facility] Body temperature 2021-12-23 18:11:00 36.94 Elise Univ ersity of [facility] Respiratory rate 2021-12-23 18:11:00 16 /min Univ ersity of [facility] Body height 2021-12-23 18:11:00 165.1 cm Universi ty of [facility] Body weight 2021-12-23 18:11:00 97.665 kg Universi ty of [facility] BMI 2021-12-23 18:11:00 35.83 kg/m2 Universi ty of [facility] Oxygen saturation in 2021-12-23 18:11:00 98 /min University of Arterial blood by [facility] Systolic blood 2021-12-17 18:45:00 148 mm[Hg] Univer sity of pressure [facility] Diastolic blood 2021-12-17 18:45:00 88 mm[Hg] Unive rsity of pressure [facility] Heart rate 2021-12-17 18:40:00 77 /min Universi ty of [facility] Body temperature 2021-12-17 18:40:00 36.72 Elise Univ ersity of [facility] Respiratory rate 2021-12-17 18:40:00 18 /min Univ ersity of [facility] Body height 2021-12-17 18:40:00 165.1 cm Universi ty of [facility] Body weight 2021-12-17 18:40:00 109.317 kg Universi ty of [facility] BMI 2021-12-17 18:40:00 40.10 kg/m2 Universi ty of [facility] Oxygen saturation in 2021-12-17 18:40:00 100 /min University Arterial blood by [facility] Systolic blood 2021-09-27 20:51:00 146 mm[Hg] Univer sity pressure [facility] Diastolic blood 2021-09-27 20:51:00 83 mm[Hg] [facility] Heart rate 2021-09-27 20:45:00 63 /min [facility] Body height 2021-09-27 20:45:00 166.4 cm [facility] Body weight 2021-09-27 20:45:00 97.977 kg [facility] BMI 2021-09-27 20:45:00 35.40 kg/m2 [facility] Oxygen saturation in 2021-09-27 20:45:00 98 /min [facility] Arterial blood by [facility] oximetry [place] Procedures Procedure Date / Time Performed Performing Clinician Sour e POCT URINALYSIS 2022-02-27 17:00:00 Vinicio Jazmine [facility] FLU VACC ([id number]), 2022-02-15 21:32:08 Lopez Thomas [facility] 6 MO-64 YRS, .5ML, IM, Medical [place] QUAD (FLUCELVAX) POCT MOLECULAR FLU 2022-02-08 16:13:00 Unknown, Attending [facility] POCT MOLECULAR STREP 2022-02-08 16:11:00 Unknown, Attending [facility] XR CHEST 2 VW 2021-12-23 18:35:00 Amy Hinojosa [facility] POCT MOLECULAR FLU 2021-12-23 18:18:00 Ashish [facility] POCT MOLECULAR FLU 2021-12-17 18:52:00 Lisa Callahan [facility] POCT MOLECULAR STREP 2021-12-17 18:49:00 Lisa Callahan [facility] EXTERNAL PROVIDER 2021-11-25 05:01:00 Doctor Unassigned, No Univ [facility] RECORDS Name Medical Branch Plan of Care Planned Activity Planned Date Details Comments Source Future Scheduled 2022-05-12 COVID-19 VACCINE (#1) [facility] Hospital Test 21:34:52 [code = COVID-19 VACCINE (#1)] Future Scheduled 2022-05-12 [facility] 21:34:52 (procedure) [code = 419870067] Future Scheduled 2022-05-12 [facility] Test 21:34:52 malignant neoplasm of cervix (procedure) [code = 239617040] Future Scheduled 2022-05-12 BREAST CANCER [facility] Test 21:34:52 SCREENING [code = BREAST CANCER SCREENING] Future Scheduled 2022-05-12 COLONOSCOPY SCREENING [facility] Test 21:34:52 [code = COLONOSCOPY SCREENING] Future Scheduled 2022-05-12 COVID-19 VACCINE (#1) [facility] Test 21:34:52 [code = COVID-19 VACCINE (#1)] Future Scheduled 2022-05-12 Hepatitis C screening [facility] Test 21:34:52 (procedure) [code = 387979479] Future Scheduled 2022-05-12 [facility] Test 21:34:52 malignant neoplasm of cervix (procedure) [code = 358952589] Future Scheduled 2022-05-12 BREAST CANCER [facility] Test 21:34:52 SCREENING [code = BREAST CANCER SCREENING] Future Scheduled 2022-05-12 COLONOSCOPY SCREENING [facility] Test 21:34:52 [code = COLONOSCOPY SCREENING] Future Scheduled 2021-08-05 [facility] Test 02:59:01 malignant neoplasm of cervix (procedure) [code = 838266393] Future Scheduled 2021-08-05 [facility]ZA [facility]ACCINE [facility] 02:59:01 [code = INFLUENZA VACCINE] Future Scheduled 2021-08-05 COVID-19 [facility]ACCINE (1) [facility] 02:59:01 [code = COVID-19 VACCINE (1)] Future Scheduled 2021-08-05 Hepatitis C screening [facility] Test 02:59:01 (procedure) [code = 426040662] Encounters Start End Encounter Admission Attending Care Care Encounter Source Date/Time Date/Time Type Type Clinicians Facility Department ID 2022-04-21 2022-04-21 Refill Doctor [facility] [id number] [id number] Univers 00:00:00 00:00:00 Unassigned, HEALTH 350.1.13.10 ity of [place] 4.2.7.2.686 Parth as AGUEDA?BLEA [id number] [address] MEDICAL OFFICE [facility] 2022-04-20 2022-04-20 Refill [facility] 1.2.840.114 [id number] Univers 00:00:00 00:00:00 Unassigned, HEALTH 350.1.13.10 ity [place] 4.2.7.2.686 Parth as AGUEDA?BLEA [id number] [address] MEDICAL OFFICE [facility] 2022-03-26 2022-03-26 Outpatient R LORI, [facility] [id number] Univers 10:00:00 10:00:00 ATTENDING ity [facility] 2022-03-01 2022-03-01 Briseyda Thomas [facility] [id number] Univers 00:00:00 00:00:00 Lopez HEALTH 350.1.13.10 [facility] 4.2.7.2.686 Parth as AGUEDA?BLEA [id number] [address] OFFICE [facility] 2022-02-28 2022-02-28 Refill Martha [facility] 1.2.840.114 [id number] Univers 00:00:00 00:00:00 Lopez HEALTH 350.1.13.10 it y of [place] 4.2.7.2.686 Parth as AGUEDA?BLEA [id number] [address] OFFICE [facility] 2022-02-27 2022-02-27 Outpatient R VINICIO [facility] [id number] Univers 10:40:00 11:09:17 JAZMINE itwilliam [facility] 2022-02-27 2022-02-27 Urgent Jazmine Mooney [facility] 1.2.840.11 [id number] Univers 10:40:00 11:09:17 Care Unknown, Attending HEALTH 350.1.13.10 ity of [place] 4.2.7.2.686 Parth as AGUEDA?BLEA [id number] [address] OFFICE [facility] 2022-02-27 2022-02-27 Letter Provider, [facility] [id number] Univers 00:00:00 00:00:00 (Out) Ang Db HEALTH 350.1.13.10 it y of Urgent [facility] [place] 4.2.7.2.686 [place] AGUEDA?BLEA [id number] [address] OFFICE [facility] 2022-02-27 2022-02-27 Letter Provider, [facility] [id number] [id number] Univers 00:00:00 00:00:00 (Out) Ang Db HEALTH 350.1.13.10 it y of [facility]gent [facility] [place] 4.2.7.2.686 [place] AGUEDA?BLEA [id number] [address] OFFICE [facility] 2022-02-21 2022-02-21 [facility] 1.2.840.114 [id number] Univers 00:00:00 00:00:00 Lopez HEALTH 350.1.13.10 it y of [place] 4.2.7.2.686 Parth as AGUEDA?BLEA [id number] [address] OFFICE [facility] 2022-02-21 2022-02-21 [facility] 1.2.840.114 [id number] Univers 00:00:00 00:00:00 Lopez HEALTH 350.1.13.10 it y of [place] 4.2.7.2.686 Parth as AGUEDA?BLEA [id number] [address] OFFICE [facility] 2022-02-16 2022-02-16 Patient Martha [facility] 1.2.840.114 [id number] Univers 00:00:00 00:00:00 Secure Msg Lopez HEALTH 350.1.13.10 ity of [place] 4.2.7.2.686 Parth as AGUEDA?BLEA [id number] [address] OFFICE [facility] 2022-02-15 2022-02-15 Outpatient R MARTHA [facility] [id number] Univers 15:00:00 15:59:32 LOPEZ ity of [facility] 2022-02-15 2022-02-15 Office Martha, [facility] 1.2.840.114 [id number] Univers 15:00:00 [facility]:59:[facility]1.13.[facility] y of [place] 4.2.7.2.686 Parth as AGUEDA?BLEA [phone] [facility] [address] MEDICAL OFFICE [facility] 2022-02-08 2022-02-08 Urgent ViridianaAmy vasquez [facility] 1.2.840.114 [id number] Univers 09:40:00 10:00:00 Care Unknown, Attending HEALTH 350.1.13.10 ity of [place] 4.2.7.2.686 Parth as AGUEDA?BLEA [phone] [facility] [address] MEDICAL OFFICE [facility] 2022-02-08 2022-02-08 Outpatient R ASHISH [facility] [id number] Univers 09:40:00 09:40:00 AMY ity [facility] 2022-02-03 2022-02-03 Outpatient R [facility] [id number] Univers 11:00:00 11:00:00 ity of [facility] 2022-01-25 2022-01-25 Outpatient R MARTHA [facility] [id number] Univers 10:30:00 10:30:00 LOPEZ ity [facility] 2022-01-18 2022-01-18 Refill Doctor [facility] 1.2.840.114 [id number] Univers 00:00:00 00:00:00 Unassigned, HEALTH 350.1.13.10 ity of [place] 4.2.7.2.686 Parth as AGUEDA?BLEA [id number] Co lexie GRIFF[address] MEDICAL OFFICE [facility] 2022-01-18 2022-01-18 Refill Doctor [facility] 1.2.840.114 [id number] Univers 00:00:00 00:00:00 Unassigned, HEALTH 350.1.13.10 ity of [place] 4.2.7.2.686 Parth as AGUEDA?BLEA [id number] Co lexie GRIFF[address] MEDICAL OFFICE [facility] 2022-01-17 2022-01-17 Refill Reilly, [facility] 1.2.840.114 [id number] Univers 00:00:00 00:00:00 Jeffery HEALTH 350.1.13.10 it y of [place] 4.2.7.2.686 Parth as AGUEDA?BLEA [phone] Co dical [address] MEDICAL OFFICE [facility]ILD[facility] 2022-01-17 2022-01-17 Refill Doctor [facility] 1.2.840.114 [id number] Univers 00:00:00 00:00:00 Unassigned, HEALTH 350.1.13.10 ity of [place] 4.2.7.2.686 Parth as AGUEDA?BLEA [phone] Co lexie [address] MEDICAL OFFICE [facility] 2021-12-23 2021-12-23 [facility] 1.2.032.007 [id number] Univers 13:19:54 23:59:00 Encounter Amy HEALTH 350.1.13.10 ity of [place] 4.2.7.2.686 Parth as AGUEDA?BLEA [id number] Co lexie [address] MEDICAL OFFICE [facility] 2021-12-23 2021-12-23 [facility] [id number] Univers 13:00:00 15:08:27 General acute hospital 2021-12-23 2021-12-23 Urgent [facility] 1.2.840.114 [id number] Univers 13:00:00 15:08:27 Care Claytonnv HEALTH 350.1.13.10 it y of [place] 4.2.7.2.686 Parth as AGUEDA?BLEA [id number] Co lexie [address] MEDICAL OFFICE [facility] 2021-12-23 2021-12-23 Telephone [facility] 1.2.840.114 [id number] Univers 00:00:00 00:00:00 Amy HEALTH 350.1.13.10 it y of [place] 4.2.7.2.686 [place]th as AGUEDA?BLEA [phone] Co dicquentin [address] MEDICAL OFFICE [facility] 2021-12-23 2021-12-23 [facility] [id number] Univers 00:00:00 00:00:00 Lopez HEALTH 350.1.13.10 it y of [place] 4.2.7.2.686 Parth as AGUEDA?BLEA [id number] [address] MEDICAL OFFICE [facility] 2021-12-18 2021-12-18 Letter NEHEMIAH Faust 1.2.840.114 [id number] Univers 00:00:00 00:00:00 (Out) Cookie T DARIA 350.1.13.10 it y of [facility] 4.2.7.2.686 [place] as [id number] [address] 2021-12-18 2021-12-18 Refill Doctor [facility] 1.2.840.114 [id number] Univers 00:00:00 00:00:00 Unassigned, HEALTH 350.1.13.10 ity of [place] 4.2.7.2.686 Parth as AGUEDA?BLEA [id number] [address] OFFICE [facility] 2021-12-17 2021-12-17 Outpatient R LONDON [facility] [id number] Univers 14:00:00 14:38:20 LISA itwilliam of [facility] 2021-12-17 2021-12-17 [facility] 1.2.840.114 [id number] Univers 14:00:00 14:20:00 [facility] 350.1.13.10 it y of [place] 4.2.7.2.686 Parth as AGUEDA?BLEA [phone] [address] MEDICAL OFFICE [facility] 2021-12-16 2021-12-16 Patient Ranjith [facility] 1.2.840.114 [id number] Univers 00:00:00 00:00:00 Secure Msg Reyna DIAZ 350.1.13.10 ity of [place] 4[place]2.7.2.[place] [id number] [address] 2021-12-16 2021-12-16 Patient Martha [facility] 1.2.840.114 [id number] Univers 00:00:00 00:00:00 Secure Msg Lopez [employer] 350.1.13.10 ity of [place] 4.2.7.2.686 Parth as AGUEDA?BLEA [phone] Co lexie [address] MEDICAL OFFICE BUILDING 2021-12-14 2021-12-14 Alea Gamble [facility] 1.2.840.114 [id number] Univers 00:00:00 00:00:00 Kim VIRGEN 350.1.13.10 it y of [facility]ED[facility]RIC [address] [facility] [phone] [facility] [address] 2021-12-10 2021-12-10 [facility] [id number] Univers 15:20:00 15:20:00 DERRICK mcdermott o [facility] 2021-12-02 2021-12-02 [facility] [id number] Univers 11:40:00 11:40:00 GEORGINA mcdermott [facility] 2021-11-25 2021-11-25 Orders Doctor NEHEMIAH 1.2.840.114 [id number] Univers 00:00:00 00:00:00 Only Unassigned, DARIA 350.1.13.10 ity of [place] [facility] 4.2.7.2.686 Parth as [phone] [facility] [address] 2021-11-23 2021-11-23 [facility] [id number] Univers 10:30:00 10:30:00 LOPEZ mcdermott [facility] 2021-11-10 2021-11-10 Outpatient R FELICITAS, [facility] [id number] Univers 13:40:00 13:40:00 DERRICK mcdermott o [facility] 2021-11-10 2021-11-10 [facility] [id number] Univers 13:40:00 13:40:00 DERRICK mcdermott o [facility] 2021-10-29 2021-10-29 Outpatient [facility] [id number] Univers 11:30:00 11:30:00 LOPEZ mcdermott [facility] 2021-10-29 2021-10-29 Outpatient [facility] [id number] Univers 11:30:00 11:30:00 LOPEZYAYO mcdermott [facility] 2021-10-13 2021-10-13 Outpatient R KIM GAMBLE [facility] B [id number] Univers 00:00:00 00:00:00 KIM GAMBLE [facility] 2021-10-13 2021-10-13 Telephone [facility] [id number] Univers 00:00:00 00:00:00 Lopez HEALTH 350.1.13.10 it y of [place] 4.2.7.2.686 Parth as AGUEDA?BLEA [phone] [address] MEDICAL OFFICE [facility] 2021-10-13 2021-10-13 Refill [facility] 1.2.840.114 [id number] Univers 00:00:00 00:00:00 Lopez HEALTH 350.1.13.10 it y of [place] 4.2.7.2.686 Parth as AGUEDA?BLEA [phone] [address] MEDICAL OFFICE [facility] 2021-09-27 2021-09-27 [facility] [id number] Univers 15:30:00 17:04:23 LOPEZYAYO mcdermott [facility] 2021-09-27 2021-09-27 Office [facility] [id number] Univers 15:30:00 17:04:23 Visit Lopez HEALTH 350.1.13.10 it y of [place] 4.2.7.2.686 Parth as AGUEDA?BLEA [phone] [address] MEDICAL OFFICE [facility] 2021-09-27 2021-09-27 Outpatient [facility] [id number] Univers 15:00:00 15:00:00 LOPEZYAYO mcdermott [facility] 2021-09-21 2021-09-21 Patient Ahmet [facility] [id number] Univers 00:00:00 00:00:00 Secure Msg Kim PARAM 350.1.13.10 ity of [place] [facility] [phone] [address] 2021-08-23 2021-08-23 [facility]a [facility] 1.2.840.114 [id number] Univers 00:00:00 00:00:00 Lopez HEALTH 350.1.13.10 it y of [place] 4.2.7.2.686 Parth as AGUEDA?BLEA [phone] [address] MEDICAL OFFICE [facility] 2021-08-23 2021-08-23 [facility] 1.2.840.114 [id number] Univers 00:00:00 00:00:00 Lopez HEALTH 350.1.13.10 it y of [place] 4.2.7.2.686 Parth as AGUEDA?BLEA [phone] [address] OFFICE [facility] 2021-08-13 2021-08-13 Office Kim Gamble [facility] 1.2. [id number] Univers 11:00:00 11:56:56 Visit Desiree Soni 350.1.13.10 ity of [place] [phone] [address] 2021-08-13 2021-08-13 Outpatient R DESIREE SONI [facility] [id number] Univers 11:00:00 11:56:56 ity [facility] 2021-08-13 2021-08-13 Outpatient R DESIREE SONI [facility] [id number] Univers 11:00:00 11:00:00 ity [facility] 2021-07-30 2021-07-30 Outpatient R MARTHA [facility] [id number] Univers 14:30:00 14:30:00 LOPEZ mcdermott [facility] 2021-07-29 2021-07-29 Outpatient David THOMAS [facility] [id number] Univers 10:30:00 10:30:00 LOPEZ [facility] 2021-07-29 2021-07-29 Ui Developer Designer Lab, Ang - Dean [facility] 1.2.840.1 [id number] Univers 08:15:00 08:30:00 Visit Lopez Thomas HEALTH 350.1.13.10 ity of [place] 4.2.7.2.686 Parth as AGUEDA?BLEA [phone] Co lexie CALDWELL [address] MEDICAL OFFICE [facility] 2021-07-29 2021-07-29 Outpatient R MARTHA [facility] [id number] Univers 08:15:00 08:15:00 LOPEZYAYO mcdermott [facility] 2021-07-29 2021-07-29 Patient [facility] 1.2.840.114 [id number] Univers 00:00:00 00:00:00 Secure Msg Lopez HEALTH 350.1.13.10 ity of [place] 4.2.7.2.686 Parth as AGUEDA?BLEA [phone] Co lexie GRIFFITH 0[address] [facility] OFFICE [facility] 2021-07-13 2021-07-13 Refill [facility] 1.2.840.114 [id number] Univers 00:00:00 00:00:00 Lopez HEALTH 350.1.13.10 it y of [place] 4.2.7.2.686 Parth as AGUEDA?BLEA [phone] Co lexie GRIFFITH[address] OFFICE [facility] 2021-07-12 2021-07-12 Refgerard [facility] 1.2.840.114 [id number] Univers 00:00:00 00:00:00 Lopez HEALTH 350.1.13.10 it y of [place] 4.2.7.2.686 Parht as AGUEDA?BLEA [phone] Co lexie [address] OFFICE [facility] 2021-06-14 2021-06-14 Outpatient R MARTHA [facility] [id number] Univers 15:00:00 15:00:00 LOPEZ ity [facility] 2021-06-10 2021-06-10 [facility] [id number] Univers 15:00:00 15:00:00 LOPEZ ity [facility] 2021-06-10 2021-06-10 Patient [facility] 1.2.840.114 [id number] Univers 00:00:00 00:00:00 Secure Msg Lopez [facility] 350.1.13.10 ity of [place] 4.2.7.2.686 Parth as AGUEDA?BLEA [phone] Co lexie CALDWELL [address] [place] [address] MEDICAL OFFICE BUILDING 2021-06-09 2021-06-09 Emergency X Ever LIU [facility] ERT [id number] Univers 10:21:00 14:10:00 ity of [facility] 2021-06-09 2021-06-09 Emergency Ever Liu [facility] 1.2.840.114 [id number] Univers 10:21:00 14:10:00 [facility] 350.1.13.10 i ty of [place].2.[place] [phone] [facility] [address] 2021-06-07 2021-06-07 Outpatient [facility] [id number] Univers 11:00:00 11:00:00 DERRCIK brooksy o f [facility] 2021-05-24 2021-05-24 Outpatient David [facility] [id number] Univers 12:00:00 12:00:00 LOPEZ [facility] 2021-05-21 2021-05-21 Outpatient David [facility] [id number] Univers 13:00:00 14:06:25 [facility] 2021-05-21 2021-05-21 Orders Doctor CERNA 1.2.840.114 [id number] Univers 00:00:00 00:00:00 Only Unassigned, DARIA 350.1.13.10 ity of [place] [facility] 4.2.7.2.686 Parth as [phone] [facility] [address] 2020-11-28 2020-11-28 Outpatient ELVA Wallace [facility] [id number] [facility] 08:00:00 08:00:00 Carmelita 40 [facility] 2020-06-08 2020-06-08 Outpatient David WILSON [facility] [id number] Univers 12:30:00 12:30:00 TIM itwilliam [facility] 2020-05-18 2020-05-18 Outpatient R KATIE, [facility] [id number] Univers 12:30:00 12:30:00 ITM ity of [facility] 2019-10-26 2019-10-26 Emergency E MIRELLA NEIL [facility] [id number] [facility] 11:04:00 16:05:00 2019-10-14 2019-10-14 Outpatient SHOSHANA, [facility] DELON [id number] FB 07:54:00 11:25:00 SHINIL 2019-10-11 2019-10-11 Outpatient ELVA Wallace, [facility] [id number] [facility] 12:00:00 12:00:00 V[address] 2019-04-22 2019-04-22 Emergency E NEHEMIAH JALLOH BL BL [id number] BL 12:30:00 16:37:00 2019-03-30 2019-03-30 Emergency [facility]UREN[id number] 10:16:00 16:12:00 NAIF Results Test Description Test [...] 3267) clear Lab Interpretation (test code = 08893-1) [facility] [id number] 16:25:46 Test Item Value Reference Range Interpretation Comments POCT Molecular FluA (test code = Negative Negative 88812-3) POCT Molecular FluB (test code = Negative Negative 13681-2) Lab Interpretation (test code = Normal 00873-0) [facility] MOLECULAR [id number] 16:19:37 Test Item Value Reference Range Interpretation Comments POCT Molecular Strep (test code = Negative Negative 11939-9) Lab Interpretation (test code = Normal 09230-6) [facility] MOLECULAR [id number] 18:29:57 Test Item Value Reference Range Interpretation Comments POCT Molecular FluA (test code = Negative Negative 27432-6) POCT Molecular FluB (test code = Negative Negative 89951-2) Lab Interpretation (test code = Normal 91042-7) [facility] MOLECULAR [id number] 19:04:26 Test Item Value Reference Range Interpretation Comments POCT Molecular FluA (test code = Negative Negative 52487-4) POCT Molecular FluB (test code = Negative Negative 25723-0) Lab Interpretation (test code = Normal 75968-9) [facility] MOLECULAR [id number] 19:04:26 Test Item Value Reference Range Interpretation Comments POCT Molecular FluA (test code = Negative Negative 84230-2) POCT Molecular FluB (test code = Negative Negative 33977-5) Lab Interpretation (test code = Normal 73765-7) [facility] MOLECULAR [id number] 18:57:38 Test Item Value Reference Range Interpretation Comments POCT Molecular Strep (test code = Negative Negative 14835-4) Lab Interpretation (test code = Normal 91639-8) [facility] MOLECULAR [id number] 18:57:38 Test Item Value Reference Range Interpretation Comments POCT Molecular Strep (test code = Negative Negative 34185-8) Lab Interpretation (test code = Normal 23194-0) [facility]
--- NOTE | 2022-05-14 15:17 | RAD REPORT ---
EXAM DESCRIPTION: CT - Head Brain Wo Cont - 05/14/2022 3:07 pm CLINICAL HISTORY: DIZZINESS COMPARISON: Head Brain Wo Cont dated 05/13/2022; Head angio dated 05/12/2022; MRA Head Wo Cont dated ; Ct Stroke Brain Wo Cont dated 05/12/2022; Brain W/Wo Cont dated 05/13/2022 TECHNIQUE: All CT scans are performed using dose optimization technique as appropriate and may inclu de automated exposure control or mA/KV adjustment according to patient size. FINDINGS: No intracranial hemorrhage, hydrocephalus or extra-axial fluid collection.Late acute/early subacute right parietal infarct is similar. The paranasal sinuses and mastoids are clear. The calvarium is intact. IMPRESSION: No acute intracranial abnormality. 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 No evidence of hemorrhagic transformation.
[2022-05-14] MEDS ORDERED: NA CHLORIDE 0.9% 500 ML ONE (15:26)
[2022-05-14] MEDS ORDERED: FOLIC ACID 5 MG/ML VIAL ONE (15:26)
--- NOTE | 2022-05-14 15:44 | RAD REPORT ---
EXAM DESCRIPTION: RAD - Chest Single View - 05/14/2022 3:30 pm CLINICAL HISTORY: COUGH COMPARISON: Chest Single View dated 05/12/2022; Chest Single View dated 11/07/2021; Chest Single View dated 04/19/2021; Chest Pa And Lat (2 Views) dated 03/28/2019 FINDINGS: Lines: None. Lungs: No evidence of edema or pneumonia. Pleural: No significant pleural effusions or pneumothorax. Cardiac: The heart size is within normal limits. Mediastinum: Within normal limits. Bones: No acute fractures. Other: None IMPRESSION: No acute cardiopulmonary disease.
[2022-05-14] MEDS ORDERED: ACETAMINOPHEN 500 MG TAB PO PRN (15:52)
[2022-05-14] MEDS ORDERED: AMLODIPINE 5 MG TAB PO ONE (15:52)
[2022-05-14] MEDS ORDERED: ONDANSETRON 4 MG/2 ML VIAL IV PRN (15:52)
--- NOTE | 2022-05-14 16:08 | EDPHYS ---
Physician Documentation [facility] Name: Dee Logan Age: 46 yrs Sex: Female : 1975 Arrival Date: 05/14/2022 Time: 14:45 Bed 5 Private MD: ED Physician Home Maldonado HPI: 05/14 15:53 This 46 yrs old Black Female presents to ER via EMS with complaints of RECURRENT STROKE rita SYMPTOMS. 15:53 The patient's problem is reported as dysphasia, slurred speech, weakness, in the left rita upper extremity. Onset: The symptoms/episode began/occurred just prior to arrival. Duration: This was a single incident. Context: the episode(s) was witnessed, by family. The symptoms are alleviated by nothing. The symptoms are aggravated by nothing. The patient presents to the emergency department with a speech or higher order brain function problem, aphasia, paresthesias of the left upper extremity. Context: occurred at home. Severity of symptoms: At their worst the symptoms were moderate in the emergency department the symptoms have resolved and did so just prior to arrival. Associated signs and symptoms: Pertinent positives: dizziness, lightheadedness. Historical: - Allergies: 15:07 No Known Allergies; ph - PMHx: 15:07 angina pectoris; Anxiety; chronic back pain; Fibromyalgia; Hepatitis; Herniated disc; ph Hypertension; - PSHx: 15:07 Cholecystectomy; ph - Immunization history:: Adult Immunizations unknown. - Social history:: Smoking status: Patient reports the use of cigarette tobacco products, smokes one-half pack cigarettes per day. - Family history:: not pertinent. ROS: 15:53 Constitutional: Negative for fever, chills, and weight loss, Eyes: Negative for injury, rita pain, redness, and discharge, ENT: Negative for injury, pain, and discharge, Neck: Negative for injury, pain, and swelling, Cardiovascular: Negative for chest pain, palpitations, and edema, Respiratory: Negative for shortness of breath, cough, wheezing, and pleuritic chest pain, Abdomen/GI: Negative for abdominal pain, nausea, vomiting, diarrhea, and constipation, Back: Negative for injury and pain, : Negative for injury, bleeding, discharge, and swelling, MS/Extremity: Negative for injury and deformity, Skin: Negative for injury, rash, and discoloration, Psych: Negative for depression, anxiety, suicide ideation, homicidal ideation, and hallucinations, Allergy/Immunology: Negative for hives, rash, and allergies, Endocrine: Negative for neck swelling, polydipsia, polyuria, polyphagia, and marked weight changes, Hematologic/Lymphatic: Negative for swollen nodes, abnormal bleeding, and unusual bruising. 15:53 Neuro: Positive for speech changes, tingling, of the left arm. Exam: 15:53 Radiologist reports: LATE/EARLY ACUTE RIGHT PARIETAL INFARCT, NO HEMORRHAGE rita 15:53 Constitutional: This is a well developed, well nourished patient who is awake, alert, and in no acute distress. Head/Face: Normocephalic, atraumatic. Eyes: Pupils equal round and reactive to light, extra-ocular motions intact. Lids and lashes normal. Conjunctiva and sclera are non-icteric and not injected. Cornea within normal limits. Periorbital areas with no swelling, redness, or edema. ENT: Nares patent. No nasal discharge, no septal abnormalities noted. Tympanic membranes are normal and external auditory canals are clear. Oropharynx with no redness, swelling, or masses, exudates, or evidence of obstruction, uvula midline. Mucous membranes moist. Neck: Trachea midline, no thyromegaly or masses palpated, and no cervical lymphadenopathy. Supple, full range of motion without nuchal rigidity, or vertebral point tenderness. No Meningismus. Chest/axilla: Normal chest wall appearance and motion. Nontender with no deformity. No lesions are appreciated. Cardiovascular: Regular rate and rhythm with a normal S1 and S2. No gallops, murmurs, or rubs. Normal PMI, no JVD. No pulse deficits. Respiratory: Lungs have equal breath sounds bilaterally, clear to auscultation and percussion. No rales, rhonchi or wheezes noted. No increased work of breathing, no retractions or nasal flaring. Abdomen/GI: Soft, non-tender, with normal bowel sounds. No distension or tympany. No guarding or rebound. No evidence of tenderness throughout. Back: No spinal tenderness. No costovertebral tenderness. Full range of motion. Skin: Warm, dry with normal turgor. Normal color with no rashes, no lesions, and no evidence of cellulitis. MS/ Extremity: Pulses equal, no cyanosis. Neurovascular intact. Full, normal range of motion. Neuro: Awake and alert, GCS 15, oriented to person, place, time, and situation. Cranial nerves II-XII grossly intact. Motor strength 5/5 in all extremities. Sensory grossly intact. Cerebellar exam normal. Normal gait. Psych: Awake, alert, with orientation to person, place and time. Behavior, mood, and affect are within normal limits. 15:53 ECG was reviewed by the Attending Physician. Vital Signs: 15:01 BP 169 / 98; Pulse 89; Resp 18; Temp 97.8; Pulse Ox 98% on R/A; Weight 99.79 kg; Height ph 5 ft. 5 in. (165.10 cm); 16:30 BP 178 / 81; Pulse 75; Resp 18; Pulse Ox 98% on R/A; ph 17:33 BP 165 / 88; Pulse 75; Resp 18; Pulse Ox 99% on R/A; ph 15:01 Body Mass Index 36.61 (99.79 kg, 165.10 cm) ph NIH Stroke Scale Scores: 15:45 NIHSS Score: 5 ph 16:03 NIHSS Score: 5 rita Fer Coma Score: 16:03 Eye Response: spontaneous(4). Verbal Response: oriented(5). Motor Response: obeys [facility] commands(6). Total: 15. MDM: 14:47 Patient medically screened. [facility] 16:04 Differential diagnosis: CVA, TIA, metabolic disorder. Data reviewed: vital signs, [facility] nurses notes, diagnostic data from outside facility, old medical records, lab test result(s), EKG, radiologic studies, CT scan, I have discussed the patient's presentation/case with the attending Emergency Department Physician;. Consideration of Admission/Observation Patient was admitted/placed on observation. Management of patient was discussed with the following: Hospitalist: DR RICK. I considered the following discharge prescriptions or medication management in the emergency department Medications were administered in the Emergency Department. See MAR. Test considered but Not performed: MRI: NO MRI BRAIN. Historians other than the Patient: Parent: MOM IN ROOM, INFORMED. Care significantly affected by the following chronic conditions: Hypertension, Obesity, FIBROMYALGIA. 05/14 14:48 Order name: Basic Metabolic Panel [facility] 05/14 14:48 Order name: CBC with Diff [facility] 05/14 14:48 Order name: LFT's [facility] 05/14 14:48 Order name: Magnesium [facility] 05/14 14:48 Order name: NT PRO-BNP [facility] 05/14 14:48 Order name: PT-INR [facility] 05/14 14:48 Order name: Troponin HS [facility] 05/14 14:48 Order name: XRAY Chest (1 view); Complete Time: 15:48 [facility] 05/14 14:48 Order name: UDS [facility] 05/14 14:48 Order name: CT Head Brain wo Cont; Complete Time: 15:48 [facility] 05/14 14:48 Order name: SARS RAPID [facility] 05/14 15:58 Order name: Urinalysis W/Microscopic [facility] 05/14 14:48 Order name: EKG; Complete Time: 14:50 [facility] 05/14 14:48 Order name: Cardiac monitoring; Complete Time: 15:15 [facility] 05/14 14:48 Order name: EKG - Nurse/Tech; Complete Time: 16:56 [facility] 05/14 14:48 Order name: IV Saline Lock; Complete Time: 16:56 [facility] 05/14 14:48 Order name: Labs collected and sent; Complete Time: 16:56 [facility] 05/14 14:48 Order name: O2 Per Protocol; Complete Time: 15:15 [facility] 05/14 14:48 Order name: O2 Sat Monitoring; Complete Time: 15:15 [facility] 05/14 14:48 Order name: Urine Dipstick-Ancillary (obtain specimen); Complete Time: 16:56 [facility] 05/14 15:58 Order name: Heart Healthy [facility] 05/14 16:50 Order name: Labs - recollect needed: recollect cbc / hemolyzed per Alfonso/ inside lab eb paged; Complete Time: :05/14 17:41 Order name: Labs - recollect needed: green top. ; Complete Time: 18:10 aa5 EC:53 Rate is 75 beats/min. Rhythm is regular. QRS [place] is Normal. OR interval is normal. QRS rita interval is normal. QT interval is normal. No Q waves. T waves are Normal. No ST changes noted. Clinical impression: NSR w/ Non-specific ST/T Changes and No evidence of ischemia. Interpreted by me. Reviewed by me. Administered Medications: 16:30 Drug: NS 0.9% 500 ml Route: IV; Rate: bolus; Site: right wrist; ph 17:40 Follow up: Response: No adverse reaction; IV Status: Completed infusion; IV Intake: ph 500ml 16:30 Drug: PlaVIX (clopidogrel) 75 mg Route: PO; ph 17:39 Follow up: Response: No adverse reaction ph 16:30 Drug: Lipitor (atorvastatin) 80 mg Route: PO; ph 17:38 Follow up: Response: No adverse reaction ph 16:55 Drug: Keppra (levETIRAcetam) 1000 mg Route: IV; Rate: per protocol; Site: right wrist; ph 17:38 Follow up: Response: No adverse reaction; IV Status: Completed infusion ph 16:56 Drug: NS 0.9% 1000 ml Route: IV; Rate: 125 ml/hr; Site: right wrist; ph 17:40 Follow up: Response: No adverse reaction; IV Status: Infusion continued upon admission ph 16:57 Drug: foLIC Acid 1 mg Route: IVPB; Site: right wrist; ph 17:39 Follow up: Response: No adverse reaction; IV Status: Completed infusion ph 16:57 Drug: Aspirin 81 mg Route: PO; ph 17:39 Follow up: Response: No adverse reaction ph 18:07 Drug: Zofran (Ondansetron) 4 mg Route: IVP; Site: right wrist; ph 18:10 Follow up: Response: No adverse reaction ph 18:09 Drug: fentaNYL (PF) 50 mcg Route: IVP; Site: right wrist; ph 18:10 Follow up: Response: No adverse reaction ph Disposition Summary: 05/14/22 16:08 Hospitalization Ordered Hospitalization Status: Observation rita Provider: Tere Rick cha Location: Telemetry/MedSurg (observation) rita Condition: Serious rita Problem: new rita Symptoms: have improved rita Bed/Room Type: Standard rita Room Assignment: 426(05/14/22 16:23) dw Diagnosis - Cerebral infarction, unspecified - LATE ACUTE/EARLY SUBACUTE rita - Weakness rita - Essential (primary) hypertension rita Forms: - Medication Reconciliation Form rita - SBAR form rita NIH Stroke Scale - NIH Stroke Score Date: 05/14/2022 Time: 15:45 Total Score = 5 1a. Level of Consciousness (LOC) - 0(Alert) 1b. Level of Consciousness (LOC) (Month \T\ Age) - 0(Both) 1c. LOC Commands (Open \T\ Closes Eyes/Fundraising Specialist) - 0(Both) 2. Best Gaze (Lateral Gaze Paresis) - 0(Normal) 3. Visual Field Loss - 0(No visual loss) 4. Facial Palsy - 0(Normal) 5a. Left Arm: Motor (10-second hold) - 1(Drift) 5b. Right Arm: Motor (10-second hold) - 0(No drift) 6a. Left Leg: Motor (5-second hold - always test supine) - 1(Drift) 6b. Right Leg: Motor (5-second hold - always test supine) - 0(No drift) 7. Limb Ataxia (finger/nose \T\ heel/weir - test with eyes open) - 2(Present in two limbs) 8. Sensory Loss (pinprick arms/legs/face) - 1(Mild to moderate loss) 9. Best Language: Aphasia (description/naming/reading) - 0(No aphasia) 10. Dysarthria (speech clarity - read or repeat words) - 0(Normal) 11. Extinction and Inattention (visual/tactile/auditory/spatial/personal) - 0(No abnormality) Initials: NIH Stroke Scale - NIH Stroke Score Date: 05/14/2022 Time: 16:03 Total Score = 5 1a. Level of Consciousness (LOC) - 0(Alert) 1b. Level of Consciousness (LOC) (Month \T\ Age) - 0(Both) 1c. LOC Commands (Open \T\ Closes Eyes/Fundraising Specialist) - 0(Both) 2. Best Gaze (Lateral Gaze Paresis) - 0(Normal) 3. Visual Field Loss - 0(No visual loss) 4. Facial Palsy - 0(Normal) 5a. Left Arm: Motor (10-second hold) - 1(Drift) 5b. Right Arm: Motor (10-second hold) - 0(No drift) 6a. Left Leg: Motor (5-second hold - always test supine) - 1(Drift) 6b. Right Leg: Motor (5-second hold - always test supine) - 0(No drift) 7. Limb Ataxia (finger/nose \T\ heel/weir - test with eyes open) - 2(Present in two limbs) 8. Sensory Loss (pinprick arms/legs/face) - 1(Mild to moderate loss) 9. Best Language: Aphasia (description/naming/reading) - 0(No aphasia) 10. Dysarthria (speech clarity - read or repeat words) - 0(Normal) 11. Extinction and Inattention (visual/tactile/auditory/spatial/personal) - 0(No abnormality) Initials: [facility] Signatures: Dispatcher [employer] Christina Shaw RN RN Home Sol MD MD cha Calderon, Audri RN RN aa5 Jane Cote RN RN Sandhya Varela Corrections: (The following items were deleted from the chart) 15:08 15:07 PMHx: angina pectoris; ph ph 16:20 16:08 [facility] 16:23 16:[address] [place] [address]
--- NOTE | 2022-05-14 16:08 | ER ---
Nurse's Notes [facility] Name: Dee Logan Age: 46 yrs Sex: Female : 1975 Arrival Date: 05/14/2022 Time: 14:45 Bed 5 Private MD: Diagnosis: Cerebral infarction, unspecified-LATE ACUTE/EARLY SUBACUTE;Weakness;Essential (primary) hypertension Presentation: 05/14 15:01 Chief complaint: EMS states: Was d/c from ICU approx 2 hours ago, had been admitted for ph a CVA for which she received TNK. Pt states that she was talking to her sister when she got home and began having slurred speech, also reports having numbness and tingling in her L arm, symptoms lasted approx 2 minutes, speech clear upon arrival to ED. Pt states, " I wasn't fully honest with Dr Jaramillo when he d/c me. I was still feeling weak on my L side and I had a headache but I was just ready to go home so I didn't say anything about it.". Coronavirus screen: Vaccine status: Patient reports receiving the 2nd dose of the covid vaccine. Ebola Screen: No symptoms or risks identified at this time. Initial Sepsis Screen: Does the patient meet any 2 criteria? No. Patient's initial sepsis screen is negative. Does the patient have a suspected source of infection? No. Patient's initial sepsis screen is negative. Risk Assessment: Do you want to hurt yourself or someone else? Patient reports no desire to harm self or others. Onset of symptoms was May 14, 2022. 15:01 Method Of Arrival: EMS: [facility] ph 15:01 Acuity: LYNN 3 ph Triage Assessment: 15:08 General: Appears in no apparent distress. Behavior is calm, cooperative, appropriate ph for age. Pain: Complains of pain in head. Neuro: Level of Consciousness is awake, alert, obeys commands, Oriented to person, place, time, situation, Reports headache numbness in left arm weakness in left arm and left leg. Neuro: Speech is normal. Cardiovascular: Capillary refill < 3 seconds in bilateral fingers Patient's skin is warm and dry. Respiratory: Airway is patent Respiratory effort is even, unlabored, Respiratory pattern is regular, symmetrical. GI: No signs and/or symptoms were reported involving the gastrointestinal system. Derm: Skin is healthy with good turgor, Skin is pink, warm \\T\\ dry. Musculoskeletal: Circulation, motion, and sensation intact. Range of motion: intact in all extremities. Historical: - Allergies: 15:07 No Known Allergies; ph - PMHx: 15:07 angina pectoris; Anxiety; chronic back pain; Fibromyalgia; Hepatitis; Herniated disc; ph Hypertension; - PSHx: 15:07 Cholecystectomy; ph - Immunization history:: Adult Immunizations unknown. - Social history:: Smoking status: Patient reports the use of cigarette tobacco products, smokes one-half pack cigarettes per day. - Family history:: not pertinent. Screenin:10 [facility] ED Fall Risk Assessment (Adult) History of falling in the last 3 months, ph including since admission No falls in past 3 months (0 pts) Confusion or Disorientation No (0 pts) Intoxicated or Sedated No (0 pts) Impaired Gait Yes (1 pt) Mobility Assist Device Used No (0 pt) Altered Elimination No (0 pt) Score/Fall Risk Level 0 - 2 = Low Risk Oriented to surroundings, Maintained a safe environment, Provided non-skid footwear, Hourly rounding (assess needs \\T\\ fall precautionary measures) done. Abuse screen: Denies threats or abuse. Denies injuries from another. Nutritional screening: No deficits noted. Tuberculosis screening: No symptoms or risk factors identified. 16:00 [place] Swallow Protocol Brief Cognitive Screen What is your name? Normal, Where are you ph right now? Normal, What year is it? Normal. Oral Mechanism Examination Facial Symmetry: Normal, Motion: Normal, Lip Closure: Normal, Oral Mechanism Result: Normal. 3 oz Water Swallow Challenge: Pt able to drink all water without stopping, coughing, choking or throat clearing: Yes Result: PASS Notified: Tere Rick MD. Assessment: 15:30 General: Appears in no apparent distress. comfortable, well groomed, Behavior is calm, ph cooperative, appropriate for age. Pain: Complains of pain in head. Neuro: Level of Consciousness is awake, alert, obeys commands, Oriented to person, place, time, situation, Reports paresthesias in left arm weakness in left arm and left leg. Cardiovascular: Capillary refill < 3 seconds in bilateral fingers Patient's skin is warm and dry. Respiratory: Airway is patent Respiratory effort is even, unlabored. Derm: Skin is healthy with good turgor, Skin is pink, warm \\T\\ dry. Musculoskeletal: Circulation, motion, and sensation intact. Range of motion: intact in all extremities. 18:10 Reassessment: Patient appears in no apparent distress at this time. Patient and/or ph family updated on plan of care and expected duration. Pain level reassessed. Patient is alert, oriented x 3, equal unlabored respirations, skin warm/dry/pink. Pt c/o headache, see MAY. Vital Signs: 15:01 BP 169 / 98; Pulse 89; Resp 18; Temp 97.8; Pulse Ox 98% on R/A; Weight 99.79 kg; Height ph 5 ft. 5 in. (165.10 cm); 16:30 BP 178 / 81; Pulse 75; Resp 18; Pulse Ox 98% on R/A; ph 17:33 BP 165 / 88; Pulse 75; Resp 18; Pulse Ox 99% on R/A; ph 15:01 Body Mass Index 36.61 (99.79 kg, 165.10 cm) ph [place] Coma Score: 16:03 Eye Response: spontaneous(4). Verbal Response: oriented(5). Motor Response: obeys rita commands(6). Total: 15. NIH Stroke Scale Scores: 15:45 NIHSS Score: 5 ph 16:03 NIHSS Score: 5 rita ED Course: 14:45 Patient arrived in ED. eb 14:46 Home Maldonado MD is Attending Physician. rita 15:07 Triage completed. ph 15:09 CT Head Brain wo Cont In Process Unspecified. EDMS 15:10 Arm band placed on Patient placed in an exam room, on a stretcher, on lunchroom monitor, ph on pulse oximetry. 15:11 Patient has correct armband on for positive identification. Bed in low position. Call ph light in reach. Side rails up X 1. Client placed on continuous cardiac and pulse oximetry monitoring. NIBP monitoring applied. Door closed. Noise minimized. Warm blanket given. 15:14 Jane Cote, HAYLEY is Primary Nurse. ph 15:32 XRAY Chest (1 view) In Process Unspecified. EDMS 16:06 Tere Rick MD is Hospitalizing Provider. rita 16:15 Initial lab(s) drawn, by me, sent to lab. Inserted saline lock: 24 gauge in right ph wrist, using aseptic technique. Blood collected. 16:57 No provider procedures requiring assistance completed. ph 16:57 Patient admitted, IV remains in place. ph Administered Medications: 16:30 Drug: NS 0.9% 500 ml Route: IV; Rate: bolus; Site: right wrist; ph 17:40 Follow up: Response: No adverse reaction; IV Status: Completed infusion; IV Intake: ph 500ml 16:30 Drug: PlaVIX (clopidogrel) 75 mg Route: PO; ph 17:39 Follow up: Response: No adverse reaction ph 16:30 Drug: Lipitor (atorvastatin) 80 mg Route: PO; ph 17:38 Follow up: Response: No adverse reaction ph 16:55 Drug: Keppra (levETIRAcetam) 1000 mg Route: IV; Rate: per protocol; Site: right wrist; ph 17:38 Follow up: Response: No adverse reaction; IV Status: Completed infusion ph 16:56 Drug: NS 0.9% 1000 ml Route: IV; Rate: 125 ml/hr; Site: right wrist; ph 17:40 Follow up: Response: No adverse reaction; IV Status: Infusion continued upon admission ph 16:57 Drug: foLIC Acid 1 mg Route: IVPB; Site: right wrist; ph 17:39 Follow up: Response: No adverse reaction; IV Status: Completed infusion ph 16:57 Drug: Aspirin 81 mg Route: PO; ph 17:39 Follow up: Response: No adverse reaction ph 18:07 Drug: Zofran (Ondansetron) 4 mg Route: IVP; Site: right wrist; ph 18:10 Follow up: Response: No adverse reaction ph 18:09 Drug: fentaNYL (PF) 50 mcg Route: IVP; Site: right wrist; ph 18:10 Follow up: Response: No adverse reaction ph Medication: 15:11 VIS not applicable for this client. ph Intake: 17:40 IV: 500ml; Total: 500ml. ph Outcome: 16:08 Decision to Hospitalize by Provider. rita 18:10 Admitted to Med/surg accompanied by tech, via wheelchair, room 426. ph 18:10 Condition: stable 18:10 Instructed on the need for admit. 18:25 Patient left the ED. ph NIH Stroke Scale - NIH Stroke Score Date: 05/14/2022 Time: 15:45 Total Score = 5 1a. Level of Consciousness (LOC) - 0(Alert) 1b. Level of Consciousness (LOC) (Month \\T\\ Age) - 0(Both) 1c. LOC Commands (Open \\T\\ Closes Eyes/Supermarket Manager) - 0(Both) 2. Best Gaze (Lateral Gaze Paresis) - 0(Normal) 3. Visual Field Loss - 0(No visual loss) 4. Facial Palsy - 0(Normal) 5a. Left Arm: Motor (10-second hold) - 1(Drift) 5b. Right Arm: Motor (10-second hold) - 0(No drift) 6a. Left Leg: Motor (5-second hold - always test supine) - 1(Drift) 6b. Right Leg: Motor (5-second hold - always test supine) - 0(No drift) 7. Limb Ataxia (finger/nose \\T\\ heel/weir - test with eyes open) - 2(Present in two limbs) 8. Sensory Loss (pinprick arms/legs/face) - 1(Mild to moderate loss) 9. Best Language: Aphasia (description/naming/reading) - 0(No aphasia) 10. Dysarthria (speech clarity - read or repeat words) - 0(Normal) 11. Extinction and Inattention (visual/tactile/auditory/spatial/personal) - 0(No abnormality) Initials: NIH Stroke Scale - NIH Stroke Score Date: 05/14/2022 Time: 16:03 Total Score = 5 1a. Level of Consciousness (LOC) - 0(Alert) 1b. Level of Consciousness (LOC) (Month \\T\\ Age) - 0(Both) 1c. LOC Commands (Open \\T\\ Closes Eyes/Supermarket Manager) - 0(Both) 2. Best Gaze (Lateral Gaze Paresis) - 0(Normal) 3. Visual Field Loss - 0(No visual loss) 4. Facial Palsy - 0(Normal) 5a. Left Arm: Motor (10-second hold) - 1(Drift) 5b. Right Arm: Motor (10-second hold) - 0(No drift) 6a. Left Leg: Motor (5-second hold - always test supine) - 1(Drift) 6b. Right Leg: Motor (5-second hold - always test supine) - 0(No drift) 7. Limb Ataxia (finger/nose \\T\\ heel/weir - test with eyes open) - 2(Present in two limbs) 8. Sensory Loss (pinprick arms/legs/face) - 1(Mild to moderate loss) 9. Best Language: Aphasia (description/naming/reading) - 0(No aphasia) 10. Dysarthria (speech clarity - read or repeat words) - 0(Normal) 11. Extinction and Inattention (visual/tactile/auditory/spatial/personal) - 0(No abnormality) Initials: rita Signatures: Dispatcher [employer] EDHome Barragan, Jane Brown MD, cha, RN RN ph Sandhya Varela Corrections: (The following items were deleted from the chart) 15:08 15:07 PMHx: angina pectoris; ph ph 17:39 17:39 IV Status: Completed infusion ph ph
[2022-05-14] MEDS ORDERED: ATORVASTATIN 20 MG TAB ONE (16:21)
[2022-05-14] MEDS ORDERED: ASPIRIN EC 81 MG TAB PO ONE (16:21)
[2022-05-14] MEDS ORDERED: CLOPIDOGREL 75 MG TABLET ONE (16:21)
[2022-05-14] MEDS ORDERED: LEVETIRACETAM 500 MG/5 ML VIAL IV ONE (16:21)
[2022-05-14] MEDS ORDERED: NA CHLORIDE 0.9% 100 ML ONE (16:21)
[2022-05-14 16:44] LABS: Hematocrit 38.7 % (36.0-45.0); Lymphocytes % 36.6 % (15.3-44.8); MCV 84.2 fL (80-100); MPV 7.7 fL (7.6-11.3)
[2022-05-14 16:45] LABS: Protime INR 1.05
[2022-05-14 17:13] LABS: SARS-CoV-2 Antigen Rapid Res Negative (Negative)
[2022-05-14] MEDS ORDERED: ACETAMINOPHEN 500 MG TAB ONE (18:03)
[2022-05-14] MEDS ORDERED: FENTANYL CITR 100 MCG/2 ML ONE (18:05)
[2022-05-14] MEDS ORDERED: ONDANSETRON 4 MG/2 ML VIAL ONE (18:05)
[2022-05-14 18:32] VITALS: O2SAT 99
[2022-05-14 18:48] LABS: Albumin 3.6 g/dL (3.4-5.0); Bilirubin Direct 0.1 mg/dL (0-0.2); Bilirubin Total 0.5 mg/dL (0.2-1.0); Magnesium 2.1 mg/dL (1.6-2.4); Potassium 3.5 mmol/L (3.5-5.1); Protein, Total 7.8 g/dL (6.4-8.2); Troponin High Sensitivity 6.4 pg/mL (<58.9)
[2022-05-14] MEDS: NA CHLORIDE 0.9% 1,000 ML IV SCH (19:02)
[2022-05-14] MEDS: METOPROLOL TAR 25 MG TAB PO SCH (19:03)
[2022-05-14] MEDS: levETIRAcetam 500 MG TAB PO SCH ×2 (19:03→21:00)
[2022-05-14 19:47] VITALS: BMI 36.6
[2022-05-14] MEDS ORDERED: GABAPENTIN 100 MG CAP PO PRN (20:16)
[2022-05-14] MEDS ORDERED: DOCUSATE NA 100 MG CAP PO PRN (20:16)
[2022-05-14] MEDS ORDERED: LORazepam 2 MG/ML VIAL IV ONE (20:16)
[2022-05-14 20:47] LABS: Specific Gravity 1.007 (1.005-1.030); Urine Bacteria <20 /HPF (<20); Urine Bilirubin NEGATIVE (Negative); Urine Blood Negative (Negative); Urine Clarity Clear (Clear); Urine Color Colorless (Yellow); Urine Glucose NEGATIVE (Negative); Urine Protein NEGATIVE (Negative); Urine RBC <5 /HPF (None Seen); Urine Urobilinogen Normal (Normal)
[2022-05-14 20:54] LABS: Barbiturates NEGATIVE (NEGATIVE); Benzodiazepines NEGATIVE (NEGATIVE); Cocaine NEGATIVE (NEGATIVE); METHAMPHETAM NEGATIVE (NEGATIVE); Methadone NEGATIVE (NEGATIVE); Opiates POSITIVE (NEGATIVE); Phencyclidine NEGATIVE (NEGATIVE); THC Cannibis NEGATIVE (NEGATIVE)
[2022-05-14] MEDS ORDERED: ATORVASTATIN 80 MG TAB PO SCH (21:00)
[2022-05-14] MEDS ORDERED: ALPRAZOLAM 0.5 MG TABLET PO SCH (21:00)
[2022-05-14] MEDS ORDERED: HYDROCODONE/APAP 10/325 TAB PO SCH (21:00)
[2022-05-14] MEDS: LOSARTAN POTASSIUM 50 MG TABLET PO SCH (22:07)
[2022-05-15] MEDS: NA CHLORIDE 0.9% 1,000 ML IV SCH (03:32)
[2022-05-15] MEDS: METOPROLOL TAR 25 MG TAB PO SCH ×2 (06:27→07:52)
[2022-05-15] MEDS: LOSARTAN POTASSIUM 50 MG TABLET PO SCH (07:53)
[2022-05-15] MEDS: levETIRAcetam 500 MG TAB PO SCH (07:53)
[2022-05-15 07:55] VITALS: BP 140/85
[2022-05-15 08:33] VITALS: TEMP 98.2
[2022-05-15] MEDS ORDERED: CLOPIDOGREL 75 MG TABLET PO SCH (09:00)
[2022-05-15] MEDS ORDERED: ASPIRIN EC 81 MG TAB PO SCH (09:00)
[2022-05-15] MEDS ORDERED: AMLODIPINE 5 MG TAB PO SCH (09:00)
--- NOTE | 2022-05-16 18:44 | EKG ---
Test Date: 2022-05-14 Test Time: 15:12:36 Boarding House Cook: LUAN MEASUREMENT RESULTS: Intervals: Rate: 75 [place]: 180 QRSD: 90 QT: 380 QTc: 424 [place]: P: 54 [place]: 180 QRS: 23 T: -1 INTERPRETIVE STATEMENTS: Normal sinus rhythm Nonspecific T wave abnormality Abnormal ECG Compared to ECG 05/13/2022 00:28:47 Possible ischemia no longer present T-wave abnormality still present Electronically Signed On 05-16-22 18:40:35 HAT IRONER by Tommie Trujillo
--- NOTE | 2022-05-16 22:32 | P.HP ---
Certification for Inpatient Patient admitted to: Observation With expected LOS: <2 Midnights Patient will require the following post-hospital care: None Practitioner: I am a practitioner with admitting privileges, knowledge of patient current condition, hospital course, and medical plan of care. Services: Services provided to patient in accordance with Admission requirements found in Title 42 Section 412.3 of the Code of Federal Regulations Patient History Date of Service: 05/14/22 Reason for admission: Aphasia; History of Present Illness: Patient is a 46-year-old female who came to the hospital with aphasia. She had just been discharged today, and she decided that she needed to go home immediately. We had asked her to say for a few more hours to make sure her blood pressure remained stable. But according to nursing staff she was adamant about leaving. We did advise her to continue monitoring home blood pressure very closely at home. She was apparently talking to 1 of our sibling point she started babbling. Decision was made to come into emergency room for further evaluation. Allergies No Known Allergies Allergy (Verified 05/14/22 19:47) Home Medications: Metoprolol Succinate [Toprol Xl*] 50 mg PO BID 6AM 6PM 03/28/19 Alprazolam [Xanax] 0.5 mg PO BEDTIME 05/13/22 Biotin 1 tab PO DAILY 05/13/22 Gabapentin 100 mg PO PRN PRN 05/13/22 Hydrocodone 10/APAP 325 [[place] 10/325*] 1 tab PO BID 05/13/22 Multivitamin 1 tab PO DAILY 05/13/22 Tenofovir Disoproxil Fumarate 300 mg PO DAILY 05/13/22 Amlodipine Besylate 10 mg PO DAILY #30 tab 05/14/22 Aspirin [Aspirin EC 81 MG] 81 mg PO DAILY 05/14/22 Atorvastatin Calcium [Lipitor*] 40 mg PO BEDTIME #30 tab 05/14/22 Clopidogrel Bisulfate [Plavix] 75 mg PO DAILY #30 tab 05/14/22 Folic Acid 1 mg PO DAILY #30 tab 05/14/22 Olmesartan/Hydrochlorothiazide [Benicar Hct 20-12.5 mg Tablet] 1 each PO BID #60 tab 05/14/22 levETIRAcetam [Keppra*] 500 mg PO BID #60 tab 05/15/22 - Past Medical/Surgical History Has patient received pneumonia vaccine in the past: No Diabetic: No -: Anxiety -: Fibromyalgia -: Chronic Back Pain -: Hepatitis -: Hypertension -: Angina -: Cholecystectomy Psychosocial/ Personal History: Patient lives at home with her family. - Family History Mother Medical History: Heart disease Father Medical History: Heart disease, Diabetes - Social History Smoking Status: Current every day smoker Alcohol use: No CD- Drugs: No Caffeine use: Yes Place of Residence: Home Review of Systems 10-point ROS is otherwise unremarkable Physical Examination - Vital Signs Temperature: 98.2 F Blood Pressure: 140/85 Pulse: 76 Respirations: 18 Pulse Ox (%): 93 - Physical Exam General: Alert, In no apparent distress, Oriented x3 HEENT: Atraumatic, PERRLA, Mucous membr. moist/pink, EOMI, Sclerae nonicteric Neck: Supple, 2+ carotid pulse no bruit, No LAD, Without JVD or thyroid abnormality Respiratory: Clear to auscultation bilaterally, Normal air movement Cardiovascular: Regular rate/rhythm, Normal S1 S2 Gastrointestinal: Normal bowel sounds, No tenderness Musculoskeletal: No tenderness Integumentary: No rashes Neurological: Normal speech, Normal tone, Sensation intact, Cranial nerves 3-12 intact, Normal affect, Abnormal gait, Abnormal strength Lymphatics: No axilla or inguinal lymphadenopathy Assessment & Plan - Problems (Diagnosis) (1) Acute CVA (cerebrovascular accident) Status: Acute (2) Hypertension Status: Chronic Qualifiers: Hypertension type: primary hypertension Qualified Code(s): I10 - Essential (primary) hypertension - Plan Plan: 1. continue monitoring clinical symptoms overnight. She was stable for discharge; however, at home she started having aphasia again. had mild to moderate stenosis on the M1 branch of left MCA. - Advance Directives Does patient have a Living Will: No Does patient have a Durable POA for Healthcare: No
== END 2022-05-15 10:58 | disposition home or self-care (01) ==
LOC: ER 14:40 → ERHOLD 15:52 → 4TH 18:00
PROVIDERS: ADMIT Hospitalist; ATTEND Hospitalist
DX: I63.9 Cerebral infarction, unspecified (principal); R47.01 Aphasia; I10 Essential (primary) hypertension; R29.705 NIHSS score 5; F17.210 Nicotine dependence, cigarettes, uncomplicated; F41.9 Anxiety disorder, unspecified; M79.7 Fibromyalgia; K75.9 Inflammatory liver disease, unspecified; I66.9 Occlusion and stenosis of unspecified cerebral artery; Z20.822 Contact with and (suspected) exposure to COVID-19; Z82.49 Family history of ischemic heart disease and other diseases of the circulatory system
CPT/HCPCS: 96365; 93005; 85025; 81001; 80048; 36415; 83735; 85610; 80076; 84484; 83880; 80307; 70450; 71045; 96375; 99285; 87811; J3010; J1953; J7040; J7030 ×2; J2405; G0378 ×4

== ENCOUNTER 2023-07-05 08:34 | Emergency (ER) | payer BC, OTHER ==
[2023-07-05 09:34] LABS: Absolute Basophils 0.1 K/uL (0-0.5); Absolute Monocytes 0.1 K/uL (0.1-1.3); Absolute Neutrophil 6.6 K/uL (1.8-8.0); Eosinophils % 0.1 % (0-4.4); Hematocrit 39.2 % (36.0-45.0); Lymphocytes % 13.2 % (15.3-44.8); MCH 28.3 pg (27.0-35.0); MCHC 33.2 g/dL (32.0-36.0); MCV 85.3 fL (80-100); MPV 7.6 fL (7.6-11.3); Monocytes % 1.4 % (3.3-12.3); Neutrophils % 84.3 % (41.7-73.7); Platelets 389 thou/uL (152-406); Red Cell Distribution Width 14.2 % (12.1-15.2)
--- NOTE | 2023-07-05 09:53 | RAD REPORT ---
EXAM DESCRIPTION: CT - Head Brain Wo Cont - 07/05/2023 9:35 am CLINICAL HISTORY: CONFUSED. Slurred speech COMPARISON: Head angio dated 07/05/2023; Head Brain Wo Cont dated 05/14/2022; Head Brain Wo Cont dated 05/13/2022 TECHNIQUE: Noncontrast head CT images were obtained without IV contrast. Multiplanar reformats were generated and reviewed. All CT scans are performed using dose optimization technique as appropriate and may include automated exposure control or mA/KV adjustment according to patient size. FINDINGS: No intracranial hemorrhage, mass, or edema. Midline structures are unremarkable. Normal ventricular caliber for age. Region of cortical/subcortical hypoattenuation in the right superior cheyanne rolandic sulci, stable. Gra y-white matter differentiation elsewhere is preserved, without evidence of acute infarct. No abnormal extra-axial fluid collections. Mastoid air cells and visualized portions of the paranasal sinuses are clear. No acute bony findings. IMPRESSION: A likely late subacute or chronic infarct involving the superior right perirolandic sulc i, stable in extent compared to the 05/14/2022 CT. No other evidence of an acute intracranial process.
[2023-07-05 09:54] LABS: Anion Gap 7.1 mEq/L (5.0-15.0); BUN Blood Urea Nitrogen 13 mg/dL (7-18); Bicarbonate 26 mEq/L (21-32); Glomerular Filtration Rate 66 ml/min (=/>90); Glucose Level 108 mg/dL (74-106); Sodium Level 135 mEq/L (136-145)
[2023-07-05 09:55] LABS: Potassium 4.1 mEq/L (3.5-5.1); Troponin High Sensitivity < 3.0 pg/mL (<58.9)
--- NOTE | 2023-07-05 10:00 | RAD REPORT ---
EXAM DESCRIPTION: CT - Head angio - 07/05/2023 9:35 am CLINICAL HISTORY: CONFUSED COMPARISON: Head Brain Wo Cont dated 05/14/2022; Head Brain Wo Cont dated 05/13/2022 TECHNIQUE: Axial CT angiography images of the head was performed with multiplanar and maximum intens ity projection reconstructions. Images performed following intravenous administration of 100mL Isovue 370. All CT scans are performed using dose optimization technique as appropriate and may include automated exposure control or mA/KV adjustment according to patient size. FINDINGS: Nonvisualization of the left A1 segment, could relate to non opacification or congenital d iminution. Sluggish flow noted along the left A2 segment most proximally, with absence of opacificati on more distally, see series 508 images 74- 68. No other evidence of large vessel occlusion. The righ t posterior communicating artery is patent and the right P1 segment is diminutive. Diminutive but pat ent left posterior communicating artery is well. No evidence of aneurysm or dissection flap is detect ed. No flow-limiting stenosis or vascular malformation identified. Antegrade flow is seen in the vertebral arteries. The vertebral arteries are codominant. The visualized dural venous sinuses are grossly patent. IMPRESSION: Sluggish opacification along the most proximal left A2 segment of the SAIRA, with occlusio n more distally. The findings were communicated to Dr. Claribel Reid on 07/05/2023 at 09:46 hours.
--- NOTE | 2023-07-05 10:32 | EDPHYS ---
Physician Documentation [facility] Name: Dee Logan Age: 47 yrs Sex: Female : 1975 Arrival Date: 07/05/2023 Time: 08:34 Bed 19 Private MD: ED Physician Ruslan Nava HPI: 07/04 08:49 This 47 yrs old Black Female presents to ER via Ambulatory with complaints of confusion.ec2 08:49 Patient arrives today with onset of symptoms at approximately 1700 yesterday, concern ec2 for primarily confusion and forgetfulness. Patient reports that she feels like she having issues with her thoughts. Patient states that she feels that she has been confused since yesterday, states that she feels that she is getting more forgetful and that she is having troubles thinking clearly. Registration with initial chief complaint of slurred speech. Patient states that she does not feel her speech is slurred and that the mother at the bedside agrees that the patient does not sound slurred and sounds typical for her, there is a question of whether or not she may have had slurred speech yesterday. No fevers or chills, no nausea or vomiting, no recent illnesses, no cough or cold symptoms. Patient reports no recent falls injuries or trauma. Previous history of intracranial injury, previous TNK. Patient is on Plavix. 08:50 Patient with history of stroke, known left-sided deficits.. ec2 Historical: - Allergies: 08:49 No Known Allergies; ap3 - PMHx: 08:49 angina pectoris; Anxiety; Anxiety; chronic back pain; Fibromyalgia; Hepatitis; ap3 Herniated disc; Hypertension; stroke (Hypertension); - Immunization history:: Adult Immunizations unknown. - Infectious Disease History:: Denies. - Social history:: Smoking status: Patient denies any tobacco usage or history of. ROS: 08:49 Constitutional: as per hpi ec2 Exam: 08:49 Constitutional: GEN: NAD Head: atraumatic Eyes: EOMI Ears: External ears are ec2 normal. CV: regular rate LUNGS: no respiratory distress ABD: non-distended SKIN: no evidence of rashes MSK: no evidence of trauma NEURO: Cranial nerves II through XII intact, speech sounds clear, bilateral upper extremities with slight left upper extremity weakness. Lower extremities with slight left lower extremity weakness. Vital Signs: 08:44 BP 171 / 118; Pulse 92; Resp 17; Pulse Ox 100% ; Weight 77.11 kg; ap3 09:00 BP 152 / 104; Pulse 82; Resp 16 S; Temp 98.2(TE); Pulse Ox 100% on R/A; kc6 10:49 BP 175 / 115; Pulse 88; Resp 17 S; Pulse Ox 100% on R/A; kc6 NIH Stroke Scale Scores: 08:48 NIHSS Score: 0 kc6 MDM: 08:44 Patient medically screened. ec2 08:51 Data reviewed: vital signs. ED course: Patient arrives today for evaluation of ec2 neurosymptoms. Examination remarkable for well-appearing nontoxic dividual who appears to be at her neurologic baseline. Will obtain CT imaging, MR, lab work, urine studies, EKG and chest x-ray. Evaluate for electrolyte disturbances, UTI, intracranial masses, stroke.. 09:22 ED course: EKG independently reviewed and interpreted by me, shows normal sinus rhythm, ec2 rate of 82, no acute ST segment elevations, nonconcerning intervals.. 10:06 ED course: Metabolic profile reassuring. Troponin within normal ranges. CT scan of the ec2 head shows subacute or chronic infarct regarding the right perirolandic foci. CT angio shows slight opacification of the left A2 segment of the SAIRA with distal occlusion. Will attempt to transfer for neurointerventional procedure. . 10:30 ED course: I discussed case with Dr. Gregorio, ER physician at [facility] [place] [id number] who agrees with the patient for transfer. Also discussed case with neurointerventional who agrees to consult on the patient. Will attempt flight the patient.. 11:14 ED course: Updated the patient and the mother at bedside. At this time patient has a ec2 exam does not show any slurred speech which the mother agrees at the bedside. Patient is speaking clearly, does not have issues with word finding however continues to have a sense of feeling generally confused. Updated them regarding the plan and they agree on transport.. 11:16 ED course: Patient ultimately with an NIH of 0 and is well-appearing in no acute ec2 distress. Additionally patient outside of any TNK window.. 07/04 08:49 Order name: Basic Metabolic Panel; Complete Time: 10:06 ec2 07/04 08:49 Order name: CBC with Diff; Complete Time: 09:51 ec2 07/04 08:49 Order name: Troponin HS; Complete Time: 10:06 ec2 07/04 08:49 Order name: UAM ec2 07/04 10:29 Order name: Test, Urine ec2 07/04 08:49 Order name: XRAY Chest (1 view) ec2 07/04 08:49 Order name: CT Head Brain wo Cont; Complete Time: 10:06 ec2 07/04 08:49 Order name: CT Head Angio; Complete Time: 10:06 ec2 07/04 08:49 Order name: CT Neck Angio ec2 07/04 08:49 Order name: MRI - Brain Wo Cont ec2 07/04 08:49 Order name: Cardiac monitoring; Complete Time: 08:51 ec2 07/04 08:49 Order name: EKG - Nurse/Tech; Complete Time: 08:51 ec2 07/04 08:49 Order name: IV Saline Lock; Complete Time: 09:37 ec2 07/04 08:49 Order name: Labs collected and sent; Complete Time: 09:38 ec2 07/04 08:49 Order name: O2 Per Protocol; Complete Time: 08:51 ec2 07/04 08:49 Order name: O2 Sat Monitoring; Complete Time: 08:51 ec2 Administered Medications: No medications were administered Disposition Summary: 07/05/23 10:32 Transfer Ordered Notes: Transfer Location: [facility] ec2 Reason: Higher level of care ec2 Condition: Stable ec2 Problem: new ec2 Symptoms: have improved ec2 Accepting Physician: Dr. gregorio(07/05/23 10:52) kc6 Diagnosis - SAIRA Stroke ec2 Forms: - Medication Reconciliation Form ec2 - SBAR form ec2 Critical care time excluding procedures: 11:16 Critical care time: Bedside Care: 30 minutes, Consultation: 10 minutes. Total time: 40 ec2 minutes NIH Stroke Scale - NIH Stroke Score Date: 07/05/2023 Time: 08:48 Total Score = 0 10. Dysarthria (speech clarity - read or repeat words) - 0(Normal) 11. Extinction and Inattention (visual/tactile/auditory/spatial/personal) - 0(No abnormality) 1a. Level of Consciousness (LOC) - 0(Alert) 1b. Level of Consciousness (LOC) (Month \T\ Age) - 0(Both) 1c. LOC Commands (Open \T\ Closes Eyes/Qualifications Examiner) - 0(Both) 2. Best Gaze (Lateral Gaze Paresis) - 0(Normal) 3. Visual Field Loss - 0(No visual loss) 4. Facial Palsy - 0(Normal) 5a. Left Arm: Motor (10-second hold) - 0(No drift) 5b. Right Arm: Motor (10-second hold) - 0(No drift) 6a. Left Leg: Motor (5-second hold - always test supine) - 0(No drift) 6b. Right Leg: Motor (5-second hold - always test supine) - 0(No drift) 7. Limb Ataxia (finger/nose \T\ heel/weir - test with eyes open) - 0(Absent) 8. Sensory Loss (pinprick arms/legs/face) - 0(Normal) 9. Best Language: Aphasia (description/naming/reading) - 0(No aphasia) Initials: kc6 Signatures: Dispatcher [employer] EDMS Lisa Kelly RN RN ap3 Vernell Medeiros RN RN kc6 Ruslan Nava MD MD ec2 Corrections: (The following items were deleted from the chart) 08:49 08:49 Head Angio+CT.RAD.BRZ ordered. EDMS EDMS 08:50 08:49 Neck Angio+CT.RAD.BRZ ordered. EDMS EDMS 08:50 08:50 Brain Wo Cont+MRI.RAD.BRZ ordered. EDMO EDMS 10:52 10:32 Dr. gregorio ec2 kc6 11:13 08:49 Patient arrives today with onset of symptoms at approximately 1700 ec2 yesterday, concern for slurred speech as well as confusion and forgetfulness. Patient reports that she feels like she having issues with her speech. Patient reports no recent falls injuries or trauma. Previous history of intracranial injury, previous TNK.. ec2 11:13 08:49 This 47 yrs old Black Female presents to ER via Ambulatory with ec2 complaints of Slurred Speech. ec2 11:14 08:49 Constitutional: GEN: NAD Head: atraumatic Eyes: EOMI Ears: External ears ec2 are normal. CV: regular rate LUNGS: no respiratory distress ABD: non-distended SKIN: no evidence of rashes MSK: no evidence of trauma NEURO: Cranial nerves II through XII intact, speech sounds clear, bilateral upper extremities with slight left upper extremity weakness. Lower extremities with slight left lower extremity weakness. ec2
--- NOTE | 2023-07-05 10:32 | ER ---
Nurse's Notes [facility] Name: Dee Logan Age: 47 yrs Sex: Female : 1975 Arrival Date: 07/05/2023 Time: 08:34 Bed 19 Private MD: Diagnosis: SAIRA Stroke Presentation: 07/04 08:40 No acute neurological deficit is noted. Pre-hospital glucose is not applicable to this kc6 patient. 08:44 Chief complaint: Patient states: her last at 5pm is her last known well. patient states ap3 she was eating dinner when she started dropping her food, and she was hearing a conversation her mother was having about her. when she asked her mom about the conversation, her mother said she was not talking about her. patient reports brain fog, vision changes and inability for form words appropriately. patient states she has had 2 strokes in the past, with her last being a year ago. Coronavirus screen: At this time, the client does not indicate any symptoms associated with coronavirus-19. Ebola Screen: No symptoms or risks identified at this time. Initial Sepsis Screen: Does the patient meet any 2 criteria? HR > 90 bpm. Does the patient have a suspected source of infection? No. Patient's initial sepsis screen is negative. Risk Assessment: Do you want to hurt yourself or someone else? Patient reports no desire to harm self or others. Onset of symptoms was July 04, 2023 at 17:00. 08:44 Method Of Arrival: Ambulatory ap3 08:44 Acuity: LYNN 2 ap3 Triage Assessment: 08:49 The onset of the patients symptoms was July 04, 2023 at 17:00. General: Appears in no ap3 apparent distress. Behavior is calm, cooperative. Pain: Denies pain. Neuro: Level of Consciousness is awake, alert, obeys commands, Oriented to person, place, time, Gait is steady, Reports blurred vision. Neuro: Reports left sided deficit from previous stroke. Cardiovascular: Patient's skin is warm and dry. Respiratory: Airway is patent Respiratory effort is even, unlabored, Respiratory pattern is regular, symmetrical. Stroke Activation: Symptom onset > 6 hours Physician: Stroke Attending; Name: ; Notified At: ; Arrived At: Physician: Chief Stroke Resident; Name: ; Notified At: ; Arrived At: Physician: Stroke Resident; Name: ; Notified At: ; Arrived At: Physician: ED Attending; Name: ; Notified At: ; Arrived At: Physician: ED Resident; Name: ; Notified At: ; Arrived At: Historical: - Allergies: 08:49 No Known Allergies; ap3 - PMHx: 08:49 angina pectoris; Anxiety; Anxiety; chronic back pain; Fibromyalgia; Hepatitis; ap3 Herniated disc; Hypertension; stroke (Hypertension); - Immunization history:: Adult Immunizations unknown. - Infectious Disease History:: Denies. - Social history:: Smoking status: Patient denies any tobacco usage or history of. Screenin:43 [facility] ED Fall Risk Assessment (Adult) History of falling in the last 3 months, kc6 including since admission No falls in past 3 months (0 pts) Confusion or Disorientation No (0 pts) Intoxicated or Sedated No (0 pts) Impaired Gait No (0 pts) Mobility Assist Device Used No (0 pt) Altered Elimination No (0 pt) Score/Fall Risk Level 0 - 2 = Low Risk. Abuse screen: Denies threats or abuse. Denies injuries from another. Nutritional screening: No deficits noted. Tuberculosis screening: No symptoms or risk factors identified. Assessment: 08:48 VAN Scoring: Arm Drift: Patients demonstrates NO arm weakness. Patient is VAN Negative. kc6 Visual Disturbance: No visual disturbance noted. Aphasia: No aphasia noted. Neglect: No neglect noted. Demetria Swallow Protocol Brief Cognitive Screen What is your name? Normal, Where are you right now? Normal, What year is it? Normal. Oral Mechanism Examination Facial Symmetry: Normal, Motion: Normal, Lip Closure: Normal, Oral Mechanism Result: Normal. 3 oz Water Swallow Challenge: Pt able to drink all water without stopping, coughing, choking or throat clearing: Yes Result: PASS Notified: Ruslan Nava MD. General: Appears in no apparent distress. comfortable, well groomed, well developed, Behavior is calm, cooperative, appropriate for age. Pain: Denies pain. Neuro: Level of Consciousness is awake, alert, obeys commands, Oriented to person, place, time, situation, Appropriate for age Knitter Hand are equal bilaterally Moves all extremities. Full function Gait is steady, Speech is normal, Facial symmetry appears normal, Pupils are PERRLA, Intact. Cardiovascular: Capillary refill < 3 seconds. Respiratory: Airway is patent Trachea midline Respiratory effort is even, unlabored, Respiratory pattern is regular, symmetrical. GI: No signs and/or symptoms were reported involving the gastrointestinal system. : No signs and/or symptoms were reported regarding the genitourinary system. EENT: No signs and/or symptoms were reported regarding the EENT system. Derm: No signs and/or symptoms reported regarding the dermatologic system. Skin is intact, is healthy with good turgor, Skin is pink, warm \T\ dry. Musculoskeletal: No signs and/or symptoms reported regarding the musculoskeletal system. Circulation, motion, and sensation intact. Capillary refill < 3 seconds, Range of motion: intact in all extremities. 09:17 Reassessment: pt to CT \T\ MRI via wheelchair with computer support technician. kc6 09:48 Reassessment: Patient appears in no apparent distress at this time. No changes from kc6 previously documented assessment. Patient and/or family updated on plan of care and expected duration. Pain level reassessed. Patient is alert, oriented x 3, equal unlabored respirations, skin warm/dry/pink. 10:01 TNKase (Tenecteplase) Screening: Contraindications: Patient reports onset of signs and kc6 symptoms of stroke greater than 6 hours ago: Yes. Vital Signs: 08:44 BP 171 / 118; Pulse 92; Resp 17; Pulse Ox 100% ; Weight 77.11 kg; ap3 09:00 BP 152 / 104; Pulse 82; Resp 16 S; Temp 98.2(TE); Pulse Ox 100% on R/A; kc6 10:49 BP 175 / 115; Pulse 88; Resp 17 S; Pulse Ox 100% on R/A; kc6 NIH Stroke Scale Scores: 08:48 NIHSS Score: 0 kc6 ED Course: 08:36 Patient arrived in ED. im 08:39 Vernell Medeiros, HAYLEY is Primary Nurse. kc6 08:43 Patient has correct armband on for positive identification. Placed in gown. Bed in low kc6 position. Call light in reach. Side rails up X 1. Adult w/ patient. Client placed on continuous cardiac and pulse oximetry monitoring. NIBP monitoring applied. monitoring tech on. 08:44 Ruslan Nava MD is Attending Physician. ec2 08:49 Triage completed. ap3 08:50 Arm band placed on right wrist. ap3 09:00 Missed attempt(s): 22 gauge in right wrist. Missed attempt(s): 22 gauge in left forearm.kc6 09:15 Inserted saline lock: 22 gauge in left forearm, using aseptic technique. Blood kc6 collected. 09:37 CT Head Brain wo Cont In Process Unspecified. EDMS 09:37 CT Head Angio In Process Unspecified. EDMS 09:37 CT Neck Angio In Process Unspecified. EDMS 10:28 MRI - Brain Wo Cont In Process Unspecified. EDMS 10:32 XRAY Chest (1 view) In Process Unspecified. EDMS 10:51 No provider procedures requiring assistance completed. Patient transferred, IV remains kc6 in place. Administered Medications: No medications were administered Medication: 10:52 VIS not applicable for this client. kc6 Outcome: 10:32 ER care complete, transfer ordered by . ec2 10:51 Transferred by helicopter to [facility], Transfer form completed. kc6 10:51 Condition: stable 10:51 Instructed on the need for transfer, 10:52 Patient left the ED. kc6 NIH Stroke Scale - NIH Stroke Score Date: 07/05/2023 Time: 08:48 Total Score = 0 10. Dysarthria (speech clarity - read or repeat words) - 0(Normal) 11. Extinction and Inattention (visual/tactile/auditory/spatial/personal) - 0(No abnormality) 1a. Level of Consciousness (LOC) - 0(Alert) 1b. Level of Consciousness (LOC) (Month \T\ Age) - 0(Both) 1c. LOC Commands (Open \T\ Closes Eyes/Fiber Optics Technician) - 0(Both) 2. Best Gaze (Lateral Gaze Paresis) - 0(Normal) 3. Visual Field Loss - 0(No visual loss) 4. Facial Palsy - 0(Normal) 5a. Left Arm: Motor (10-second hold) - 0(No drift) 5b. Right Arm: Motor (10-second hold) - 0(No drift) 6a. Left Leg: Motor (5-second hold - always test supine) - 0(No drift) 6b. Right Leg: Motor (5-second hold - always test supine) - 0(No drift) 7. Limb Ataxia (finger/nose \T\ heel/weir - test with eyes open) - 0(Absent) 8. Sensory Loss (pinprick arms/legs/face) - 0(Normal) 9. Best Language: Aphasia (description/naming/reading) - 0(No aphasia) Initials: kc6 Signatures: Dispatcher [employer] Lisa Wallis RN RN ap3 Vernell Medeiros RN RN kc6 Rosana Richey Edwin, MD MD ec2 Corrections: (The following items were deleted from the chart) 10:15 09:00 BP 152 / 104; Pulse 82bpm; Resp 16bpm; Spontaneous; Pulse Ox 100% RA; kc6 kc6
--- NOTE | 2023-07-05 10:36 | RAD REPORT ---
EXAM DESCRIPTION: CT - Neck Angio - 07/05/2023 9:35 am CLINICAL HISTORY: confused COMPARISON: Neck Angio dated 05/12/2022; Head angio dated 07/05/2023 TECHNIQUE: Axial CT angiography images of the neck was performed with multiplanar and maximum intens ity projection reconstructions. Images performed following intravenous administration of 100mL Isovue 370. All CT scans are performed using dose optimization technique as appropriate and may include automated exposure control or mA/KV adjustment according to patient size. Quantification of carotid stenosis, if any, is performed according to NASCET criteria. FINDINGS: A left aortic arch is identified with normal three vessel configuration of the great vesse ls. No significant flow abnormality is seen of the common carotid bilaterally. No significant stenosis is identified involving the cervical segments of both internal carotid arteri es. Normal flow is seen within both vertebral arteries. Not mentioned on the head CT angiogram, short segment of severe stenosis along the mid to distal righ t M1 segment, with some collaterals, and reconstitution of flow at the level of the right MCA trifurc ation. IMPRESSION: No significant flow abnormality of the neck vessels is identified. Not mentioned on the head CT angiogram, short segment of severe stenosis along the mid to distal righ t M1 segment, with some collaterals, and reconstitution of flow at the level of the right MCA trifurc ation. The findings were communicated to Ruslan Nava on 07/05/2023 at 10:20 hours. CAROTID STENOSIS REFERENCE USING NASCET CRITERIA: % ICA stenosis = (1 - narrowest ICA diameter/diameter of distal cervical ICA) x 100. Mild - <50% stenosis. Moderate - 50-69% stenosis. Severe - 70-94% stenosis. Near occlusion - 95-99% stenosis. Occluded - 100% stenosis.
[2023-07-05 11:03] LABS: Specific Gravity > 1.300 (1.005-1.030); Sqamous Epithelial <5 /HPF (None Seen); Urine Bacteria None Seen /HPF (<20); Urine Bilirubin NEGATIVE (Negative); Urine Blood 3+ (Negative); Urine Clarity Clear (Clear); Urine Color Colorless (Yellow); Urine Culture Reflex Order NOT NEEDED; Urine Glucose NEGATIVE (Negative); Urine Ketones NEGATIVE (Negative); Urine Micro Reflex YN NO BILL MICROSCOPIC; Urine Nitrite NEGATIVE (Negative); Urine Protein NEGATIVE (Negative); Urine RBC 21-50 /HPF (None Seen); Urine Urobilinogen Normal (Normal); Urine WBC None Seen /HPF (<5); Urine pH 6.5 (5.0-7.0)
[2023-07-05 11:04] LABS: Specific Gravity > 1.030 (1.005-1.030)
--- NOTE | 2023-07-05 11:06 | RAD REPORT ---
EXAM DESCRIPTION: MRI - Brain Wo Cont - 07/05/2023 10:27 am CLINICAL HISTORY: Confused;Dizziness COMPARISON: Head CT and CT angiogram of the brain of the same day TECHNIQUE: Multiplanar multisequence MRI of the brain performed without IV contrast. FINDINGS: No evidence of acute infarct or other diffusion signal abnormality. No evidence of acute intracranial hemorrhage or abnormal extra-axial fluid collections. Mild diffuse parenchymal volume loss. Ventricular caliber otherwise within normal for age. Midline st ructures are unremarkable. Region of encephalomalacia along the right perirolandic region, with some cystic changes along the pa rietal sulci. Mild hemosiderin staining in this region. Underlying right centrum semiovale predominan tly patchy T2 hyperintensity, with linear extension along the posterior limb of internal capsule and cerebellar peduncle, suggesting Wallerian degeneration. Scattered subcortical and deep white matter T 2/FLAIR hyperintensities, nonspecific, but suggestive of chronic small vessel ischemic changes. No mass effect or midline shift. Major vascular flow voids are preserved. Mastoid air cells and paranasal sinuses are clear. IMPRESSION: No acute intracranial process. Region of encephalomalacia along the right perirolandic region, suggesting sequelae of remote ischemi a.
--- NOTE | 2023-07-05 11:14 | RAD REPORT ---
EXAM DESCRIPTION: RADChest Single View07/05/2023 10:31 am CLINICAL HISTORY: COUGH COMPARISON: Chest Single View dated 05/14/2022; Chest Single View dated 05/12/2022; Chest Single View dated 11/07/2021; Chest Single View dated 04/19/2021 TECHNIQUE: Portable AP view of the chest. FINDINGS: The lungs are clear. No pneumothorax or effusion. The cardiomediastinal contours are unre markable. IMPRESSION: No acute cardiopulmonary process.
[2023-07-05 21:46] VITALS: BP 175/115; TEMP 98.2; O2SAT 100
== END 2023-07-05 10:52 | disposition short-term general hospital (02) ==
LOC: ER 08:34
DX: I63.522 Cerebral infarction due to unspecified occlusion or stenosis of left anterior cerebral artery (principal); R29.700 NIHSS score 0; I10 Essential (primary) hypertension; Z86.73 Personal history of transient ischemic attack (TIA), and cerebral infarction without residual deficits
CPT/HCPCS: 85025; 81001; 80048; 36415; 81025; 84484; 70450; 70496; 70498; 71045; 70551; Q9967; 93005